=== PATIENT | female | born 1940 | race Caucasian/White ===

== ENCOUNTER 2016-10-09 19:44 | Day surgery (SDC) | payer MEDICAID, MEDICARE ==
[2016-10-09] VITALS (7 sets, daily range): BP systolic 103–133; BP diastolic 66–87
[~2016-10-09] VITALS: Ht 160 cm; Wt 105.3 kg
[~2016-10-09 19:44] MED LIST: ACET-2267 PO; ASP81TEC PO; ASPI-906 PO; ATEN50TA PO; ATENOLOL; ATOR10TA PO; ATOR80TA PO; ENAL2.5T PO; EZET10TA5; FERR-57 PO; Famotidine PO; HYDR-3729 PO; IBUP-30 PO; LEVO75TA57 PO; LVT.05T; METO25TA2 PO; OMG1KC PO; ONDA8TAB6 PO; OXB5T PO; PANT40TA2 PO; PNT40TEC PO; PRAS10TA6 PO; TOLTA4; TRM50T PO
[2016-10-09 19:57] LABS: BASOPHILS # (AUTO) 0.1 10^3/uL (0.0-0.1); BASOPHILS % (AUTO) 1 % (0-10); EOSINOPHILS # (AUTO) 0.2 10^3/uL (0.0-0.3); EOSINOPHILS % (AUTO) 2 % (0-10); LYMPHOCYTES % (AUTO) 39 % (12-44); MEAN CORPUSCULAR HEMOGLOBIN 25 PG (25-34); MEAN CORPUSCULAR HGB CONC 31 G/DL (32-36); MEAN CORPUSCULAR VOLUME 81 FL (80-99); MEAN PLATELET VOLUME 9.8 FL (7.4-10.4); MONOCYTES # (AUTO) 1.2 X 10^3 (0.0-1.0); MONOCYTES % (AUTO) 12 % (0-12); NEUTROPHILS # (AUTO) 4.8 X 10^3 (1.8-7.8); NEUTROPHILS % (AUTO) 46 % (42-75); PLATELET COUNT 409 10^3/uL (130-400); RED BLOOD COUNT 5.07 10^6/uL (4.35-5.85); RED CELL DISTRIBUTION WIDTH 19.6 % (10.0-14.5); WHITE BLOOD COUNT 10.3 10^3/uL (4.3-11.0)
[2016-10-09] MEDS: RX-NITROGLYCERIN 0.4 MG TAB BTL 25'S SL PRN ×2 (19:58→20:48)
[2016-10-09] MEDS ORDERED: ASPIRIN 81 MG CHEW (CHILDREN'S ASA) PO ONE (20:00)
[2016-10-09 20:13] LABS: PROTHROMBIN TIME PATIENT 12.5 SEC (12.2-14.7)
[2016-10-09 20:17] LABS: ALANINE AMINOTRANSFERASE 8 U/L (0-55); ALBUMIN 3.5 G/DL (3.2-4.5); AMYLASE 54 U/L (25-125); ANION GAP 8 MMOL/L (5-14); ASPARTATE AMINO TRANSFERASE 17 U/L (5-34); BILIRUBIN,TOTAL 0.3 MG/DL (0.1-1.0); BLOOD UREA NITROGEN 20 MG/DL (7-18); BUN/CREATININE RATIO 20; CALCIUM 9.3 MG/DL (8.5-10.1); CARBON DIOXIDE 30 MMOL/L (21-32); CHLORIDE 103 MMOL/L (98-107); CREATINE KINASE 45 U/L (29-168); CREATININE SERUM 0.99 MG/DL (0.60-1.30); GFR ESTIMATED 55; GLUCOSE 93 MG/DL (70-105); LIPASE 25 U/L (8-78); MAGNESIUM 2.1 MG/DL (1.8-2.4); POTASSIUM 4.8 MMOL/L (3.6-5.0); SODIUM 141 MMOL/L (135-145); TOTAL PROTEIN 6.9 G/DL (6.4-8.2)
[2016-10-09 20:23] LABS: TROPONIN I < 0.30 NG/ML (<0.30)
--- NOTE | 2016-10-09 20:24 | Diagnostic Imaging Report ---
INDICATION: Chest pain Portable chest 8:09 PM There is elevation of the left hemidiaphragm. Heart size and pulmonary vascularity are normal. Lungs clear. There are no effusions or pneumothoraces. IMPRESSION: Chronic elevation of the left hemidiaphragm. No acute abnormality seen. Dictated by: Dictated on workstation # [id number]
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
[2016-10-09] MEDS ORDERED: IOHEXOL 350 MG/ML 150 ML (OMNIPAQUE 350) VIAL IV ONE (21:00)
[2016-10-09] MEDS ORDERED: NS 100 ML (IVPB) BAG IV ONE (21:00)
--- NOTE | 2016-10-09 21:16 | Diagnostic Imaging Report ---
PROCEDURE: CT angiography of the chest with contrast. TECHNIQUE: Multiple contiguous axial images were obtained through the chest after uneventful bolus administration of intravenous contrast. Reconstructed CTA MIP acquisitions were also performed. INDICATION: Shortness of breath with chest and left shoulder pain There is elevation of the left hemidiaphragm causing crowding of the left hilar vascular structures. There is tortuosity of the aorta. There is some calcific atherosclerosis of the aorta but no aneurysm or dissection. There are no pulmonary emboli seen. There is no hilar or mediastinal lymphadenopathy. There is some atelectasis along the diaphragm at the left lung base. There is no effusion or pneumothorax. There is coronary artery calcific atherosclerosis. The spleen has a bilobed appearance. Pancreas appears normal. Liver appears normal. Gallbladder surgically absent. IMPRESSION: Elevated left hemidiaphragm. Atherosclerosis. No evidence for pulmonary embolism. Dictated by: Dictated on workstation # [id number]
[2016-10-09] MEDS ORDERED: NITROGLYCERIN SUBLINGUAL 0.4 MG TAB (NITROSTAT) SL PRN (22:45)
[2016-10-09] MEDS ORDERED: morphine INJ 4 MG/ML 1 ML (VIAL/SYRINGE) IV PRN (22:45)
[2016-10-09] MEDS ORDERED: CATHETER FLUSH 10 ML SYR IV PRN (22:45)
[2016-10-10] VITALS (21 sets, daily range): BP systolic 85–143; BP diastolic 55–90
[2016-10-10 02:19] LABS: BASOPHILS % (AUTO) 0 % (0-10); EOSINOPHILS # (AUTO) 0.2 10^3/uL (0.0-0.3); EOSINOPHILS % (AUTO) 2 % (0-10); LYMPHOCYTES # (AUTO) 3.4 X 10^3 (1.0-4.0); LYMPHOCYTES % (AUTO) 37 % (12-44); MEAN CORPUSCULAR HEMOGLOBIN 25 PG (25-34); MEAN CORPUSCULAR HGB CONC 31 G/DL (32-36); MEAN CORPUSCULAR VOLUME 82 FL (80-99); MEAN PLATELET VOLUME 9.9 FL (7.4-10.4); MONOCYTES # (AUTO) 1.1 X 10^3 (0.0-1.0); MONOCYTES % (AUTO) 12 % (0-12); NEUTROPHILS # (AUTO) 4.4 X 10^3 (1.8-7.8); NEUTROPHILS % (AUTO) 48 % (42-75); PLATELET COUNT 369 10^3/uL (130-400); RED BLOOD COUNT 4.56 10^6/uL (4.35-5.85); RED CELL DISTRIBUTION WIDTH 19.3 % (10.0-14.5); WHITE BLOOD COUNT 9.1 10^3/uL (4.3-11.0)
[2016-10-10 02:41] LABS: ALANINE AMINOTRANSFERASE 7 U/L (0-55); ALBUMIN 3.2 G/DL (3.2-4.5); ANION GAP 10 MMOL/L (5-14); ASPARTATE AMINO TRANSFERASE 14 U/L (5-34); BILIRUBIN,TOTAL 0.2 MG/DL (0.1-1.0); BLOOD UREA NITROGEN 20 MG/DL (7-18); BUN/CREATININE RATIO 23; CALCIUM 8.5 MG/DL (8.5-10.1); CARBON DIOXIDE 25 MMOL/L (21-32); CHLORIDE 105 MMOL/L (98-107); CHOLESTEROL 258 MG/DL (< 200); CREATININE SERUM 0.88 MG/DL (0.60-1.30); DIRECT LDL 176 MG/DL (1-129); GFR ESTIMATED > 60; GLUCOSE 97 MG/DL (70-105); POTASSIUM 4.4 MMOL/L (3.6-5.0); SODIUM 140 MMOL/L (135-145); TOTAL PROTEIN 6.1 G/DL (6.4-8.2); TRIGLYCERIDES 249 MG/DL (<150); VLDL CHOLESTEROL 50 MG/DL (5-40)
[2016-10-10] MEDS: CATHETER FLUSH 10 ML SYR IV SCH ×3 (05:36→22:00)
[2016-10-10] MEDS: ASPIRIN E.C. 325 MG (ECOTRIN) TABLET PO SCH (08:38)
--- NOTE | 2016-10-10 08:46 | Consultation-Cardiology ---
HPI-Cardiology Cardiology Consultation Date of Consultation 10/10/16 Date of Admission Indication: Chest pain HPI Patient is a 75 y/o female with history of CAD with ID in 2014, HTN, HLP. Presented to the ER with complaints of CP. Reports has been having intermitted chest and left shoulder pain for the past week. Associated dyspnea and dizziness. States CP was relieved by SL nitro in the ER. Denies any active CP at this time. Patient was seen and evaluated with Sonya, 75 years old lady with history of hypertension, hyperlipidemia, obesity, presented with acute chest pain, resembling angina previously had multiple stents in the past. She is having active symptoms. We discussed the management plan, patient expressed that her last cardiac catheterization was done in spite of normal stress test mentioned up with 2 stents. Her symptoms are suggestive of angina. Home Medications & Allergies Allergies: Coded Allergies: Penicillins (Verified Allergy, Unknown, HAS HAD ANCEF W/O PROBLEMS, ) procaine (Verified Allergy, Unknown, 01/04/07) Home Medication List Reviewed: Yes SFW-Edudys-Tvjrci Hx Patient Social History Marital Status: single Alcohol Use: Denies Use Recreational Drug Use: No Smoking Status: Former Smoker (SMOKED X 43 YEARS, QUIT A FEW YEARS AGO) Type Used: Cigarettes Recent Foreign Travel: No Recent Infectious Disease Expo: No Recent Hopitalizations: No Physical Abuse Screen: No Sexual Abuse: No Immunizations Up To Date Date of Pneumonia Vaccine: Apr 16, 2013 Past Medical History CAD, HTN, HLP, hypothyroidism Family Medical History Significant Family History: Heart Disease, Hypertension Family History: Cancer 03 MOTHER, Onset:40's - 50 Family history: Thyroid disorder 03 MOTHER 09 BROTHER Hearing loss 09 BROTHER Visual impairment 09 BROTHER No Family History of: Abdominal aortic aneurysm Constitutional: No malaise, No weakness EENTM: No blurred vision, No double vision Respiratory: No cough, No dyspnea on exertion, short of breath Cardiovascular: chest pain, No edema, No palpitations Gastrointestinal: No abdominal pain, No constipation Genitourinary: No frequency, No hematuria Musculoskeletal: No back pain Skin: No lesions, No rash Psychiatric/Neurological: Denies Anxiety, Denies Depressed, Denies Headache, Denies Numbness Reviewed Test Results Reviewed Test Results Lab Laboratory Tests 10/09/16 19:50: White Blood Count 10.3, Red Blood Count 5.07, Hemoglobin 12.7, Hematocrit 41, Mean Corpuscular Volume 81, Mean Corpuscular Hemoglobin 25, Mean Corpuscular Hemoglobin Concent 31L, Red Cell Distribution Width 19.6H, Platelet Count 409H, Mean Platelet Volume 9.8, Neutrophils (%) (Auto) 46, Lymphocytes (%) (Auto) 39, Monocytes (%) (Auto) 12, Eosinophils (%) (Auto) 2, Basophils (%) (Auto) 1, Neutrophils # (Auto) 4.8, Lymphocytes # (Auto) 4.0, Monocytes # (Auto) 1.2H, Eosinophils # (Auto) 0.2, Basophils # (Auto) 0.1, Prothrombin Time 12.5, INR Comment 1.0, Activated Partial Thromboplast Time 26, Sodium Level 141, Potassium Level 4.8, Chloride Level 103, Carbon Dioxide Level 30, Anion Gap 8, Blood Urea Nitrogen 20H, Creatinine 0.99, Estimat Glomerular Filtration Rate 55 , BUN/Creatinine Ratio 20, Glucose Level 93, Calcium Level 9.3, Magnesium Level 2.1, Total Bilirubin 0.3, Aspartate Amino Transf (AST/SGOT) 17, Alanine Aminotransferase (ALT/SGPT) 8, Alkaline Phosphatase 57, Total Creatine Kinase 45 , Creatine Kinase MB 1.4, Troponin I < 0.30, B-Type Natriuretic Peptide 86.5, Total Protein 6.9, Albumin 3.5, Amylase Level 54, Lipase 25 10/10/16 01:55: White Blood Count 9.1, Red Blood Count 4.56, Hemoglobin 11.4L, Hematocrit 37, Mean Corpuscular Volume 82, Mean Corpuscular Hemoglobin 25, Mean Corpuscular Hemoglobin Concent 31L, Red Cell Distribution Width 19.3H, Platelet Count 369, Mean Platelet Volume 9.9, Neutrophils (%) (Auto) 48, Lymphocytes (%) (Auto) 37, Monocytes (%) (Auto) 12, Eosinophils (%) (Auto) 2, Basophils (%) (Auto) 0, Neutrophils # (Auto) 4.4, Lymphocytes # (Auto) 3.4, Monocytes # (Auto) 1.1H, Eosinophils # (Auto) 0.2, Basophils # (Auto) 0.0, Sodium Level 140, Potassium Level 4.4, Chloride Level 105, Carbon Dioxide Level 25, Anion Gap 10, Blood Urea Nitrogen 20H, Creatinine 0.88, Estimat Glomerular Filtration Rate > 60, BUN /Creatinine Ratio 23, Glucose Level 97, Calcium Level 8.5, Total Bilirubin 0.2, Aspartate Amino Transf (AST/SGOT) 14, Alanine Aminotransferase (ALT/SGPT) 7, Alkaline Phosphatase 52, Troponin I < 0.30, Total Protein 6.1L, Albumin 3.2, Myoglobin 40.0, Triglycerides Level 249H, Cholesterol Level 258H, LDL Cholesterol Direct 176H, VLDL Cholesterol 50H, HDL Cholesterol 41 ECG Impression ECG Initial ECG Rhythm: Normal Sinus Physical Exam Vital Signs Vital Sign - Last 12Hours 10/09/16 19:53 Temp 98.4 Pulse 74 Resp 21 B/P (MAP) 144/88 Pulse Ox 89 Capillary Refill : Less Than 3 Seconds General Appearance: No Apparent Distress, WD/WN HEENT: PERRL/EOMI Neck: Non Tender, Supple Respiratory: Chest Non Tender, Lungs Clear Cardiovascular: Regular Rate, Rhythm, No Edema, No Gallop, No Murmur, Normal Peripheral Pulses Gastrointestinal: Non Tender, Soft Rectal: Deferred Back: No CVA Tenderness Extremity: No Pedal Edema Neurologic/Psychiatric: Alert, Oriented x3, 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 Cardiac enzymes are negative, no acute ST changes on EKG. Patient has extensive cardiac history with risk factors for progression of CAD. Planning for repeat cardiac catheterization today. Will keep NPO, start IV fluids. Coronary artery disease- status post acute myocardial infarction in 2013 with total occlusion of the right coronary artery, underwent complex intervention with stent deployment to the right coronary artery using 3.5x30 mm integrity and 3.018 mm bare-metal stent without complication. Had multiple clots in the distal right coronary artery, had another cardiac catheterization in December 2014 resulted in deployment of another stent 3.012 mm integrity bare-metal stent with good result. Patient had [id number] disease in the LAD and circumflex artery. Has been maintained on Effient and ASA. Planning for repeat LHC. Congestive heart failure, acute left ventricular systolic dysfunction due to her myocardial infarction, most recent EF 45 percent per 2-D echo done January 2015. Continue to monitor Ventral hernia-status post repair by Dr. Sun April 2015. Hypertension, restart medications and continue to monitor BP. Hyperlipidemia, poorly controlled. LDL in 176. Patient has refused lipid medications in the past. Will need to start statin therapy if agreeable. History of colon cancer, status post right hemicolectomy done by Dr. Alas. patient has been monitored and followed by Dr. Henriquez Obesity, patient was instructed on weight loss. Bilateral nonobstructive carotid artery stenosis per most recent carotid duplex October 2015. Continue to monitor. Thank you for allowing us to participate in the management of Ms. Ralph. This is Sonya Frausto PA-C as a scribe for Dr. Posey. Patient was seen and evaluated with Sonya, 75 years old lady with history of hypertension, hyperlipidemia, obesity, presented with acute chest pain, resembling angina previously had multiple stents in the past. She is having active symptoms. We discussed the management plan, patient expressed that her last cardiac catheterization was done in spite of normal stress test mentioned up with 2 stents. Her symptoms are suggestive of angina. On examination her lungs were clear to auscultation bilateral, heart is regular rate and rhythm, patient had extensive history with coronary artery disease as described above, I will proceed with cardiac catheterization possible PTCA.I reviewed the current note and agree with the scribe, I did minor modification and used Italic Font Clinical Quality Measures AMI/AHF: ASA po Prior to arrival: No DVT/VTE Risk/Contraindication: Risk Factor Score Per Nursin RFS Level Per Nursing on Admit: 3=High SONYA BLAKE Oct 10, 2016 08:46 PETROS POSEY MD Oct 10, 2016 11:57
[2016-10-10] MEDS ORDERED: NS IV 1000 ML 1,000 ML ONE (08:54)
[2016-10-10] MEDS: NS IV 1000 ML 1,000 ML IV SCH ×2 (09:08→16:06)
[2016-10-10] MEDS ORDERED: PRAS10TA6 PO (09:50)
[2016-10-10] MEDS ORDERED: METO-333 PO (09:50)
[2016-10-10] MEDS ORDERED: LEVO100T7 PO (09:50)
[2016-10-10] MEDS ORDERED: OXYB5TAB9 PO (09:50)
[2016-10-10] MEDS ORDERED: IBUP-1780 PO (09:58)
[2016-10-10] MEDS ORDERED: NS IV 1000 ML 0 ML ONE (10:46)
[2016-10-10] MEDS ORDERED: LIDOCAINE 1% INJ 20 ML (XYLOCAINE) VIAL ONE (10:46)
[2016-10-10] MEDS ORDERED: HEParin (CATH LAB) 2,000 ML IV ONE (10:46)
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
[2016-10-10] MEDS ORDERED: IBUPROFEN 800 MG (MOTRIN) TAB PO PRN (11:45)
[2016-10-10] MEDS ORDERED: MIDAZOLAM 5 MG/5 ML (VERSED) VIAL ONE (11:48)
[2016-10-10] MEDS ORDERED: fentaNYL INJECTION 100 MCG/2 ML AMP ONE (11:48)
--- NOTE | 2016-10-10 11:58 | Cardiac Procedure Note-CS/ASA ---
Pre-Procedure Note Pre-Op Procedure Note H&P Reviewed The H&P was reviewed, patient examined and no changes noted. Date H&P Reviewed: Oct 10, 2016 Time H&P Reviewed: :57 Conscious Sedation Pre-Proced Time Reviewed: :57 ASA Class: 3 Airway Mallampati Classification: (ione appropriate class) I. II. III, IV Lungs Heart ASA score ASA 1: a normal healthy patient ASA 2: a patient with a mild systemic disease (mid diabetes, controlled hypertension, obesity x ASA 3: a patient with a severe systemic disease that limits activity (angina , COPD, prior Myocardial infarction) ASA 4: a patient with an incapacitating disease that is a constant threat to life (CHF, renal failure) ASA 5: a moribund patient not expected to survive 24 hrs. (ruptured aneurysm) ASA 6: a declared brain patient whose organs are being harvested. For emergent operations, add the letter E after the classification Grade 3 Sedation Plan: Analgesia, Amnesia, Plan communicated to team members, Discussed options with patient/fam, Discussed risks with patient/fam Note The patient is an appropriate candidate to undergo the planned procedure, sedation, and anesthesia. The patient immediately re-assessed prior to indication. PETROS ANTHONY MD Oct 10, 2016 11:58
[2016-10-10] MEDS ORDERED: HEParin 1000 UNIT/ML (10ML VIAL) FOR BOLUS ONE (12:33)
[2016-10-10] MEDS ORDERED: ADENOSINE 3 MG/1 ML (ADENOSCAN) 30ML VIAL IV ONE (12:35)
[2016-10-10] MEDS ORDERED: NITROGLYCERIN DRIP 25 MG/D5W 250 ML IV ONE (12:40)
[2016-10-10] MEDS ORDERED: NS IV 1000 ML 1,000 ML IV SCH (12:50)
[2016-10-10] MEDS ORDERED: ATOR10TA PO (12:55)
[2016-10-10] MEDS ORDERED: ASPI-983 PO (12:55)
--- NOTE | 2016-10-10 12:56 | Discharge Inst-Post CATH ---
Discharge Inst-CATH Post Cardiac Cath D/C Inst Follow Up/Plan Appointment with Dr Posey's office in 2-[address] Brower CARDIAC CATH DISCHARGE INSTRUCTIONS *Hold Metformin for 48 hours post heart cath. ACTIVITY * Go Home directly and rest. * Limit activity of the leg (or wrist if it was used) for 7 days including aerobics, swimming, jogging, bicycling, etc. * Restrict stair-climbing for 7 days if possible, if not, climb up with your non -cath leg, then bring together on the same step. * Avoid lifting, pushing, pulling or excessive movement of the affected extremity for 7 days. * Customary sexual activity may be resumed after 2 days-use caution not to use a position that strains or causes pain to the affected extremity. * No driving for 24 hours. * NO SMOKING. * Avoid straining for bowel movements for 7 days. * Gentle walking on level ground is allowed. * Returning to work will depend on the type of procedure and the results. Your doctor will discuss this with you. CALL YOUR DOCTOR FOR ANY OF THE FOLLOWING: *If bleeding from the puncture site occurs- Apply gentle pressure to site with clean cloth and call your doctor or EMS. * If a knot or lump forms under the skin, increases in size, or causes pain. * If bruising appears to be worsening or moving further down your leg instead of disappearing. * Temperature above 101 F. CARE OF YOUR GROIN INCISION; * Bruising or purple discoloration of the skin near the puncture site is common. * You may shower only, no bathtub bathing for 5 days. Be careful to avoid slipping as your leg may feel stiff. * If a closure device was used on your femoral artery, please see the attached guide regarding care of the device and your leg. * REMOVE the dressing from your groin the next day after your procedure in the shower. CARE OF YOUR WRIST INCISION; * Bruising or purple discoloration of the skin near the puncture site is common. * You may shower. * DO NOT submerge wrist. * Remove dressing in 24 hours. PETROS POSEY MD Oct 10, 2016 12:56
[2016-10-10] MEDS ORDERED: PATIENT MAY USE OWN MEDS, ALL PO SCH (13:00)
[2016-10-10] MEDS ORDERED: OMEG-35 PO (13:48)
--- NOTE | 2016-10-10 14:14 | DISCHARGE SUMMARY ---
PROCEDURE PHYSICIAN: PETROS ANTHONY DATE OF PROCEDURE: 10/10/2016 REFERRING PHYSICIAN: Dr. Suri Napier. BRIEF HISTORY: Mrs. Ralph is a 75-year-old lady with history of coronary artery disease, hypertension, hyperlipidemia in addition to obesity, admitted with acute chest pain. The patient has extensive history. Planning to proceed with cardiac catheterization, possible PTCA. PROCEDURE NOTE: After explaining the procedure to the patient, all pros and cons were explained. All questions were answered. The patient signed a consent and then she was placed on the cardiac catheterization laboratory. The right groin was prepped in a sterile fashion. Local anesthesia applied to the right groin. A 6-Bhutanese sheath was placed in the right femoral artery. Combination of right and left Waldo catheter were used to access the right and left coronary system. Multiple views were obtained. Pigtail catheter advanced to the left ventricular cavity. Pressure was measured. No left no left ventriculogram was done. Pullback LV to aorta was done. At that point, there was a borderline lesion in the right coronary artery. I decided to proceed with FFR evaluation. The patient was given 3000 units of heparin. FR guide was advanced to the right coronary artery. FFR wire was advanced through the lesion and parked distally. Baseline FFR was 0.96. The patient was started adenosine drip. After 3 minutes her FFR was 0.84. FFR wire was removed. The patient was given intracoronary nitroglycerin. Angiogram showed no complication. At the end of the procedure, sheath was removed. Mynx device deployed. Hemostasis achieved. Total contrast used 87 mL. Total radiation 582 mGy. FINDINGS: HEMODYNAMICS: LV pressure 122/9, end-diastolic pressure of 9, aortic pressure 128/64, mean of 91. ANATOMY: 1. LEFT MAIN CORONARY ARTERY: The left main coronary artery is bifurcating to left anterior descending and left circumflex artery with no obstructive disease. 2. LEFT ANTERIOR DESCENDING ARTERY: The left anterior descending artery is moderate in size with mild disease distally. No significant obstructive disease. 3. RIGHT CORONARY ARTERY: The right coronary artery is dominant artery. Haziness in the midright coronary artery with 50% stenosis. FFR after adenosine was 0.84. 4. LEFT CIRCUMFLEX ARTERY: The left circumflex artery is moderate in size with mild disease. No significant obstructive disease. 5. Normal left ventricular, end-diastolic pressure. CONCLUSION: 1. Patent stents in the LAD with mild disease distally, nonobstructive disease. 2. 50% in-stent restenosis in the midright coronary artery with FFR of 0.84. Medical therapy is recommended. 3. Normal left ventricular, end-diastolic pressure. DISCUSSION AND RECOMMENDATION: I recommend maximizing medical therapy. I started the patient on aspirin instead of Effient and Lipitor but the patient expressed that she has been allergic to Lipitor and she is unable to tolerate it. She is allergic to penicillin and procaine. I will use fish oil and educate about diet and we will monitor as an outpatient. FINAL DIAGNOSES: 1. Chest pain, nonspecific etiology. 2. Coronary artery disease. 3. Hypertension. 4. Hyperlipidemia. DISCHARGE INSTRUCTIONS: The patient is scheduled to see Dr. Brower for about possible underlying sleep apnea. Job ID: [id number] Dictated Date: 10/10/2016 13:07:42 Textile Bag Sewer Date: 10/10/2016 14:12:22/kyle
[2016-10-10] MEDS ORDERED: ACETAMINOPHEN 325 MG TABLET/CAPLET (TYLENOL) ONE (18:25)
[2016-10-10] MEDS: OXYBUTYNIN (DITROPAN) 5 MG TAB PO SCH (18:32)
[2016-10-10] MEDS: meTOprolol TARTRATE 25 MG (LOPRESSOR) TABLET PO SCH (19:34)
[2016-10-11] VITALS: BP 119/71
[2016-10-11 03:39] LABS: MEAN PLATELET VOLUME 10.1 FL (7.4-10.4); RED BLOOD COUNT 4.49 10^6/uL (4.35-5.85); RED CELL DISTRIBUTION WIDTH 19.5 % (10.0-14.5); WHITE BLOOD COUNT 7.8 10^3/uL (4.3-11.0)
[2016-10-11 04:00] VITALS: BP 114/64
[2016-10-11] MEDS: CATHETER FLUSH 10 ML SYR IV SCH (06:00)
[2016-10-11] MEDS: NS IV 1000 ML 1,000 ML IV SCH (06:32)
--- NOTE | 2016-10-11 07:57 | Cardiology Progress Note ---
Subjective Subjective/Events-last exam patient is laying down in bed, feeling well. Denied any chest or shortness of breath, groin is healing well. Review of Systems General: No Chills, No Night Sweats, No Fatigue, No Malaise, No Appetite, No Other HEENT: No Head Aches, No Visual Changes, No Eye Pain, No Ear Pain, No Dysphasia , No Sinus Congestion, No Post Nasal Drip, No Sore Throat, No Other Pulmonary: No Dyspnea, No Cough, No Pleuritic Chest Pain, No Other Cardiovascular: No: Chest Pain, Edema, Lt Headedness, Orthopnea, Other, Palpitations, Paroxysmal Noc. Dyspnea Objective-Cardiology Exam Last Set of Vital Signs Vital Signs 10/10/16 10/10/16 10/11/16 08:45 14:49 04:00 Temp 96.7 Pulse 58 Resp 16 B/P (MAP) 114/64 Pulse Ox 98 O2 Delivery Nasal Cannula O2 Flow Rate 2.00 Capillary Refill : Less Than 3 Seconds I&O Intake and Output 10/11/16 00:00 Intake Total 1960 ml Output Total 1200 ml Balance 760 ml Intake Oral 960 ml IV Total 1000 ml Output Urine Total 1200 ml # Voids 5 General: Alert, Oriented X3, Cooperative HEENT: Atraumatic, PERRLA Neck: Supple, No JVD, No Thyromegaly Lungs: Clear to Auscultation, Normal Air Movement Heart: Regular Rate, Normal S1, Normal S2, No Murmurs Abdomen: Normal Bowel Sounds, Soft, No Tenderness, No Hepatosplenomegaly, No Masses Extremities: No Clubbing, No Cyanosis, No Edema, Normal Pulses, No Tenderness/ Swelling Skin: No Rashes, No Breakdown, No Significant Lesion Neuro: Normal Gait, Normal Speech, Strength at 5/5 X4 Ext, Normal Tone, Sensation Intact Psych/Mental Status: Mental Status NL, Mood NL Results Lab Laboratory Tests 10/11/16 03:17 A/P-Cardiology Admission Diagnosis CP CAD HTN HLP Assessment/Plan CP, resembling angina. Cardiac enzymes are negative, no acute ST changes on EKG. Patient has extensive cardiac history with risk factors for progression of CAD, cardiac catheterization showed yyaa-ba-eaubowyt disease nonobstructive disease. Coronary artery disease- status post acute myocardial infarction in 2013 with total occlusion of the right coronary artery, underwent complex intervention with stent deployment to the right coronary artery using 3.5x30 mm integrity and 3.018 mm bare-metal stent without complication. Had multiple clots in the distal right coronary artery, had another cardiac catheterization in December 2014 resulted in deployment of another stent 3.012 mm integrity bare-metal stent with good result. Patient had trie-nq-efahwkoe disease in the LAD and circumflex artery. Has been maintained on Effient and ASA. cardiac catheterization showed 50 percent in-stent restenosis in the mid LAD, nonobstructive disease and FFR 0.84 after adenosine injection. Medical therapy is recommended. Right groin hematoma, better at this time, some bruising on the groin. H&H are stable. Okay for discharge. Congestive heart failure, acute left ventricular systolic dysfunction due to her myocardial infarction, most recent EF 45 percent per 2-D echo done January 2015. Continue to monitor Ventral hernia-status post repair by Dr. Sun April 2015. Hypertension, restart medications and continue to monitor BP. Hyperlipidemia, poorly controlled. LDL in 176. Patient has refused lipid medications in the past. patient is reporting allergy to statin, starting on fish oil tablets. Educated on weight loss. History of colon cancer, status post right hemicolectomy done by Dr. Alas. patient has been monitored and followed by Dr. Florence Paulino, patient was instructed on weight loss. Bilateral nonobstructive carotid artery stenosis per most recent carotid duplex October 2015. Continue to monitor. Clinical Quality Measures AMI/AHF: ASA po Prior to arrival: No DVT/VTE Risk/Contraindication: Risk Factor Score Per Nursin RFS Level Per Nursing on Admit: 3=High PETROS ANTHONY MD Oct 11, 2016 07:57
[2016-10-11] MEDS ORDERED: PRASUGREL 10 MG (EFFIENT) TABLET PO SCH (09:00)
[2016-10-11] MEDS ORDERED: LEVOTHYROXINE 100 MCG (LEVOTHROID) TAB PO SCH (09:00)
[2016-10-11 09:33] VITALS: BP 112/51
[2016-10-11] MEDS: meTOprolol TARTRATE 25 MG (LOPRESSOR) TABLET PO SCH (09:38)
[2016-10-11] MEDS: ASPIRIN E.C. 325 MG (ECOTRIN) TABLET PO SCH (09:59)
[2016-10-11] MEDS: OXYBUTYNIN (DITROPAN) 5 MG TAB PO SCH (09:59)
[2016-10-11 10:25] VITALS: BP 112/51
--- NOTE | 2016-10-11 10:51 | Discharge Summary-Hospitalist ---
Diagnosis/Chief Complaint Date of Admission Oct 09, 2016 at 21:00 Date of Discharge Discharge Date: Oct 11, 2016 Discharge Time: 0800 Admission Diagnosis Assessment: Chest pain suspicious for unstable angina in and known coronary artery disease patient status post stents 2 Hypothyroidism Chronic angina Obesity Hypoxemia likely due to underlying obstructive sleep apnea Discharge Diagnosis Assessment: Chest pain suspicious for unstable angina in and known coronary artery disease patient status post stents 2 but cardiac cath was negative for any lesion intervention Hypothyroidism Chronic angina Obesity Hypoxemia likely due to underlying obstructive sleep apnea noted readings last night so will arrange for EMILIE evaluation with Dr Brower at [place] Plan: Reconcile home meds when put in Home O2 eval EMILIE evaluation as an outpatient Reason Hospital Visit/Course CC: Chest pain Chart Review: Dr. 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 Pt has stents in the past. Patient Interview: Pt states she will receive another stent today. Pt states she had a PR and two stents placed in 05/21, Pt had another stent placed in 12/20. Pt states her great-grandchildren live with her. 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 Physical exam was stable. Pt denies using home O2 or CPAP. Pt states she would like coffee after her cath. Scribed by Gianluca Shen under the direct supervision of Dr. Golden. Note form 10/11/16 shoe parts caser: Pt will have sleep study with Dr. Brower. Pt will be DC today. SW Review: Pt needs to have sleep study done. Pt has EMILIE. Patient Interview: Pt states she is doing well currently. Pt was told about having a sleep study with Dr. Brower. Pt states her brother has EMILIE. Pt states she didn't do much sleeping while working for 31 years and she is still on the same sleep schedule. Pt states she would like to go home. Scribed by Gianluca Shen under the direct supervision of Dr. Golden. AFVSS, Pleasant, O x 3 up in chair ready to go home. Discharge Summary Discharge Physical Examination Allergies: Coded Allergies: Penicillins (Verified Allergy, Unknown, HAS HAD ANCEF W/O PROBLEMS, ) atorvastatin (Verified Allergy, Unknown, 10/10/16) procaine (Verified Allergy, Unknown, 01/04/07) Vitals & I&Os Vital Signs Date Time Temp Pulse Resp B/P (MAP) Pulse Ox O2 Delivery O2 Flow Rate FiO2 10/11/16 10:25 73 16 112/51 96 10/11/16 09:33 96.9 Room Air 10/11/16 04:00 2.00 Hospital Course Labs (last 24 hrs) Laboratory Tests 10/11/16 03:17: White Blood Count 7.8, Red Blood Count 4.49, Hemoglobin 11.2L, Hematocrit 37, Mean Corpuscular Volume 83, Mean Corpuscular Hemoglobin 25, Mean Corpuscular Hemoglobin Concent 30L, Red Cell Distribution Width 19.5H, Platelet Count 323, Mean Platelet Volume 10.1 Pending Labs Discharge Home Medications: Active Scripts Active Fish Oil 1,000 mg Softgel ([place]-3/Dha/Epa/Fish Oil) 1 Each Capsule 1 Each PO TID 30 Days Aspirin EC (Aspirin) 81 Mg Tablet.dr 81 Mg PO DAILY Reported Ibuprofen 800 Mg Tablet 800 Mg PO Q8H PRN Levothyroxine Sodium 100 Mcg Tablet 100 Mcg PO DAILY Oxybutynin Chloride 5 Mg Tablet 10 Mg PO 0800,1600 TAKES 2 (5 MG) TABLETS Metoprolol Tartrate 25 Mg Tablet 25 Mg PO 0800,1600 Instructions to patient/family Please see electonic discharge instructions given to patient. Clinical Quality Measures AMI/AHF: ASA po Prior to arrival: No DVT/VTE Risk/Contraindication: Risk Factor Score Per Nursin RFS Level Per Nursing on Admit: 3=High EVAN GOLDEN DO Oct 11, 2016 10:51
--- OUTSIDE RECORDS SUMMARY | 2016-11-11 15:22 | XMS REPORT ---
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
--- OUTSIDE RECORDS SUMMARY | 2016-11-11 15:23 | XMS REPORT ---
Author Author ZAYDA ESPITIA [facility] [employer] Address Unknown Phone Unavailable Care Team Providers Care Process Chemist Name Role Phone ZAYDA ESPITIA CP Unavailable Allergies, Adverse Reactions, Alerts Substance Reaction Event Type Penicillamine rash Drug Allergy Novocain rash Drug Allergy Problems Problem Type Condition Code Onset Dates Condition Status Assessment Essential hypertension I10 Active Assessment Acquired hypothyroidism E03.9 Active Problem Colon polyp K63.5 Mar 08, 2015 Active Problem Abnormal findings on esophagogastroduodenoscopy (EGD) 796.4 Mar Active Problem CAD (coronary artery disease) 414.00 Active Assessment Other specified postprocedural states Z98.89 Active Assessment Personal history of other diseases of the digestive system Z87.19 Active Problem 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 Problem Essential hypertension, benign 401.1 Active Medications Medication Code System Code Instructions Start Date End Date Status Dosage levothyroxine NDC 0 75 mcg Jul 22, 2014 1 tablet by Oral route 1 time per day Needs an appt for further refills Oxybutynin Chloride [facility] [address]-39 5 mg Aug 16, 2011 1 tablet by Oral route 4 times per day Metoprolol Tartrate [facility] [address]-92 25 mg Jul 22, 2014 1 Tablet by Oral route 2 times per day Aspirin [facility] [address]-77 81 mg Aug 03, 2013 1 Tablet by Oral route 1 time per day Effient [facility] [address]-32 10 mg Jul 22, 2014 1 Tablet by Oral route 1 time per day Procedures Procedure Coding System Code Date VENIPUNCT, ROUTINE* CPT-4 49658 May 19, 2015 [facility] VISIT ESTABLISHED PATIENT CPT-4 G0467 May 19, 2015 LAB NOT BILLED BY [facility] CPT-4 NOBLL May 19, 2015 Office Visit, Est Pt., Level 3 CPT-4 94458 May 19, 2015 Vital Signs Date/Time: May 19, 2015 Temperature 97.6 F Weight 222.6 lbs Height 63.5 in BMI 38.81 Index Blood Pressure Diastolic 76 mmHg Blood Pressure Systolic 120 mmHg Cardiac Monitoring Heart Rate 68 bpm Results Name Result Date Reference Range Unit Abnormality Flag ROUTINE VENIPUNCTURE TSH ----TSH 4.320 [id number] 0.450-4.500 uIU/mL Summary Purpose [employer] Submission
--- OUTSIDE RECORDS SUMMARY | 2016-11-11 15:23 | XMS REPORT ---
Author Author ZAYDA ESPITIA Organization [employer] Address Unknown Phone Unavailable Care Team Providers Care Credit Card Analyst Name Role Phone ZAYDA ESPITIA CP Unavailable [...] Start Date End Date Status Dosage Ultram [facility] [address]-76 50 MG Jul 22, 2014 1 tablet by Oral route every 8 hours PRN pain Results No Known Results Summary Purpose [employer] Submission
--- OUTSIDE RECORDS SUMMARY | 2016-11-11 15:23 | XMS REPORT ---
Author Author ZAYDA ESPITIA Organization [employer] Address Unknown Phone Unavailable Care Team Providers Care Gel Coater Name Role Phone ZAYDA ESPITIA CP Unavailable Allergies No Known Allergies Problems Problem Type Condition Code Onset Dates Condition Status Problem Essential hypertension, benign 401.1 Active Problem Hypothyroidism, unspecified type E03.9 Active Problem Hyperlipidemia, unspecified hyperlipidemia type E78.5 Active Problem Coronary artery disease involving [place] coronary artery of [place] heart without angina pectoris I25.10 Active Problem Abnormal findings on esophagogastroduodenoscopy (EGD) 796.4 Mar Active Problem 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
--- OUTSIDE RECORDS SUMMARY | 2016-11-11 15:23 | XMS REPORT ---
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
--- OUTSIDE RECORDS SUMMARY | 2016-11-11 15:23 | XMS REPORT | Continuity of Care Document ---
Author Author [facility] Address Unknown Phone Unavailable Allergies Active Description Code Type Severity Reaction Onset Reported/Identified Relationship to Patient Clinical Status Yes Penicillins Drug Allergy 08/10/2008 Yes Penicillins Drug Allergy N/A N/A 08/10/2008 Yes Penicillins [id number] Drug Allergy Unknown N/A 04/18/2015 Yes procaine [id number] Drug Allergy Unknown N/A 04/18/2015 Yes Penicillins [id number] Drug Allergy Unknown HAS HAD ANCEF W 05/04/2015 Yes atorvastatin [id number] Drug Allergy Unknown N/A 10/10/2016 Medications Problems Date Dx Coded Attending Type Code Diagnosis Diagnosed By 08/10/2008 NIK BALLARD MD 244.9 HYPOTHYROIDISM 08/10/2008 NIK BALLARD MD 278.01 OBESITY MORBID 08/10/2008 NIK BALLARD MD 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 08/10/2008 NIK BALLARD MD 465.9 ACUTE UPPER RESPIRATORY INFECTIONS OF UNSPECIFIED SITE 08/10/2008 NIK BALLARD MD 719.40 joint pain, localized 08/10/2008 NIK BALLARD MD 244.9 HYPOTHYROIDISM 08/10/2008 NIK BALLARD MD 278.01 OBESITY MORBID 08/10/2008 NIK BALLARD MD 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 08/10/2008 NIK BALLARD MD 465.9 ACUTE UPPER RESPIRATORY INFECTIONS OF UNSPECIFIED SITE 08/10/2008 NIK BALLARD MD 719.40 joint pain, localized 08/10/2008 NIK BALLARD MD 244.9 HYPOTHYROIDISM 08/10/2008 NIK BALLARD MD 278.01 OBESITY MORBID 08/10/2008 NIK BALLARD MD 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 08/10/2008 NIK BALLARD MD 465.9 ACUTE UPPER RESPIRATORY INFECTIONS OF UNSPECIFIED SITE 08/10/2008 NIK BALLARD MD 719.40 joint pain, localized 08/10/2008 NUP[employer] SHIPPING [employer] RECEIVING CLERK, ZAYDA S 244.9 HYPOTHYROIDISM 08/10/2008 NUPUR SHIPPING AND RECEIVING CLERK, ZAYDA S 278.01 OBESITY MORBID 08/10/2008 NUPUR SHIPPING AND RECEIVING CLERK, ZAYDA S 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 08/10/2008 NUPUR SHIPPING AND RECEIVING CLERK, ZAYDA S 465.9 ACUTE UPPER RESPIRATORY INFECTIONS OF UNSPECIFIED SITE 08/10/2008 NUPUR CARVER, ZAYDA S 719.40 joint pain, localized 08/10/2008 NIK BALLARD MD 244.9 HYPOTHYROIDISM 08/10/2008 NIK BALLARD MD 278.01 OBESITY MORBID 08/10/2008 NIK BALLARD MD 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 08/10/2008 NIK BALLARD MD 465.9 ACUTE UPPER RESPIRATORY INFECTIONS OF UNSPECIFIED SITE 08/10/2008 NIK BALLARD MD 719.40 joint pain, localized 08/10/2008 NUPUR CARVER, ZAYDA S 244.9 HYPOTHYROIDISM 08/10/2008 NUPUR CARVER, ZAYDA S 278.01 OBESITY MORBID 08/10/2008 NUPUR CARVER, ZAYDA S 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 08/10/2008 NUPUR SHIPPING [employer] RECEIVING CLERK, ZAYDA S 465.9 ACUTE UPPER RESPIRATORY INFECTIONS OF UNSPECIFIED SITE 08/10/2008 NUPUR CARVER, ZAYDA S 719.40 joint pain, localized 02/09/2009 NIK BALLARD MD 272.4 HYPERLIPIDEMIA HYPERLIPOPROTEINEMIAS (Old Classification) 02/09/2009 NIK BALLARD MD 272.4 HYPERLIPIDEMIA HYPERLIPOPROTEINEMIAS (Old Classification) 02/09/2009 NIK BALLARD MD 272.4 HYPERLIPIDEMIA HYPERLIPOPROTEINEMIAS (Old Classification) 02/09/2009 ZAYDA ESPITIA APRN S 272.4 HYPERLIPIDEMIA HYPERLIPOPROTEINEMIAS ( Old Classification) 02/09/2009 NIK BALLARD MD 272.4 HYPERLIPIDEMIA HYPERLIPOPROTEINEMIAS (Old Classification) 02/09/2009 ZAYDA ESPITIA APRN S 272.4 HYPERLIPIDEMIA HYPERLIPOPROTEINEMIAS ( Old Classification) 12/27/2009 NIK BALLARD MD 268.9 VITAMIN D DEFICIENCY 12/27/2009 NIK BALLARD MD 268.9 VITAMIN D DEFICIENCY 12/27/2009 NIK BALLARD MD 268.9 VITAMIN D DEFICIENCY 12/27/2009 ZAYDA ESPITIA APRN 268.9 VITAMIN D DEFICIENCY 12/27/2009 NIK BALLARD MD 268.9 VITAMIN D DEFICIENCY 12/27/2009 ZAYDA ESPITIA APRN 268.9 VITAMIN D DEFICIENCY 09/20/2010 NIK BALLARD MD V68.1 ISSUE OF REPEAT PRESCRIPTIONS 09/20/2010 NIK BALLARD MD V68.1 ISSUE OF REPEAT PRESCRIPTIONS 09/20/2010 NIK BALLARD MD V68.1 ISSUE OF REPEAT PRESCRIPTIONS 09/20/2010 ZAYDA ESPITIA APRN V68.1 ISSUE OF REPEAT PRESCRIPTIONS 09/20/2010 NIK BALLARD MD V68.1 ISSUE OF REPEAT PRESCRIPTIONS 09/20/2010 ZAYDA ESPITIA APRN V68.1 ISSUE OF REPEAT PRESCRIPTIONS 01/17/2011 NIK BALLARD MD 216.9 Benign Neoplasm Of Skin Site Unspecified 01/17/2011 NIK BALLARD MD 701.9 Unspecified Hypertrophic And Atrophic Conditions Of Skin 01/17/2011 NIK BALLARD MD 702.0 Actinic Keratosis 01/17/2011 NIK BALLARD MD 702.19 Other Seborrheic Keratosis 01/17/2011 NIK BALLARD MD 216.9 Benign Neoplasm Of Skin Site Unspecified 01/17/2011 NIK BALLARD MD 701.9 Unspecified Hypertrophic And Atrophic Conditions Of Skin 01/17/2011 NIK BALLARD MD 702.0 Actinic Keratosis 01/17/2011 NIK BALLARD MD 702.19 Other Seborrheic Keratosis 01/17/2011 NIK BALLARD MD 216.9 Benign Neoplasm Of Skin Site Unspecified 01/17/2011 NIK BALLARD MD 701.9 Unspecified Hypertrophic And Atrophic Conditions Of Skin 01/17/2011 NIK BALLARD MD 702.0 Actinic Keratosis 01/17/2011 NIK BALLARD MD 702.19 Other Seborrheic Keratosis 01/17/2011 ZAYDA ESPITIA APRN 216.9 Benign Neoplasm Of Skin Site Unspecified 01/17/2011 ZAYDA ESPITIA APRN S 701.9 Unspecified Hypertrophic And Atrophic Conditions Of Skin 01/17/2011 NUPUR SHIPPING [employer] RECEIVING CLERK, ZAYDA S 702.0 Actinic Keratosis 01/17/2011 NUPUR SHIPPING AND RECEIVING CLERK, ZAYDA S 702.19 Other Seborrheic Keratosis 01/17/2011 NIK BALLARD MD 216.9 Benign Neoplasm Of Skin Site Unspecified 01/17/2011 NIK BALLARD MD 701.9 Unspecified Hypertrophic And Atrophic Conditions Of Skin 01/17/2011 NIK BALLARD MD 702.0 Actinic Keratosis 01/17/2011 NIK BALLARD MD 702.19 Other Seborrheic Keratosis 01/17/2011 NUPUR SHIPPING AND RECEIVING CLERK, ZAYDA S 216.9 Benign Neoplasm Of Skin Site Unspecified 01/17/2011 NUPUR SHIPPING AND RECEIVING CLERK, ZAYDA S 701.9 Unspecified Hypertrophic And Atrophic Conditions Of Skin 01/17/2011 NUPUR SHIPPING AND RECEIVING CLERK, ZAYDA S 702.0 Actinic Keratosis 01/17/2011 NUPUR CARVER, ZAYDA S 702.19 Other Seborrheic Keratosis 03/07/2011 NIK BALLARD MD 682.1 Cellulitis And Abscess Of Neck 03/07/2011 NIK BALLARD MD V58.32 Encounter For Removal Of Sutures 03/07/2011 NIK BALLARD MD 682.1 Cellulitis And Abscess Of Neck 03/07/2011 NIK BALLARD MD V58.32 Encounter For Removal Of Sutures 03/07/2011 NIK BALLARD MD 682.1 Cellulitis And Abscess Of Neck 03/07/2011 NKI BALLARD MD V58.32 Encounter For Removal Of Sutures 03/07/2011 NUPUR TRINIDADN, ZAYDA S 682.1 Cellulitis And Abscess Of Neck 03/07/2011 NUPUR CARVER, ZAYDA S V58.32 Encounter For Removal Of Sutures 03/07/2011 NIK BALLARD MD 682.1 Cellulitis And Abscess Of Neck 03/07/2011 NIK BALLARD MD V58.32 Encounter For Removal Of Sutures 03/07/2011 NUPUR CARVER, ZAYDA S 682.1 Cellulitis And Abscess Of Neck 03/07/2011 NUPUR CARVER, ZAYDA S V58.32 Encounter For Removal Of Sutures 07/29/2012 NIK BALLARD MD 401.1 ESSENTIAL HYPERTENSION BENIGN 07/29/2012 NELLIE HARRELL, NIK 596.51 BLADDER HYPERACTIVITY 07/29/2012 NIK BALLARD MD 401.1 ESSENTIAL HYPERTENSION BENIGN 07/29/2012 NIK BALLARD MD 596.51 BLADDER HYPERACTIVITY 07/29/2012 NIK BALLARD MD 401.1 ESSENTIAL HYPERTENSION BENIGN 07/29/2012 NIK BALLARD MD 596.51 BLADDER HYPERACTIVITY 07/29/2012 ANGELA ESPITIA APRNA S 401.1 ESSENTIAL HYPERTENSION BENIGN 07/29/2012 NUPUR CARVER, ZAYDA S 596.51 BLADDER HYPERACTIVITY 07/29/2012 NELLIE HARRELL, NIK 401.1 ESSENTIAL HYPERTENSION BENIGN 07/29/2012 NELLIE HARRELL, NIK 596.51 BLADDER HYPERACTIVITY 07/29/2012 ANGELA ESPITIA APRNA S 401.1 ESSENTIAL HYPERTENSION BENIGN 07/29/2012 NUPUR CARVER, ZAYDA S 596.51 BLADDER HYPERACTIVITY 07/15/2013 JONATHAN HARRELL, SIGRID S Ot 153.0 07/15/2013 JONATHAN HARRELL, SIGRID S Ot 244.9 07/15/2013 JONATHAN HARRELL, SIGRID S Ot 276.51 07/15/2013 JONATHAN HARRELL, SIGRID S Ot 276.8 07/15/2013 JONATHAN HARRELL, SIGRID S Ot 278.01 07/15/2013 JONATHAN HARRELL, SIGRID S Ot 285.9 07/15/2013 JONATHAN HARRELL, SIGRID S Ot 401.9 07/15/2013 JONATHAN HARRELL, SIGRID S Ot 574.11 07/15/2013 JONATHAN HARRELL, SIGRID S Ot 596.51 07/15/2013 JONATHAN HARRELL, SIGRID S Ot V15.82 07/15/2013 JONATHAN HARRELL, SIGRID S Ot V85.41 07/20/2013 RAJ HARRELL, PETROS Vanessa Ot 244.9 07/20/2013 RAJ HARRELL, PETROS Vanessa Ot 272.4 07/20/2013 RAJ HARRELL, PETROS Vanessa Ot 278.00 07/20/2013 RAJ HARRELL, PETROS Vanessa Ot 285.9 07/20/2013 RAJ HARRELL, PETROS Vanessa Ot 401.9 07/20/2013 RAJ HARRELL, PETROS Vanessa Ot 410.71 07/20/2013 RAJ HARRELL, PETROS Vanessa Ot 414.01 07/20/2013 RAJ HARRELL, PETROS Vanessa Ot 414.2 07/20/2013 RAJ HARRELL, PETROS J Ot 428.0 07/20/2013 RAJ HARRELL, PETROS J Ot 428.21 07/20/2013 RAJ HARRELL, ANSLEYHAR J Ot 596.51 07/20/2013 RAJ HARRELL, ANSLEYHAR J Ot 596.54 07/20/2013 RAJ HARRELL, ANSLEYMONET J Ot 716.90 07/20/2013 RAJ HARRELL, PETROS J Ot 796.3 07/20/2013 RAJ HARRELL, PETROS J Ot V03.82 07/20/2013 RAJ HARRELL, ANSLEYMONET J Ot V10.05 07/20/2013 RAJ HARRELL, PETROS J Ot V15.82 07/20/2013 RAJ HARRELL, ANSLEYMONET J Ot V17.3 07/20/2013 RAJ HARRELL, PETROS Vanessa Ot V85.41 08/03/2013 ZAYDA ESPITIA APRN 153.9 MALIGNANT NEOPLASM OF COLON UNSPECIFIED SITE 08/03/2013 ZAYDA ESPITIA APRN S 414.00 CAD 08/03/2013 NIK BALLARD MD 153.9 MALIGNANT NEOPLASM OF COLON UNSPECIFIED SITE 08/03/2013 NIK BALLARD MD 414.00 CAD 08/03/2013 ZAYDA ESPITIA APRN 153.9 MALIGNANT NEOPLASM OF COLON UNSPECIFIED SITE 08/03/2013 ZAYDA ESPITIA APRN S 414.00 CAD 10/26/2013 JONATHAN HARRELL, SIGRID Pradhan Ot 787.91 11/03/2013 MISAEL HARRELL, JORDYN Ot 153.9 02/14/2014 MISAEL HARRELL, JORDYN Ot 153.9 02/14/2014 MISAEL HARRELL, JORDYN Ot 272.4 02/14/2014 MISAEL HARRELL, JORDYN Ot 285.9 02/14/2014 MISAEL HARRELL, JORDYN Ot 401.9 02/14/2014 MISAEL HARRELL, JORDYN Ot 414.00 02/14/2014 MISAEL HARRELL, JORDYN Ot V58.69 06/14/2014 Ot 153.9 06/14/2014 Ot 272.4 06/14/2014 Ot 285.9 06/14/2014 Ot 401.9 06/14/2014 Ot 414.00 06/14/2014 Ot V58.69 12/14/2014 Ot 787.91 12/14/2014 Ot 153.9 12/14/2014 Ot 272.4 12/14/2014 Ot 285.9 12/14/2014 Ot 401.9 12/14/2014 Ot 414.00 12/14/2014 Ot V58.69 12/23/2014 Ot 787.91 12/23/2014 Ot 153.9 12/23/2014 Ot 272.4 12/23/2014 Ot 285.9 12/23/2014 Ot 401.9 12/23/2014 Ot 414.00 12/23/2014 Ot V58.69 12/23/2014 MARISA COOPER Ot 272.4 12/23/2014 MARISA COOPER Ot 401.9 12/23/2014 MARISA COOPER Ot 414.9 12/23/2014 MARISA COOPER Ot 428.0 12/23/2014 PETROS ANTHONY MD Ot 272.4 HYPERLIPIDEMIA NEC/NOS 12/23/2014 PETROS ANTHONY MD Ot 278.00 OBESITY, NOS 12/23/2014 PETROS ANTHONY MD Ot 401.9 HYPERTENSION NOS 12/23/2014 PETROS ANTHONY MD Ot 412 OLD MYOCARDIAL INFARCT 12/23/2014 PETROS ANTHONY MD, Ot 414.01 CORONARY ATHEROSCLEROSIS OF [place] CORON 12/23/2014 PTEROS ANTHONY MD Ot 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 12/23/2014 PETROS ANTHONY MD Ot 414.4 CORONARY ATHEROSCLEROSIS DUE TO CALCIFIE 12/23/2014 PETROS ANTHONY MD Ot 428.0 CONGESTIVE HEART FAILURE NOS 12/23/2014 PETROS ANTHONY MD Ot 428.20 UNSPEC SYSTOLIC HRT FAILURE 12/23/2014 PETROS ANTHONY MD Ot V15.82 HISTORY OF TOBACCO USE 12/23/2014 PETROS ANTHONY MD, Ot V45.82 PERCUTANEOUS TRANSLUM CORON ANGIOPLASTY 12/23/2014 PETROS ANTHONY MD, Ot V58.69 OTH MED,LT,CURRENT USE 12/23/2014 PETROS ANTHONY MD Ot V85.41 BODY MASS INDEX 40.0-44.9, ADULT 01/03/2015 REBOLLEDO-YOKO PA, MARISA K Ot 272.4 01/03/2015 REBOLLEDO-YOKO PA, MARISA K Ot 401.9 01/03/2015 REBOLLEDO-YOKO PA, MARISA K Ot 414.9 01/03/2015 REBOLLEDO-YOKO PA, MARISA K Ot 428.0 01/24/2015 Ot 787.91 01/24/2015 Ot 153.9 01/24/2015 Ot 272.4 01/24/2015 Ot 285.9 01/24/2015 Ot 401.9 01/24/2015 Ot 414.00 01/24/2015 Ot V58.69 01/24/2015 REBOLLEDO-YOKO PA, MARISA K Ot 272.4 01/24/2015 REBOLLEDO-YOKO PA, MARISA K Ot 401.9 01/24/2015 REBOLLEDO-YOKO PA, MARISA K Ot 414.9 01/24/2015 REBOLLEDO-YOKO PA, MARISA K Ot 428.0 01/24/2015 REBOLLEDO-YOKO PA, MARISA K Ot 272.4 01/24/2015 REBOLLEDO-YOKO PA, MARISA K Ot 401.9 01/24/2015 REBOLLEDO-YOKO PA, MARISA K Ot 414.9 01/24/2015 REBOLLEDO-YOKO PA, MARISA K Ot 428.0 02/10/2015 REBOLLEDO-YOKO PA, MARISA K Ot 272.4 02/10/2015 REBOLLEDO-YOKO PA, MARISA K Ot 401.9 02/10/2015 REBOLLEDO-YOKO PA, MARISA K Ot 414.9 02/10/2015 REBOLLEDO-YOKO PA, MARISA K Ot 428.0 02/14/2015 Ot 787.91 02/14/2015 Ot 153.9 02/14/2015 Ot 272.4 02/14/2015 Ot 285.9 02/14/2015 Ot 401.9 02/14/2015 Ot 414.00 02/14/2015 Ot V58.69 02/14/2015 REBOLLEDO-YOKO PA, MARISA K Ot 272.4 02/14/2015 REBOLLEDO-YOKO PA, MARISA K Ot 401.9 02/14/2015 REBOLLEDO-YOKO PA, MARISA K Ot 414.9 02/14/2015 REBOLLEDO-YOKO PA, MARISA K Ot 428.0 02/14/2015 REBOLLEDO-YOKO PA, MARISA K Ot 272.4 02/14/2015 REBOLLEDO-YOKO PA, MARISA K Ot 401.9 02/14/2015 REBOLLEDO-OYKO PA, MARISA K Ot 414.9 02/14/2015 REBOLLEDO-YOKO PA, MARISA K Ot 428.0 02/14/2015 REBOLLEDO-YOKO PA, MARISA K Ot 272.4 02/14/2015 REBOLLEDO-YOKO PA, MARISA K Ot 401.9 02/14/2015 REBOLLEDO-YOKO PA, MARISA K Ot 414.9 02/14/2015 REBOLLEDO-YOKO PA, MARISA K Ot 428.0 02/14/2015 REBOLLEDO-YOKO PA, MARISA K Ot 272.4 02/14/2015 REBOLLEDO-YOKO PA, MARISA K Ot 401.9 02/14/2015 REBOLLEDO-YOKO PA, MARISA K Ot 414.9 02/14/2015 REBOLLEDO-YOKO PA, MARISA K Ot 428.0 02/14/2015 REBOLLEDO-YOKO PA, MARISA K Ot 272.4 02/14/2015 REBOLLEDO-YOKO PA, MARISA K Ot 401.9 02/14/2015 REBOLLEDO-YOKO PA, MARISA K Ot 414.9 02/14/2015 REBOLLEDO-YOKO PA, MARISA K Ot 428.0 02/28/2015 REBOLLEDO-YOKO PA, MARISA K Ot 272.4 02/28/2015 REBOLLEDO-YOKO PA, MARISA K Ot 401.9 02/28/2015 REBOLLEDO-YOKO PA, MARISA K Ot 414.9 02/28/2015 REBOLLEDO-YOKO PA, MARISA K Ot 428.0 04/18/2015 BLAS HARRELL, JED M Ot K20.9 04/18/2015 BLAS HARRELL, JED M Ot K25.9 04/18/2015 BLAS HARRELL, JED M Ot K29.70 04/18/2015 BLAS HARRELL, JED M Ot Z08 04/18/2015 BLAS HARRELL, JED M Ot Z85.038 04/19/2015 BLAS HARRELL, JED M Ot D12.3 04/19/2015 BLAS HARRELL, JED M Ot K57.90 04/19/2015 BLAS HARRELL, JED M Ot Z12.11 04/19/2015 BLAS HARRELL, JED M Ot Z85.038 04/20/2015 ZAYDA ESPITIA [facility] Ot 564.00 05/04/2015 Ot 787.91 05/04/2015 Ot 153.9 05/04/2015 Ot 272.4 05/04/2015 Ot 285.9 05/04/2015 Ot 401.9 05/04/2015 Ot 414.00 05/04/2015 Ot V58.69 05/04/2015 BLAS HARRELL, JED M Ot K43.9 05/04/2015 BLAS HARRELL, JED M Ot Z01.818 05/04/2015 BLAS HARRELL, JED M Ot Z11.2 05/06/2015 BLAS HARRELL, JED M Ot K43.9 05/06/2015 BLAS HARRELL, JED M Ot Z01.818 05/06/2015 BLAS HARRELL, JED M Ot Z11.2 05/06/2015 ZAYDA ESPITIA [facility] Ot 564.00 05/06/2015 ZAYDA ESPITIA [facility] Ot 564.00 05/10/2015 BLAS HARRELL, JED M Ot E03.9 05/10/2015 BLAS HARRELL, JED M Ot E66.9 05/10/2015 BLAS HARRELL, JED M Ot E78.2 05/10/2015 BLAS HARRELL, JED M Ot I10 05/10/2015 BLAS HARRELL, JED M Ot I25.10 05/10/2015 BLAS HARRELL, JED M Ot I25.2 05/10/2015 BLAS HARRELL, JED M Ot I50.22 05/10/2015 BLAS HARRELL, JED M Ot I95.9 05/10/2015 BLAS HARRELL, JED M Ot K43.2 05/10/2015 BLAS HARRELL, JED M Ot K66.0 05/10/2015 BLAS HARRELL, JED M Ot K91.71 05/10/2015 BLAS HARRELL, JED M Ot Z68.39 05/10/2015 BLAS HARRELL, JED M Ot Z85.038 05/10/2015 BLAS HARRELL, JED M Ot Z87.891 05/10/2015 BLAS HARRELL, JED Moura Ot Z90.49 05/10/2015 BLAS HARRELL, JED Moura Ot Z95.5 10/28/2015 MARISA COOPER Ot 272.4 HYPERLIPIDEMIA NEC/NOS 10/28/2015 MARISA COOPER Ot 401.9 HYPERTENSION NOS 10/28/2015 MARISA COOPER Ot 414.9 CHR ISCHEMIC HRT DIS NOS 10/28/2015 MARISA COOPER Ot 428.0 CONGESTIVE HEART FAILURE NOS 10/10/2016 Ot 787.91 DIARRHEA 10/10/2016 Ot 153.9 MALIGNANT TASHA COLON NOS 10/10/2016 Ot 272.4 HYPERLIPIDEMIA NEC/NOS 10/10/2016 Ot 285.9 ANEMIA NOS 10/10/2016 Ot 401.9 HYPERTENSION NOS 10/10/2016 Ot 414.00 CORON ATHEROSCLER NOS TYPE VESSEL, NATIV 10/10/2016 Ot V58.69 OTH MED,LT,CURRENT USE 10/29/2016 EVAN GOLDEN DO Ot E03.9 HYPOTHYROIDISM, UNSPECIFIED 10/29/2016 LAN GOLDEN DOI Ot E66.9 OBESITY, UNSPECIFIED 10/29/2016 LAN GOLDEN DOI Ot E78.5 HYPERLIPIDEMIA, UNSPECIFIED 10/29/2016 LAN GOLDEN DOI Ot I10 ESSENTIAL (PRIMARY) HYPERTENSION 10/29/2016 LAN GOLDEN DOI Ot I25.10 ATHSCL HEART DISEASE OF [place] CORONARY 10/29/2016 EVAN GOLDEN DO Ot I25.2 OLD MYOCARDIAL INFARCTION 10/29/2016 EVAN GOLDEN DO Ot I50.23 ACUTE ON CHRONIC SYSTOLIC (CONGESTIVE) H 10/29/2016 EVAN GOLDEN DO Ot R07.89 OTHER CHEST PAIN 10/29/2016 EVAN GOLDEN DO Ot Z68.41 BODY MASS INDEX (BMI) 40.0-44.9, ADULT 10/29/2016 EVAN GOLDEN DO Ot Z79.899 OTHER CUSTODIAL (CURRENT) DRUG THERAPY 10/29/2016 EVAN GOLDEN DO Ot Z87.891 PERSONAL HISTORY OF NICOTINE DEPENDENCE 10/29/2016 EVAN GOLDEN DO Ot Z95.5 PRESENCE OF CORONARY ANGIOPLASTY IMPLANT Procedures Code Description [place] [address] ROUTINE VENIPUNCTURE 07/29/2012 37891 A1C (IN-HOUSE) 62472 CBC 07/29/2012 38890 CMP 07/29/2012 [id number] GFR CALC (RESULT ONLY) 07/29/2012 41174 TSH 07/30/2012 81982 T4 FREE 2012 19025 ROUTINE VENIPUNCTURE 05/26/2013 28899 LIPID PANEL 05/26 40489 CBC 05/26/2013 [id number] GFR CALC (RESULT ONLY) 05/26/2013 37072 CMP 05/26/2013 32840 TSH 05/26/2013 Sigrid Armenta 08/12/2013 Results Test Result Range Complete blood count (CBC) with automated white blood cell (WBC) differential - 10/09/16 19:50 Blood leukocytes automated count (number/volume) 10.3 10*3/ uL 4.3-11.0 Blood erythrocytes automated count (number/volume) 5.07 10*6 /uL 4.35-5.85 Venous blood hemoglobin measurement (mass/volume) 12.7 g/dL 11.5-16.0 Blood hematocrit (volume fraction) 41 % 35-52 Automated erythrocyte mean corpuscular volume 81 [foz_us] 80-99 Automated erythrocyte mean corpuscular hemoglobin (mass per erythrocyte) 25 pg 25-34 Automated erythrocyte mean corpuscular hemoglobin concentration measurement ( mass/volume) 31 g/dL 32-36 Automated erythrocyte distribution width ratio 19.6 % 10.0-14.5 Automated blood platelet count (count/volume) 409 10*3/uL 130-400 Automated blood platelet mean volume measurement 9.8 [foz_us ] 7.4-10.4 Automated blood neutrophils/100 leukocytes 46 % 42-75 Automated blood lymphocytes/100 leukocytes 39 % 12-44 Blood monocytes/100 leukocytes 12 % 0-12 Automated blood eosinophils/100 leukocytes 2 % 0-10 Automated blood basophils/100 leukocytes 1 % 0-10 Blood neutrophils automated count (number/volume) 4.8 10*3 1.8-7.8 Blood lymphocytes automated count (number/volume) 4.0 10*3 1.0-4.0 Blood monocytes automated count (number/volume) 1.2 10*3 0.0-1.0 Automated eosinophil count 0.2 10*3/uL 0.0-0.3 Automated blood basophil count (count/volume) 0.1 10*3/uL 0.0-0.1 PT panel in platelet poor plasma by coagulation assay - 10/09/16 19:50 Prothrombin time (PT) in platelet poor plasma by coagulation assay 12.5 s 12.2-14.7 INR in platelet poor plasma or blood by coagulation assay 1.0 0.8-1.4 Activated partial thromboplastin time (aPTT) in platelet poor plasma bycoagulation assay - 10/09/16 19:50 Activated partial thromboplastin time (aPTT) in platelet poor plasma bycoagulation assay 26 s 24-35 Comprehensive metabolic panel - 10/09/16 19:50 Serum or plasma sodium measurement (moles/volume) 141 mmol/ L 135-145 Serum or plasma potassium measurement (moles/volume) 4.8 mmol/L 3.6-5.0 Serum or plasma chloride measurement (moles/volume) 103 mmol /L 98-107 Carbon dioxide 30 mmol/L 21-32 Serum or plasma anion gap determination (moles/volume) 8 mmol/L 5-14 Serum or plasma urea nitrogen measurement (mass/volume) 20 mg/dL 7-18 Serum or plasma creatinine measurement (mass/volume) 0.99 mg /dL 0.60-1.30 Serum or plasma urea nitrogen/creatinine mass ratio 20 NRG Serum or plasma creatinine measurement with calculation of estimated glomerular filtration rate 55 NRG Serum or plasma glucose measurement (mass/volume) 93 mg/dL 70-105 Serum or plasma calcium measurement (mass/volume) 9.3 mg/dL 8.5-10.1 Serum or plasma total bilirubin measurement (mass/volume) 0.3 mg/dL 0.1-1.0 Serum or plasma alkaline phosphatase measurement (enzymatic activity/volume) 57 U/L 40-136 Serum or plasma aspartate aminotransferase measurement (enzymatic activity/ volume) 17 U/L 5-34 Serum or plasma alanine aminotransferase measurement (enzymatic activity/volume ) 8 U/L 0-55 Serum or plasma protein measurement (mass/volume) 6.9 g/dL 6.4-8.2 Serum or plasma albumin measurement (mass/volume) 3.5 g/dL 3.2-4.5 Magnesium - 10/09/16 19:50 Magnesium 2.1 mg/dL 1.8-2.4 Serum or plasma creatine kinase measurement (enzymatic activity/volume) - 10/09 19:50 Serum or plasma creatine kinase measurement (enzymatic activity/volume) 45 U/L 29-168 Serum or plasma creatine kinase MB measurement (enzymatic activity/volume) - 19:50 Serum or plasma creatine kinase MB measurement (enzymatic activity/volume) 1.4 ng/mL <6.6 Serum or plasma troponin i.cardiac measurement (mass/volume) - 10/09/16 19:50 Serum or plasma troponin i.cardiac measurement (mass/volume) < ng/mL <0.30 Serum or plasma amylase measurement (enzymatic activity/volume) - 10/09/16 19: 50 Serum or plasma amylase measurement (enzymatic activity/volume) 54 U/L 25-125 Lipase - 10/09/16 19:50 Lipase 25 U/L 8-78 Serum or plasma lithium measurement (moles/volume) - 10/09/16 19:50 BNP level 86.5 pg/mL <100.0 Complete blood count (CBC) with automated white blood cell (WBC) differential - 10/10/16 01:55 Blood leukocytes automated count (number/volume) 9.1 10*3/ uL 4.3-11.0 Blood erythrocytes automated count (number/volume) 4.56 10*6 /uL 4.35-5.85 Venous blood hemoglobin measurement (mass/volume) 11.4 g/dL 11.5-16.0 Blood hematocrit (volume fraction) 37 % 35-52 Automated erythrocyte mean corpuscular volume 82 [foz_us] 80-99 Automated erythrocyte mean corpuscular hemoglobin (mass per erythrocyte) 25 pg 25-34 Automated erythrocyte mean corpuscular hemoglobin concentration measurement ( mass/volume) 31 g/dL 32-36 Automated erythrocyte distribution width ratio 19.3 % 10.0-14.5 Automated blood platelet count (count/volume) 369 10*3/uL 130-400 Automated blood platelet mean volume measurement 9.9 [foz_us ] 7.4-10.4 Automated blood neutrophils/100 leukocytes 48 % 42-75 Automated blood lymphocytes/100 leukocytes 37 % 12-44 Blood monocytes/100 leukocytes 12 % 0-12 Automated blood eosinophils/100 leukocytes 2 % 0-10 Automated blood basophils/100 leukocytes 0 % 0-10 Blood neutrophils automated count (number/volume) 4.4 10*3 1.8-7.8 Blood lymphocytes automated count (number/volume) 3.4 10*3 1.0-4.0 Blood monocytes automated count (number/volume) 1.1 10*3 0.0-1.0 Automated eosinophil count 0.2 10*3/uL 0.0-0.3 Automated blood basophil count (count/volume) 0.0 10*3/uL 0.0-0.1 Serum or plasma troponin i.cardiac measurement (mass/volume) - 10/10/16 01:55 Serum or plasma troponin i.cardiac measurement (mass/volume) < ng/mL <0.30 Comprehensive metabolic panel - 10/10/16 01:55 Serum or plasma sodium measurement (moles/volume) 140 mmol/ L 135-145 Serum or plasma potassium measurement (moles/volume) 4.4 mmol/L 3.6-5.0 Serum or plasma chloride measurement (moles/volume) 105 mmol /L 98-107 Carbon dioxide 25 mmol/L 21-32 Serum or plasma anion gap determination (moles/volume) 10 mmol/L 5-14 Serum or plasma urea nitrogen measurement (mass/volume) 20 mg/dL 7-18 Serum or plasma creatinine measurement (mass/volume) 0.88 mg /dL 0.60-1.30 Serum or plasma urea nitrogen/creatinine mass ratio 23 NRG Serum or plasma creatinine measurement with calculation of estimated glomerular filtration rate > NRG Serum or plasma glucose measurement (mass/volume) 97 mg/dL 70-105 Serum or plasma calcium measurement (mass/volume) 8.5 mg/dL 8.5-10.1 Serum or plasma total bilirubin measurement (mass/volume) 0.2 mg/dL 0.1-1.0 Serum or plasma alkaline phosphatase measurement (enzymatic activity/volume) 52 U/L 40-136 Serum or plasma aspartate aminotransferase measurement (enzymatic activity/ volume) 14 U/L 5-34 Serum or plasma alanine aminotransferase measurement (enzymatic activity/volume ) 7 U/L 0-55 Serum or plasma protein measurement (mass/volume) 6.1 g/dL 6.4-8.2 Serum or plasma albumin measurement (mass/volume) 3.2 g/dL 3.2-4.5 Myoglobin, serum - 10/10/16 01:55 Myoglobin, serum 40.0 ng/mL 10.0-92.0 Lipid 1996 panel - 10/10/16 01:55 Serum or plasma triglyceride measurement (mass/volume) 249 mg/dL <150 Serum or plasma cholesterol measurement (mass/volume) 258 mg /dL < 200 Serum or plasma cholesterol in HDL measurement (mass/volume) 41 mg/dL 40-60 Cholesterol in LDL [mass/volume] in serum or plasma by direct assay 176 mg/dL 1-129 Serum or plasma cholesterol in VLDL measurement (mass/volume) 50 mg/dL 5-40 Automated blood complete blood count (hemogram) panel - 10/11/16 03:17 Blood leukocytes automated count (number/volume) 7.8 10*3/ uL 4.3-11.0 Blood erythrocytes automated count (number/volume) 4.49 10*6 /uL 4.35-5.85 Venous blood hemoglobin measurement (mass/volume) 11.2 g/dL 11.5-16.0 Blood hematocrit (volume fraction) 37 % 35-52 Automated erythrocyte mean corpuscular volume 83 [foz_us] 80-99 Automated erythrocyte mean corpuscular hemoglobin (mass per erythrocyte) 25 pg 25-34 Automated erythrocyte mean corpuscular hemoglobin concentration measurement ( mass/volume) 30 g/dL 32-36 Automated erythrocyte distribution width ratio 19.5 % 10.0-14.5 Automated blood platelet count (count/volume) 323 10*3/uL 130-400 Automated blood platelet mean volume measurement 10.1 [foz_ us] 7.4-10.4 Encounters ACCT No. Visit Date/Time Discharge Status Pt. Type Provider Facility Loc./Unit Complaint [id number] 07/27/2014 10:13:00 07/27/2014 23: 59:59 CLS Outpatient ZAYDA ESPITIA APRN [id number] 08/11/2013 09:34:00 08/11/2013 23: 59:59 CLS Outpatient NIK BALLARD MD [id number] 08/03/2013 11:38:00 08/03/2013 23: 59:59 CLS Outpatient ZAYDA ESPITIA APRN [id number] 05/26/2013 09:54:00 05/26/2013 23: 59:59 CLS Outpatient NIK BALLARD MD [id number] 07/29/2012 10:36:00 07/29/2012 23: 59:59 CLS Outpatient NIK BALLARD MD [id number] 07/29/2012 10:36:00 07/29/2012 23: 59:59 MARCE Outpatient NIK BALLARD MD
--- OUTSIDE RECORDS SUMMARY | 2016-11-11 15:35 | XMS REPORT | Continuity of Care Document ---
Author Author [facility] Address Unknown Phone Unavailable Allergies Active Description Code Type Severity Reaction Onset Reported/Identified Relationship to Patient Clinical Status Yes Penicillins Drug Allergy 08/10/2008 Yes Penicillins Drug Allergy N/A N/A 08/10/2008 Yes Penicillins [id number] Drug Allergy Unknown N/A 04/18/2015 Yes procaine [id number] Drug Allergy Unknown N/A 04/18/2015 Yes Penicillins [id number] Drug Allergy Unknown HAS HAD ANCEF W 05/04/2015 Yes atorvastatin [id number] Drug Allergy Unknown N/A 10/10/2016 Medications Problems [...] MD 719.40 joint pain, localized 08/10/2008 NUPUR TIME RECORDER, ZAYDA S 244.9 HYPOTHYROIDISM 08/10/2008 NUPUR TIME RECORDER, ZAYDA S 278.01 OBESITY MORBID 08/10/2008 NUPUR TIME RECORDER, ZAYDA S 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 08/10/2008 NUPUR TIME RECORDER, ZAYDA S 465.9 ACUTE UPPER RESPIRATORY INFECTIONS [...] Combined Systolic And Diastolic Elevation 08/10/2008 NUPUR TIME RECORDER, ZAYDA S 465.9 ACUTE UPPER RESPIRATORY INFECTIONS [...] And Atrophic Conditions Of Skin 01/17/2011 NUPUR TIME RECORDER, ZAYDA S 702.0 Actinic Keratosis 01/17/2011 NUPUR TIME RECORDER, ZAYDA S 702.19 Other Seborrheic Keratosis 01/17/2011 NIK BALLARD MD 216.9 Benign Neoplasm Of Skin Site Unspecified 01/17/2011 NIK BALLARD MD 701.9 Unspecified Hypertrophic And Atrophic Conditions Of Skin 01/17/2011 NIK BALLARD MD 702.0 Actinic Keratosis 01/17/2011 NIK BALLARD MD 702.19 Other Seborrheic Keratosis 01/17/2011 NUPUR TIME RECORDER, AZYDA S 216.9 Benign Neoplasm Of Skin Site Unspecified 01/17/2011 NUPUR TIME RECORDER, ZAYDA S 701.9 Unspecified Hypertrophic And Atrophic Conditions Of Skin 01/17/2011 NUPUR TIME RECORDER, ZAYDA S 702.0 Actinic Keratosis 01/17/2011 NUPUR [...] V58.32 Encounter For Removal Of Sutures 03/07/2011 NKI BALLARD MD 682.1 Cellulitis And Abscess Of [...] JONATHAN HARRELL, SIGRID S Ot 278.01 07/15/2013 JONATAHN HARRELL, SIGRID S Ot 285.9 07/15/2013 JONATHAN [...] MALIGNANT NEOPLASM OF COLON UNSPECIFIED SITE 08/03/2013 ZYADA ESPITIA APRN S 414.00 CAD 08/03/2013 NIK [...] ANTHONY MD, Ot 414.01 CORONARY ATHEROSCLEROSIS OF [place] CORON 12/23/2014 PETROS ANTHONY MD Ot 414.2 CHRONIC TOTAL OCCLUSION [...] JED M Ot Z85.038 04/20/[address] [facility] Ot 564.00 05/04/2015 Ot 787.91 05/04/2015 Ot [...] JED M Ot Z11.2 05/06/[address] [facility] Ot 564.00 05/06/2015 [address]AYDA [address]IT[address] [facility] Ot 564.00 05/10/2015 BLAS HARRELL, JED M [...] DOI Ot I25.10 ATHSCL HEART DISEASE OF [place] CORONARY 10/29/2016 EVAN GOLDEN DO Ot I25.2 OLD MYOCARDIAL INFARCTION 10/29/2016 EVAN GOLDEN DO Ot I50.23 ACUTE ON CHRONIC SYSTOLIC (CONGESTIVE) H 10/29/2016 EVAN GOLDEN DO Ot R07.89 OTHER CHEST PAIN 10/29/2016 EVAN GOLDEN DO Ot Z68.41 BODY MASS INDEX (BMI) 40.0-44.9, ADULT 10/29/2016 EVAN GOLDEN DO Ot Z79.899 OTHER PENITENTIARY (CURRENT) DRUG THERAPY 10/29/2016 EVAN GOLDEN DO Ot Z87.891 PERSONAL HISTORY OF NICOTINE DEPENDENCE 10/29/2016 EVAN GOLDEN DO Ot Z95.5 PRESENCE OF CORONARY ANGIOPLASTY IMPLANT Procedures Code Description [place] [address] ROUTINE VENIPUNCTURE 07/29/2012 37588 A1C (IN-HOUSE) 26901 CBC 07/29/2012 18774 CMP 07/29/2012 6802481 GFR CALC (RESULT ONLY) 07/29/2012 46205 TSH 07/30/2012 50633 T4 FREE 2012 26694 ROUTINE VENIPUNCTURE 05/26/2013 16113 LIPID PANEL 05/26 85161 CBC 05/26/2013 [id number] GFR CALC (RESULT ONLY) 05/26/2013 85716 CMP 05/26/2013 27250 TSH 05/26/2013 Sigrid Armenta 08/12/2013 Results Test [...] Status Pt. Type Provider Facility Loc./Unit Complaint [id number] 07/27/2014 10:13:00 07/27/2014 23: 59:59 CLS Outpatient ZAYDA ESPITIA APRN [id number] 08/11/2013 09:34:00 08/11/2013 23: 59:59 CLS Outpatient NIK BALLARD MD [id number] 08/03/2013 11:38:00 08/03/2013 23: 59:59 CLS Outpatient ZAYDA ESPITIA APRN [id number] 05/26/2013 09:54:00 05/26/2013 23: 59:59 CLS Outpatient NIK BALLARD MD [id number] 07/29/2012 10:36:00 07/29/2012 23: 59:59 CLS Outpatient NIK BALLARD MD [id number] 07/29/2012 10:36:00 07/29/2012 23: 59:59 MARCE Outpatient NIK BALLARD MD
--- OUTSIDE RECORDS SUMMARY | 2016-11-11 21:49 | XMS REPORT | Continuity of Care Document ---
Author Author [facility] of [facility] of [facility] Address Unknown Phone Unavailable Allergies Active Description Code Type Severity Reaction Onset Reported/Identified Relationship to Patient Clinical Status Yes Penicillins Drug Allergy 08/10/2008 Yes Penicillins Drug Allergy N/A N/A 08/10/2008 Yes Penicillins [id number] Drug Allergy Unknown N/A 04/18/2015 Yes procaine [id number] Drug Allergy Unknown N/A 04/18/2015 Yes Penicillins [id number] Drug Allergy Unknown HAS HAD ANCEF W 05/04/2015 Yes atorvastatin [id number] Drug Allergy Unknown N/A 10/10/2016 Medications Problems [...] MD 719.40 joint pain, localized 08/10/2008 NUPUR CASINO RUNNER, ZAYDA S 244.9 HYPOTHYROIDISM 08/10/2008 NUPUR CASINO RUNNER, ZAYDA S 278.01 OBESITY MORBID 08/10/2008 NUPUR CASINO RUNNER, ZAYDA S 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 08/10/2008 NUPUR CASINO RUNNER, ZAYDA S 465.9 ACUTE UPPER RESPIRATORY INFECTIONS [...] Combined Systolic And Diastolic Elevation 08/10/2008 NUPUR CASINO RUNNER, ZAYDA S 465.9 ACUTE UPPER RESPIRATORY INFECTIONS [...] 272.4 HYPERLIPIDEMIA HYPERLIPOPROTEINEMIAS ( Old Classification) 12/27/2009 INK BALLARD MD 268.9 VITAMIN D DEFICIENCY 12/27/2009 [...] And Atrophic Conditions Of Skin 01/17/2011 NIK BALLRAD MD 702.0 Actinic Keratosis 01/17/2011 NIK BALLARD [...] And Atrophic Conditions Of Skin 01/17/2011 NUPUR CASINO RUNNER, ZAYDA S 702.0 Actinic Keratosis 01/17/2011 NUPUR CASINO RUNNER, ZAYDA S 702.19 Other Seborrheic Keratosis 01/17/2011 NIK BALLARD MD 216.9 Benign Neoplasm Of Skin Site Unspecified 01/17/2011 NIK BALLARD MD 701.9 Unspecified Hypertrophic And Atrophic Conditions Of Skin 01/17/2011 NIK BALLARD MD 702.0 Actinic Keratosis 01/17/2011 NIK BALLARD MD 702.19 Other Seborrheic Keratosis 01/17/2011 NUPUR CASINO RUNNER, ZAYDA S 216.9 Benign Neoplasm Of Skin Site Unspecified 01/17/2011 UNPUR CASINO RUNNER, ZAYDA S 701.9 Unspecified Hypertrophic And Atrophic Conditions Of Skin 01/17/2011 NUPUR CASINO RUNNER, ZAYDA S 702.0 Actinic Keratosis 01/17/2011 NUPUR [...] Encounter For Removal Of Sutures 03/07/2011 NUPUR TRNIIDADN, ZAYDA S 682.1 Cellulitis And Abscess Of [...] ANSLEYHAR J Ot 596.51 07/20/2013 RAJ HARRELL, NASLEYHAR J Ot 596.54 07/20/2013 RAJ HARRELL, ANSLEYMONET [...] ANTHONY MD, Ot 414.01 CORONARY ATHEROSCLEROSIS OF [place] CORON 12/23/2014 PETROS ANTHONY MD Ot 414.2 [...] JED M Ot Z85.038 04/20/2015 ZAYDA ESPITIA [facility] Ot 564.00 05/04/2015 Ot 787.91 05/04/2015 Ot [...] JED M Ot Z11.2 05/06/2015 ZAYDA ESPITIA [facility] Ot 564.00 05/06/2015 ZAYDA ESPITIA [facility] Ot 564.00 05/10/2015 BLAS HARRELL, JED M Ot E03.9 05/10/2015 BLAS HARRELL, JDE M Ot E66.9 05/10/2015 BLAS HARRELL, JED [...] DOI Ot I25.10 ATHSCL HEART DISEASE OF [place] CORONARY 10/29/2016 EVAN GOLDEN DO Ot I25.2 OLD MYOCARDIAL INFARCTION 10/29/2016 EVAN GOLDEN DO Ot I50.23 ACUTE ON CHRONIC SYSTOLIC (CONGESTIVE) H 10/29/2016 EVAN GOLDEN DO Ot R07.89 OTHER CHEST PAIN 10/29/2016 EVAN GOLDEN DO Ot Z68.41 BODY MASS INDEX (BMI) 40.0-44.9, ADULT 10/29/2016 EVAN GOLDEN DO Ot Z79.899 OTHER NURSING HOME (CURRENT) DRUG THERAPY 10/29/2016 EVAN GOLDEN DO Ot Z87.891 PERSONAL HISTORY OF NICOTINE DEPENDENCE 10/29/2016 EVAN GOLDEN DO Ot Z95.5 PRESENCE OF CORONARY ANGIOPLASTY IMPLANT Procedures Code Description [place] [address] ROUTINE VENIPUNCTURE 07/29/2012 88917 A1C (IN-HOUSE) 63353 CBC 07/29/2012 87597 CMP 07/29/2012 0984126 GFR CALC (RESULT ONLY) 07/29/2012 21897 TSH 07/30/2012 93309 T4 FREE 2012 38761 ROUTINE VENIPUNCTURE 05/26/2013 21139 LIPID PANEL 05/26 76340 CBC 05/26/2013 2880307 GFR CALC (RESULT ONLY) 05/26/2013 99678 CMP 05/26/2013 10153 TSH 05/26/2013 Sigrid Armenta 08/12/2013 Results Test [...] Status Pt. Type Provider Facility Loc./Unit Complaint [id number] 07/27/2014 10:13:00 07/27/2014 23: 59:59 CLS Outpatient ZAYDA ESPITIA APRN [id number] 08/11/2013 09:34:00 08/11/2013 23: 59:59 CLS Outpatient NIK BALLARD MD [id number] 08/03/2013 11:38:00 08/03/2013 23: 59:59 CLS Outpatient ZAYDA ESPITIA APRN [id number] 05/26/2013 09:54:00 05/26/2013 23: 59:59 CLS Outpatient NIK BALLARD MD [id number] 07/29/2012 10:36:00 07/29/2012 23: 59:59 CLS Outpatient NIK BALLARD MD [id number] 07/29/2012 10:36:00 07/29/2012 23: 59:59 MARCE Outpatient NIK BALLARD MD
--- OUTSIDE RECORDS SUMMARY | 2016-11-11 21:51 | XMS REPORT | Continuity of Care Document ---
Author Author [facility] of [facility] Address Unknown Phone Unavailable Allergies Active Description Code Type Severity Reaction Onset Reported/Identified Relationship to Patient Clinical Status Yes Penicillins Drug Allergy 08/10/2008 Yes Penicillins Drug Allergy N/A N/A 08/10/2008 Yes Penicillins [id number] Drug Allergy Unknown N/A 04/18/2015 Yes procaine [id number] Drug Allergy Unknown N/A 04/18/2015 Yes Penicillins [id number] Drug Allergy Unknown HAS HAD ANCEF W 05/04/2015 Yes atorvastatin [id number] Drug Allergy Unknown N/A 10/10/2016 Medications Problems [...] MD 719.40 joint pain, localized 08/10/2008 NUPUR COTTAGE ATTENDANT, ZAYDA S 244.9 HYPOTHYROIDISM 08/10/2008 NUPUR COTTAGE ATTENDANT, ZAYDA S 278.01 OBESITY MORBID 08/10/2008 NUPUR COTTAGE ATTENDANT, ZAYDA S 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 08/10/2008 NUPUR COTTAGE ATTENDANT, ZAYDA S 465.9 ACUTE UPPER RESPIRATORY INFECTIONS [...] Combined Systolic And Diastolic Elevation 08/10/2008 NUPUR COTTAGE ATTENDANT, ZAYDA S 465.9 ACUTE UPPER RESPIRATORY INFECTIONS OF UNSPECIFIED SITE 08/10/2008 NPUUR CARVER, ZAYDA S 719.40 joint pain, localized [...] And Atrophic Conditions Of Skin 01/17/2011 NUPUR COTTAGE ATTENDANT, ZAYDA S 702.0 Actinic Keratosis 01/17/2011 NUPUR COTTAGE ATTENDANT, ZAYDA S 702.19 Other Seborrheic Keratosis 01/17/2011 NIK BALLARD MD 216.9 Benign Neoplasm Of Skin Site Unspecified 01/17/2011 NIK BALLARD MD 701.9 Unspecified Hypertrophic And Atrophic Conditions Of Skin 01/17/2011 NIK BALLARD MD 702.0 Actinic Keratosis 01/17/2011 NIK BALLARD MD 702.19 Other Seborrheic Keratosis 01/17/2011 NUPUR COTTAGE ATTENDANT, ZAYDA S 216.9 Benign Neoplasm Of Skin Site Unspecified 01/17/2011 NUPUR COTTAGE ATTENDANT, ZAYDA S 701.9 Unspecified Hypertrophic And Atrophic Conditions Of Skin 01/17/2011 NUPUR COTTAGE ATTENDANT, ZAYDA S 702.0 Actinic Keratosis 01/17/2011 NUPUR [...] HARRELL, ANSLEYMONET J Ot V17.3 07/20/2013 RAJ AHRRELL, PETROS Vanessa Ot V85.41 08/03/2013 ZAYDA ESPITIA [...] ANTHONY MD, Ot 414.01 CORONARY ATHEROSCLEROSIS OF [place] CORON 12/23/2014 PETROS ANTHONY MD Ot 414.2 [...] JED M Ot K25.9 04/18/2015 BLAS HARRELL, JDE M Ot K29.70 04/18/2015 BLAS HARRELL, JED M Ot Z08 04/18/2015 BLAS HARRELL, JED M Ot Z85.038 04/19/2015 BLAS HARRELL, JED M Ot D12.3 04/19/2015 BLAS HARRELL, JED M Ot K57.90 04/19/2015 BLAS HARRELL, JED M Ot Z12.11 04/19/2015 BLAS HARRELL, JED M Ot Z85.038 04/20/2015 ZAYDA ESPITIA [facility] Ot 564.00 05/04/2015 Ot 787.91 05/04/2015 [...] JED M Ot Z11.2 05/06/2015 ZAYDA ESPITIA [facility] Ot 564.00 05/06/2015 ZAYDA ESPITIA [facility] Ot 564.00 05/10/2015 BLAS HARRELL, JED M Ot E03.9 05/10/2015 BLAS HARRELL, JED M Ot E66.9 05/10/2015 BLAS HARRELL, JED M Ot E78.2 05/10/2015 BLAS HARRELL, JED M Ot I10 05/10/2015 BLAS HARRELL, JDE M Ot I25.10 05/10/2015 BLAS HARRELL, JED [...] DOI Ot I25.10 ATHSCL HEART DISEASE OF [place] CORONARY 10/29/2016 EVAN GOLDEN DO Ot I25.2 [...] Procedures Code Description [place] [address] ROUTINE VENIPUNCTURE 07/29/2012 94335 A1C (IN-HOUSE) 65418 CBC 07/29/2012 75710 CMP 07/29/2012 9087130 GFR CALC (RESULT ONLY) 07/29/2012 59775 TSH 07/30/2012 80608 T4 FREE 2012 51472 ROUTINE VENIPUNCTURE 05/26/2013 14182 LIPID PANEL 05/26 12558 CBC 05/26/2013 7300785 GFR CALC (RESULT ONLY) 05/26/2013 54426 CMP 05/26/2013 25856 TSH 05/26/2013 Sigrid Armenta 08/12/2013 Results Test [...] Status Pt. Type Provider Facility Loc./Unit Complaint [id number] 07/27/2014 10:13:00 07/27/2014 23: 59:59 CLS Outpatient ZAYDA ESPITIA APRN [id number] 08/11/2013 09:34:00 08/11/2013 23: 59:59 CLS Outpatient NIK BALLARD MD [id number] 08/03/2013 11:38:00 08/03/2013 23: 59:59 CLS Outpatient ZAYDA ESPITIA APRN [id number] 05/26/2013 09:54:00 05/26/2013 23: 59:59 CLS Outpatient NIK BALLARD MD [id number] 07/29/2012 10:36:00 07/29/2012 23: 59:59 CLS Outpatient NIK BALLARD MD [id number] 07/29/2012 10:36:00 07/29/2012 23: 59:59 MARCE Outpatient NIK BALLARD MD
== END 2016-10-11 10:25 | disposition home or self-care (01) ==
LOC: EDUNIT# 19:44 → ER 19:46 → UNDOADMOB 21:00 → CSD 21:00 → SDC 21:55 → UNDOADMOB 21:55 → CATH 21:55 → CSD 21:55 → ICU 10-10 15:13 → CSD 10-10 15:13 → ENPENDDIS 10-10 18:00 → EDPENDDISTM 10-11 08:00 → EDPENDDISDT 10-11 08:00 → CATH 10-11 10:25 → UNDODISOB 10-11 10:25
PROVIDERS: ATTEND Internal Medicine
DX: R07.89 Other chest pain (principal); I25.10 Atherosclerotic heart disease of native coronary artery without angina pectoris; I10 Essential (primary) hypertension; E78.5 Hyperlipidemia, unspecified; E66.9 Obesity, unspecified; E03.9 Hypothyroidism, unspecified; I25.2 Old myocardial infarction; I50.23 Acute on chronic systolic (congestive) heart failure; Z68.41 Body mass index [BMI] 40.0-44.9, adult; Z87.891 Personal history of nicotine dependence; Z79.899 Other long term (current) drug therapy; Z95.5 Presence of coronary angioplasty implant and graft
CPT/HCPCS: 36415; 71010; 71275; 80053; 80061; 82150; 82550; 82553; 83690; 83735; 83874; 83880; 84484; 85025; 85027; 85610; 85730; 93005; 93041; 93458; 93571; 94761; G0378

== ENCOUNTER 2017-07-09 14:42 | Observation (INO) | payer MEDICARE ==
[~2017-07-09] VITALS: Ht 160 cm; Wt 109.8 kg
[~2017-07-09 14:42] MED LIST changes: +ASPI-983 PO; +IBUP-1780 PO; +LEVO100T7 PO; +METO-333 PO; +OMEG-35 PO; +OXYB5TAB9 PO
--- OUTSIDE RECORDS SUMMARY | 2017-07-09 15:15 | XMS REPORT ---
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 675839470 Problem Essential hypertension, benign 401.1 Active 3404743 Problem Abnormal findings on esophagogastroduodenoscopy (EGD) 796.4 Mar, Active 427929412 Problem Constipation, unspecified K59.00 Active 22507893 Problem Slow transit constipation K59.01 Active 42121782 Problem Hyperlipidemia, unspecified hyperlipidemia type E78.5 Active 08630580 Problem Hypothyroidism, unspecified type E03.9 Active 11868481 Problem Essential hypertension I10 Active 53946024 Problem Stress incontinence N39.3 Active 95370339 ALLERGIES Substance Reaction Event Type Date Status Penicillamine rash Drug Allergy Oct, Active Novocain rash Drug Allergy Oct, Active SOCIAL HISTORY Never Assessed PLAN OF CARE Activity Details Follow Up 6 Months Reason:thyroid VITAL SIGNS Height 63.5 in 2016-10-22 Weight 237 lbs 2016-10-22 Temperature 97.9 degrees Fahrenheit 2016-10-22 Heart Rate 88 bpm 2016-10-22 Respiratory Rate 18 2016-10-22 BMI 41.32 kg/m2 2016-10-22 Blood pressure systolic 118 mmHg 2016-10-22 Blood pressure diastolic 82 mmHg 2016-10-22 MEDICATIONS Medication Instructions Dosage Frequency Start Date End Date Duration Status Zithromax Z-Lukas 250 MG Orally Once a day 2 tablets on the first day, then 1 tablet daily for 4 days 24h Oct, Oct, 5 day(s) Active Levothyroxine Sodium 100 MCG Orally Once a day 1/2 tablet 24h May, Active Ibuprofen 800 MG Orally Three times a day 1 tablet 8h 10 Jul, 2016 Jul, 90 days Active Aspir-81 Active Metoprolol Tartrate 25 MG Orally Twice a day 1 Tablet 12h 15 Jul, 2014 90 days Active Oxybutynin Chloride 5 mg Orally 4 times a day 1 tablet 6h Aug, Jul, 90 days Active RESULTS No Results PROCEDURES Procedure Date Ordered Result Body Site [facility] VISIT ESTABLISHED PATIENT October 22, 2016 IMMUNIZATIONS No Known Immunizations MEDICAL (GENERAL) HISTORY Type Description Date Medical History Fx left elbow 2014 Medical History Stress test 12/2014 reversible ischemia of left inf wall, septum and inferolateral wall Medical History Heart Cath 12/22/2014 Dr Posey 10/2016 Dr Posey Medical History Echo 01/2015 EF 45% Medical History Colon polyp Medical History Abnormal findings on esophagogastroduodenoscopy (EGD) Medical History hernia Surgical History Stent in heart Surgical History hernia repair with small bowel protrusion 05/2015 Hospitalization History surgery
--- OUTSIDE RECORDS SUMMARY | 2017-07-09 15:15 | XMS REPORT ---
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 376586167 Problem Essential hypertension, benign 401.1 Active 4224291 Problem Abnormal findings on esophagogastroduodenoscopy (EGD) 796.4 Mar, Active 948679023 Problem Constipation, unspecified K59.00 Active 79645886 Problem Slow transit constipation K59.01 Active 71863569 Problem Hyperlipidemia, unspecified hyperlipidemia type E78.5 Active 24254515 Problem Hypothyroidism, unspecified type E03.9 Active 32226983 Problem Essential hypertension I10 Active 28710617 Problem Stress incontinence N39.3 Active 90121309 ALLERGIES Unknown Allergies SOCIAL HISTORY No smoking Hx information available PLAN OF CARE VITAL SIGNS MEDICATIONS Medication Instructions Dosage Frequency Start Date End Date Duration Status Levothyroxine Sodium 100 MCG Orally Once a day 1/2 tablet 24h May, Active RESULTS No Results PROCEDURES No Known procedures IMMUNIZATIONS No Known Immunizations
--- OUTSIDE RECORDS SUMMARY | 2017-07-09 15:16 | XMS REPORT ---
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 971137838 Problem Essential hypertension, benign 401.1 Active 3203753 Problem Abnormal findings on esophagogastroduodenoscopy (EGD) 796.4 Mar, Active 056413038 Problem Constipation, unspecified K59.00 Active 72545055 Problem Slow transit constipation K59.01 Active 72453520 Problem Hyperlipidemia, unspecified hyperlipidemia type E78.5 Active 73254586 Problem Hypothyroidism, unspecified type E03.9 Active 80748419 Problem Essential hypertension I10 Active 31675724 Problem Stress incontinence N39.3 Active 92017629 ALLERGIES Substance Reaction Event Type Date Status Penicillamine rash Drug Allergy Jul, Active Novocain rash Drug Allergy Jul, Active SOCIAL HISTORY No smoking Hx information available PLAN OF CARE Activity Details Follow Up 1 Year Reason: VITAL SIGNS Height 63.5 in 2016-07-17 Weight 232.0 lbs 2016-07-17 Temperature 98.7 degrees Fahrenheit 2016-07-17 Heart Rate 96 bpm 2016-07-17 Respiratory Rate 20 2016-07-17 BMI 40.45 kg/m2 2016-07-17 Blood pressure systolic 119 mmHg 2016-07-17 Blood pressure diastolic 81 mmHg 2016-07-17 MEDICATIONS Medication Instructions Dosage Frequency Start Date End Date Duration Status Effient 10 mg Orally Once a day 1 Tablet 24h Jul, 90 days Active Metoprolol Tartrate 25 MG Orally Twice a day 1 Tablet 12h 15 Jul, 2014 90 days Active Levothyroxine Sodium 100 MCG Orally Once a day 1 tablet 24h 19 May, 2015 90 days Active Ibuprofen 800 MG Orally Three times a day 1 tablet 8h Jul, Jul, 90 days Active Oxybutynin Chloride 5 mg Orally 4 times a day 1 tablet 6h Aug, Jul, 90 days Active RESULTS Name Result Date Reference Range TSH 2016-07-17 TSH 0.083 0.450-4.500 LIPID PANEL 2016-07-17 Cholesterol, Total 302 100-199 Triglycerides 262 0-149 HDL Cholesterol 45 >39 VLDL Cholesterol S[place] 52 5-40 LDL Cholesterol Calc 205 0-99 Comment: CMP 2016-07-17 Glucose, Serum 111 65-99 BUN 16 8-27 Creatinine, Serum 0.90 0.57-1.00 eGFR If NonAfricn Am 64 >59 eGFR If Africn Am 73 >59 BUN/Creatinine Ratio 18 11-26 Sodium, Serum 140 134-144 Potassium, Serum 4.9 3.5-5.2 Chloride, Serum 99 96-106 Carbon Dioxide, Total 24 18-29 Calcium, Serum 9.2 8.7-10.3 Protein, Total, Serum 6.9 6.0-8.5 Albumin, Serum 3.8 3.5-4.8 Globulin, Total 3.1 1.5-4.5 A/G Ratio 1.2 1.1-2.5 Bilirubin, Total 0.3 0.0-1.2 Alkaline Phosphatase, S 70 39-117 AST (SGOT) 17 0-40 ALT (SGPT) 8 0-32 PROCEDURES Procedure Date Ordered Related Diagnosis Body Site [facility] VISIT ESTABLISHED PATIENT Jul 17, 2016 VENIPUNCT, ROUTINE* Jul 17, 2016 Office Visit, Est Pt., Level 3 Jul 17, 2016 IMMUNIZATIONS No Known Immunizations
--- OUTSIDE RECORDS SUMMARY | 2017-07-09 15:16 | XMS REPORT ---
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 030714058 Problem Essential hypertension, benign 401.1 Active 9010618 Problem Abnormal findings on esophagogastroduodenoscopy (EGD) 796.4 Mar, Active 019348321 Problem Constipation, unspecified K59.00 Active 30025808 Problem Slow transit constipation K59.01 Active 64394668 Problem Hyperlipidemia, unspecified hyperlipidemia type E78.5 Active 81952987 Problem Hypothyroidism, unspecified type E03.9 Active 81157312 Problem Essential hypertension I10 Active 92468789 Problem Stress incontinence N39.3 Active 69895361 ALLERGIES No Information SOCIAL HISTORY Never Assessed PLAN OF CARE VITAL SIGNS MEDICATIONS Unknown Medications RESULTS No Results PROCEDURES Procedure Date Ordered Result Body Site LAB NOT BILLED BY [place] December 06, 2016 VENIPUNCT, ROUTINE* December 06, 2016 IMMUNIZATIONS No Known Immunizations MEDICAL (GENERAL) [...]
--- OUTSIDE RECORDS SUMMARY | 2017-07-09 15:16 | XMS REPORT ---
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 578359035 Problem Essential hypertension, benign 401.1 Active 1982942 Problem Abnormal findings on esophagogastroduodenoscopy (EGD) 796.4 Mar, Active 205214440 Problem Constipation, unspecified K59.00 Active 83837316 Problem Slow transit constipation K59.01 Active 70850228 Problem Hyperlipidemia, unspecified hyperlipidemia type E78.5 Active 48411171 Problem Hypothyroidism, unspecified type E03.9 Active 88416449 Problem Essential hypertension I10 Active 00297885 Problem Stress incontinence N39.3 Active 04852930 ALLERGIES No Information SOCIAL HISTORY Never Assessed PLAN OF CARE VITAL SIGNS MEDICATIONS Medication Instructions Dosage Frequency Start Date End Date Duration Status Levothyroxine Sodium 75 MCG Orally Once a day 1 tablet on an empty stomach in the morning 24h May, 30 days Active RESULTS No Results PROCEDURES No Known procedures IMMUNIZATIONS No Known Immunizations MEDICAL (GENERAL) HISTORY [...]
--- OUTSIDE RECORDS SUMMARY | 2017-07-09 15:17 | XMS REPORT | Continuity of Care Document ---
Author Author [facility] Address Unknown Phone Unavailable Allergies Active Description Code Type Severity Reaction Onset Reported/Identified Relationship to Patient Clinical Status Yes Penicillins Drug Allergy 08/10/2008 Yes Penicillins Drug Allergy N/A N/A 08/10/2008 Yes Penicillins [id number] Drug Allergy Unknown N/A 04/18/2015 Yes procaine [id number] Drug Allergy Unknown N/A 04/18/2015 Yes Penicillins [id number] Drug Allergy Unknown HAS HAD ANCEF W 05/04/2015 Yes atorvastatin [id number] Drug Allergy Unknown N/A 10/10/2016 Medications There is no data. 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 08/10/2008 NUPUR BORDER MEASURER, ZAYDA S 465.9 ACUTE UPPER RESPIRATORY INFECTIONS OF UNSPECIFIED SITE 08/10/2008 NUPUR CARVER, ZAYDA S 719.40 joint pain, localized 02/09/2009 NIK BALLARD MD 272.4 HYPERLIPIDEMIA HYPERLIPOPROTEINEMIAS (Old Classification) 02/09/2009 NIK BALLARD MD 272.4 HYPERLIPIDEMIA HYPERLIPOPROTEINEMIAS (Old Classification) 02/09/2009 NIK BALLARD MD 272.4 HYPERLIPIDEMIA HYPERLIPOPROTEINEMIAS (Old Classification) 02/09/2009 ZAYDA ESPITIA APRN S 272.4 HYPERLIPIDEMIA HYPERLIPOPROTEINEMIAS (Old Classification) 02/09/2009 NIK BALLARD MD 272.4 HYPERLIPIDEMIA HYPERLIPOPROTEINEMIAS (Old Classification) 02/09/2009 ZAYDA ESPITIA APRN S 272.4 HYPERLIPIDEMIA HYPERLIPOPROTEINEMIAS (Old Classification) 12/27/2009 NIK BALLARD MD 268.9 VITAMIN [...] Skin Site Unspecified 01/17/2011 ZAYDA ESPITIA APRN 701.9 Unspecified Hypertrophic And Atrophic Conditions Of Skin 01/17/2011 NUPUR BORDER MEASURER, ZAYDA S 702.0 Actinic Keratosis 01/17/2011 NUPUR BORDER MEASURER, ZAYDA S 702.19 Other Seborrheic Keratosis 01/17/2011 NIK BALLARD MD 216.9 Benign Neoplasm Of Skin Site Unspecified 01/17/2011 NIK BALLARD MD 701.9 Unspecified Hypertrophic And Atrophic Conditions Of Skin 01/17/2011 NIK BALLARD MD 702.0 Actinic Keratosis 01/17/2011 NIK BALLARD MD 702.19 Other Seborrheic Keratosis 01/17/2011 NUPUR BORDER MEASURER, ZAYDA S 216.9 Benign Neoplasm Of Skin Site Unspecified 01/17/2011 NUPUR CARVER ZAYDA S 701.9 Unspecified Hypertrophic And Atrophic Conditions Of Skin 01/17/2011 NUPUR CARVER ZAYDA S 702.0 Actinic Keratosis 01/17/2011 NUPUR CARVER ZAYDA S 702.19 Other Seborrheic Keratosis 03/07/2011 [...] Encounter For Removal Of Sutures 03/07/2011 NUPUR CARVER ZAYDA S 682.1 Cellulitis And Abscess Of Neck 03/07/2011 NUPUR CARVER ZAYDA S V58.32 Encounter For Removal Of Sutures 03/07/2011 NIK BALLARD MD 682.1 Cellulitis And Abscess Of Neck 03/07/2011 NIK BALLARD MD V58.32 Encounter For Removal Of Sutures 03/07/2011 NUPUR CARVER ZAYDA S 682.1 Cellulitis And Abscess Of Neck 03/07/2011 NUPUR CARVER ZAYDA S V58.32 Encounter For Removal Of Sutures 07/29/2012 NELLIE HARRELL, NIK 401.1 ESSENTIAL HYPERTENSION BENIGN 07/29/2012 NELLIE HARRELL, NIK 596.51 BLADDER HYPERACTIVITY 07/29/2012 NELLIE HARRELL, NIK 401.1 ESSENTIAL HYPERTENSION BENIGN 07/29/2012 NELLIE HARRELL, NIK 596.51 BLADDER HYPERACTIVITY 07/29/2012 NELLIE HARRELL, NIK 401.1 ESSENTIAL HYPERTENSION BENIGN 07/29/2012 NIK BALLARD MD 596.51 BLADDER HYPERACTIVITY 07/29/2012 ANGELA ESPITIA APRNA S 401.1 ESSENTIAL HYPERTENSION BENIGN 07/29/2012 ANGELA ESPITIA APRNA S 596.51 BLADDER HYPERACTIVITY 07/29/2012 NELLIE HARRELL, NIK 401.1 ESSENTIAL HYPERTENSION BENIGN 07/29/2012 NELLIE HARRELL, NIK 596.51 BLADDER HYPERACTIVITY 07/29/2012 CHLOÉ ESPITIA APRNNDA S 401.1 ESSENTIAL HYPERTENSION BENIGN 07/29/2012 CHLOÉ ESPITIA APRNNDA S 596.51 BLADDER HYPERACTIVITY 07/15/2013 JONATHAN HARRELL, [...] Vanessa Ot 414.01 07/20/2013 RAJ HARRELL, PETROS J Ot 414.2 07/20/2013 RAJ HARRELL, PETROS J Ot 428.0 07/20/2013 RAJ HARRELL, PETROS J Ot 428.21 07/20/2013 RAJ HARRELL, ANSLEYHAR J Ot 596.51 07/20/2013 RAJ HARRELL, BASHAR J Ot 596.54 07/20/2013 RAJ HARRELL, BASHAR J Ot 716.90 07/20/2013 RAJ HARRELL, ANSLEYHAR J Ot 796.3 07/20/2013 RAJ HARRELL, ANSLEYMONET J Ot V03.82 07/20/2013 RAJ HARRELL, PETROS J Ot V10.05 07/20/2013 RAJ HARRELL, PETROS J Ot V15.82 07/20/2013 RAJ HARRELL, ANSLEYHAR J Ot V17.3 07/20/2013 RAJ HARRELL, ANSLEYMONET J Ot V85.41 08/03/2013 ZAYDA ESPITIA APRN S 153.9 MALIGNANT NEOPLASM OF COLON UNSPECIFIED SITE 08/03/2013 ZAYDA ESPITIA APRN S 414.00 CAD 08/03/2013 NIK BALLARD MD 153.9 MALIGNANT NEOPLASM OF COLON UNSPECIFIED SITE 08/03/2013 NIK BALLARD MD 414.00 CAD 08/03/2013 ZAYDA ESPITIA APRN 153.9 MALIGNANT NEOPLASM OF COLON UNSPECIFIED SITE 08/03/2013 ZAYDA ESPITIA APRN S 414.00 CAD 10/26/2013 JONATHAN HARRELL, SIGRID Pradahn Ot 787.91 11/03/2013 MISAEL HARRELL, JORDYN Ot [...] ANTHONY MD, Ot 414.01 CORONARY ATHEROSCLEROSIS OF [place] CORON 12/23/2014 PETROS ANTHONY MD Ot 414.2 [...] ANGIOPLASTY 12/23/2014 PETROS ANTHONY MD, Ot V58.69 OT MED,LT,CURRENT USE 12/23/2014 PETROS ANTHONY MD Ot [...] JED M Ot Z85.038 04/20/2015 ZAYDA ESPITIA [facility] Ot 564.00 05/04/2015 Ot 787.91 05/04/2015 [...] JED M Ot Z11.2 05/06/2015 ZAYDA ESPITIA [facility] Ot 564.00 05/06/2015 ZAYDA ESPITIA [facility] Ot 564.00 05/10/2015 BLAS HARRELL, JED [...] HARRELL, JED M Ot Z85.038 05/10/2015 BLAS HRARELL, JED Moura Ot Z87.891 05/10/2015 BLAS HARRELL, JED Moura [...] TYPE VESSEL, NATIV 10/10/2016 Ot V58.69 OTH MED,LT, CURRENT USE 10/11/2016 EVAN GOLDEN DO Ot E03.9 HYPOTHYROIDISM, UNSPECIFIED 10/11/2016 LAN GOLDEN DOI Ot E66.9 OBESITY, UNSPECIFIED 10/11/2016 LAN GOLDEN DOI Ot E78.5 HYPERLIPIDEMIA, UNSPECIFIED 10/11/2016 LAN GOLDEN DOI Ot I10 ESSENTIAL (PRIMARY) HYPERTENSION 10/11/2016 LAN GOLDEN DOI Ot I25.10 ATHSCL HEART DISEASE OF [place] CORONARY 10/11/2016 LAN GOLDEN DOI Ot I25.2 OLD MYOCARDIAL INFARCTION 10/11/2016 EVAN GOLDEN DO Ot I50.23 ACUTE ON CHRONIC SYSTOLIC (CONGESTIVE) H 10/11/2016 LAN GOLDEN DOI Ot R07.89 OTHER CHEST PAIN 10/11/2016 LAN GOLDEN DOI Ot Z68.41 BODY MASS INDEX (BMI) 40.0-44.9, ADULT 10/11/2016 LAN GOLDEN DOI Ot Z79.899 OTHER BEE RAISER (CURRENT) DRUG THERAPY 10/11/2016 LAN GOLDEN DOI Ot Z87.891 PERSONAL HISTORY OF NICOTINE DEPENDENCE 10/11/2016 LAN GOLDEN DOI Ot Z95.5 PRESENCE OF CORONARY ANGIOPLASTY IMPLANT 10/29/2016 GOLDEN DO, EVAN Ot E03.9 HYPOTHYROIDISM, UNSPECIFIED 10/29/2016 GOLDEN DO, EVAN Ot E66.9 OBESITY, UNSPECIFIED 10/29/2016 GOLDEN DO EVAN Ot E78.5 HYPERLIPIDEMIA, UNSPECIFIED 10/29/2016 GOLDEN DO EVAN Ot I10 ESSENTIAL (PRIMARY) HYPERTENSION 10/29/2016 CHICO FRENCH EVAN Ot I25.10 ATHSCL HEART DISEASE OF [place] CORONARY 10/29/2016 CHICO FRENCH EVAN Ot I25.2 OLD MYOCARDIAL INFARCTION 10/29/2016 CHICO DO EVAN Ot I50.23 ACUTE ON CHRONIC SYSTOLIC (CONGESTIVE) H 10/29/2016 GOLDEN DO EVAN Ot R07.89 OTHER CHEST PAIN 10/29/2016 CHICO FRENCH EVAN Ot Z68.41 BODY MASS INDEX (BMI) 40.0-44.9, ADULT 10/29/2016 CHICO FRENCH EVAN Ot Z79.899 OTHER DETENTION (CURRENT) DRUG THERAPY 10/29/2016 CHICO FRENCH EVAN Ot Z87.891 PERSONAL HISTORY OF NICOTINE DEPENDENCE 10/29/2016 CHICO FRENCH EVAN Ot Z95.5 PRESENCE OF CORONARY ANGIOPLASTY IMPLANT 01/24/2017 CHICO FRENCH EVAN Ot E03.9 HYPOTHYROIDISM, UNSPECIFIED 01/24/2017 CHICO FRENCH EVAN Ot E66.9 OBESITY, UNSPECIFIED 01/24/2017 CHICO FRENCH EVAN Ot E78.5 HYPERLIPIDEMIA, UNSPECIFIED 01/24/2017 CHICO FRENCH EVAN Ot I10 ESSENTIAL (PRIMARY) HYPERTENSION 01/24/2017 CHICO FRENCH EVAN Ot I25.10 ATHSCL HEART DISEASE OF [place] CORONARY 01/24/2017 CHICO FRENCH EVAN Ot I25.2 OLD MYOCARDIAL INFARCTION 01/24/2017 CHICO FRENCH EVAN Ot I50.23 ACUTE ON CHRONIC SYSTOLIC (CONGESTIVE) H 01/24/2017 CHICO FRENCH EVAN Ot R07.89 OTHER CHEST PAIN 01/24/2017 CHICO FRENCH EVAN Ot Z68.41 BODY MASS INDEX (BMI) 40.0-44.9, ADULT 01/24/2017 CHICO FRENCH EVAN Ot Z79.899 OTHER BEE RAISER (CURRENT) DRUG THERAPY 01/24/2017 CHICO FRENCH EVAN Ot Z87.891 PERSONAL HISTORY OF NICOTINE DEPENDENCE 01/24/2017 EVAN GOLDEN DO Ot Z95.5 PRESENCE OF CORONARY ANGIOPLASTY IMPLANT Procedures Code Description [place] [address] ROUTINE VENIPUNCTURE 07/29/2012 79044 A1C (IN-HOUSE) 07/29/2012 21664 CBC 07/29/2012 50864 CMP 07/29/20127101202 GFR CALC (RESULT ONLY) 07/29/2012 44044 TSH 07/30/2012 25103 T4 FREE 07/30/2012 88526 ROUTINE VENIPUNCTURE 05/26/2013 98437 LIPID PANEL 05/26/2013 66164 CBC 05/26/20130742607 GFR CALC (RESULT ONLY) 05/26/2013 45264 CMP 05/26/2013 78854 TSH 05/26/2013 Sigrid Armenta 08/12/2013 Results Test Result Range Complete blood count (CBC) with automated white blood cell (WBC) differential - 10/09/16 19:50 Blood leukocytes automated count (number/volume) 10.3 10*3/uL 4.3-11.0 Blood erythrocytes automated count (number/volume) 5.07 10*6/uL 4.35-5.85 Venous blood hemoglobin measurement (mass/volume) 12.7 [...] Automated blood platelet mean volume measurement 9.8 [foz_us] 7.4-10.4 Automated blood neutrophils/100 leukocytes 46 % [...] Serum or plasma sodium measurement (moles/volume) 141 mmol/L 135-145 Serum or plasma potassium measurement (moles/volume) 4.8 mmol/L 3.6-5.0 Serum or plasma chloride measurement (moles/volume) 103 mmol/L 98-107 Carbon dioxide 30 mmol/L 21-32 Serum or plasma anion gap determination (moles/volume) 8 mmol/L 5-14 Serum or plasma urea nitrogen measurement (mass/volume) 20 mg/dL 7-18 Serum or plasma creatinine measurement (mass/volume) 0.99 mg/dL 0.60-1.30 Serum or plasma urea nitrogen/creatinine mass [...] measurement (mass/volume) 3.5 g/dL 3.2-4.5 Magnesium - 04/04/17 19:50 Magnesium 2.1 mg/dL 1.8-2.4 Serum or [...] or plasma troponin i.cardiac measurement (mass/volume) < ng/ mL <0.30 Serum or plasma amylase measurement (enzymatic activity/volume) - 10/09/16 19: 50 Serum or plasma amylase measurement (enzymatic activity/volume) 54 U /L 25-125 Lipase - 10/09/16 19:50 Lipase 25 U/L 8-78 Serum or plasma lithium measurement (moles/volume) - 10/09/16 19:50 BNP level 86.5 pg/mL <100.0 Complete blood count (CBC) with automated white blood cell (WBC) differential - 10/10/16 01:55 Blood leukocytes automated count (number/volume) 9.1 10*3/uL 4.3-11.0 Blood erythrocytes automated count (number/volume) 4.56 10*6/uL 4.35-5.85 Venous blood hemoglobin measurement (mass/volume) 11.4 [...] Automated blood platelet mean volume measurement 9.9 [foz_us] 7.4-10.4 Automated blood neutrophils/100 leukocytes 48 % [...] or plasma troponin i.cardiac measurement (mass/volume) < ng/ mL <0.30 Comprehensive metabolic panel - 10/10/16 01:55 Serum or plasma sodium measurement (moles/volume) 140 mmol/L 135-145 Serum or plasma potassium measurement (moles/volume) 4.4 mmol/L 3.6-5.0 Serum or plasma chloride measurement (moles/volume) 105 mmol/L 98-107 Carbon dioxide 25 mmol/L 21-32 Serum or plasma anion gap determination (moles/volume) 10 mmol/L 5-14 Serum or plasma urea nitrogen measurement (mass/volume) 20 mg/dL 7-18 Serum or plasma creatinine measurement (mass/volume) 0.88 mg/dL 0.60-1.30 Serum or plasma urea nitrogen/creatinine mass [...] Serum or plasma cholesterol measurement (mass/volume) 258 mg/dL < 200 Serum or plasma cholesterol in HDL measurement (mass/volume) 41 mg/ dL 40-60 Cholesterol in LDL [mass/volume] in serum or plasma by direct assay 176 mg/dL 1-129 Serum or plasma cholesterol in VLDL measurement (mass/volume) 50 mg/ dL 5-40 Automated blood complete blood count (hemogram) panel - 10/11/16 03:17 Blood leukocytes automated count (number/volume) 7.8 10*3/uL 4.3-11.0 Blood erythrocytes automated count (number/volume) 4.49 10*6/uL 4.35-5.85 Venous blood hemoglobin measurement (mass/volume) 11.2 [...] Automated blood platelet mean volume measurement 10.1 [foz_us] 7.4-10.4 Encounters ACCT No. Visit Date/Time Discharge Status Pt. Type Provider Facility Loc./Unit Complaint [id number] 07/27/2014 10:13:00 07/27/2014 23:59:59 CLS Outpatient ZAYDA ESPITIA APRN [id number] 08/11/2013 09:34:00 08/11/2013 23:59:59 CLS Outpatient NIK BALLARD MD [id number] 08/03/2013 11:38:00 08/03/2013 23:59:59 CLS Outpatient ZAYDA ESPITIA APRN [id number] 05/26/2013 09:54:00 05/26/2013 23:59:59 CLS Outpatient NIK BALLARD MD [id number] 07/29/2012 10:36:00 07/29/2012 23:59:59 CLS Outpatient NIK BALLARD MD [id number] 07/29/2012 10:36:00 07/29/2012 23:59:59 CLS Outpatient NIK BALLARD MD [id number] 10/09/2016 21:55:00 10/11/2016 10:25:00 DIS Outpatient GOLDEN EVAN Via [facility] CHEST PAIN, HYPOXIA [id number] 05/04/2015 08:41:00 05/10/2015 11:20:00 DIS Inpatient JED ODONNELL MD Via [address] [id number] 04/27/2015 09:42:00 04/27/2015 23:59:59 CLS Outpatient JED ODONNELL MD Via [facility] PREOP [id number] 04/19/2015 06:46:00 04/19/2015 09:05:00 DIS Outpatient JED ODONNELL MD Via [facility] [address] [id number] 04/18/2015 07:12:00 04/18/2015 10:15:00 DIS Outpatient JED ODONNELL MD Via [facility] [address] [id number] 04/14/2015 05:43:00 04/14/2015 23:59:59 CLS Outpatient JED ODONNELL MD Via [facility] PREOP [id number] 03/31/2015 13:11:00 03/31/2015 23:59:59 CLS Outpatient ZAYDA ESPITIA Via [facility] RAD [id number] 01/20/2015 09:59:00 01/20/2015 23:59:59 CLS Outpatient MARISA COOPER Via [facility] [id number] 12/22/2014 10:27:00 12/23/2014 11:00:00 DIS Outpatient PETROS ANTHONY MD Via [facility] [id number] 12/15/2014 10:39:00 12/15/2014 23:59:59 CLS Outpatient MARISA COOPER Via [facility] CARD [id number] 11/25/2014 12:53:00 11/25/2014 23:59:59 CLS Outpatient JEFF SINCLAIR CRAB FISHERMAN Via [facility] QUICK [id number] 11/16/2013 09:44:00 02/14/2014 00:01:00 DIS Outpatient JORDYN DOUGLAS MD Via [facility] ONC [id number] 08/05/2013 13:50:00 11/03/2013 00:01:00 DIS Outpatient JRODYN DOUGLAS MD Via [facility] ONC [id number] 07/28/2013 10:38:00 10/26/2013 00:01:00 DIS Outpatient SIGRID CASTILLO MD Via [facility] LAB [id number] 07/17/2013 12:49:00 07/20/2013 11:15:00 DIS Inpatient PETROS ANTHONY MD Via [facility] CSD [id number] 06/28/2013 14:31:00 07/15/2013 17:45:00 DIS Inpatient SIGRID CASTILLO MD Via [facility] SURGICAL [id number] 06/21/2014 13:20:00 Document Registration [id number] 10/27/2013 00:00:00 Document Registration
[2017-07-09 15:25] VITALS: BP 101/67
[2017-07-09] MEDS ORDERED: ONDANSETRON 4 MG/2 ML (SDV) Z0FRAN IVP PRN (15:30)
[2017-07-09] MEDS ORDERED: PATIENT MAY USE OWN MEDS, ALL PO SCH (15:30)
[2017-07-09] MEDS ORDERED: cefTRIAXone INJECTION 1,000 MG in NS (IVPB) 50 ML IV SCH (15:30)
[2017-07-09] MEDS ORDERED: DOCUSATE SODIUM 100 MG (COLACE) CAP PO PRN (15:30)
[2017-07-09] MEDS ORDERED: ASPI-999 PO (15:52)
[2017-07-09] MEDS ORDERED: LEVO50TA6 PO (15:52)
[2017-07-09] MEDS ORDERED: ROSU5TAB PO (15:52)
[2017-07-09] MEDS ORDERED: AZITHROMYCIN INJECTION 500 MG in NS (IVPB) 250 ML IV SCH (16:00)
[2017-07-09] MEDS ORDERED: INFLUENZA TRIvalent 2017-2018 0.5 ML/45 MCG SYR IM ONE (16:15)
[2017-07-09] MEDS: ENOXAPARIN 40 MG/0.4 ML (LOVENOX) SYR SC SCH (16:21)
[2017-07-09 17:32] LABS: BASOPHILS % (AUTO) 0 % (0-10); EOSINOPHILS # (AUTO) 0.1 10^3/uL (0.0-0.3); EOSINOPHILS % (AUTO) 1 % (0-10); HEMATOCRIT 41 % (35-52); HEMOGLOBIN 12.5 G/DL (11.5-16.0); LYMPHOCYTES # (AUTO) 2.6 X 10^3 (1.0-4.0); LYMPHOCYTES % (AUTO) 28 % (12-44); MEAN CORPUSCULAR HEMOGLOBIN 26 PG (25-34); MEAN CORPUSCULAR HGB CONC 30 G/DL (32-36); MEAN CORPUSCULAR VOLUME 85 FL (80-99); MEAN PLATELET VOLUME 10.2 FL (7.4-10.4); MONOCYTES # (AUTO) 1.2 X 10^3 (0.0-1.0); MONOCYTES % (AUTO) 13 % (0-12); NEUTROPHILS # (AUTO) 5.3 X 10^3 (1.8-7.8); NEUTROPHILS % (AUTO) 58 % (42-75); PLATELET COUNT 273 10^3/uL (130-400); RED BLOOD COUNT 4.86 10^6/uL (4.35-5.85); RED CELL DISTRIBUTION WIDTH 18.4 % (10.0-14.5); WHITE BLOOD COUNT 9.3 10^3/uL (4.3-11.0)
[2017-07-09 17:49] LABS: ALANINE AMINOTRANSFERASE 12 U/L (0-55); ALBUMIN 3.2 GM/DL (3.2-4.5); ALKALINE PHOSPHATASE 56 U/L (40-136); BILIRUBIN,TOTAL 0.4 MG/DL (0.1-1.0); BUN/CREATININE RATIO 24; CALCIUM 8.7 MG/DL (8.5-10.1); CARBON DIOXIDE 29 MMOL/L (21-32); CHLORIDE 98 MMOL/L (98-107); CREATININE SERUM 0.78 MG/DL (0.60-1.30); GFR ESTIMATED > 60; GLUCOSE 122 MG/DL (70-105); MAGNESIUM 1.6 MG/DL (1.8-2.4); POTASSIUM 4.3 MMOL/L (3.6-5.0); SODIUM 136 MMOL/L (135-145); TOTAL PROTEIN 6.6 GM/DL (6.4-8.2)
[2017-07-09] MEDS: RT-ALBUTEROL/IPRATROPIUM 3 ML (DUONEB) VIAL INH SCH ×2 (18:53→22:05)
[2017-07-09 20:00] VITALS: BP 101/56
[2017-07-09] MEDS: meTOprolol TARTRATE 25 MG (LOPRESSOR) TABLET PO SCH (20:18)
[2017-07-09] MEDS: IBUPROFEN 800 MG (MOTRIN) TAB PO PRN (22:20)
[2017-07-10] VITALS (7 sets, daily range): BP systolic 95–112; BP diastolic 55–93
[2017-07-10] MEDS: RT-ALBUTEROL/IPRATROPIUM 3 ML (DUONEB) VIAL INH SCH ×6 (03:40→21:51)
[2017-07-10] MEDS: LEVOTHYROXINE 50 MCG (LEVOTHROID) TAB PO SCH (06:33)
--- NOTE | 2017-07-10 08:45 | History & Physicial (CHS) ---
HPI History of Present Illness: 76 yo female presented to [facility] Walk in clinic with cold symptoms for 8 days. She complained of shortness of breath, sore throat, runny nose. She had a negative rapid flu test and CXR did not show an infiltrate, but she was hypoxic with walking and was admitted for observation. Date seen by provider: Jul 10, 2017 Time Seen by Provider: 10:15 Attending Physician Kerline Acosta MD PCP [place] Consult Date of Admission Jul 09, 2017 at 3:11 pm Home Medications Home Medications Reviewed patient Home Medication Reconciliation Form Allergies Coded Allergies: Penicillins (Verified Allergy, Unknown, HAS HAD ANCEF W/O PROBLEMS, ) atorvastatin (Verified Allergy, Unknown, 10/10/16) procaine (Verified Allergy, Unknown, 01/04/07) [id number] Hx Patient Social History Alcohol Use: Denies Use Recreational Drug Use: No Smoking Status: Former Smoker Cigaretts per day: 100 Former smoker/When Quit: Jul 08, 1992 Type Used: Cigarettes Recent Foreign Travel: No Contact w/other who traveled: No Recent Hopitalizations: No Recent Infectious Disease Expo: No Physical Abuse Screen: No Sexual Abuse: No Immunizations Up To Date Date of Pneumonia Vaccine: Apr 16, 2013 Past Medical History PMH 1. Colon Cancer 2. Hypothyroidism 3. HTN 4. HLP 5. Overactive Bladder 6. Obesity PSH 1. CATH with PTCA 2. Colon resection [facility] 3. Hernia Repair 4. Colonoscopy Family Medical History Significant Family History: Heart Disease, Hypertension Review of Systems ([facility]) Constitutional: chills, fever EENTM: No throat pain Respiratory: cough, No short of breath Cardiovascular: No chest pain Gastrointestinal: No abdominal pain, No diarrhea, nausea, No vomiting Genitourinary: No dysuria Musculoskeletal: muscle pain Psychiatric/Neurological: Denies Numbness, Denies Tingling Reviewed Test Results Reviewed Test Results Lab Laboratory Tests Test 07/09/17 17:08 Range/Units White Blood Count 9.3 4.3-11.0 10^3/uL Red Blood Count 4.86 4.35-5.85 10^6/uL Hemoglobin 12.5 11.5-16.0 G/DL Hematocrit 41 35-52 % Mean Corpuscular Volume 85 80-99 FL Mean Corpuscular Hemoglobin 26 25-34 PG Mean Corpuscular Hemoglobin Concent 30 L 32-36 G/DL Red Cell Distribution Width 18.4 H 10.0-14.5 % Platelet Count 273 130-400 10^3/uL Mean Platelet Volume 10.2 7.4-10.4 FL Neutrophils (%) (Auto) 58 42-75 % Lymphocytes (%) (Auto) 28 12-44 % Monocytes (%) (Auto) 13 H 0-12 % Eosinophils (%) (Auto) 1 0-10 % Basophils (%) (Auto) 0 0-10 % Neutrophils # (Auto) 5.3 1.8-7.8 X 10^3 Lymphocytes # (Auto) 2.6 1.0-4.0 X 10^3 Monocytes # (Auto) 1.2 H 0.0-1.0 X 10^3 Eosinophils # (Auto) 0.1 0.0-0.3 10^3/uL Basophils # (Auto) 0.0 0.0-0.1 10^3/uL Sodium Level 136 135-145 MMOL/L Potassium Level 4.3 3.6-5.0 MMOL/L Chloride Level 98 98-107 MMOL/L Carbon Dioxide Level 29 21-32 MMOL/L Anion Gap 9 5-14 MMOL/L Blood Urea Nitrogen 19 H 7-18 MG/DL Creatinine 0.78 0.60-1.30 MG/DL Estimat Glomerular Filtration Rate > 60 BUN/Creatinine Ratio 24 Glucose Level 122 H 70-105 MG/DL Calcium Level 8.7 8.5-10.1 MG/DL Magnesium Level 1.6 L 1.8-2.4 MG/DL Total Bilirubin 0.4 0.1-1.0 MG/DL Aspartate Amino Transf (AST/SGOT) 29 5-34 U/L Alanine Aminotransferase (ALT/SGPT) 12 0-55 U/L Alkaline Phosphatase 56 40-136 U/L Total Protein 6.6 6.4-8.2 GM/DL Albumin 3.2 3.2-4.5 GM/DL Physical Exam-(CHC) Physical Exam Vital Signs VS - Last 72 Hours, by Label 07/09/17 07/09/17 07/09/17 07/09/17 15:25 15:50 16:20 16:32 Temp 95.2 Pulse 80 88 Resp 16 B/P (MAP) 101/67 (78) Pulse Ox 91 96 91 91 O2 Delivery Room Air Room Air Room Air 07/09/17 07/09/17 07/09/17 07/09/17 18:53 20:00 20:00 22:05 Temp 98.3 Pulse 83 Resp 22 B/P (MAP) 101/56 (71) Pulse Ox 74 95 91 O2 Delivery Room Air Room Air Room Air Nasal Cannula O2 Flow Rate 3.00 07/10/17 07/10/17 07/10/17 07/10/17 00:00 03:40 04:00 06:05 Temp 97.0 98.0 Pulse 73 72 Resp 14 14 B/P (MAP) 95/55 (68) 108/93 (98) Pulse Ox 95 91 95 92 O2 Delivery Room Air Nasal Cannula Room Air Nasal Cannula O2 Flow Rate 3.50 3.50 07/10/17 07/10/17 08:38 09:53 Temp 98.4 Pulse 84 Resp 22 B/P (MAP) 104/60 (75) Pulse Ox 97 O2 Delivery Nasal Cannula Nasal Cannula O2 Flow Rate 4.00 3.50 Capillary Refill : Less Than 3 Seconds General Appearance: WD/WN, no apparent distress, obese Respiratory: lungs clear, normal breath sounds Cardiovascular: regular rate, rhythm, no murmur Gastrointestinal: non tender, soft Neurologic/Psychiatric: normal mood/affect Skin: normal color, warm/dry Clinical Quality Measures DVT/VTE Risk/Contraindication: Risk Factor Score Per Nursin RFS Level Per Nursing on Admit: 4+=Very High Assessment/Plan Assessment/Plan Admission Dx Hypoxia HTN HLD Hypothyroidism Plan Hypoxia- negative influenza testing, chest x-ray without infiltrate. Started on antibiotics empirically on admission, given no leukocytosis or sepsis signs will d/c antibiotics and start steroids for presumed COPD exacerbation, taper supplemental oxygen as tolerated. HTN- resume home medications HLD- resume home medications Hypothyroidism- home medication KERLINE ACOSTA MD Jul 10, 2017 8:45 am
[2017-07-10] MEDS: ROSUVASTATIN 5 MG (CRESTOR) TABLET PO SCH (08:46)
[2017-07-10] MEDS: ASPIRIN 81 MG CHEW (CHILDREN'S ASA) PO SCH (08:46)
[2017-07-10] MEDS: meTOprolol TARTRATE 25 MG (LOPRESSOR) TABLET PO SCH ×2 (08:46→20:56)
[2017-07-10] MEDS ORDERED: AZITHROMYCIN 250 MG TAB (ZITHROMAX) PO SCH (09:00)
[2017-07-10] MEDS: predniSONE 10 MG TAB PO SCH (10:07)
[2017-07-10] MEDS: ENOXAPARIN 40 MG/0.4 ML (LOVENOX) SYR SC SCH (15:46)
[2017-07-10] MEDS: IBUPROFEN 800 MG (MOTRIN) TAB PO PRN (21:11)
[2017-07-11] MEDS: RT-ALBUTEROL/IPRATROPIUM 3 ML (DUONEB) VIAL INH SCH ×2 (01:31→07:25)
[2017-07-11 04:00] VITALS: BP 160/70
[2017-07-11] MEDS: LEVOTHYROXINE 50 MCG (LEVOTHROID) TAB PO SCH (06:35)
[2017-07-11] MEDS: predniSONE 10 MG TAB PO SCH ×2 (06:35→09:41)
[2017-07-11 08:30] VITALS: BP 129/68
[2017-07-11] MEDS: ASPIRIN 81 MG CHEW (CHILDREN'S ASA) PO SCH (09:01)
[2017-07-11] MEDS: meTOprolol TARTRATE 25 MG (LOPRESSOR) TABLET PO SCH (09:01)
[2017-07-11] MEDS: ROSUVASTATIN 5 MG (CRESTOR) TABLET PO SCH (09:01)
[2017-07-11] MEDS ORDERED: IPRA4AER IH (10:12)
[2017-07-11] MEDS ORDERED: PRD10T PO (10:12)
[2017-07-11] MEDS ORDERED: CEFD300C3 PO (10:12)
--- NOTE | 2017-07-11 10:14 | Discharge Instructions ---
Discharge [facility] Discharge Medications New, Converted or Re-Newed RX: Transmitted to Pharmacy New Medications: Albuterol/Ipratropium (Combivent Respimat Inhal [place]) 4 Gm Aero 1 PUFF IH QID, #1 INH 0 Refills Cefdinir (Cefdinir) 300 Mg Capsule 300 MG PO BID for 7 Days, #14 CAP 0 Refills Prednisone (Prednisone) 10 Mg Tab 0 PO UD, #15 TAB 0 Refills Take 5 tabs (50mg) daily, decrease by 1 tab (10mg) daily. Continued Medications: Aspirin (Aspirin) 81 Mg Tab.chew 81 MG PO DAILY, TAB Ibuprofen (Ibuprofen) 800 Mg Tablet 800 MG PO Q8H PRN for PAIN-MILD Levothyroxine Sodium (Levothyroxine Sodium) 50 Mcg Tablet 50 MCG PO DAILY, TAB LAST FILLED 05/15/17 #30 Metoprolol Tartrate (Metoprolol Tartrate) 25 Mg Tablet 25 MG PO BID Oxybutynin Chloride (Oxybutynin Chloride) 5 Mg Tablet 10 MG PO BID TAKES 2 (5 MG) TABLETS Rosuvastatin Calcium (Crestor) 5 Mg Tablet 5 MG PO DAILY, TAB Patient Instructions Goal/Follow Up Appt: Follow-up with Anahi Mora on Jul 17 at 11:20 am. Patient Instructions: Use supplemental oxygen at all times until follow-up visit. Return to The Hospital For: Fever, worsening shortness of breath, inability to keep down medications Activity & Diet Discharge Diet: Regular Diet Activity as Tolerated: Yes Copy Copies To 1: MEHUL Ball BETHANY N MD Jul 11, 2017 10:14 am
--- NOTE | 2017-07-11 21:09 | Discharge Summary ---
Diagnosis/Chief Complaint Date of Admission Jul 09, 2017 at 3:50 pm Date of Discharge Jul 11, 2017 at 10:55 am Admission Diagnosis Admission Diagnosis Hypoxia/suspected COPD exacerbation HTN HLD Hypothyroidism Discharge Diagnosis Hypoxia- negative influenza testing, chest x-ray without infiltrate. Started on antibiotics empirically on admission, given no leukocytosis or sepsis signs will d/c antibiotics and start steroids for presumed COPD exacerbation, taper supplemental oxygen as tolerated. 07/11 patient anxious to d/c, still requiring supplemental oxygen which was set up for home use, suspect COPD exacerbation, complete steroid taper outpatient. Sputum with likely klebsiella, script for cefdinir x 7 days as well as albuterol /ipratropium inhaler and recommended PFT when improved HTN- resume home medications HLD- resume home medications Hypothyroidism- home medication Chief Complaint/HPI Chief Complaint/HPI 76 yo female presented to [facility] Walk in clinic with cold symptoms for 8 days. She complained of shortness of breath, sore throat, runny nose. She had a negative rapid flu test and CXR did not show an infiltrate, but she was hypoxic with walking and was admitted for observation. Discharge Summary-Simple/Stand Consultations Discharge Physical Examination Allergies: Coded Allergies: Penicillins (Verified Allergy, Unknown, HAS HAD ANCEF W/O PROBLEMS, ) atorvastatin (Verified Allergy, Unknown, 10/10/16) procaine (Verified Allergy, Unknown, 01/04/07) Vitals & I&Os Vital Sign - Last 12Hours Date Time Temp Pulse Resp B/P (MAP) Pulse Ox O2 Delivery O2 Flow Rate FiO2 07/11/17 10:55 07/11/17 08:30 96.0 74 20 95 Nasal Cannula 2.00 Intake and Output 07/11/17 00:00 Intake Total 1180 ml Output Total 1750 ml Balance -570 ml General Appearance: Alert, No Acute Distress Respiratory: Clear to Auscultation, Normal Air Movement Cardiovascular: Regular Rate, No Murmurs Neuro: Normal Speech Hospital Course See final discharge diagnosis. Discharge Instructions to patient/family Please see electronic discharge instructions given to patient. Discharge Medications Reviewed and agree with Discharge Medication list on patient's Discharge Instruction sheet Clinical Quality Measures DVT/VTE Risk/Contraindication: Risk Factor Score Per Nursin RFS Level Per Nursing on Admit: 4+=Very High KERLINE ALMAGUER MD Jul 11, 2017 9:09 pm
== END 2017-07-11 10:55 | disposition home or self-care (01) ==
LOC: 4TH 15:11 → UNDOADMOB 15:11 → 4TH 15:50
PROVIDERS: ADMIT Family Medicine; ATTEND Family Medicine
DX: J44.1 Chronic obstructive pulmonary disease with (acute) exacerbation (principal); I10 Essential (primary) hypertension; E78.5 Hyperlipidemia, unspecified; E03.9 Hypothyroidism, unspecified; Z88.0 Allergy status to penicillin; Z88.8 Allergy status to other drugs, medicaments and biological substances; Z87.891 Personal history of nicotine dependence; Z85.038 Personal history of other malignant neoplasm of large intestine
CPT/HCPCS: 36415; 80053; 83735; 85025; 87040; 87070; 87077; 87205; 94640; 94664; 94760; 94761; 99211; G0378

== ENCOUNTER → 2018-12-09 | Outpatient (CLI) | payer MEDICARE, MEDICAID ==
[~2018-12-09] MED LIST changes: +ASPI-999 PO; +CEFD300C3 PO; +IPRA4AER IH; +LEVO50TA6 PO; +PRD10T PO; +ROSU5TAB PO
--- NOTE | 2018-12-09 11:02 | Diagnostic Imaging Report ---
INDICATION: Post menopausal syndrome COMPARISON: None FINDINGS: AP Spine L1-L4: [BMD (g/cm2): 1.114] [T-Score: -0.7] [Z-Score: -0.1] [BMD Previous: NA] [BMD % Change: NA] LT Hip Neck: [BMD (g/cm2): 0.643] [T-Score: -2.8] [Z-Score: -1.6] LT Hip Total: [BMD (g/cm2):0.727] [T-Score:-2.2] [Z-Score: -1.3] [BMD Previous: NA] [BMD % Change: NA] RT Hip Neck: [BMD (g/cm2):0.641] [T-Score:-2.9] [Z-Score:-1.7] RT Hip Total: [BMD (g/cm2):0.707] [T-score:-2.4] [Z-Score:-1.4] [BMD Previous:NA] [BMD % Change:NA] *Indicates significant change from prior examination based on 95% confidence level. World Health Organization criteria for BMD interpretation classify patients as Normal (T-score at or above -1.0), Osteopenic (T-score between -1.0 and -2.5) or Osteoporotic (T-score at or below -2.5). LIMITATIONS AND MODIFICATION: None. FRACTURE RISK (FRAX SCORE): The ten year probability of (%): Major Osteoporotic Fracture: [26.1] Hip Fracture: [8.7] IMPRESSION: 1. Osteopenia (Low bone mass), borderline osteoporotic. 2. Baseline assessment. 3. See below National Osteoporosis Foundation guidelines on when to potentially initiate pharmacologic therapy. Based on the National Osteoporosis Foundation Guidelines, pharmacologic treatment should be initiated in any of the following, unless clinical conditions suggest otherwise: * Any patient with prior fragility fracture of the hip or vertebrae. A spine fracture indicates 5X risk for subsequent spine fracture and 2X risk for subsequent hip fracture. * Osteoporosis (T-score <-2.5). * Postmenopausal women and men age 50 and older with low bone mass/osteopenia (T-score between -1.0 and -2.5) by DXA and 10-year major osteoporotic fracture greater than 20% or a 10-year probability of hip fracture greater than 3%. These fracture risks are supplied above in the FRAX score, if applicable. * Clinician judgement and/or patient preferences may indicate treatment for people with 10-year fracture probabilities above or below these levels. Dictated by: Dictated on workstation # [id number]
== END ==
LOC: RAD 09:55
PROVIDERS: ATTEND Nurse Practitioner Community Health
DX: M85.89 Other specified disorders of bone density and structure, multiple sites (principal); N95.1 Menopausal and female climacteric states
CPT/HCPCS: 77080

== ENCOUNTER 2018-12-23 05:39 | Outpatient (CLI) | payer MEDICARE, MEDICAID ==
[~2018-12-23] VITALS: Ht 160 cm; Wt 109.8 kg
== END 2018-12-23 11:46 | disposition home or self-care (01) ==
LOC: PREOP 05:39
PROVIDERS: ATTEND Surgery
DX: Z01.818 Encounter for other preprocedural examination (principal)

== ENCOUNTER 2018-12-30 07:47 | Day surgery (SDC) | payer MEDICAID, MEDICARE ==
[~2018-12-30] VITALS: Ht 160 cm; Wt 109.8 kg
[2018-12-30] MEDS ORDERED: LACTATED RINGERS 1,000 ML IV ONE (07:51)
[2018-12-30 07:54] VITALS: BP 112/85
[2018-12-30] MEDS ORDERED: LACTATED RINGERS 1,000 ML IV STA (08:09)
--- NOTE | 2018-12-30 08:14 | Progress Note-Pre Operative ---
Pre-Operative Progress Note H&P Reviewed The H&P was reviewed, patient examined and no changes noted. Date Seen by Provider: Dec 30, 2018 Time Seen by Provider: 08:14 Date H&P Reviewed: Dec 30, 2018 Time H&P Reviewed: 08:14 Pre-Operative Diagnosis: hx colon cancer and polyps KAT BAEZ DO Dec 30, 2018 08:14
[2018-12-30] MEDS ORDERED: proPOfol 200 MG/20 ML (DIPRIVAN) VIAL IV ONE ×4 (09:07→09:52)
--- NOTE | 2018-12-30 10:01 | Progress Note-Post Operative ---
Post-Operative Progess Note Surgeon (s)/Gps Field Data Collector (s) Surgeon KAT BAEZ DO Gps Field Data Collector: na Pre-Operative Diagnosis hx colon cancer and polyps Post-Operative Diagnosis normal colon Procedure & Operative Findings Date of Procedure 12/30/18 Procedure Performed/Findings colonoscopy Anesthesia Type per [facility] Estimated Blood Loss Estimated blood loss (mL): none Specimens/Packing Specimens Removed na KAT BAEZ DO Dec 30, 2018 10:01
--- NOTE | 2018-12-30 10:04 | Discharge Inst-Simple/Standard ---
Discharge Inst-Standard Patient Instructions/Follow Up Plan of Care/Instructions/FU: f/u appointment 1 year Jennifer repeat colonoscopy 1 year any issues before that be seen at that time. Activity as Tolerated: Yes Discharge Diet: Regular Diet KAT BAEZ DO Dec 30, 2018 10:03
[2018-12-30 10:05] VITALS: BP 121/62
[2018-12-30 10:45] VITALS: BP 117/70
[2018-12-30 11:05] VITALS: BP 117/70
--- NOTE | 2018-12-30 11:05 | NUR ---
TAKING PO FLUIDS WITHOUT PROBLEM, AMB TO BR WITH ASSIST, GAIT STEADY. PASSING FLATUS, DENIES COMPLAINTS. ALERT. STATES SHE IS READY FOR DISMISSAL.
--- NOTE | 2018-12-30 14:38 | Anesthesia-General Post-Op ---
MAC Patient Condition Mental Status/LOC: Same as Preop Cardiovascular: Satisfactory Nausea/Vomiting: Absent Respiratory: Satisfactory Pain: Controlled Complications: Absent Post Op Complications Complications None Follow Up Care/Instructions Patient Instructions None needed. Anesthesiology Discharge Order Discharge Order Patient is doing well, no complaints, stable vital signs, no apparent adverse anesthesia problems. No complications reported per nursing. HEIDI TRAN CRNA Dec 30, 2018 14:38
--- NOTE | 2018-12-30 15:48 | OPERATIVE REPORT ---
DATE OF SERVICE: 12/30/2018 PREOPERATIVE DIAGNOSIS: History of colon cancer, history of polyps. POSTOPERATIVE DIAGNOSIS: Normal colon. PROCEDURE: Colonoscopy. SURGEON: Kat Rodriguez DO ANESTHESIA: Per MDA. ESTIMATED BLOOD LOSS: None. COMPLICATIONS: None. INDICATIONS: The patient is a 78-year-old female needing screening colonoscopy. She understands risks and benefits of procedure and wished to proceed with procedure. Consent was signed in the chart. The patient was taken to the endoscopy suite, placed in left lateral recumbent position. Timeout was performed. Digital rectal exam was performed. There were no palpable polyps, masses or ulcerations. Scope was inserted in the rectum and advanced all the way to the ileocolonic anastomosis. There were no polyps, masses or ulcerations present. The prep was poor with lots of irrigation and suction was used to begin to irrigate and suction, which began improving the visualization. Scope was then slowly retracted back along with irrigation and suction. There are no polyps, mass or ulcerations seen near the ileocolonic anastomosis. The scope was continuously slowly retracted back. There were no polyps, masses or ulcerations through the remainder of the colon all the way down to the rectum where the scope was also retroflexed noting no other pathology. The patient tolerated procedure well without any complications. She was taken to recovery room in stable condition. RECOMMENDATIONS: I would recommend repeat colonoscopy in one year just due to the poor visualization; however, no significant pathology was visualized would recommend repeating in one year with 2-day prep. If she has any issues before that will be seen at that time. Job ID: [id number] DocumentID: [id number] Dictated Date: 12/30/2018 10:06:58 Layer Out Plate Glass Date: 12/30/2018 15:47:54 Dictated By: KAT RODRIGUEZ DO
== END 2018-12-30 11:05 | disposition home or self-care (01) ==
LOC: ENDO 07:47
PROVIDERS: ATTEND Surgery
DX: Z12.11 Encounter for screening for malignant neoplasm of colon (principal); Z85.038 Personal history of other malignant neoplasm of large intestine; Z86.010 Personal history of colon polyps; Z98.0 Intestinal bypass and anastomosis status; I25.10 Atherosclerotic heart disease of native coronary artery without angina pectoris; I11.0 Hypertensive heart disease with heart failure; I50.9 Heart failure, unspecified; E78.5 Hyperlipidemia, unspecified; J44.9 Chronic obstructive pulmonary disease, unspecified; E66.9 Obesity, unspecified; Z68.41 Body mass index [BMI] 40.0-44.9, adult; Z87.891 Personal history of nicotine dependence; Z95.5 Presence of coronary angioplasty implant and graft; Z79.02 Long term (current) use of antithrombotics/antiplatelets; Z79.82 Long term (current) use of aspirin; Z79.899 Other long term (current) drug therapy

== ENCOUNTER → 2020-06-06 | Outpatient (CLI) | payer MEDICARE, MEDICAID ==
[~2020-06-06] MED LIST changes: +ASPI-1238 PO; -ASPI-983 PO; +OXYB5TAB13 PO; -OXYB5TAB9 PO; +RT-ALBUTEROL SULF 2.5 MG/3 ML PRE-MIX VIAL INH ONE
== END ==
LOC: RT 12:44
PROVIDERS: ATTEND Nurse Practitioner Family
DX: J44.9 Chronic obstructive pulmonary disease, unspecified (principal); J98.4 Other disorders of lung
CPT/HCPCS: 94060; 94726; 94729

== ENCOUNTER → 2020-07-07 | Outpatient (CLI) | payer MEDICARE, MEDICAID ==
[~2020-07-07] MED LIST changes: -RT-ALBUTEROL SULF 2.5 MG/3 ML PRE-MIX VIAL INH ONE
--- NOTE | 2020-07-07 13:29 | Diagnostic Imaging Report ---
EXAMINATION: CT Abdomen Pelvis without contrast. TECHNIQUE: Multiple contiguous axial images were obtained through the abdomen and pelvis without the use of intravenous contrast. All CT scans use one or more of the following dose optimizing techniques: automated exposure control, MA and/or KvP adjustment based on a patient size and exam type, or iterative reconstruction. HISTORY: Abdominal hernia without obstruction. COMPARISON: CT abdomen/pelvis 03/31/2015. FINDINGS: Lung bases: Bibasilar dependent atelectasis. Solid organs: The liver is normal. The gallbladder is surgically absent. There is no biliary ductal dilation. Pancreas is normal. There are multiple splenules in left upper quadrant. Adrenal glands are normal. The kidneys are normal without hydronephrosis. Bowel: The stomach and small bowel are normal without obstruction. Surgical changes from partial right hemicolectomy. Peritoneum: There is no intraperitoneal free fluid or free air. No suspicious lymphadenopathy. Vasculature: Calcification of the aorta without aneurysm. Musculoskeletal: Degenerative changes of the spine without suspicious osseous lesion or compression fracture. There is a small midline incisional hernia through a 1.9 cm defect (series 2, image 39). The hernia contains a loop of small bowel without obstruction. Pelvis: The uterus and adnexa are normal. The urinary bladder is normal. IMPRESSION: 1. A 1.9 cm midline abdominal wall incisional hernia containing a loop of small bowel without obstruction. 2. No other acute abnormality in the abdomen or pelvis. 3. Colonic diverticulosis without findings of diverticulitis. Dictated by: Dictated on workstation # [id number]
== END ==
LOC: RAD 12:45
PROVIDERS: ATTEND Nurse Practitioner Family
DX: K43.2 Incisional hernia without obstruction or gangrene (principal); K57.30 Diverticulosis of large intestine without perforation or abscess without bleeding
CPT/HCPCS: 74176

== ENCOUNTER → 2020-08-29 | Outpatient (CLI) | payer MEDICARE, MEDICAID ==
[~2020-08-29] VITALS: Ht 152 cm; Wt 97.0 kg
[~2020-08-29] MED LIST changes: +CATHETER FLUSH 10 ML SYR IV PRN; +REGADENOSON 0.4 MG/5 ML SYR (LEXISCAN) IV ONE
[2020-08-29 09:36] VITALS: BP 141/98
--- NOTE | 2020-08-29 16:24 | Cardiology Stress Test Report ---
Stress Test Report Date of Procedure/Referring: Date of Procedure: Aug 29, 2020 PCP Petros Posey MD Admitting Physician Center/[facility] Indications: Hypertension Baseline Heart Rate: 70 Baseline Blood Pressure: Blood Pressure Systolic: 141 Blood Pressure Diastolic: 98 Baseline Vitals Vital Signs Date Time Temp Pulse Resp B/P (MAP) Pulse Ox O2 Delivery O2 Flow Rate FiO2 08/29/20 09:36 70 141/98 (112) 96 Baseline EKG: Baseline EKG: normal sinus rhythm Summary After explaining the procedure to the patient, she signed a consent and then brought to the stress nuclear laboratory. Patient received 0.4 mg Lexiscan for stress test, ECG, heart rate and blood pressure were monitored continuously. Resting and stress dose of radio tracer were injected, imaging was acquired and reviewed in short axis, horizontal long axis and vertical long axis views. TID: 1.15 SSS: 9 SDS: 4 EF: 41 1. Patient tolerated Lexiscan well 2. Extracardiac attenuation due to the right arm being down, there is reversible ischemia involving the mid to apical anterior wall and true apex 3. Normal left ventricular size, hypokinesia at the anterior apex and true apex with EF 41 percent PETROS POSEY MD Aug 29, 2020 16:23
== END ==
LOC: CARD 08:04
PROVIDERS: ATTEND Internal Medicine Cardiovascular Disease
DX: I10 Essential (primary) hypertension (principal); R07.9 Chest pain, unspecified
CPT/HCPCS: 78452; 93017; A9502

== ENCOUNTER → 2020-08-31 | Outpatient (CLI) | payer MEDICARE, MEDICAID ==
[~2020-08-31] MED LIST changes: -CATHETER FLUSH 10 ML SYR IV PRN; +CLOP75TA28 PO; +FERR-84 PO; +LEVO88TA54 PO; +PANT40SU PO; -REGADENOSON 0.4 MG/5 ML SYR (LEXISCAN) IV ONE; +ROSU10TA22 PO
== END ==
LOC: CARD 12:00
PROVIDERS: ATTEND Internal Medicine Cardiovascular Disease
DX: I11.9 Hypertensive heart disease without heart failure (principal); I08.0 Rheumatic disorders of both mitral and aortic valves
CPT/HCPCS: 93306

== ENCOUNTER 2020-09-07 07:55 | Day surgery (SDC) | payer MEDICARE, MEDICAID ==
[2020-09-07] VITALS (13 sets, daily range): BP systolic 125–163; BP diastolic 68–105
[~2020-09-07] VITALS: Ht 60 cm; Wt 97.7 kg
[~2020-09-07 07:55] MED LIST changes: -CLOP75TA28 PO; -FERR-84 PO; +HEParin (CATH LAB) 2,000 ML IV ONE; -LEVO88TA54 PO; +LIDOCAINE 1% INJ 20 ML 20 ML VIAL ONE; +NS IV 1000 ML 1,000 ML ONE; -PANT40SU PO; -ROSU10TA22 PO
[2020-09-07] MEDS: NS IV 1000 ML 1,000 ML IV SCH ×4 (08:15→22:08)
[2020-09-07 08:25] LABS: HEMOGLOBIN 13.2 g/dL (11.5-16.0); MEAN PLATELET VOLUME 9.2 fL (9.0-12.2); WHITE BLOOD COUNT 9.6 10^3/uL (4.3-11.0)
[2020-09-07] MEDS ORDERED: FERR-84 PO (08:30)
[2020-09-07] MEDS ORDERED: LEVO88TA54 PO (08:30)
[2020-09-07 08:37] LABS: INR 0.9 (0.8-1.4); PROTHROMBIN TIME PATIENT 12.5 SEC (12.2-14.7)
[2020-09-07 08:46] LABS: ALANINE AMINOTRANSFERASE 10 U/L (0-55); ALBUMIN 3.5 GM/DL (3.2-4.5); ALKALINE PHOSPHATASE 51 U/L (40-136); BILIRUBIN,TOTAL 0.4 MG/DL (0.1-1.0); BUN/CREATININE RATIO 20; CARBON DIOXIDE 25 MMOL/L (21-32); CHLORIDE 103 MMOL/L (98-107); CHOLESTEROL 237 MG/DL (< 200); GFR ESTIMATED > 60; GLUCOSE 114 MG/DL (70-105); HDL CHOLESTEROL 58 MG/DL (40-60); POTASSIUM 4.3 MMOL/L (3.6-5.0); SODIUM 137 MMOL/L (135-145); TOTAL PROTEIN 6.7 GM/DL (6.4-8.2); TRIGLYCERIDES 128 MG/DL (<150); VLDL CHOLESTEROL 26 MG/DL (5-40)
--- NOTE | 2020-09-07 08:48 | Diagnostic Imaging Report ---
INDICATION: Chest pain, pre-heart catheter Portable chest 8:25 AM There is some atelectasis at left lung base. There is elevation of left hemidiaphragm which appears chronic. Right lung is clear. Heart size and pulmonary vascularity are normal. IMPRESSION: Elevated left hemidiaphragm. Left lower lobe atelectasis. No appreciable change compared to 10/09/2016. Dictated by: Dictated on workstation # [id number]
[2020-09-07] MEDS ORDERED: fentaNYL INJECTION 100 MCG/2 ML AMP ONE (09:41)
[2020-09-07] MEDS ORDERED: MIDAZOLAM 5 MG/5 ML (VERSED) VIAL ONE (09:41)
--- NOTE | 2020-09-07 09:52 | Cardiac Procedure Note-CS/ASA ---
Pre-Procedure Note Pre-Op Procedure Note H&P Reviewed The H&P was reviewed, patient examined and no changes noted. Date H&P Reviewed: Sep 07, 2020 Time H&P Reviewed: 09:51 Conscious Sedation Pre-Proced Time 09:51 ASA Score 3 For ASA 3 and 4: Consider anesthesia and medical clearance. Also, for patients with a history of failed moderate sedation consider anesthesia. Airway Lungs Heart ASA score ASA 1: a normal healthy patient ASA 2: a patient with a mild systemic disease (mid diabetes, controlled hypertension, obesity x ASA 3: a patient with a severe systemic disease that limits activity (angina, COPD, prior Myocardial infarction) ASA 4: a patient with an incapacitating disease that is a constant threat to life (CHF, renal failure) ASA 5: a moribund patient not expected to survive 24 hrs. (ruptured aneurysm) ASA 6: a declared brain- patient whose organs are being harvested. For emergent operations, add the letter E after the classification Mallampati Classification Grade 3 Sedation Plan Analgesia, Amnesia, Plan communicated to team members, Discussed options with patient/fam, Discussed risks with patient/fam The patient is an appropriate candidate to undergo the planned procedure, sedation, and anesthesia. The patient immediately re-assessed prior to indication. PETROS ANTHONY MD Sep 07, 2020 09:52
[2020-09-07] MEDS ORDERED: HEParin 1000 UNIT/ML (10ML VIAL) FOR BOLUS ONE (10:17)
[2020-09-07] MEDS ORDERED: ADENOSINE 90 MG/30 ML (ADENOSCAN) VIAL IV ONE (10:17)
[2020-09-07] MEDS ORDERED: NITRO DRIP 25000 MCG/D5W 250 ML IV ONE (10:30)
[2020-09-07] MEDS ORDERED: ASPIRIN 325 MG (5 GR) TABLET ONE (10:48)
[2020-09-07] MEDS ORDERED: CLOPIDOGREL 300 MG (PLAVIX) TABLET PO ONE (10:48)
[2020-09-07] MEDS ORDERED: PATIENT MAY USE OWN MEDS, ALL PO SCH (11:00)
--- NOTE | 2020-09-07 11:06 | Cardiac Cath Report ---
Cardiac Cath Report Physician (s)/Ribbon Cutter (s) Physician PETROS ANTHONY MD Pre-Procedure Diagnosis Pre-Procedure Diagnosis: coronary artery disease Post-Procedure Note Procedure Start Date: Sep 07, 2020 Name of Procedure: Left heart catheterization FFR to LAD Stent to LAD Findings/Procedure Note PROCEDURE NOTE: 79-year-old lady with history of coronary artery disease, hypertension hyperlipidemia, had an abnormal stress test with anterior wall ischemia scheduled for cardiac catheterization possible PTCA. After explaining the procedure to the patient, all pros and cons were explained, all questions were answered. The patient signed the consent and then she was placed on the cardiac catheterization laboratory. Groin was prepped SL fashion local anesthesia was used. Sheath placed in the right femoral artery. Waldo right and left catheter were used to access the coronary system. Waldo right catheter was prolapse of the left ventricular cavity, pressure was measured no left ventricular gram was done. Percutaneous intervention report Patient had haziness in the proximal LAD with tortuosity. I decided to do FFR. Patient was given 3000 units of heparin, FL 3.5 guide was advanced to the left coronary system, FFR wire was advanced and parked distally baseline was 0.88, Adenosine drip was started which dropped the pressure to 0.76. I proceeded with predilatation using 2.5 balloon then deployed at the mid LAD Emily 2.5 x 23 mm stent expanded to 2.77 millimeter, proximally I put a stent overlapping with the mid stent using Emily 2.75 x 18 mm expanded to 2.8 millimeter with excellent results. No residual stenosis At the end of the procedure the sheath was removed. Closure device was deployed FINDINGS: Hemodynamics LV 141/13, end-diastolic pressure of 13 Aorta 145/77 mean of 82 ANATOMY: Left Main is free of obstructive disease Left Anterior Descending is calcified and tortuous artery, FFR was 0.77 after adenosine challenge, successful deployment of 2 overlapping stent using Emily approximately 2.75 x 18 mm and midportion 2.5 x 23 mm expanded proximally to 2.8 mm and distally 2.77 mm with excellent results Left Circumflex is moderate in size with nonobstructive disease Right Coronory Artery has patent stent with good flow distally nonobstructive di sease LV Gram was not done, pressure was measured CONCLUSION: 1. Calcified and tortuous proximal LAD with significant gradient by FFR, successful deployment of 2 overlapping stent using drug-eluting Emily stent p roximally 2.75 x 18 mm and midportion 2.5 x 23 mm expanded proximally to 2.8 and distally 2.77 with excellent results, no residual stenosis 2. Patent stent in the right coronary artery with nonobstructive disease 3. Mild disease in the circumflex artery DISCUSSION AND RECOMMENDATION: Started on Aspirin and Plavix, add Lipitor due to elevated LDL Anesthesia Type: Conscious Sedation Estimated blood loss (mL): 50 ml Contrast Amount: 120 ml Total Radiation Dose: 2272 mGy Post-Procedure Diagnosis Post-operative diagnosis: Chest pain Coronary artery disease Hypertension Hyperlipidemia PETROS ANTHONY MD Sep 07, 2020 11:06
[2020-09-07] MEDS: meTOprolol TARTRATE 25 MG (LOPRESSOR) TABLET PO SCH (20:57)
[2020-09-07] MEDS ORDERED: IBUPROFEN 800 MG (MOTRIN) TAB PO PRN (21:45)
[2020-09-07] MEDS ORDERED: IBUPROFEN 800 MG (MOTRIN) TAB PO ONE (22:04)
[2020-09-08] VITALS: BP 149/88
[2020-09-08 04:00] VITALS: BP 159/82
[2020-09-08] MEDS ORDERED: CLOP75TA28 PO (04:27)
[2020-09-08] MEDS ORDERED: PANT40SU PO (04:27)
[2020-09-08] MEDS ORDERED: ROSU10TA22 PO (04:27)
--- NOTE | 2020-09-08 04:27 | Discharge Inst-Post CATH ---
Discharge Inst-CATH/EP Problems Reviewed?: Yes Post Cardiac Cath/EP D/C Inst Follow Up/Plan Appointment with Dr Posey in 2-4 weeks <b>CARDIAC CATH/EP PROCEDURE DISCHARGE INSTRUCTIONS</b> ACTIVITY * Go Home directly and rest. * Limit activity of the leg (or wrist if it was used) for 7 days including aerobics, swimming, jogging, bicycling, etc. * Restrict stair-climbing for 7 days if possible, if not, climb up with your non-cath leg, then bring together on the same step. * Avoid lifting, pushing, pulling or excessive movement of the affected extremity for 7 days. * Customary sexual activity may be resumed after 2 days-use caution not to use a position that strains or causes pain to the affected extremity. * No driving for 24 hours. * NO SMOKING. * Avoid straining for bowel movements for 7 days. * Gentle walking on level ground is allowed. * Returning to work will depend on the type of procedure and the results. Your doctor will discuss this with you. CALL YOUR DOCTOR FOR ANY OF THE FOLLOWING: *If bleeding from the puncture site occurs- Apply gentle pressure to site with clean cloth and call your doctor or EMS. * If a knot or lump forms under the skin, increases in size, or causes pain. * If bruising appears to be worsening or moving further down your leg instead of disappearing. * Temperature above 101 F. CARE OF YOUR GROIN INCISION; * Bruising or purple discoloration of the skin near the puncture site is common. * You may shower only, no bathtub bathing for 5 days. Be careful to avoid slipping as your leg may feel stiff. * If a closure device was used on your femoral artery, please see the attached guide regarding care of the device and your leg. * Leave dressing on FOR 24 hours. CARE OF YOUR WRIST INCISION; * Bruising or purple discoloration of the skin near the puncture site is common. * You may shower. * DO NOT submerge wrist. * Leave dressing on FOR 24 hours. PETROS POSEY MD Sep 08, 2020 04:27
[2020-09-08 04:35] LABS: HEMOGLOBIN 11.1 g/dL (11.5-16.0); MEAN PLATELET VOLUME 9.9 fL (9.0-12.2); WHITE BLOOD COUNT 7.5 10^3/uL (4.3-11.0)
[2020-09-08 04:59] LABS: BUN/CREATININE RATIO 20; CARBON DIOXIDE 25 MMOL/L (21-32); CHLORIDE 105 MMOL/L (98-107); CREATININE SERUM 0.71 MG/DL (0.60-1.30); GFR ESTIMATED > 60; GLUCOSE 94 MG/DL (70-105); POTASSIUM 4.5 MMOL/L (3.6-5.0); SODIUM 138 MMOL/L (135-145)
[2020-09-08] MEDS: NS IV 1000 ML 1,000 ML IV SCH ×2 (05:27→08:18)
[2020-09-08 08:00] VITALS: BP 120/96
[2020-09-08] MEDS: meTOprolol TARTRATE 25 MG (LOPRESSOR) TABLET PO SCH (08:18)
[2020-09-08] MEDS ORDERED: LEVOTHYROXINE 88 MCG (LEVOTHORID) TAB PO SCH (09:00)
[2020-09-08] MEDS ORDERED: CLOPIDOGREL 75 MG (PLAVIX) TABLET PO SCH (09:00)
[2020-09-08] MEDS ORDERED: ASPIRIN E.C. 81 MG (ECOTRIN) TAB PO SCH (09:00)
--- NOTE | 2020-09-08 09:16 | Cardiology Progress Note ---
Subjective Date Seen by Provider: Sep 08, 2020 Time Seen by Provider: 09:15 Subjective/Events-last exam patient was seen and evaluated, feeling well. Groin is healing well. Review of Systems General: No Chills, No Night Sweats, No Fatigue, No Malaise, No Appetite, No Other HEENT: No Head Aches, No Visual Changes, No Eye Pain, No Ear Pain, No Dysphasia, No Sinus Congestion, No Post Nasal Drip, No Sore Throat, No Other Pulmonary: No Dyspnea, No Cough, No Pleuritic Chest Pain, No Other Cardiovascular: No: Chest Pain, Palpitations, Orthopnea, Paroxysmal Noc. Dyspnea, Edema, Lt Headedness, Other Objective-Cardiology Exam Last Set of Vital Signs Vital Signs 09/08/20 09/08/20 04:00 08:00 Temp 36.1 Pulse 65 Resp 16 B/P (MAP) 120/96 (104) Pulse Ox 93 O2 Delivery Nasal Cannula O2 Flow Rate 1.00 Capillary Refill : Less Than 3 Seconds I&O Intake and Output 09/07/20 23:59 Intake Total 500 ml Balance 500 ml Intake Oral 500 ml # Voids 4 Daily Weight Change No General: Alert, Oriented X3, Cooperative HEENT: Atraumatic, PERRLA Neck: Supple, No JVD, No Thyromegaly Lungs: Clear to Auscultation, Normal Air Movement Heart: Regular Rate, Normal S1, Normal S2, No Murmurs Abdomen: Normal Bowel Sounds, Soft, No Tenderness, No Hepatosplenomegaly, No Masses Extremities: No Clubbing, No Cyanosis, No Edema, Normal Pulses, No Tenderness/Swelling Skin: No Rashes, No Breakdown, No Significant Lesion Neuro: Normal Gait, Normal Speech, Strength at 5/5 X4 Ext, Normal Tone, Sensation Intact Psych/Mental Status: Mental Status NL, Mood NL Results Lab Laboratory Tests 09/08/20 04:09 A/P-Cardiology Admission Diagnosis coronary artery disease Hypertension Hyperlipidemia Assessment/Plan coronary artery disease, status post stenting to the LAD after FFR using 2 overlapping stent with excellent results Hypertension Hyperlipidemia Groin is healing well, planning for discharge today, educated on her medications. Her and for follow-up as an outpatient PETROS ANTHONY MD Sep 08, 2020 09:16
== END 2020-09-08 09:40 | disposition home or self-care (01) ==
LOC: CATH 07:55 → ICU 11:20 → CSD 18:44 → CATH 09-08 09:40
PROVIDERS: ATTEND Internal Medicine Cardiovascular Disease
DX: I25.10 Atherosclerotic heart disease of native coronary artery without angina pectoris (principal); I11.0 Hypertensive heart disease with heart failure; E78.2 Mixed hyperlipidemia; I25.89 Other forms of chronic ischemic heart disease; I65.23 Occlusion and stenosis of bilateral carotid arteries; I25.2 Old myocardial infarction; E66.9 Obesity, unspecified; E07.9 Disorder of thyroid, unspecified; I50.22 Chronic systolic (congestive) heart failure; Z68.41 Body mass index [BMI] 40.0-44.9, adult; Z88.0 Allergy status to penicillin; Z88.8 Allergy status to other drugs, medicaments and biological substances; Z88.4 Allergy status to anesthetic agent; Z79.1 Long term (current) use of non-steroidal anti-inflammatories (NSAID); Z79.82 Long term (current) use of aspirin; Z79.890 Hormone replacement therapy; Z79.899 Other long term (current) drug therapy; Z95.5 Presence of coronary angioplasty implant and graft; Z87.891 Personal history of nicotine dependence; Z90.49 Acquired absence of other specified parts of digestive tract; Z98.890 Other specified postprocedural states; Z85.038 Personal history of other malignant neoplasm of large intestine
CPT/HCPCS: 71045; 80048; 80053; 80061; 85027 ×2; 85347; 85610; 85730; 87081; 93005; 93458; 93571; C1725; C1760; C1769; C1874 ×2; C1887; C1894; C9600; 36415

== ENCOUNTER 2021-09-18 12:28 | Inpatient (IN) | payer MEDICARE, MEDICAID ==
[~2021-09-18] VITALS: Ht 160 cm; Wt 97.7 kg
[~2021-09-18 12:28] MED LIST changes: +CLOP75TA28 PO; +FERR-84 PO; -HEParin (CATH LAB) 2,000 ML IV ONE; +LEVO88TA54 PO; -LIDOCAINE 1% INJ 20 ML 20 ML VIAL ONE; -NS IV 1000 ML 1,000 ML ONE; +PANT40SU PO; +ROSU10TA22 PO
--- NOTE | 2021-09-18 12:56 | ED General ---
General Stated Complaint: WEAKNESS - FALL - AMS Source of Information: Patient Exam Limitations: No Limitations History of Present Illness Date Seen by Provider: Sep 18, 2021 Time Seen by Provider: 12:53 Initial Comments To ER by son from home with reports of weakness generalized for 1 week and altered mental status since this morning. The patient's roommate reported to her son she was confused this morning. She came out of her room looking for her cell phone which was in her pocket and then became fixated on her pocket and forgot about the cell phone. Patient reports to me that she does feel confused as well and has trouble getting her thoughts together. History of COPD but she has not oxygen dependent at home. No fevers or chills. She is not vaccinated against COVID. Denies any falls or hitting her head. Timing/Duration: 1 Week Severity: Moderate Associated Systoms: No Headaches, No Nausea/Vomiting; Weakness Allergies and Home Medications Allergies Coded Allergies: Penicillins (Verified Allergy, Unknown, HAS HAD ANCEF W/O PROBLEMS, 12/23/18) atorvastatin (Verified Allergy, Unknown, 12/23/18) procaine (Verified Allergy, Unknown, 12/23/18) Patient Home Medication List Home Medication List Reviewed: Yes Aspirin (Aspirin) 81 Mg Tab.chew, 81 MG PO DAILY, (Reported) Entered as Reported by: ESSENCE POLLOCK on 07/09/17 1552 Clopidogrel Bisulfate (Clopidogrel) 75 Mg Tablet, 75 MG PO DAILY Prescribed by: PETROS ANTHONY on 09/08/20 0427 Ferrous Sulfate (Iron) 325 Mg Tablet, 325 MG PO DAILY, (Reported) Entered as Reported by: EVANGELINA LITTLE on 09/07/20 0830 Ibuprofen (Ibuprofen) 800 Mg Tablet, 800 MG PO Q8H PRN for PAIN-MILD, (Reported) Entered as Reported by: ESSENCE POLLOCK on 10/10/16 0958 Levothyroxine Sodium (Levothyroxine Sodium) 88 Mcg Tablet, 88 MCG PO DAILY, (Reported) Entered as Reported by: EVANGELINA LITTLE on 09/07/20 0830 Metoprolol Tartrate (Metoprolol Tartrate) 25 Mg Tablet, 25 MG PO BID, (Reported) Entered as Reported by: ESSENCE POLLOCK on 10/10/16 0950 Oxybutynin Chloride (Oxybutynin Chloride) 5 Mg Tablet, 10 MG PO BID, (Reported) Entered as Reported by: ESSENCE POLLOCK on 10/10/16 0950 Pantoprazole Sodium (Protonix) 40 Mg , 40 MG PO DAILY Prescribed by: PETROS ANTHONY on 09/08/20426 Rosuvastatin Calcium (Crestor) 10 Mg Tablet, 10 MG PO DAILY Prescribed by: PETROS ANTHONY on 09/08/20426 Review of Systems Review of Systems Constitutional: see HPI; No chills, No fever; malaise, weakness EENTM: see HPI Respiratory: no symptoms reported Genitourinary: no symptoms reported Musculoskeletal: no symptoms reported Skin: no symptoms reported Psychiatric/Neurological: See HPI, Weakness, Other (Reports she feels confused) Hematologic/Lymphatic: No Symptoms Reported Immunological/Allergic: no symptoms reported Past Bwkcats-Empdpn-Hfzltq Hx Immunizations Up To Date Tetanus Booster (TDap): Unknown Seasonal Allergies Seasonal Allergies: No Past Medical History Surgeries: Yes (SPLEENECTOMY, HERNIA, RIGHT ANKLE REPAIR, PERF BOWEL) Abdominal, Coronary Stent Respiratory: Yes COPD Currently Using CPAP: No Currently Using BIPAP: No Cardiac: Yes (stent x 2) Coronary Artery Disease, Heart Attack, High Cholesterol, Hypertension Neurological: No Reproductive Disorders: No Sexually Transmitted Disease: No HIV/AIDS: No Genitourinary: Yes (OVERACTIVE BLADDER) Gastrointestinal: No (colon cancer) Abdominal Hernia, Ulcer Musculoskeletal: Yes Arthritis Endocrine: Yes (THYROID) Hypothyroidsim HEENT: Yes (READING GLASSES) Cataract Loss of Vision: Denies Cancer: Yes Colon Did You Recieve Any Treatments: Yes What Type of Treatment Did You: Surgical Intervention Psychosocial: No Integumentary: Yes Pruritis Blood Disorders: No Adverse Reaction/Blood Tranf: No (HAS HAD BLOOD WITH NO REACTION) Family Medical History Cancer 03 MOTHER, Onset:40's - 50 Family history: Thyroid disorder 03 MOTHER 09 BROTHER Hearing loss 09 BROTHER Visual impairment 09 BROTHER No Family History of: Abdominal aortic aneurysm Heart Disease, Hypertension Physical Exam Vital Signs Vital Signs - First Documented 09/18/21 12:40 Pulse 60 Resp 30 B/P (MAP) 141/110 (120) Pulse Ox 96 O2 Delivery Nasal Cannula O2 Flow Rate 3.00 Capillary Refill : Height, Weight, BMI Height: 5'3.00" Weight: 242lbs. 2.0oz. 109.683857sn; 273.88 BMI Method:Stated General Appearance: No Apparent Distress, WD/WN, Chronically ill Eyes: Bilateral Eye Normal Inspection, Bilateral Eye PERRL, Bilateral Eye EOMI Neck: Full Range of Motion, Normal Inspection Respiratory: No Accessory Muscle Use, No Respiratory Distress, Crackles (On arrival her oxygen saturation is 83% on room air) Cardiovascular: Regular Rate, Rhythm, Normal Peripheral Pulses Gastrointestinal: Normal Bowel Sounds, Non Tender, Soft Extremity: Normal Capillary Refill, Normal Inspection, Other (Pitting edema 1+ bilateral lower extremities which she states is chronic for her) Neurologic/Psychiatric: Alert, Oriented x3, Other (Despite reports that she feels confused she is alert and oriented to person place time and situation at this moment.) Skin: Normal Color, Warm/Dry Focused Exam Lactate Level 09/18/21 12:41: Lactic Acid Level 1.09 Lactic Acid Level Laboratory Tests Test 09/18/21 12:41 Lactic Acid Level 1.09 MMOL/L (0.50-2.00) Progress/Results/Core Measures Suspected Sepsis SIRS Temperature: Pulse: Respiratory Rate: Laboratory Tests 09/18/21 12:41: White Blood Count 8.7 Blood Pressure / Mean: 09/18/21 12:41: Lactic Acid Level 1.09 Laboratory Tests 09/18/21 12:41: Creatinine 0.97, INR Comment 1.0, Platelet Count 334, Total Bilirubin 0.6 Results/Orders Lab Results Laboratory Tests Test 09/18/21 12:41 09/18/21 12:55 Range/Units White Blood Count 8.7 4.3-11.0 10^3/uL Red Blood Count 5.16 H 3.80-5.11 10^6/uL Hemoglobin 16.0 11.5-16.0 g/dL Hematocrit 50 35-52 % Mean Corpuscular Volume 96 80-99 fL Mean Corpuscular Hemoglobin 31 25-34 pg Mean Corpuscular Hemoglobin Concent 32 32-36 g/dL Red Cell Distribution Width 13.4 10.0-14.5 % Platelet Count 334 130-400 10^3/uL Mean Platelet Volume 9.0 9.0-12.2 fL Immature Granulocyte % (Auto) 0 % Neutrophils (%) (Auto) 67 42-75 % Lymphocytes (%) (Auto) 20 12-44 % Monocytes (%) (Auto) 11 0-12 % Eosinophils (%) (Auto) 1 0-10 % Basophils (%) (Auto) 1 0-10 % Neutrophils # (Auto) 5.9 1.8-7.8 10^3/uL Lymphocytes # (Auto) 1.7 1.0-4.0 10^3/uL Monocytes # (Auto) 0.9 0.0-1.0 10^3/uL Eosinophils # (Auto) 0.1 0.0-0.3 10^3/uL Basophils # (Auto) 0.0 0.0-0.1 10^3/uL Immature Granulocyte # (Auto) 0.0 0.0-0.1 10^3/uL Prothrombin Time 13.6 12.2-14.7 SEC INR Comment 1.0 0.8-1.4 Activated Partial Thromboplast Time 29 24-35 SEC Blood Gas Puncture Site LEFT RADIAL Blood Gas Patient Temperature 35.9 Arterial Blood pH 7.39 7.37-7.43 Arterial Blood Partial Pressure CO2 50 H 35-45 MMHG Arterial Blood Partial Pressure O2 76 L 79-93 MMHG Arterial Blood HCO3 30 H 23-27 MMOL/L Arterial Blood Total CO2 31.6 H 21.0-31.0 MMOL/L Arterial Blood Oxygen Saturation 96 94-100 % Arterial Blood Base Excess 5.0 H -2.5-2.5 MMOL/L Karri Test YES-POS Blood Gas Ventilator Setting NO Blood Gas Inspired Oxygen 2 Sodium Level 130 L 135-145 MMOL/L Potassium Level 4.9 3.6-5.0 MMOL/L Chloride Level 92 L 98-107 MMOL/L Carbon Dioxide Level 27 21-32 MMOL/L Anion Gap 11 5-14 MMOL/L Blood Urea Nitrogen 20 H 7-18 MG/DL Creatinine 0.97 0.60-1.30 MG/DL Estimat Glomerular Filtration Rate 60 BUN/Creatinine Ratio 21 Glucose Level 116 H 70-105 MG/DL Lactic Acid Level 1.09 0.50-2.00 MMOL/L Calcium Level 9.4 8.5-10.1 MG/DL Corrected Calcium 9.8 8.5-10.1 MG/DL Magnesium Level 1.9 1.6-2.4 MG/DL Total Bilirubin 0.6 0.1-1.0 MG/DL Aspartate Amino Transf (AST/SGOT) 20 5-34 U/L Alanine Aminotransferase (ALT/SGPT) 14 0-55 U/L Alkaline Phosphatase 55 40-136 U/L Troponin I < 0.028 <0.028 NG/ML B-Type Natriuretic Peptide 965.0 H <100.0 PG/ML Total Protein 6.7 6.4-8.2 GM/DL Albumin 3.5 3.2-4.5 GM/DL Procalcitonin 0.03 <0.10 NG/ML Urine Color YELLOW Urine Clarity CLEAR Urine pH 6.0 5-9 Urine Specific [place] >=1.030 1.016-1.022 Urine Protein 2+ H NEGATIVE Urine Glucose (UA) NEGATIVE NEGATIVE Urine Ketones NEGATIVE NEGATIVE Urine Nitrite POSITIVE H NEGATIVE Urine Bilirubin NEGATIVE NEGATIVE Urine Urobilinogen 1.0 < = 1.0 MG/DL Urine Leukocyte Esterase TRACE H NEGATIVE Urine RBC (Auto) 1+ H NEGATIVE Urine RBC 2-5 H /HPF Urine WBC 10-25 H /HPF Urine Squamous Epithelial Cells 2-5 /HPF Urine Crystals NONE /LPF Urine Bacteria MODERATE H /HPF Urine Casts NONE /LPF Urine Mucus NEGATIVE /LPF Urine Yeast LARGE H /HPF Urine Culture Indicated CULTURE PENDING Influenza Type A (RT-PCR) Not Detected Not Detecte Influenza Type B (RT-PCR) Not Detected Not Detecte SARS-CoV-2 RNA (RT-PCR) Not Detected Not Detecte My Orders Orders - SHARDA NAIR IT CONSULTING MANAGER Cbc With Automated Diff (09/18/21 12:35) Comprehensive Metabolic Panel (09/18/21 12:35) Blood Culture (09/18/21 12:35) Sputum Culture (09/18/21 12:35) Urinalysis (09/18/21 12:35) Urine Culture (09/18/21 12:35) Protime With Inr (09/18/21 12:35) Partial Thromboplastin Time (09/18/21 12:35) Chest 1 View, Ap/Pa Only (09/18/21 12:35) Ed Iv/Invasive Line Start (09/18/21 12:35) Ed Iv/Invasive Line Start (09/18/21 12:35) Vital Signs Adult Sepsis Patie Q15M (09/18/21 12:35) O2 (09/18/21 12:35) Remove Rings In Anticipation O (09/18/21 12:35) Lactic Acid Analyzer (09/18/21 12:35) Magnesium (09/18/21 12:35) Ct Head Wo (09/18/21 12:35) Bnp Benjamin (09/18/21 12:35) Procalcitonin (Pct) (09/18/21 12:51) Arterial Blood Gas (09/18/21 12:51) Methylprednisolone Sod Succ (Solu-Medrol (09/18/21 13:00) Albuterol/Ipra Inhalation Soln (Duoneb I (09/18/21 13:00) Svn Small Volume Nebulizer (09/18/21 12:51) Influenza A And B By Pcr (09/18/21 12:51) Covid 19 Inhouse Test (09/18/21 12:51) Peterson Cath (09/18/21 12:51) Furosemide Injection (Lasix Injection) (09/18/21 13:45) Troponin I Benjamin (09/18/21 13:32) Ekg Tracing (09/18/21 13:32) Ceftriaxone 1 Gm Pre-Mix (Rocephin 1 Gm (09/18/21 14:15) Clonidine Tablet (Catapres Tablet) (09/18/21 15:00) Medications Given in ED Current Medications Medications Dose Ordered Sig/Leonardo Route Start Time Stop Time Status Last Admin Dose Admin Methylprednisolone Sodium Succinate 125 mg ONCE ONCE IVP 09/18/21 13:00 09/18/21 13:01 DC 09/18/21 13:23 125 MG Vital Signs/I&O 09/18/21 12:40 Pulse 60 Resp 30 B/P (MAP) 141/110 (120) Pulse Ox 96 O2 Delivery Nasal Cannula O2 Flow Rate 3.00 Capillary Refill : Departure Communication (Admissions) Time/Spoke to Admitting Phy: 14:[address] Maloney will admit consult cardiology. I risk I gave 40 mg of Lasix down here. I will write for daily Lasix 40 mg upstairs, potassium chloride 20 mEq daily, we will get a 2D echocardiogram. In regards to the COPD exacerbation I will put her on mag protocol supplemental oxygen and Solu-Medrol. For the UTI we will give her Rocephin 1 g daily IV empirically. I did address CODE STATUS with her. I asked her the question if her heart should stop does she wants to try to bring her back and resuscitate her. She replies no. We will make her a DO NOT RESUSCITATE status. NAME: PATRICK BERGER [facility] REC#: [id number] PT STATUS: REG ER : 1940 PHYSICIAN: SHARDA NAIR APRN ADMIT DATE: 09/18/21/ER Draft Date of Exam:09/18/21 CHEST 1 VIEW, AP/PA ONLY INDICATION: Weakness, fall, and altered mental status. TECHNIQUE/COMPARISON: A frontal chest was obtained at 2:14 PM and compared to 09/07/2020. FINDINGS: There is very poor inspiration with mild bibasilar atelectasis. The heart is normal in size. There is unchanged elevation of the left diaphragm. There is no pneumothorax or pleural fluid. IMPRESSION: Poor inspiration with mild bibasilar atelectasis. Unchanged elevation of the left hemidiaphragm. No definite new abnormality. Dictated on workstation # [id number] Dict: 09/18/21 1410 Trans: 09/18/21 1412 [id number] Interpreted by: SIGRID MORROW MD Electronically signed by: Impression Primary Impression: Hypoxia Additional Impressions: COPD (chronic obstructive pulmonary disease) AMS (altered mental status) General weakness UTI (urinary tract infection) Disposition: ADMITTED INPATIENT Condition: Stable Admissions Decision to Admit Reason: Admit from ER (General) Decision to Admit/Date: Sep 18, 2021 Time/Decision to Admit Time: 12:56 Departure-Patient Inst. Referrals: [facility] (PCP/Family) Primary Care Physician SHARDA NAIR APRN Sep 18, 2021 12:56
[2021-09-18 12:58] LABS: ABG OXYGEN SATURATION 96 % (94-100); ABG PCO2 50 MMHG (35-45); ABG PH 7.39 (7.37-7.43); ABG PO2 76 MMHG (79-93); ABG TCO2 31.6 MMOL/L (21.0-31.0); BASOPHILS % (AUTO) 1 % (0-10); EOSINOPHILS # (AUTO) 0.1 10^3/uL (0.0-0.3); EOSINOPHILS % (AUTO) 1 % (0-10); HEMATOCRIT 50 % (35-52); LYMPHOCYTES # (AUTO) 1.7 10^3/uL (1.0-4.0); LYMPHOCYTES % (AUTO) 20 % (12-44); MEAN CORPUSCULAR HEMOGLOBIN 31 pg (25-34); MEAN CORPUSCULAR HGB CONC 32 g/dL (32-36); MEAN CORPUSCULAR VOLUME 96 fL (80-99); MONOCYTES # (AUTO) 0.9 10^3/uL (0.0-1.0); MONOCYTES % (AUTO) 11 % (0-12); NEUTROPHILS # (AUTO) 5.9 10^3/uL (1.8-7.8); NEUTROPHILS % (AUTO) 67 % (42-75); PLATELET COUNT 334 10^3/uL (130-400); WHITE BLOOD COUNT 8.7 10^3/uL (4.3-11.0)
[2021-09-18] MEDS ORDERED: RT-ALBUTEROL/IPRATROPIUM 3 ML (DUONEB) VIAL INH ONE (13:00)
[2021-09-18] MEDS ORDERED: methylPREDNISolone 125 MG (Solu-MEDROL) VIAL IVP ONE (13:00)
[2021-09-18 13:02] LABS: ALLENS TEST YES-POS; INSPIRED O2 2; PATIENT TEMP 35.9; VENTILATOR NO
[2021-09-18 13:05] LABS: CLARITY,URINE CLEAR; COLOR,URINE YELLOW; GLUCOSE, URINE (UA) NEGATIVE (NEGATIVE); KETONES,URINE NEGATIVE (NEGATIVE); LEUKOCYTE ESTERASE ,URINE TRACE (NEGATIVE); NITRITE,URINE POSITIVE (NEGATIVE); PROTEIN,URINE 2+ (NEGATIVE)
[2021-09-18 13:07] LABS: ALBUMIN 3.5 GM/DL (3.2-4.5); POTASSIUM 4.9 MMOL/L (3.6-5.0)
[2021-09-18 13:08] LABS: CALCIUM 9.4 MG/DL (8.5-10.1)
[2021-09-18 13:09] LABS: PROTHROMBIN TIME PATIENT 13.6 SEC (12.2-14.7)
[2021-09-18 13:10] LABS: TOTAL PROTEIN 6.7 GM/DL (6.4-8.2)
[2021-09-18 13:11] LABS: BILIRUBIN,TOTAL 0.6 MG/DL (0.1-1.0)
[2021-09-18 13:13] LABS: CREATININE SERUM 0.97 MG/DL (0.60-1.30)
[2021-09-18 13:16] LABS: MAGNESIUM 1.9 MG/DL (1.6-2.4)
[2021-09-18 13:21] LABS: BILIRUBIN,URINE NEGATIVE (NEGATIVE)
[2021-09-18 13:22] LABS: BACTERIA,URINE MODERATE /HPF; YEAST,URINE LARGE /HPF
[2021-09-18] MEDS ORDERED: FUROSEMIDE 40 MG/4 ML INJ (LASIX) IVP ONE (13:45)
--- NOTE | 2021-09-18 14:13 | Diagnostic Imaging Report ---
INDICATION: Weakness, fall, and altered mental status. TECHNIQUE/COMPARISON: A frontal chest was obtained at 2:14 PM and compared to 09/07/2020. FINDINGS: There is very poor inspiration with mild bibasilar atelectasis. The heart is normal in size. There is unchanged elevation of the left diaphragm. There is no pneumothorax or pleural fluid. IMPRESSION: Poor inspiration with mild bibasilar atelectasis. Unchanged elevation of the left hemidiaphragm. No definite new abnormality. Dictated by: Dictated on workstation # [id number]
[2021-09-18] MEDS ORDERED: cefTRIAXone 1 GM PRE-MIX 50 ML IV ONE (14:15)
--- NOTE | 2021-09-18 14:26 | Diagnostic Imaging Report ---
PROCEDURE: CT head without contrast. TECHNIQUE: Multiple contiguous axial images were obtained through the brain without the use of intravenous contrast. Auto Exposure Controls were utilized during the CT exam to meet ALARA standards for radiation dose reduction. INDICATION: Increasing confusion with generalized weakness. FINDINGS: Ventricles and sulci are within normal limits for size. No hemorrhage is identified. There is no abnormal mass effect or shift of midline structures. Lucency in the left basal ganglia could represent prominent vascular space or old lacunar infarct. There is no territorial infarct identified. Calvarium is intact, and the visualized paranasal sinuses are clear. IMPRESSION: No acute abnormality is detected. Dictated by: Dictated on workstation # [id number]
[2021-09-18] MEDS ORDERED: cloNIDine 0.1 MG (CATAPRES) TAB PO ONE (15:00)
[2021-09-18] MEDS ORDERED: RT-ALBUTEROL/IPRATROPIUM 3 ML (DUONEB) VIAL ONE (15:21)
[2021-09-18 16:22] VITALS: BP 135/75
[2021-09-18 16:48] VITALS: BP 127/95
[2021-09-18] MEDS ORDERED: RT-ALBUTEROL/IPRATROPIUM 3 ML (DUONEB) VIAL INH PRN (17:00)
[2021-09-18] MEDS ORDERED: CATHETER FLUSH 10 ML SYR IVP PRN (17:15)
--- NOTE | 2021-09-18 17:41 | Consultation-Cardiology ---
HPI-Cardiology Cardiology Consultation Date of Consultation 09/18/21 Date of Admission Time Seen by Provider: 17:34 Indication: Change in mental status HPI 80-year-old lady with history of hypertension, hyperlipidemia, came into the emergency room for altered mental status. She denied any chest pain, had mild dyspnea, no syncope or near syncopal episode. Patient was reportedly having urinary tract infection and started on antibiotic. On my evaluation she is feeling better, denied any active pain. Home Medications & Allergies Allergies: Coded Allergies: Penicillins (Verified Allergy, Unknown, HAS HAD ANCEF W/O PROBLEMS, 12/23/18) atorvastatin (Verified Allergy, Unknown, 12/23/18) procaine (Verified Allergy, Unknown, 12/23/18) Home Medication List Reviewed: Yes JJC-[id number]-Qvkksj Hx Patient Social History Employed/Student: retired Smoking Status: Former Smoker Former smoker/When Quit: Jul 08, 1992 Type Used: Cigarettes 2nd Hand Smoke Exposure: Yes Recent Hopitalizations: No Have you traveled recently?: No Alcohol Use?: No Immunizations Up To Date Tetanus Booster (TDap): Unknown Date of Pneumonia Vaccine: May 03, 2020 Date of Influenza Vaccine: Mar 21, 2021 Past Medical History Discussed below Family Medical History Significant Family History: Heart Disease, Hypertension Family History: Cancer 03 MOTHER, Onset:40's - 50 Family history: Thyroid disorder 03 MOTHER 09 BROTHER Hearing loss 09 BROTHER Visual impairment 09 BROTHER No Family History of: Abdominal aortic aneurysm Review of Systems-General Review of Systems Constitutional: see HPI; No chills, No fever; malaise, weakness EENTM: see HPI Respiratory: see HPI, dyspnea on exertion Cardiovascular: see HPI Gastrointestinal: no symptoms reported, see HPI Genitourinary: no symptoms reported, see HPI Musculoskeletal: no symptoms reported, see HPI Skin: no symptoms reported, see HPI Psychiatric/Neurological: See HPI, Weakness, Other (Reports she feels confused) Reviewed Test Results Reviewed Test Results Lab Laboratory Tests Test 09/18/21 12:41 09/18/21 12:55 Range/Units White Blood Count 8.7 4.3-11.0 10^3/uL Red Blood Count 5.16 H 3.80-5.11 10^6/uL Hemoglobin 16.0 11.5-16.0 g/dL Hematocrit 50 35-52 % Mean Corpuscular Volume 96 80-99 fL Mean Corpuscular Hemoglobin 31 25-34 pg Mean Corpuscular Hemoglobin Concent 32 32-36 g/dL Red Cell Distribution Width 13.4 10.0-14.5 % Platelet Count 334 130-400 10^3/uL Mean Platelet Volume 9.0 9.0-12.2 fL Immature Granulocyte % (Auto) 0 % Neutrophils (%) (Auto) 67 42-75 % Lymphocytes (%) (Auto) 20 12-44 % Monocytes (%) (Auto) 11 0-12 % Eosinophils (%) (Auto) 1 0-10 % Basophils (%) (Auto) 1 0-10 % Neutrophils # (Auto) 5.9 1.8-7.8 10^3/uL Lymphocytes # (Auto) 1.7 1.0-4.0 10^3/uL Monocytes # (Auto) 0.9 0.0-1.0 10^3/uL Eosinophils # (Auto) 0.1 0.0-0.3 10^3/uL Basophils # (Auto) 0.0 0.0-0.1 10^3/uL Immature Granulocyte # (Auto) 0.0 0.0-0.1 10^3/uL Prothrombin Time 13.6 12.2-14.7 SEC INR Comment 1.0 0.8-1.4 Activated Partial Thromboplast Time 29 24-35 SEC Blood Gas Puncture Site LEFT RADIAL Blood Gas Patient Temperature 35.9 Arterial Blood pH 7.39 7.37-7.43 Arterial Blood Partial Pressure CO2 50 H 35-45 MMHG Arterial Blood Partial Pressure O2 76 L 79-93 MMHG Arterial Blood HCO3 30 H 23-27 MMOL/L Arterial Blood Total CO2 31.6 H 21.0-31.0 MMOL/L Arterial Blood Oxygen Saturation 96 94-100 % Arterial Blood Base Excess 5.0 H -2.5-2.5 MMOL/L Karri Test YES-POS Blood Gas Ventilator Setting NO Blood Gas Inspired Oxygen 2 Sodium Level 130 L 135-145 MMOL/L Potassium Level 4.9 3.6-5.0 MMOL/L Chloride Level 92 L 98-107 MMOL/L Carbon Dioxide Level 27 21-32 MMOL/L Anion Gap 11 5-14 MMOL/L Blood Urea Nitrogen 20 H 7-18 MG/DL Creatinine 0.97 0.60-1.30 MG/DL Estimat Glomerular Filtration Rate 60 BUN/Creatinine Ratio 21 Glucose Level 116 H 70-105 MG/DL Lactic Acid Level 1.09 0.50-2.00 MMOL/L Calcium Level 9.4 8.5-10.1 MG/DL Corrected Calcium 9.8 8.5-10.1 MG/DL Magnesium Level 1.9 1.6-2.4 MG/DL Total Bilirubin 0.6 0.1-1.0 MG/DL Aspartate Amino Transf (AST/SGOT) 20 5-34 U/L Alanine Aminotransferase (ALT/SGPT) 14 0-55 U/L Alkaline Phosphatase 55 40-136 U/L Troponin I < 0.028 <0.028 NG/ML B-Type Natriuretic Peptide 965.0 H <100.0 PG/ML Total Protein 6.7 6.4-8.2 GM/DL Albumin 3.5 3.2-4.5 GM/DL Procalcitonin 0.03 <0.10 NG/ML Urine Color YELLOW Urine Clarity CLEAR Urine pH 6.0 5-9 Urine Specific Ralph >=1.030 1.016-1.022 Urine Protein 2+ H NEGATIVE Urine Glucose (UA) NEGATIVE NEGATIVE Urine Ketones NEGATIVE NEGATIVE Urine Nitrite POSITIVE H NEGATIVE Urine Bilirubin NEGATIVE NEGATIVE Urine Urobilinogen 1.0 < = 1.0 MG/DL Urine Leukocyte Esterase TRACE H NEGATIVE Urine RBC (Auto) 1+ H NEGATIVE Urine RBC 2-5 H /HPF Urine WBC 10-25 H /HPF Urine Squamous Epithelial Cells 2-5 /HPF Urine Crystals NONE /LPF Urine Bacteria MODERATE H /HPF Urine Casts NONE /LPF Urine Mucus NEGATIVE /LPF Urine Yeast LARGE H /HPF Urine Culture Indicated CULTURE PENDING Influenza Type A (RT-PCR) Not Detected Not Detecte Influenza Type B (RT-PCR) Not Detected Not Detecte SARS-CoV-2 RNA (RT-PCR) Not Detected Not Detecte Physical Exam Physical Exam Vital Signs Vital Signs - First Documented 09/18/21 09/18/21 12:40 16:48 Pulse 60 Resp 30 B/P (MAP) 141/110 (120) Pulse Ox 96 O2 Delivery Nasal Cannula O2 Flow Rate 3.00 FiO2 32 Capillary Refill : Less Than 3 Seconds Height, Weight, BMI Height: 5'3.00" Weight: 242lbs. 2.0oz. 109.998109um; 38.08 BMI Method:Stated General Appearance: No Apparent Distress, WD/WN, Chronically ill Eyes: Bilateral Eye Normal Inspection, Bilateral Eye PERRL, Bilateral Eye EOMI HEENT: PERRL/EOMI, TMs Normal, Normal ENT Inspection, Pharynx Normal, Moist Mucous Membranes Neck: Full Range of Motion, Normal Inspection Respiratory: No Accessory Muscle Use, No Respiratory Distress, Crackles (On arrival her oxygen saturation is 83% on room air) Cardiovascular: Regular Rate, Rhythm, Normal Peripheral Pulses Gastrointestinal: Normal Bowel Sounds, Non Tender, Soft Back: Normal Inspection, No CVA Tenderness, No Vertebral Tenderness Extremity: Normal Capillary Refill, Normal Inspection, Other (Pitting edema 1+ bilateral lower extremities which she states is chronic for her) Neurologic/Psychiatric: Alert, Oriented x3, Other (Despite reports that she feels confused she is alert and oriented to person place time and situation at this moment.) Skin: Normal Color, Warm/Dry Lymphatic: No Adenopathy A/P-Cardiology Admission Diagnosis Change in mental status UTI Coronary artery disease Hypertension Assessment/Plan Change in mental status, confusion, probably secondary to UTI. Waxing and waning, on my evaluation she was feeling better, receiving antibiotics. Continue to monitor Coronary artery disease Status post acute myocardial infarction in 2013 with total occlusion of the right coronary artery, underwent complex intervention with stent deployment to the right coronary artery using 3.5x30 mm integrity and 3.018 mm bare-metal stent without complication. Had multiple clots in the distal right coronary artery, Had another cardiac catheterization in December 2014 resulted in deployment of another stent 3.012 mm integrity bare-metal stent with good result. Patient had [id number] disease in the LAD and circumflex artery. Cardiac catheterization done October 10, 2016 revealed patent stents in the LAD with mild disease distally, nonobstructive disease. 50 percent in-stent restenosis of the mid right coronary artery with FFR of 0.84. Most recent cardiac catheterization done 09/07/20 showing calcifie ant tortuous prox LAD with sig gradient by FFR, successful deployment of 2 overlapping stents using Emily stent prox 2.75x18 and midportion 2.5x23mm with excellent results. Patent stent in the RCA, mild dz in the circumflex. Continue with aspirin. Stopping Plavix. Congestive heart failure, chronic left ventricular systolic dysfunction due to her myocardial infarction, most recent EF 45-50 percent per 2-D echo done Aug 2020 Ventral hernia-status post repair by Dr. Sun April 2015. Seen by Dr. Rodriguez Hypertension, restart home medication monitor blood pressure Hyperlipidemia, poorly controlled. Has refused cholesterol medication the past. She was started on Crestor on the last office visit. Monitor lipids History of colon cancer, status post right hemicolectomy done by Dr. Alas. patient has been monitored and followed by Dr. Henriquez, did not see Dr. Henriquez since 2004 Obesity, patient was instructed on weight loss. Bilateral nonobstructive carotid artery stenosis, continue to monitor PETROS ANTHONY MD Sep 18, 2021 17:41
[2021-09-18] MEDS: RT-ALBUTEROL/IPRATROPIUM 3 ML (DUONEB) VIAL INH SCH ×2 (18:16→22:04)
[2021-09-18] MEDS: methylPREDNISolone 125 MG (Solu-MEDROL) VIAL IV SCH (20:52)
[2021-09-18] MEDS: CATHETER FLUSH 10 ML SYR IVP SCH (20:53)
[2021-09-18 23:05] VITALS: BP 116/58
[2021-09-19] MEDS: RT-ALBUTEROL/IPRATROPIUM 3 ML (DUONEB) VIAL INH SCH ×6 (02:00→21:11)
[2021-09-19 04:25] VITALS: BP 134/73
[2021-09-19] MEDS: FUROSEMIDE 40 MG/4 ML INJ (LASIX) IV SCH (05:33)
[2021-09-19] MEDS: CATHETER FLUSH 10 ML SYR IVP SCH ×3 (05:33→20:43)
[2021-09-19] MEDS: KCL 20 MEQ TAB (K-DUR) PO SCH (05:33)
[2021-09-19] MEDS: methylPREDNISolone 125 MG (Solu-MEDROL) VIAL IV SCH ×3 (05:33→20:43)
[2021-09-19 05:42] LABS: BASOPHILS % (AUTO) 0 % (0-10); EOSINOPHILS % (AUTO) 0 % (0-10); HEMATOCRIT 48 % (35-52); HEMOGLOBIN 15.2 g/dL (11.5-16.0); LYMPHOCYTES # (AUTO) 0.9 10^3/uL (1.0-4.0); LYMPHOCYTES % (AUTO) 15 % (12-44); MEAN CORPUSCULAR HEMOGLOBIN 31 pg (25-34); MEAN CORPUSCULAR HGB CONC 32 g/dL (32-36); MEAN CORPUSCULAR VOLUME 97 fL (80-99); MEAN PLATELET VOLUME 9.1 fL (9.0-12.2); MONOCYTES # (AUTO) 0.1 10^3/uL (0.0-1.0); MONOCYTES % (AUTO) 1 % (0-12); NEUTROPHILS # (AUTO) 4.9 10^3/uL (1.8-7.8); NEUTROPHILS % (AUTO) 84 % (42-75); PLATELET COUNT 298 10^3/uL (130-400); WHITE BLOOD COUNT 5.9 10^3/uL (4.3-11.0)
[2021-09-19 06:08] LABS: POTASSIUM 4.3 MMOL/L (3.6-5.0)
[2021-09-19 06:09] LABS: CALCIUM 8.9 MG/DL (8.5-10.1)
[2021-09-19 06:13] LABS: CREATININE SERUM 0.8 MG/DL (0.60-1.30)
[2021-09-19 07:19] VITALS: BP 138/63
--- NOTE | 2021-09-19 08:50 | Cardiology Progress Note ---
Subjective Date Seen by Provider: Sep 19, 2021 Time Seen by Provider: 08:30 Subjective/Events-last exam Patient is in bed, denies any chest pain or dyspnea, confusion improved Review of Systems General: No Chills, No Night Sweats; Fatigue, Malaise; No Appetite, No Other HEENT: No Head Aches, No Visual Changes, No Eye Pain, No Ear Pain, No Dysphasia, No Sinus Congestion, No Post Nasal Drip, No Sore Throat, No Other Pulmonary: Dyspnea; No Cough, No Pleuritic Chest Pain, No Other Cardiovascular: Edema; No: Chest Pain, Palpitations, Orthopnea, Paroxysmal Noc. Dyspnea, Lt Headedness, Other Focused Exam Lactate Level 09/18/21 12:41: Lactic Acid Level 1.09 Objective-Cardiology Exam Last Set of Vital Signs Vital Signs 09/18/21 09/19/21 16:48 07:19 Temp 36.1 Pulse 69 Resp 20 B/P (MAP) 138/63 (88) Pulse Ox 93 O2 Delivery High Flow N/C O2 Flow Rate 5.00 FiO2 32 I&O Intake and Output 09/19/21 00:00 Intake Total 250 ml Output Total 1350 ml Balance -1100 ml Intake Oral 200 ml IV Total 50 ml Output Urine Total 1350 ml Daily Weight Change Unsure General: Alert, Oriented X3, Cooperative HEENT: Atraumatic, PERRLA Neck: Supple, No JVD, No Thyromegaly Lungs: Clear to Auscultation, Normal Air Movement Heart: Regular Rate, Normal S1, Normal S2, No Murmurs Abdomen: Normal Bowel Sounds, Soft, No Tenderness, No Hepatosplenomegaly, No Masses Extremities: No Clubbing, No Cyanosis, No Edema, Normal Pulses, No Tenderness/Swelling Skin: No Rashes, No Breakdown, No Significant Lesion Results Lab Laboratory Tests 09/18/21 12:41 09/19/21 05:09 A/P-Cardiology Admission Diagnosis Change in mental status UTI Coronary artery disease Hypertension Assessment/Plan Change in mental status, confusion, probably secondary to UTI. Waxing and waning, on my evaluation she was feeling better, receiving antibiotics. Continue to monitor Coronary artery disease Status post acute myocardial infarction in 2013 with total occlusion of the right coronary artery, underwent complex intervention with stent deployment to the right coronary artery using 3.5x30 mm integrity and 3.018 mm bare-metal stent without complication. Had multiple clots in the distal right coronary artery, Had another cardiac catheterization in December 2014 resulted in deployment of another stent 3.012 mm integrity bare-metal stent with good result. Patient had [id number] disease in the LAD and circumflex artery. Cardiac catheterization done October 10, 2016 revealed patent stents in the LAD with mild disease distally, nonobstructive disease. 50 percent in-stent restenosis of the mid right coronary artery with FFR of 0.84. Most recent cardiac catheterization done 09/07/20 showing calcifie ant tortuous prox LAD with sig gradient by FFR, successful deployment of 2 overlapping stents using Emily stent prox 2.75x18 and midportion 2.5x23mm with excellent results. Patent stent in the RCA, mild dz in the circumflex. Continue with aspirin. Congestive heart failure, chronic left ventricular systolic dysfunction due to her myocardial infarction, most recent EF 45-50 percent per 2-D echo done Aug 2020, Repeating 2D echo today Ventral hernia-status post repair by Dr. Sun April 2015. Seen by Dr. Rodriguez Hypertension, restart home medication monitor blood pressure Hyperlipidemia, poorly controlled. Has refused cholesterol medication the past. She was started on Crestor on the last office visit. Monitor lipids History of colon cancer, status post right hemicolectomy done by Dr. Alas. patient has been monitored and followed by Dr. Henriquez, did not see Dr. Henriquez since 2003 Obesity, patient was instructed on weight loss. Bilateral nonobstructive carotid artery stenosis, continue to monitor Supervisory-Addendum Brief Supervisory Addendum Participated in pt care: history, MDM, physical Personally performed: exam, history, MDM Care discussed with: RANJITH Results interpretation: Verified all documentation Notes: Patient was seen and evaluated with Sonya, examination performed, management plan was discussed, agree with the current scribed note, I made few changes to the note using Italic font. Patient was seen at bedside laying down comfortably More alert and following commands Noted to have E. coli UTI, receiving antibiotic and improving Echo was done today, I will review with Continue to monitor blood pressure and intake and output SONYA BLAKE Sep 19, 2021 08:50 PETROS ANTHONY MD Sep 19, 2021 09:59
[2021-09-19] MEDS: ASPIRIN 81 MG CHEW (CHILDREN'S ASA) PO SCH (09:12)
[2021-09-19] MEDS: cefTRIAXone 1 GM/50 ML (PRE-MIX) IV SCH (09:12)
[2021-09-19] MEDS ORDERED: PANT40TA52 PO (11:05)
[2021-09-19] MEDS ORDERED: IPRA3AMP31 IH (11:05)
[2021-09-19] MEDS ORDERED: IBUP1CAP11 PO (11:05)
[2021-09-19] MEDS ORDERED: ROSU10TA28 PO (11:05)
[2021-09-19] MEDS ORDERED: CLOP75TA28 PO (11:05)
--- NOTE | 2021-09-19 11:13 | History & Physical ---
CHEN DANIELS III MED STUDENT 09/19/21 1113: HPI History of Present Illness: 80yo female w/ pmhx of HTN, HLD, CAD s/p stenting, COPD w/o O2 needs, hx of colon resection who presented to the ED for AMS. Pt brought to ED by roommate with concern for 1 day of AMS and increased weakness. Per roommate pt was very confused at home which is different from baseline. Does note that pt urine has been very dark lately, however pt denies any hematuria, dysuria, increased frequ ency, fevers or chills. Roommate notes that pt has been spitting up more mucous lately, however does not use O2 at baseline. Does use breathing treatments at home, but has not had an increase frequency in this. Pt is not very mobile at home and is not very interested in home exercises. On questioning, pt denies any recent CP, abdominal pain, vision changes, PUENTE, increased cough or upper respiratory type symptoms. Source: patient, other (roommate) Exam Limitations: no limitations Date seen by provider: Sep 19, 2021 Time Seen by Provider: 09:00 Attending Physician Julio Cesar Flores MD PCP Center/[facility] [place] Consult Date of Admission Sep 18, 2021 at 14:38 Home Medications Home Medications Reviewed patient Home Medication Reconciliation performed by pharmacy medication reconciliations survey cad technician and/or nursing. Patients Allergies have been reviewed. Allergies Coded Allergies: Penicillins (Verified Allergy, Unknown, HAS HAD ANCEF W/O PROBLEMS, 12/23/18) atorvastatin (Verified Allergy, Unknown, 12/23/18) procaine (Verified Allergy, Unknown, 12/23/18) BMN-[id number]-[id number] Hx Patient Social History Employed/Student: retired Smoking Status: Former Smoker Former smoker/When Quit: Jul 08, 1992 2nd Hand Smoke Exposure: Yes Recent Hopitalizations: No Alcohol Use?: No Have you traveled recently?: No Immunizations Up To Date Tetanus Booster (TDap): Unknown Influenza Vaccine Up-to-Date: Yes; Up-to-Date First/Initial COVID19 Vaccinat: 10/26 Second COVID19 Vaccination Fernando: 10/26 COVID19 Vaccine Manpower Development Manager: MODERNA Past Medical History PMH 1. Colon Cancer 2. Hypothyroidism 3. HTN 4. HLP 5. Overactive Bladder 6. Obesity PSH 1. CATH with PTCA 2. Colon resection [place] 3. Hernia Repair 4. Colonoscopy Family Medical History Significant Family History: Heart Disease, Hypertension Family History: Cancer 03 MOTHER, Onset:40's - 50 Family history: Thyroid disorder 03 MOTHER 09 BROTHER Hearing loss 09 BROTHER Visual impairment 09 BROTHER No Family History of: Abdominal aortic aneurysm Review of Systems (CH[facility]) Constitutional: No chills, No diaphoresis, No fever; malaise, weakness EENTM: no symptoms reported Respiratory: No cough; dyspnea on exertion; No hemoptysis; phlegm, short of breath; No wheezing Cardiovascular: No chest pain, No edema; Hx of Intervention Gastrointestinal: no symptoms reported Genitourinary: No discharge, No dysuria, No frequency, No hematuria, No hesitancy, No pain Musculoskeletal: no symptoms reported Skin: no symptoms reported Psychiatric/Neurological: No Symptoms Reported Reviewed Test Results Reviewed Test Results Lab 09/19/21 09/19/21 09/19/21 09/19/21 01:00 04:25 06:47 07:00 Temp 36.4 Pulse 61 63 60 Resp 18 B/P (MAP) 134/73 (93) Pulse Ox 95 95 O2 Delivery High Flow N/C High Flow N/C O2 Flow Rate 5.00 5.00 09/19/21 09/19/21 07:19 10:28 Temp 36.1 Pulse 69 Resp 20 B/P (MAP) 138/63 (88) Pulse Ox 93 95 O2 Delivery High Flow N/C High Flow N/C O2 Flow Rate 5.00 5.00 09/19/21 00:00 Intake Total 250 ml Output Total 1350 ml Balance -1100 ml Laboratory Tests Test 09/18/21 12:41 09/18/21 12:55 09/19/21 05:09 Range/Units White Blood Count 8.7 5.9 4.3-11.0 10^3/uL Red Blood Count 5.16 H 4.94 3.80-5.11 10^6/uL Hemoglobin 16.0 15.2 11.5-16.0 g/dL Hematocrit 50 48 35-52 % Mean Corpuscular Volume 96 97 80-99 fL Mean Corpuscular Hemoglobin 31 31 25-34 pg Mean Corpuscular Hemoglobin Concent 32 32 32-36 g/dL Red Cell Distribution Width 13.4 13.2 10.0-14.5 % Platelet Count 334 298 130-400 10^3/uL Mean Platelet Volume 9.0 9.1 9.0-12.2 fL Immature Granulocyte % (Auto) 0 1 % Neutrophils (%) (Auto) 67 84 H 42-75 % Lymphocytes (%) (Auto) 20 15 12-44 % Monocytes (%) (Auto) 11 1 0-12 % Eosinophils (%) (Auto) 1 0 0-10 % Basophils (%) (Auto) 1 0 0-10 % Neutrophils # (Auto) 5.9 4.9 1.8-7.8 10^3/uL Lymphocytes # (Auto) 1.7 0.9 L 1.0-4.0 10^3/uL Monocytes # (Auto) 0.9 0.1 0.0-1.0 10^3/uL Eosinophils # (Auto) 0.1 0.0 0.0-0.3 10^3/uL Basophils # (Auto) 0.0 0.0 0.0-0.1 10^3/uL Immature Granulocyte # (Auto) 0.0 0.0 0.0-0.1 10^3/uL Prothrombin Time 13.6 12.2-14.7 SEC INR Comment 1.0 0.8-1.4 Activated Partial Thromboplast Time 29 24-35 SEC Blood Gas Puncture Site LEFT RADIAL Blood Gas Patient Temperature 35.9 Arterial Blood pH 7.39 7.37-7.43 Arterial Blood Partial Pressure CO2 50 H 35-45 MMHG Arterial Blood Partial Pressure O2 76 L 79-93 MMHG Arterial Blood HCO3 30 H 23-27 MMOL/L Arterial Blood Total CO2 31.6 H 21.0-31.0 MMOL/L Arterial Blood Oxygen Saturation 96 94-100 % Arterial Blood Base Excess 5.0 H -2.5-2.5 MMOL/L Karri Test YES-POS Blood Gas Ventilator Setting NO Blood Gas Inspired Oxygen 2 Sodium Level 130 L 131 L 135-145 MMOL/L Potassium Level 4.9 4.3 3.6-5.0 MMOL/L Chloride Level 92 L 92 L 98-107 MMOL/L Carbon Dioxide Level 27 29 21-32 MMOL/L Anion Gap 11 10 5-14 MMOL/L Blood Urea Nitrogen 20 H 19 H 7-18 MG/DL Creatinine 0.97 0.80 0.60-1.30 MG/DL Estimat Glomerular Filtration Rate 60 75 BUN/Creatinine Ratio 21 24 Glucose Level 116 H 151 H 70-105 MG/DL Lactic Acid Level 1.09 0.50-2.00 MMOL/L Calcium Level 9.4 8.9 8.5-10.1 MG/DL Corrected Calcium 9.8 8.5-10.1 MG/DL Magnesium Level 1.9 1.6-2.4 MG/DL Total Bilirubin 0.6 0.1-1.0 MG/DL Aspartate Amino Transf (AST/SGOT) 20 5-34 U/L Alanine Aminotransferase (ALT/SGPT) 14 0-55 U/L Alkaline Phosphatase 55 40-136 U/L Troponin I < 0.028 <0.028 NG/ML B-Type Natriuretic Peptide 965.0 H <100.0 PG/ML Total Protein 6.7 6.4-8.2 GM/DL Albumin 3.5 3.2-4.5 GM/DL Procalcitonin 0.03 <0.10 NG/ML Urine Color YELLOW Urine Clarity CLEAR Urine pH 6.0 5-9 Urine Specific [place] >=1.030 1.016-1.022 Urine Protein 2+ H NEGATIVE Urine Glucose (UA) NEGATIVE NEGATIVE Urine Ketones NEGATIVE NEGATIVE Urine Nitrite POSITIVE H NEGATIVE Urine Bilirubin NEGATIVE NEGATIVE Urine Urobilinogen 1.0 < = 1.0 MG/DL Urine Leukocyte Esterase TRACE H NEGATIVE Urine RBC (Auto) 1+ H NEGATIVE Urine RBC 2-5 H /HPF Urine WBC 10-25 H /HPF Urine Squamous Epithelial Cells 2-5 /HPF Urine Crystals NONE /LPF Urine Bacteria MODERATE H /HPF Urine Casts NONE /LPF Urine Mucus NEGATIVE /LPF Urine Yeast LARGE H /HPF Urine Culture Indicated CULTURE PENDING Influenza Type A (RT-PCR) Not Detected Not Detecte Influenza Type B (RT-PCR) Not Detected Not Detecte SARS-CoV-2 RNA (RT-PCR) Not Detected Not Detecte Radiology CHEST 1 VIEW, AP/PA ONLY INDICATION: Weakness, fall, and altered mental status. TECHNIQUE/COMPARISON: A frontal chest was obtained at 2:14 PM and compared to 09/07/2020. FINDINGS: There is very poor inspiration with mild bibasilar atelectasis. The heart is normal in size. There is unchanged elevation of the left diaphragm. There is no pneumothorax or pleural fluid. IMPRESSION: Poor inspiration with mild bibasilar atelectasis. Unchanged elevation of the left hemidiaphragm. No definite new abnormality. CT HEAD WO PROCEDURE: CT head without contrast. TECHNIQUE: Multiple contiguous axial images were obtained through the brain without the use of intravenous contrast. Auto Exposure Controls were utilized during the CT exam to meet ALARA standards for radiation dose reduction. INDICATION: Increasing confusion with generalized weakness. FINDINGS: Ventricles and sulci are within normal limits for size. No hemorrhage is identified. There is no abnormal mass effect or shift of midline structures. Lucency in the left basal ganglia could represent prominent vascular space or old lacunar infarct. There is no territorial infarct identified. Calvarium is intact, and the visualized paranasal sinuses are clear. IMPRESSION: No acute abnormality is detected. Physical Exam-([facility]) Physical Exam Vital Signs VS - Last 72 Hours, by Label 09/18/21 09/18/21 09/18/21 09/18/21 12:40 16:19 16:22 16:22 Pulse 60 60 61 Resp 30 24 22 B/P (MAP) 141/110 (120) 127/95 135/75 (95) Pulse Ox 96 92 94 95 O2 Delivery Nasal Cannula Nasal Cannula Nasal Cannula O2 Flow Rate 3.00 2.00 09/18/21 09/18/21 09/18/21 09/18/21 16:48 18:17 19:36 20:50 Pulse 60 65 Pulse Ox 92 90 O2 Delivery High Flow N/C Nasal Cannula O2 Flow Rate 5.00 5.00 FiO2 32 09/18/21 09/18/21 09/19/21 09/19/21 22:04 23:05 01:00 04:25 Temp 36.0 36.4 Pulse 61 61 63 Resp 16 18 B/P (MAP) 116/58 (77) 134/73 (93) Pulse Ox 92 96 95 O2 Delivery High Flow N/C High Flow N/C High Flow N/C O2 Flow Rate 5.00 5.00 5.00 09/19/21 09/19/21 09/19/21 09/19/21 06:47 07:00 07:19 10:28 Temp 36.1 Pulse 60 69 Resp 20 B/P (MAP) 138/63 (88) Pulse Ox 95 93 95 O2 Delivery High Flow N/C High Flow N/C High Flow N/C O2 Flow Rate 5.00 5.00 5.00 Capillary Refill : Less Than 3 Seconds General Appearance: WD/WN, no apparent distress Eyes: Bilateral Eye Normal Inspection, Bilateral Eye PERRL, Bilateral Eye EOMI HEENT: PERRL/EOMI, pharynx normal Neck: non-tender, full range of motion, supple, normal inspection; No carotid bruit Respiratory: chest non-tender, lungs clear, normal breath sounds, no respiratory distress (on 4L via NC on exam, satting >92%), no accessory muscle use Cardiovascular: normal peripheral pulses, regular rate, rhythm, no edema, no gallop, no JVD, no murmur Peripheral Pulses: 2+ Dorsalis Pedis (R), 2+ Left Dors-Pedis (L), 2+ Radial Pulses (R), 2+ Radial Pulses (L) Gastrointestinal: normal bowel sounds, non tender, soft, no organomegaly, no pulsatile mass Back: normal inspection, no vertebral tenderness Extremities: normal range of motion, non-tender, normal inspection, no pedal edema, normal capillary refill Neurologic/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 Denies any baseline O2 needs, does endorse using breathing treatments at home [employer]. Did have elevated BNP of 965 on admission. Has history of COPD, possible exacerbation 09/19 - breathing status much improved on exam this AM. Was on 4L via NC. Plan to wean as tolerated and work w/ RT and PT. Being treated as possible COPD exacerbation w/ methylpred 80mg q8h and breathing treatments w. duonebs q4h. Scheduled 40mg IV lasix though does not seem floridly volume overloaded. Will confirm w/ ECHO obtained today. (2) AMS (altered mental status) Status: Resolved Assessment & Plan: Presented to ED w/ 1 day of confusion per roommate. Likely related to UTI as mental status greatly improved following the start of rocephin in the ED. 09/19 - mental status back at baseline per roommate. Pt AOx4 on exam this AM Qualifiers: Qualified Codes: R41.0 - Disorientation, unspecified (3) UTI (urinary tract infection) Status: Acute Assessment & Plan: Roommate reports that pt has had very dark urine prior to arrival despite adequate hydration w/ water. Pt denies any dysuria or increased frequency prior to arrival. UA on admission to the ED w/ 2+ protein, + nitrites, trace leukocytes, 10-25 WBC, and 2-5 RBC. Culture pending. Started on rocephin in the ED w/ much improvement in mental status. no leukocytosis or fever on admission. Renal function normal. 09/19 - Osborne placed on admission. mental status much improved w/ rocephin. c ulture pending. Can remove osborne and allow pt to use bedside commode as needed. given improvement in respiratory status, pt will most likely d/c home w/ oral antibiotics for a total of 5 days. Qualifiers: Qualified Codes: N30.01 - Acute cystitis with hematuria (4) COPD (chronic obstructive pulmonary disease) Status: Acute Assessment & Plan: Uncertain if acute exacerbation of baseline COPD. Pt denies any home O2 use but is currently needing 4L via NC to maintain sats >90. Pt not actively complaining of SOB or increased work of breathing. Could be component of UTI and delirium. 09/19 - no increased work on breathing on exam. Pt on 4L this AM. will try to wean O2 as tolerated by pt w/ activity. May consider new O2 need on discharge if unable to wean off oxygen prior to discharge. (5) Elevated brain natriuretic peptide (BNP) level Status: Acute Assessment & Plan: BNP elevated at 965 on admission. Cardiology consulted. ECHO repeated on 09/19. 09/19 - continue aspirin per cardiology recommendations. Will follow results of ECHO. Pt not overtly fluid overloaded on exam this AM. No pedal edema or lung crackles. Pt very interested in stopping at least one of her heart medications, will follow cards recommendations. (6) HTN (hypertension) Status: Chronic Assessment & Plan: continue home [employer] JULIO CESAR Zuñiga MD 09/19/21 1458: Home Medications Allergies Coded Allergies: Penicillins (Verified Allergy, Unknown, HAS HAD ANCEF W/O PROBLEMS, 12/23/18) atorvastatin (Verified Allergy, Unknown, 12/23/18) procaine (Verified Allergy, Unknown, 12/23/18) [id number] Hx Past Medical History CAD Chronic Systolic CHF EF 40-45% 2020 COPD no baseline oxygen need Family Medical History Family History: Cancer 03 MOTHER, Onset:40's - 50 Family history: Thyroid disorder 03 MOTHER 09 BROTHER Hearing loss 09 BROTHER Visual impairment 09 BROTHER No Family History of: Abdominal aortic aneurysm Physical Exam-([facility]) Physical Exam General Appearance: WD/WN, no apparent distress HEENT: PERRL/EOMI Neck: non-tender, full range of motion Respiratory: no accessory muscle use, wheezing, expiration Cardiovascular: normal peripheral pulses, regular rate, rhythm, no edema, no murmur Gastrointestinal: normal bowel sounds, non tender, soft Back: no CVA tenderness, no vertebral tenderness Extremities: normal range of motion, non-tender, normal inspection, no pedal edema, no calf tenderness, normal capillary refill 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/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, alert, normal mood/affect, oriented x 3 Skin: normal color, warm/dry Lymphatic: no adenopathy Assessment/Plan Assessment/Plan Admission Status: Inpatient Order (span 2 midnights) Reason for Inpatient Admission: New oxygen need, will likely need several days of antibiotics and steroids Supervisory-Addendum Brief Verification & Attestation Participated in pt care: history, physical Personally performed: exam, history Care discussed with: Medical Student Procedures: n/a Verification and Attestation of Medical Student E/M Service A medical student performed and documented this service in my presence. I reviewed and verified all information documented by the medical student and made modifications to such information, when appropriate. I personally performed the physical exam and medical decision making. Julio Cesar Flores, Sep 19, 2021,15:09 CHEN DANIELS III MED STUDENT Sep 19, 2021 11:13 JULIO CESAR FLORES MD Sep 19, 2021 14:58
[2021-09-19 11:22] VITALS: BP 107/63
[2021-09-19 15:59] VITALS: BP 119/71
[2021-09-19 19:49] VITALS: BP 124/60
[2021-09-20] VITALS (7 sets, daily range): BP systolic 109–160; BP diastolic 61–88
[2021-09-20] MEDS: RT-ALBUTEROL/IPRATROPIUM 3 ML (DUONEB) VIAL INH SCH ×6 (02:02→21:40)
[2021-09-20 06:20] LABS: BASOPHILS % (AUTO) 0 % (0-10); EOSINOPHILS % (AUTO) 0 % (0-10); HEMATOCRIT 47 % (35-52); HEMOGLOBIN 14.8 g/dL (11.5-16.0); LYMPHOCYTES % (AUTO) 6 % (12-44); MEAN CORPUSCULAR HEMOGLOBIN 31 pg (25-34); MEAN CORPUSCULAR HGB CONC 32 g/dL (32-36); MEAN CORPUSCULAR VOLUME 98 fL (80-99); MEAN PLATELET VOLUME 9.3 fL (9.0-12.2); MONOCYTES # (AUTO) 0.5 10^3/uL (0.0-1.0); MONOCYTES % (AUTO) 3 % (0-12); NEUTROPHILS # (AUTO) 14.3 10^3/uL (1.8-7.8); NEUTROPHILS % (AUTO) 90 % (42-75); PLATELET COUNT 320 10^3/uL (130-400); WHITE BLOOD COUNT 15.9 10^3/uL (4.3-11.0)
[2021-09-20 06:24] LABS: POTASSIUM 4.8 MMOL/L (3.6-5.0)
[2021-09-20 06:30] LABS: CREATININE SERUM 0.81 MG/DL (0.60-1.30)
[2021-09-20] MEDS: KCL 20 MEQ TAB (K-DUR) PO SCH (06:32)
[2021-09-20] MEDS: LEVOTHYROXINE 88 MCG (LEVOTHORID) TAB PO SCH (06:32)
[2021-09-20] MEDS: FUROSEMIDE 40 MG/4 ML INJ (LASIX) IV SCH (06:33)
[2021-09-20] MEDS: CATHETER FLUSH 10 ML SYR IVP SCH ×3 (06:33→21:36)
[2021-09-20] MEDS: methylPREDNISolone 125 MG (Solu-MEDROL) VIAL IV SCH ×3 (06:33→21:36)
[2021-09-20 06:51] LABS: BAND NEUTROPHILS 0 %; BASOPHILS % (MANUAL) 0 %; EOSINOPHILS % (MANUAL) 0 %; LYMPHOCYTES % (MANUAL) 6 %; MONOCYTES % (MANUAL) 10 %; NEUTROPHILS % (MANUAL) 84 %; RBC MORPH NORMAL
[2021-09-20] MEDS: cefTRIAXone 1 GM/50 ML (PRE-MIX) IV SCH (08:38)
[2021-09-20] MEDS: meTOprolol TARTRATE 25 MG (LOPRESSOR) TABLET PO SCH (08:38)
[2021-09-20] MEDS: ASPIRIN 81 MG CHEW (CHILDREN'S ASA) PO SCH (08:38)
[2021-09-20] MEDS: CLOPIDOGREL 75 MG (PLAVIX) TABLET PO SCH (08:38)
[2021-09-20] MEDS: ROSUVASTATIN 10 MG (CRESTOR) TABLET PO SCH (08:44)
--- NOTE | 2021-09-20 11:44 | Progress Note ---
CHEN DANIELS III MED STUDENT 09/20/21 1144: Subjective Subjective/Events-last exam Pt notes that her breathing is much improved today compared to admission day. Does admit to not getting up and moving around the room yesterday and instead slept in bed. Was upset this morning that she was given too much breakfast that she would not be able to finish. Denies any fevers, chills, abdominal pain, dysuria. States that she will try and move around more in her room today. Review of Systems General: No Chills, No Night Sweats, No Fatigue, No Malaise HEENT: No Head Aches, No Visual Changes, No Eye Pain, No Sinus Congestion Pulmonary: No Dyspnea, No Cough, No Pleuritic Chest Pain Cardiovascular: No: Chest Pain, Palpitations, Orthopnea Gastrointestinal: No: Nausea, Vomiting, Abdominal Pain, Diarrhea, Constipation Genitourinary: No Dysuria, No Frequency, No Incontinence, No Hematuria Musculoskeletal: No: other, neck pain, shoulder pain, arm pain, back pain, hand pain, leg pain, foot pain Neurological: No: Weakness, Numbness, Incoordination, Change in speech, Confusion, Seizures, Other Focused Exam Lactate Level 09/18/21 12:41: Lactic Acid Level 1.09 Objective Exam Last Set of Vital Signs Vital Signs Date Time Temp Pulse Resp B/P (MAP) Pulse Ox O2 Delivery O2 Flow Rate FiO2 09/20/21 11:37 36.0 68 20 141/62 (88) 91 Room Air 09/20/21 11:03 4.00 09/18/21 16:48 32 Capillary Refill : Less Than 3 Seconds I&O Intake and Output 09/20/21 00:00 Intake Total 1785 ml Output Total 3800 ml Balance -2014 ml Intake Oral 1735 ml IV Total 50 ml Output Urine Total 3800 ml General: Alert, Oriented X3, Cooperative, No Acute Distress HEENT: Atraumatic, PERRLA, EOMI, Mucous Memb Moist/[place] Neck: Supple, No JVD Lungs: Clear to Auscultation, Normal Air Movement Heart: Regular Rate, Normal S1, Normal S2, No Murmurs Abdomen: Normal Bowel Sounds, Soft, No Tenderness Extremities: No Clubbing, No Cyanosis, Normal Pulses, Other (trace pedal edema in bilateral lower extremities ) Skin: No Rashes Neuro: Normal Speech, Cranial Nerves 3-12 NL Psych/Mental Status: Mental Status NL, Mood NL Results/Procedures Lab Laboratory Tests 09/20/21 05:44: White Blood Count 15.9H, Red Blood Count 4.76, Hemoglobin 14.8, Hematocrit 47, Mean Corpuscular Volume 98, Mean Corpuscular Hemoglobin 31, Mean Corpuscular Hemoglobin Concent 32, Red Cell Distribution Width 13.2, Platelet Count 320, Mean Platelet Volume 9.3, Immature Granulocyte % (Auto) 0, Neutrophils (%) (Auto) 90H, Lymphocytes (%) (Auto) 6L, Monocytes (%) (Auto) 3, Eosinophils (%) (Auto) 0, Basophils (%) (Auto) 0, Neutrophils # (Auto) 14.3H, Lymphocytes # (Auto) 1.0, Monocytes # (Auto) 0.5, Eosinophils # (Auto) 0.0, Basophils # (Auto) 0.0, Immature Granulocyte # (Auto) 0.1, Neutrophils % (Manual) 84, Lymphocytes % (Manual) 6, Monocytes % (Manual) 10, Eosinophils % (Manual) 0, Basophils % (Manual) 0, Band Neutrophils 0, Blood Morphology Comment NORMAL, Sodium Level 131L, Potassium Level 4.8, Chloride Level 90L, Carbon Dioxide Level 30, Anion Gap 11, Blood Urea Nitrogen 23H, Creatinine 0.81, Estimat Glomerular Filtration Rate 74, BUN/Creatinine Ratio 28, Glucose Level 161H, Calcium Level 9.0 Microbiology 09/18/21 Blood Culture - Preliminary, Resulted No growth 09/18/21 Urine Culture - Preliminary, Resulted Escherichia coli Radiology CHEST 1 VIEW, AP/PA ONLY INDICATION: Weakness, fall, and altered mental status. TECHNIQUE/COMPARISON: A frontal chest was obtained at 2:14 PM and compared to 09/07/2020. FINDINGS: There is very poor inspiration with mild bibasilar atelectasis. The heart is normal in size. There is unchanged elevation of the left diaphragm. There is no pneumothorax or pleural fluid. IMPRESSION: Poor inspiration with mild bibasilar atelectasis. Unchanged elevation of the left hemidiaphragm. No definite new abnormality. CT HEAD WO PROCEDURE: CT head without contrast. TECHNIQUE: Multiple contiguous axial images were obtained through the brain without the use of intravenous contrast. Auto Exposure Controls were utilized during the CT exam to meet ALARA standards for radiation dose reduction. INDICATION: Increasing confusion with generalized weakness. FINDINGS: Ventricles and sulci are within normal limits for size. No hemorrhage is identified. There is no abnormal mass effect or shift of midline structures. Lucency in the left basal ganglia could represent prominent vascular space or old lacunar infarct. There is no territorial infarct identified. Calvarium is intact, and the visualized paranasal sinuses are clear. IMPRESSION: No acute abnormality is detected. Assessment/Plan Assessment/Plan (1) Hypoxia Status: Acute Assessment & Plan: Pt presented to ED w/ AMS though improved on exam of 09/19. 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 Did have elevated BNP of 965 on admission. Has history of COPD, possible exacerbation 09/19 - breathing status much improved on exam this AM. Was on 4L via [place]. Plan to wean as tolerated and work w/ RT and PT. Being treated as possible COPD exacerbation w/ methylpred 80mg q8h and breathing treatments w/ duonebs q4h. Scheduled 40mg IV lasix though does not seem floridly volume overloaded. Will confirm w/ ECHO obtained today. 09/20 - Pt admits to not being active and moving around in room on 09/19. Had O2 increase to 6L at one point but is not down to 4L and satting 90-92%. Pt really does not want to d/c home w/ new oxygen. had discussion the importance of activity and moving around. Will assess walking O2 needs w/ respiratory (2) AMS (altered mental status) Status: Resolved Assessment & Plan: Presented to ED w/ 1 day of confusion per roommate. Likely related to UTI as mental status greatly improved following the start of rocephin in the ED. 09/19 - mental status back at baseline per roommate. Pt AOx4 on exam this AM 09/20 - grew coag negative staph in 1/4 blood culture bottles, likely contaminant. low concern for bacteremia at this time. Qualifiers: Qualified Codes: R41.0 - Disorientation, unspecified (3) UTI (urinary tract infection) Status: Acute Assessment & Plan: Roommate reports that pt has had very dark urine prior to arrival despite adequate hydration w/ water. Pt denies any dysuria or increased frequency prior to arrival. UA on admission to the ED w/ 2+ protein, + nitrites, trace leukocytes, 10-25 WBC, and 2-5 RBC. Culture pending. Started on rocephin in the ED w/ much improvement in mental status. no leukocytosis or fever on admission. Renal function normal. 09/19 - Osborne placed on admission. mental status much improved w/ rocephin. culture pending. Can remove osborne and allow pt to use bedside commode as needed. given improvement in respiratory status, pt will most likely d/c home w/ oral antibiotics for a total of 5 days. 09/20 - Osborne removed, pt able to urinate well on her own. Denies any dysuria at this time. Urine culture w/ E coli >100,000 CFU. susceptibilities pending. On day 3 of antibiotics today. Qualifiers: Qualified Codes: N30.01 - Acute cystitis with hematuria (4) COPD (chronic obstructive pulmonary disease) Status: Acute Assessment & Plan: Uncertain if acute exacerbation of baseline COPD. Pt denies any home O2 use but is currently needing 4L via NC to maintain sats >90. Pt not actively complaining of SOB or increased work of breathing. Could be component of UTI and delirium. 09/19 - no increased work on breathing on exam. Pt on 4L this AM. will try to wean O2 as tolerated by pt w/ activity. May consider new O2 need on discharge if unable to wean off oxygen prior to discharge. 09/20 - pt notes breathing is much better today. Still on 4L via NC. will attempt to wean O2 today. Discussed w/ pt the importance of getting up and moving around. She is not eager to d/c home w/ supplemental O2. Likely reactive leukocy tosis from methylpred on lab this AM given no fever and low concern for infection other than urinary source currently being treated with rocephin. (5) Elevated brain natriuretic peptide (BNP) level Status: Acute Assessment & Plan: BNP elevated at 965 on admission. Cardiology consulted. ECHO repeated on 09/19. 09/19 - continue aspirin per cardiology recommendations. Will follow results of ECHO. Pt not overtly fluid overloaded on exam this AM. No pedal edema or lung crackles. Pt very interested in stopping at least one of her heart medications, will follow cards recommendations. 09/20 - repeated ECHO on 09/19 w/ improved cardiac function w/ EF 60-65% w/ normal sized right and left ventricles. (6) HTN (hypertension) Status: Chronic Assessment & Plan: continue home [employer]OR[employer]ER meds (metoprolol tartrate 50). On rosuvastatin 10mg. (7) Hypothyroidism Status: Chronic Assessment & Plan: on ELECTORATE OFFICER levothyroxine 88mcg JULIO CESAR FLORES MD 09/20/21 1217: Supervisory-Addendum Brief Verification & Attestation Participated in pt care: history, physical Personally performed: exam, history Care discussed with: Medical Student Procedures: n/a Verification and Attestation of Medical Student E/M Service A medical student performed and documented this service in my presence. I reviewed and verified all information documented by the medical student and made modifications to such information, when appropriate. I personally performed the physical exam and medical decision making. Julio Cesar Flores, Sep 20, 2021,12:17 CHEN DANIELS III MED STUDENT Sep 20, 2021 11:44 JULIO CESAR FLORES MD Sep 20, 2021 12:17
--- NOTE | 2021-09-20 17:22 | Physician Query Clarification ---
Physician Query-General Query to Physician: The medical record reflects the following clinical evidence: Clinical Indicators: Confusion, Admission O2 sat 84% on RA (P/F 49/06=087), 92% on 6L (P/F 65/28=398), RR 30 on admission, Documentation of S0A at rest on the 15th. Risk Factor(s): No home 02 use, CAD, COPD, Elevated BNP Treatment: Supplemental 02 up to 6L, IV Lasix, IV Solumedrol, Breathing Rx, 1. Acute respiratory failure with hypoxia, present on admission 2. Other explanation of clinical findings 3. Unable to determine (no explanation for clinical findings) Please clarify and document your clinical opinion in the progress notes and discharge summary including the definitive and/or presumptive diagnosis, (suspected or probable), related to the above clinical findings. Please include clinical findings supporting your diagnosis. Dorothy Rosa MSN, RN Clinical Dental Therapist [phone] [email or web address] PHYSICIAN RESPONSE: Based on the clinical findings in the record, please respond to the query above on this document as an addendum. Physician Response: Physician Response 1 If you have questions please contact: Prison Teacher: Ext: Thank you for your time and cooperation. Clinical Dental Therapist/Prison Teacher This is a permanent part of the medical record DOROTHY ROSA Sep 20, 2021 17:21 JULIO CESAR FLORES MD Sep 20, 2021 21:59
--- NOTE | 2021-09-20 19:07 | Cardiology Progress Note ---
Progress Note-Cardiology Events since last exam Date Seen by Provider: Sep 20, 2021 Time Seen by Provider: 19:00 Events since last exam We are following her due to her history of coronary artery disease and heart failure. She was apparently confused on 09/19 but today she is awake and alert. She hopes to go home tomorrow. Overall she feels better. She denies chest pain. She denies any change in her chronic shortness of breath which she attributes to her chronic obstructive pulmonary disease. She denies palpitations, syncope, or ankle edema. Certain portions of this document may have been dictated utilizing voice recognition technology. Inherent to this technology, typographical and grammatical errors may exist. As much as I am diligent to identify and correct these mistakes, some errors may remain in the document. Vitals Last set of Vitals Signs Vital Signs 09/18/21 09/20/21 09/20/21 16:48 16:09 18:39 Temp 35.3 Pulse 83 Resp 18 B/P (MAP) 119/80 (93) Pulse Ox 90 O2 Delivery Room Air O2 Flow Rate 3.00 FiO2 32 Labs Labs Laboratory Tests 09/20/21 05:44 Exam Vital Signs Vital Signs Date Time Temp Pulse Resp B/P (MAP) Pulse Ox O2 Delivery O2 Flow Rate FiO2 09/20/21 18:39 90 Room Air 3.00 09/20/21 16:09 35.3 83 18 119/80 (93) 09/18/21 16:48 32 Physical Exam General: Alert. No acute distress. Eye: No xanthelasma. HENT: Normocephalic. Neck: Jugular venous pressure does not appear elevated. Respiratory: Lungs are clear to auscultation. Respirations are non-labored. Breath sounds are equal. Symmetrical chest wall expansion. Cardiovascular: Normal rate. Regular rhythm. No murmur. No gallop. No edema. Gastrointestinal: Soft. Normal bowel sounds. Skin: Warm. Dry. Neurologic: Alert and oriented to person, place, time. Cranial nerves 3-11 grossly intact. Psychiatric: Cooperative. Appropriate mood & affect. Labs Laboratory Tests Test 09/20/21 05:44 Range/Units White Blood Count 15.9 H 4.3-11.0 10^3/uL Red Blood Count 4.76 3.80-5.11 10^6/uL Hemoglobin 14.8 11.5-16.0 g/dL Hematocrit 47 35-52 % Mean Corpuscular Volume 98 80-99 fL Mean Corpuscular Hemoglobin 31 25-34 pg Mean Corpuscular Hemoglobin Concent 32 32-36 g/dL Red Cell Distribution Width 13.2 10.0-14.5 % Platelet Count 320 130-400 10^3/uL Mean Platelet Volume 9.3 9.0-12.2 fL Immature Granulocyte % (Auto) 0 % Neutrophils (%) (Auto) 90 H 42-75 % Lymphocytes (%) (Auto) 6 L 12-44 % Monocytes (%) (Auto) 3 0-12 % Eosinophils (%) (Auto) 0 0-10 % Basophils (%) (Auto) 0 0-10 % Neutrophils # (Auto) 14.3 H 1.8-7.8 10^3/uL Lymphocytes # (Auto) 1.0 1.0-4.0 10^3/uL Monocytes # (Auto) 0.5 0.0-1.0 10^3/uL Eosinophils # (Auto) 0.0 0.0-0.3 10^3/uL Basophils # (Auto) 0.0 0.0-0.1 10^3/uL Immature Granulocyte # (Auto) 0.1 0.0-0.1 10^3/uL Neutrophils % (Manual) 84 % Lymphocytes % (Manual) 6 % Monocytes % (Manual) 10 % Eosinophils % (Manual) 0 % Basophils % (Manual) 0 % Band Neutrophils 0 % Blood Morphology Comment NORMAL Sodium Level 131 L 135-145 MMOL/L Potassium Level 4.8 3.6-5.0 MMOL/L Chloride Level 90 L 98-107 MMOL/L Carbon Dioxide Level 30 21-32 MMOL/L Anion Gap 11 5-14 MMOL/L Blood Urea Nitrogen 23 H 7-18 MG/DL Creatinine 0.81 0.60-1.30 MG/DL Estimat Glomerular Filtration Rate 74 BUN/Creatinine Ratio 28 Glucose Level 161 H 70-105 MG/DL Calcium Level 9.0 8.5-10.1 MG/DL Diagnosis/Problems Diagnosis/Problems (1) Acute on chronic heart failure with preserved ejection fraction (HFpEF) Assessment & Plan: Symptomatically improved. I will obtain follow-up chest x- ray tomorrow. We can probably discontinue the intravenous Lasix tomorrow. She was not on Lasix at home and I am not convinced she will need to go home with Lasix. Her previous ejection fraction was depressed but during this admission her ejection fraction is normal. (2) Coronary artery disease without angina pectoris Assessment & Plan: She is not having any angina. Her troponin levels are undetectable. Continue aspirin, clopidogrel, metoprolol and rosuvastatin. I am not entirely sure why she has been on prolonged therapy with both aspirin and clopidogrel but she can discuss this with her regular planning manager following discharge. (3) Primary hypertension Assessment & Plan: Blood pressure is reasonably controlled with metoprolol. (4) Mixed hyperlipidemia Assessment & Plan: Continue rosuvastatin. I have ordered a lipid panel for the morning. NIK PERDUE JR, MD Sep 20, 2021 19:07
[2021-09-21] MEDS: RT-ALBUTEROL/IPRATROPIUM 3 ML (DUONEB) VIAL INH SCH ×4 (03:05→15:35)
[2021-09-21 04:00] VITALS: BP 130/78
[2021-09-21 05:54] LABS: BASOPHILS % (AUTO) 0 % (0-10); EOSINOPHILS % (AUTO) 0 % (0-10); HEMATOCRIT 48 % (35-52); HEMOGLOBIN 15.2 g/dL (11.5-16.0); LYMPHOCYTES # (AUTO) 0.9 10^3/uL (1.0-4.0); LYMPHOCYTES % (AUTO) 6 % (12-44); MEAN CORPUSCULAR HEMOGLOBIN 31 pg (25-34); MEAN CORPUSCULAR HGB CONC 32 g/dL (32-36); MEAN CORPUSCULAR VOLUME 98 fL (80-99); MEAN PLATELET VOLUME 9.1 fL (9.0-12.2); MONOCYTES # (AUTO) 0.8 10^3/uL (0.0-1.0); MONOCYTES % (AUTO) 5 % (0-12); NEUTROPHILS % (AUTO) 88 % (42-75); PLATELET COUNT 292 10^3/uL (130-400); WHITE BLOOD COUNT 14.7 10^3/uL (4.3-11.0)
[2021-09-21] MEDS: CATHETER FLUSH 10 ML SYR IVP SCH ×2 (06:00→14:37)
[2021-09-21] MEDS: FUROSEMIDE 40 MG/4 ML INJ (LASIX) IV SCH (06:10)
[2021-09-21] MEDS: LEVOTHYROXINE 88 MCG (LEVOTHORID) TAB PO SCH (06:10)
[2021-09-21] MEDS: KCL 20 MEQ TAB (K-DUR) PO SCH (06:10)
[2021-09-21] MEDS: methylPREDNISolone 125 MG (Solu-MEDROL) VIAL IV SCH ×2 (06:10→14:37)
[2021-09-21 06:11] LABS: POTASSIUM 5.5 MMOL/L (3.6-5.0)
[2021-09-21 06:17] LABS: CREATININE SERUM 0.81 MG/DL (0.60-1.30)
[2021-09-21 07:42] VITALS: BP 110/74
--- NOTE | 2021-09-21 08:54 | Diagnostic Imaging Report ---
Indication: Heart failure. Time Of Exam: 8:33 AM Correlation is made with prior chest from 09/18/2021. Left hemidiaphragm is elevated. There is subsegmental atelectasis in both bases. Heart size is stable. Upper lung martinez are clear. There is no effusion or pneumothorax. IMPRESSION: Chronically elevated left hemidiaphragm. There is mild bibasilar subsegmental atelectasis. Dictated by: Dictated on workstation # [id number]
[2021-09-21] MEDS: cefTRIAXone 1 GM/50 ML (PRE-MIX) IV SCH (08:57)
[2021-09-21] MEDS: CLOPIDOGREL 75 MG (PLAVIX) TABLET PO SCH (08:58)
[2021-09-21] MEDS: meTOprolol TARTRATE 25 MG (LOPRESSOR) TABLET PO SCH (08:58)
[2021-09-21] MEDS: ROSUVASTATIN 10 MG (CRESTOR) TABLET PO SCH (08:58)
[2021-09-21] MEDS: ASPIRIN 81 MG CHEW (CHILDREN'S ASA) PO SCH (08:58)
[2021-09-21 12:12] VITALS: BP 133/82
--- NOTE | 2021-09-21 12:29 | Discharge Summary ---
Diagnosis/Chief Complaint Date of Admission Sep 18, 2021 at 14:38 Date of Discharge Discharge Diagnosis Problems/Diagnosis: (1) Hypoxia Assessment & Plan: Pt presented to ED w/ AMS though improved on exam of 09/19. 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 Did have elevated BNP of 965 on admission. Has history of COPD, possible exacerbation 09/19 - breathing status much improved on exam this AM. Was on 4L via [place]. Plan to wean as tolerated and work w/ RT and PT. Being treated as possible COPD exacerbation w/ methylpred 80mg q8h and breathing treatments w/ duonebs q4h. Scheduled 40mg IV lasix though does not seem floridly volume overloaded. Will confirm w/ ECHO obtained today. 09/20 - Pt admits to not being active and moving around in room on 09/19. Had O2 increase to 6L at one point but is not down to 4L and satting 90-92%. Pt really does not want to d/c home w/ new oxygen. had discussion the importance of activity and moving around. Will assess walking O2 needs w/ respiratory Status: Acute (2) AMS (altered mental status) Assessment & Plan: Presented to ED w/ 1 day of confusion per roommate. Likely related to UTI as mental status greatly improved following the start of rocephin in the ED. 09/19 - mental status back at baseline per roommate. Pt AOx4 on exam this AM 09/20 - grew coag negative staph in 1/4 blood culture bottles, likely contaminant. low concern for bacteremia at this time. Qualifiers: Qualified Codes: R41.0 - Disorientation, unspecified Status: Resolved Resolution Date/Time: 09/19/21 @ 11:21 (3) UTI (urinary tract infection) Assessment & Plan: Roommate reports that pt has had very dark urine prior to arrival despite adequate hydration w/ water. Pt denies any dysuria or increased frequency prior to arrival. UA on admission to the ED w/ 2+ protein, + nitrites, trace leukocytes, 10-25 WBC, and 2-5 RBC. Culture pending. Started on rocephin in the ED w/ much improvement in mental status. no leukocytosis or fever on admission. Renal function normal. 09/19 - Osborne placed on admission. mental status much improved w/ rocephin. culture pending. Can remove osborne and allow pt to use bedside commode as needed. given improvement in respiratory status, pt will most likely d/c home w/ oral antibiotics for a total of 5 days. 09/20 - Osborne removed, pt able to urinate well on her own. Denies any dysuria at this time. Urine culture w/ E coli >100,000 CFU. susceptibilities pending. On day 3 of antibiotics today. Qualifiers: Qualified Codes: N30.01 - Acute cystitis with hematuria Status: Acute (4) COPD (chronic obstructive pulmonary disease) Assessment & Plan: Uncertain if acute exacerbation of baseline COPD. Pt denies any home O2 use but is currently needing 4L via NC to maintain sats >90. Pt not actively complaining of SOB or increased work of breathing. Could be component of UTI and delirium. 09/19 - no increased work on breathing on exam. Pt on 4L this AM. will try to wean O2 as tolerated by pt w/ activity. May consider new O2 need on discharge if unable to wean off oxygen prior to discharge. 09/20 - pt notes breathing is much better today. Still on 4L via NC. will attempt to wean O2 today. Discussed w/ pt the importance of getting up and moving around. She is not eager to d/c home w/ supplemental O2. Likely reactive leukocytosis from methylpred on lab this AM given no fever and low concern for infection other than urinary source currently being treated with rocephin. Status: Acute (5) Elevated brain natriuretic peptide (BNP) level Assessment & Plan: BNP elevated at 965 on admission. Cardiology consulted. ECHO repeated on 09/19. 09/19 - continue aspirin per cardiology recommendations. Will follow results of ECHO. Pt not overtly fluid overloaded on exam this AM. No pedal edema or lung crackles. Pt very interested in stopping at least one of her heart medications, will follow cards recommendations. 09/20 - repeated ECHO on 09/19 w/ improved cardiac function w/ EF 60-65% w/ normal sized right and left ventricles. Status: Acute (6) HTN (hypertension) Assessment & Plan: continue home UPH[employer]ST[employer] IN[employer]CTOR meds (metoprolol tartrate 50). On rosuvastatin 10mg. 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 Pt brought to ED by roommate with concern for 1 day of AMS and increased weakness. Per roommate pt was very confused at home which is different from baseline. Does note that pt urine has been very dark lately, however pt denies any hematuria, dysuria, increased frequency, fevers or chills. Roommate notes that pt has been spitting up more mucous lately, however does not use O2 at baseline. Does use breathing treatments at home, but has not had an increase frequency in this. Pt is not very mobile at home and is not very interested in home exercises. On questioning, pt denies any recent CP, abdominal pain, vision changes, PUENTE, increased cough or upper respiratory type symptoms. Discharge Summary-Simple/Stand Consultations Discharge Physical Examination Allergies: Coded Allergies: Penicillins (Verified Allergy, Unknown, HAS HAD ANCEF W/O PROBLEMS, 12/23/18) atorvastatin (Verified Allergy, Unknown, 12/23/18) procaine (Verified Allergy, Unknown, 12/23/18) Vitals & I&Os Vital Sign - Last 12Hours Date Time Temp Pulse Resp B/P (MAP) Pulse Ox O2 Delivery O2 Flow Rate FiO2 09/21/21 12:12 36.3 74 18 133/82 (99) 95 High Flow N/C 3.00 09/18/21 16:48 32 Intake and Output 09/21/21 00:00 Intake Total 1575 ml Output Total 4 ml Balance 1571 ml Hospital Course See final discharge diagnosis. Radiology Reviewed CHEST 1 VIEW, AP/PA ONLY INDICATION: Weakness, fall, and altered mental status. TECHNIQUE/COMPARISON: A frontal chest was obtained at 2:14 PM and compared to 09/07/2020. FINDINGS: There is very poor inspiration with mild bibasilar atelectasis. The heart is normal in size. There is unchanged elevation of the left diaphragm. There is no pneumothorax or pleural fluid. IMPRESSION: Poor inspiration with mild bibasilar atelectasis. Unchanged elevation of the left hemidiaphragm. No definite new abnormality. CT HEAD WO PROCEDURE: CT head without contrast. TECHNIQUE: Multiple contiguous axial images were obtained through the brain without the use of intravenous contrast. Auto Exposure Controls were utilized during the CT exam to meet ALARA standards for radiation dose reduction. INDICATION: Increasing confusion with generalized weakness. FINDINGS: Ventricles and sulci are within normal limits for size. No hemorrhage is identified. There is no abnormal mass effect or shift of midline structures. Lucency in the left basal ganglia could represent prominent vascular space or old lacunar infarct. There is no territorial infarct identified. Calvarium is intact, and the visualized paranasal sinuses are clear. IMPRESSION: No acute abnormality is detected. Discharge Instructions to patient/family Please see electronic discharge instructions given to patient. Discharge Medications Reviewed and agree with Discharge Medication list on patient's Discharge Instruction sheet JULIO CESAR FLORES MD Sep 21, 2021 12:29
[2021-09-21] MEDS ORDERED: NITR100C PO (12:31)
--- NOTE | 2021-09-21 12:32 | Discharge Summary ---
Discharge [facility] Reconcile Patient Problems Problems Reviewed?: Yes Discharge Medications New, Converted or Re-Newed RX: Transmitted to Pharmacy New Medications: Nitrofurantoin Macrocrystal (Nitrofurantoin) 100 Mg Capsule 100 MG PO BID, #10 CAP Continued Medications: Aspirin (Aspirin) 81 Mg Tab.chew 81 MG PO DAILY, TAB Clopidogrel Bisulfate (Clopidogrel) 75 Mg Tablet 75 MG PO DAILY, TAB Ibuprofen/Diphenhydramine HCl (Ibuprofen Pm Softgel) 1 Each Capsule 2 EACH PO HS, CAP Ipratropium/Albuterol Sulfate (Iprat-Albut 0.5-3(2.5) mg/3 ml) 3 Ml Ampul.neb 3 ML IH Q6H PRN for SHORTNESS OF BREATH, EACH Levothyroxine Sodium (Levothyroxine Sodium) 88 Mcg Tablet 88 MCG PO DAILY, TAB Metoprolol Tartrate (Metoprolol Tartrate) 25 Mg Tablet 50 MG PO DAILY, TAB TAKES 2 (25MG) TABS Oxybutynin Chloride (Oxybutynin Chloride) 5 Mg Tablet 20 MG PO DAILY TAKES 4 (5 MG) TABLETS Pantoprazole Sodium (Pantoprazole Sodium) 40 Mg Tablet.dr 40 MG PO DAILY, TAB Rosuvastatin Calcium (Rosuvastatin Calcium) 10 Mg Tablet 10 MG PO DAILY, TAB Discontinued Medications: Ibuprofen (Ibuprofen) 800 Mg Tablet 800 MG PO Q8H PRN for PAIN-MILD Patient Instructions Goal/Follow Up Appt: Fpatti with Suad Choudhury in 1-2 weeks Patient Instructions: Make sure to complete all your antibiotics Continue to exercise your lungs with the inspiratory spirometer Activity & Diet Discharge Diet: Cardiac Diet JULIO CESAR FLOERS MD Sep 21, 2021 12:32
[2021-09-21 15:46] VITALS: BP 133/82
== END 2021-09-21 15:49 | disposition home or self-care (01) | DRG 689 ==
LOC: EDUNIT# 12:28 → ER 12:29 → 4TH 14:38
PROVIDERS: ADMIT Family Medicine; ATTEND Family Medicine
DX: N39.0 Urinary tract infection, site not specified (principal); J96.01 Acute respiratory failure with hypoxia; I50.33 Acute on chronic diastolic (congestive) heart failure; J44.1 Chronic obstructive pulmonary disease with (acute) exacerbation; I11.0 Hypertensive heart disease with heart failure; Z87.891 Personal history of nicotine dependence; E03.9 Hypothyroidism, unspecified; E78.5 Hyperlipidemia, unspecified; E66.9 Obesity, unspecified; N32.81 Overactive bladder; Z90.49 Acquired absence of other specified parts of digestive tract; Z20.822 Contact with and (suspected) exposure to COVID-19; I25.10 Atherosclerotic heart disease of native coronary artery without angina pectoris; Z95.5 Presence of coronary angioplasty implant and graft; E78.2 Mixed hyperlipidemia; I25.2 Old myocardial infarction; I65.23 Occlusion and stenosis of bilateral carotid arteries; Z85.038 Personal history of other malignant neoplasm of large intestine; B96.20 Unspecified Escherichia coli [E. coli] as the cause of diseases classified elsewhere; Z68.38 Body mass index [BMI] 38.0-38.9, adult
CPT/HCPCS: 36415; 51702; 70450; 71045; 71046; 80048; 80053; 80061; 81000; 82805; 83605; 83735; 83880; 84145; 84484; 85007; 85025; 85027; 85610; 85730; 87040; 87077; 87088; 87186; 87636; 93005; 93306; 94640; 94760; 94761; 96365; 96375

== ENCOUNTER → 2021-12-25 | Outpatient (CLI) | payer MEDICARE, MEDICAID ==
[~2021-12-25] MED LIST changes: +IBUP1CAP11 PO; +IPRA3AMP31 IH; +NITR100C PO; +PANT40TA52 PO; +REGADENOSON 0.4 MG/5 ML SYR (LEXISCAN) IV ONE; +ROSU10TA28 PO
[2021-12-25] MEDS: CATHETER FLUSH 10 ML SYR IVP PRN ×2 (08:17→09:53)
[2021-12-25 09:47] VITALS: BP 133/101
--- NOTE | 2021-12-25 12:08 | Cardiology Stress Test Report ---
Stress Test Report Date of Procedure/Referring: Date of Procedure: Dec 25, 2021 [facility] Admitting Physician Admitting Physician: Attending Physician: Sonya Edouard Indications: CP Baseline Heart Rate: 80 Baseline Blood Pressure: Blood Pressure Systolic: 133 Blood Pressure Diastolic: 101 Baseline Vitals Vital Signs Date Time Temp Pulse Resp B/P (MAP) Pulse Ox O2 Delivery O2 Flow Rate FiO2 12/25/21 09:47 85 133/101 (112) 88 Room Air Baseline EKG: Baseline EKG: NSR Summary After explaining the procedure to the patient, she signed a consent and then brought to the stress nuclear laboratory. Patient received 0.4 mg Lexiscan for stress test, ECG, heart rate and blood pressure were monitored continuously. Resting and stress dose of radio tracer were injected, imaging was acquired and reviewed in short axis, horizontal long axis and vertical long axis views. TID: 1.09 SSS: 12 SDS: 7 EF: 38 1. Patient tolerated Lexiscan well 2. Occasional PVCs noted during test 3. Moderate reversible ischemia involving the inferior wall and the basal to mid anterior wall 4. Hypokinesia was noted involving the inferior wall and anterior wall, ejection fraction 38% Copy Copies To 1: [facility] [place] PETROS ANTHONY MD Dec 25, 2021 12:08
== END ==
LOC: CARD 08:30
PROVIDERS: ATTEND Physician Assistant
DX: R07.9 Chest pain, unspecified (principal)
CPT/HCPCS: 78452; 93017; A9502

== ENCOUNTER 2022-01-03 08:00 | Day surgery (SDC) | payer MEDICARE, MEDICAID ==
[~2022-01-03] VITALS: Ht 154.2 cm; Wt 91.3 kg
[2022-01-03] VITALS (11 sets, daily range): BP systolic 108–153; BP diastolic 73–95
[2022-01-03 07:22] LABS: HEMATOCRIT 48 % (35-52); HEMOGLOBIN 15.1 g/dL (11.5-16.0); MEAN CORPUSCULAR HEMOGLOBIN 31 pg (25-34); MEAN CORPUSCULAR HGB CONC 32 g/dL (32-36); MEAN CORPUSCULAR VOLUME 98 fL (80-99); MEAN PLATELET VOLUME 9.3 fL (9.0-12.2); PLATELET COUNT 295 10^3/uL (130-400); WHITE BLOOD COUNT 8.9 10^3/uL (4.3-11.0)
[2022-01-03 07:23] LABS: BILIRUBIN,URINE NEGATIVE (NEGATIVE); CLARITY,URINE CLEAR; COLOR,URINE YELLOW; GLUCOSE, URINE (UA) NEGATIVE (NEGATIVE); KETONES,URINE NEGATIVE (NEGATIVE); LEUKOCYTE ESTERASE ,URINE 3+ (NEGATIVE); NITRITE,URINE POSITIVE (NEGATIVE); PROTEIN,URINE TRACE (NEGATIVE)
[2022-01-03 07:33] LABS: BACTERIA,URINE MODERATE /HPF; RBC,URINE RARE /HPF; WBC,URINE >100 /HPF
--- NOTE | 2022-01-03 07:41 | Diagnostic Imaging Report ---
INDICATION: Abnormal stress test Single AP view of the chest is obtained with comparison made to study of 09/18/2021. Findings have remained stable with elevated left hemidiaphragm and overall heart size and pulmonary vascularity are within normal limits. There is no evidence of pneumothorax. No overt edema is identified. IMPRESSION: Stable chest without acute abnormality. There is continued elevation of left hemidiaphragm. Dictated by: Dictated on workstation # [id number]
[2022-01-03 07:42] LABS: PROTHROMBIN TIME PATIENT 13.3 SEC (12.2-14.7)
[2022-01-03 07:48] LABS: ALBUMIN 3.5 GM/DL (3.2-4.5); POTASSIUM 4.5 MMOL/L (3.6-5.0)
[2022-01-03 07:49] LABS: CALCIUM 8.9 MG/DL (8.5-10.1)
[2022-01-03 07:50] LABS: TOTAL PROTEIN 6.5 GM/DL (6.4-8.2)
[2022-01-03 07:52] LABS: BILIRUBIN,TOTAL 0.7 MG/DL (0.1-1.0)
[2022-01-03 07:54] LABS: CREATININE SERUM 0.93 MG/DL (0.60-1.30)
--- NOTE | 2022-01-03 07:56 | Conscious Sedation/ASA ---
Conscious Sedation Pre-Proced Time 07:56 ASA Score 3 For ASA 3 and 4: Consider anesthesia and medical clearance. Also, for patients with a history of failed moderate sedation consider anesthesia. Airway Lungs Heart ASA score ASA 1: a normal healthy patient ASA 2: a patient with a mild systemic disease (mid diabetes, controlled hypertension, obesity x ASA 3: a patient with a severe systemic disease that limits activity (angina, COPD, prior Myocardial infarction) ASA 4: a patient with an incapacitating disease that is a constant threat to life (CHF, renal failure) ASA 5: a moribund patient not expected to survive 24 hrs. (ruptured aneurysm) ASA 6: a declared brain- patient whose organs are being harvested. For emergent operations, add the letter E after the classification Mallampati Classification Grade 3 Sedation Plan Analgesia, Amnesia, Plan communicated to team members, Discussed options with patient/fam, Discussed risks with patient/fam The patient is an appropriate candidate to undergo the planned procedure, sedation, and anesthesia. The patient immediately re-assessed prior to indication. PETROS ANTHONY MD Jan 03, 2022 07:56
[~2022-01-03 08:00] MED LIST changes: +HEParin (CATH LAB) 2,000 ML IV ONE; +HEParin 1000 UNIT/ML (10ML VIAL) FOR BOLUS ONE; +LIDOCAINE 1% INJ 20 ML VIAL ONE; +MIDAZOLAM 5 MG/5 ML (VERSED) VIAL ONE; +NF-CRES10T PO; +NITRO DRIP 25000 MCG/D5W 0 ML IV ONE; +NS IV 1000 ML 1,000 ML IV SCH; +NS IV 1000 ML 1,000 ML ONE; -REGADENOSON 0.4 MG/5 ML SYR (LEXISCAN) IV ONE; -ROSU10TA22 PO; +VERAPAMIL 5 MG/2 ML (CALAN) VIAL IV ONE; +fentaNYL INJ 100 MCG/2 ML AMP ONE
--- NOTE | 2022-01-03 08:39 | Discharge Inst-Post CATH ---
Discharge Inst-CATH/EP Problems Reviewed?: Yes Post Cardiac Cath/EP D/C Inst Follow Up/Plan Appointment with Dr. Posey's office in 4 weeks <b>CARDIAC CATH/EP PROCEDURE DISCHARGE INSTRUCTIONS</b> ACTIVITY * Go Home directly and rest. * Limit activity of the leg (or wrist if it was used) for 7 days including aerobics, swimming, jogging, bicycling, etc. * Restrict stair-climbing for 7 days if possible, if not, climb up with your non-cath leg, then bring together on the same step. * Avoid lifting, pushing, pulling or excessive movement of the affected extremity for 7 days. * Customary sexual activity may be resumed after 2 days-use caution not to use a position that strains or causes pain to the affected extremity. * No driving for 24 hours. * NO SMOKING. * Avoid straining for bowel movements for 7 days. * Gentle walking on level ground is allowed. * Returning to work will depend on the type of procedure and the results. Your doctor will discuss this with you. CALL YOUR DOCTOR FOR ANY OF THE FOLLOWING: *If bleeding from the puncture site occurs- Apply gentle pressure to site with clean cloth and call your doctor or EMS. * If a knot or lump forms under the skin, increases in size, or causes pain. * If bruising appears to be worsening or moving further down your leg instead of disappearing. * Temperature above 101 F. CARE OF YOUR GROIN INCISION; * Bruising or purple discoloration of the skin near the puncture site is common. * You may shower only, no bathtub bathing for 5 days. Be careful to avoid slipping as your leg may feel stiff. * If a closure device was used on your femoral artery, please see the attached guide regarding care of the device and your leg. * Leave dressing on FOR 24 hours. CARE OF YOUR WRIST INCISION; * Bruising or purple discoloration of the skin near the puncture site is common. * You may shower. * DO NOT submerge wrist. * Leave dressing on FOR 24 hours. PETROS POSEY MD Jan 03, 2022 08:39
--- NOTE | 2022-01-03 08:42 | Cardiac Cath Report ---
Cardiac Cath Report Physician (s)/Language Specialist (s) Physician PETROS ANTHONY MD Pre-Procedure Diagnosis Pre-Procedure Diagnosis: coronary artery disease Post-Procedure Note Procedure Start Date: Jan 03, 2022 Name of Procedure: Left heart catheterization Findings/Procedure Note PROCEDURE NOTE: 81 years old lady with history of coronary artery disease, multiple intervention, hypertension hyperlipidemia. Had an abnormal stress test, scheduled for cardiac catheterization possible PTCA. After explaining the procedure to the patient, all pros and cons were explained, all questions were answered. The patient signed the consent and then she was placed on the cardiac catheterization laboratory. Groin was prepped SL fashion local anesthesia was used. Sheath placed in the right femoral artery. Waldo right and left catheter were used to access the coronary system. Waldo right was used to access the left ventricular cavity. Left ventriculogram was not done, pressure was measured At the end of the procedure the sheath was removed. Closure device was deployed FINDINGS: Hemodynamics LV 131/19, end-diastolic pressure of 19 Aorta 145/76 mean of 102 ANATOMY: Left Main is free of obstructive disease Left Anterior Descending is calcified with patent stent in the proximal LAD, mild disease distally nonobstructive disease Left Circumflex has mild disease nonobstructive disease Right Coronary Artery is large dominant artery with 40 to 50% stenosis in the mid right coronary artery, patent stents, small vessel disease distally LV Gram was not done, pressure was measured CONCLUSION: 1. Mild to moderate in-stent restenosis in the mid right coronary artery, small vessel disease at the distal right coronary artery nonobstructive disease 2. Patent stent in the proximal LAD with mild disease distally, nonobstructive disease, mild disease in the circumflex artery 3. Mildly elevated left ventricular end-diastolic pressure DISCUSSION AND RECOMMENDATION: Medical therapy is recommended, abnormal stress test is probably due to small vessel disease Anesthesia Type: Conscious Sedation Estimated blood loss (mL): 15 ml Contrast Amount: 40 ml Total Radiation Dose: 554 mGy Post-Procedure Diagnosis Post-operative diagnosis: Coronary artery disease Hypertension Hyperlipidemia Obesity PETROS ANTHONY MD Jan 03, 2022 08:42
[2022-01-03] MEDS ORDERED: NS IV 1000 ML 1,000 ML IV SCH (08:45)
[2022-01-03] MEDS ORDERED: PATIENT MAY USE OWN MEDS, ALL PO SCH (08:45)
== END 2022-01-03 13:25 ==
LOC: CATH 08:00 → SDC 09:00 → CATH 13:25
PROVIDERS: ATTEND Internal Medicine Cardiovascular Disease
DX: I25.10 Atherosclerotic heart disease of native coronary artery without angina pectoris (principal); E78.5 Hyperlipidemia, unspecified; I11.0 Hypertensive heart disease with heart failure; I50.22 Chronic systolic (congestive) heart failure; E78.2 Mixed hyperlipidemia; I65.23 Occlusion and stenosis of bilateral carotid arteries; E66.9 Obesity, unspecified; Z68.38 Body mass index [BMI] 38.0-38.9, adult; Z79.82 Long term (current) use of aspirin; Z87.891 Personal history of nicotine dependence
CPT/HCPCS: 71045; 80053; 80061; 81000; 85027; 85610; 85730; 87081; 87088; 93005; 93458; C1760; C1894; 36415; 87077

== ENCOUNTER 2022-02-25 14:42 | Inpatient (IN) | payer MEDICARE, MEDICAID ==
[~2022-02-25] VITALS: Ht 160 cm; Wt 109.8 kg
[~2022-02-25 14:42] MED LIST changes: -HEParin (CATH LAB) 2,000 ML IV ONE; -HEParin 1000 UNIT/ML (10ML VIAL) FOR BOLUS ONE; -LIDOCAINE 1% INJ 20 ML VIAL ONE; -MIDAZOLAM 5 MG/5 ML (VERSED) VIAL ONE; -NITRO DRIP 25000 MCG/D5W 0 ML IV ONE; -NS IV 1000 ML 1,000 ML IV SCH; -NS IV 1000 ML 1,000 ML ONE; -VERAPAMIL 5 MG/2 ML (CALAN) VIAL IV ONE; -fentaNYL INJ 100 MCG/2 ML AMP ONE
--- NOTE | 2022-02-25 15:02 | ED Respiratory ---
General Chief Complaint: Respiratory Problems Stated Complaint: SOA Nursing Triage Note: PT ARRIVED PER EMS, PT CO OF SOA, PT ROOM MATE STATES PT NOT ACTING RIGHT, PT SL LETHARGIC, PT O2 SAT 87% ON 2L PER N/C INCREASED TO 4L. PT RECENTLY RELEASED FROM [facility] ON W DX PNEM. Source: EMS Exam Limitations: clinical condition History of Present Illness Date Seen by Provider: Feb 25, 2022 Time Seen by Provider: 14:45 Initial Comments Patient is a 81-year-old female who presents to the emergency department by ambulance chief complaint somnolence and shortness of air. Patient apparently was just discharged from [facility] on February 23. It is unclear from the paperwork brought with the patient what her admitting and discharge diagnoses were. She looked to have been started on Eliquis as well as medications for community-acquired pneumonia. She is on metoprolol for blood pressure. The roommate communicated to EMS that the patient slept all day yesterday as well as today and was very difficult to arouse this afternoon. Apparently her oxygen is supposed to be set on 2 L but she is quite hypoxic on arrival down to about 85-86% with some tachypnea noted at about 30 breaths/min. She sounds very rattly and crackly on auscultation. She does have 1-2+ pitting edema in her bilateral lower extremities. She is quite somnolent, frequently falling asleep during my HPI and examination. With vigorous stimuli she is able to state that she is not having any pain. She does feel short of breath. She is not nauseous. Prior to the hospitalization at [facility] she was not on supplemental oxygen. No other immediate friends or family available for further HPI, past medical family social history or review of systems. Timing/Duration: yesterday Severity: moderate Associated Symptoms: shortness of breath Allergies and Home Medications Allergies Coded Allergies: Penicillins (Verified Allergy, Unknown, HAS HAD ANCEF W/O PROBLEMS, 12/23/18) atorvastatin (Verified Allergy, Unknown, 12/23/18) procaine (Verified Allergy, Unknown, 12/23/18) Patient Home Medication List Home Medication List Reviewed: Yes Aspirin (Aspirin) 81 Mg Tab.chew, 81 MG PO DAILY, (Reported) Entered as Reported by: ESSENCE POLLOCK on 07/09/17 1552 Clopidogrel Bisulfate (Clopidogrel) 75 Mg Tablet, 75 MG PO DAILY, (Reported) Entered as Reported by: ELMIRA FRAGA on 09/19/21 1105 Ipratropium/Albuterol Sulfate (Iprat-Albut 0.5-3(2.5) mg/3 ml) 3 Ml Ampul.neb, 3 ML IH Q6H PRN for SHORTNESS OF BREATH, (Reported) Entered as Reported by: ELMIRA FRAGA on 09/19/21 1105 Levothyroxine Sodium (Levothyroxine Sodium) 88 Mcg Tablet, 88 MCG PO DAILY, (Reported) Entered as Reported by: EVANGELINA LITTLE on 09/07/20 0830 Metoprolol Tartrate (Metoprolol Tartrate) 25 Mg Tablet, 25 MG PO BID, (Reported) Entered as Reported by: ESSENCE POLLOCK on 10/10/16 0950 Oxybutynin Chloride (Oxybutynin Chloride) 5 Mg Tablet, 5 MG PO QID, (Reported) Entered as Reported by: ESSENCE POLLOCK on 10/10/16 0950 Pantoprazole Sodium (Pantoprazole Sodium) 40 Mg Tablet.dr, 40 MG PO DAILY, (Reported) Entered as Reported by: ELMIRA FRAGA on 09/19/21 1105 Rosuvastatin Calcium (Rosuvastatin Calcium) 10 Mg Tablet, 10 MG PO DAILY, (Reported) Entered as Reported by: ELMIRA FRAGA on 09/19/21 1105 Review of Systems Review of Systems Constitutional: see HPI Review of systems difficult to obtain secondary to the patient's somnolence Past Bdqkzyo-Wmewzj-Vfynif Hx Patient Social History Tobacco Use?: No Substance use?: No Alcohol Use?: No Pt feels they are or have been: No Immunizations Up To Date Tetanus Booster (TDap): Unknown First/Initial COVID19 Vaccinat: 10/26 Second COVID19 Vaccination Fernando: 10/26 Third COVID19 Vaccination Date: 04/27 Seasonal Allergies Seasonal Allergies: No Past Medical History Surgery/Hospitalization HX: COPD, COLON CA-RESECTION Surgeries: Yes (SPLEENECTOMY, HERNIA, RIGHT ANKLE REPAIR, PERF BOWEL) Abdominal, Coronary Stent Respiratory: Yes COPD Currently Using CPAP: No Currently Using BIPAP: No Cardiac: Yes (stent x 2) Coronary Artery Disease, Heart Attack, High Cholesterol, Hypertension Neurological: No Reproductive Disorders: No Sexually Transmitted Disease: No HIV/AIDS: No Genitourinary: Yes (OVERACTIVE BLADDER) Gastrointestinal: No (colon cancer) Abdominal Hernia, Ulcer Musculoskeletal: Yes Arthritis Endocrine: Yes (THYROID) Hypothyroidsim HEENT: Yes (READING GLASSES) Cataract Loss of Vision: Denies Cancer: Yes Colon Did You Recieve Any Treatments: Yes What Type of Treatment Did You: Surgical Intervention Psychosocial: No Integumentary: Yes Pruritis Blood Disorders: No Adverse Reaction/Blood Tranf: No (HAS HAD BLOOD WITH NO REACTION) Family Medical History Cancer 03 MOTHER, Onset:40's - 50 Family history: Thyroid disorder 03 MOTHER 09 BROTHER Hearing loss 09 BROTHER Visual impairment 09 BROTHER No Family History of: Abdominal aortic aneurysm Heart Disease, Hypertension Physical Exam Vital Signs - First Documented Capillary Refill : Height: 5'3.00" Weight: 242lbs. 2.0oz. 109.750373ep; 33.00 BMI Method:Stated General Appearance: WD/WN, no apparent distress Eyes: Bilateral Eye Normal Inspection, Bilateral Eye PERRL, Bilateral Eye EOMI HEENT: PERRL/EOMI, other (Dry oral mucosa) Neck: normal inspection Respiratory: crackles (Bilateral anterior lung field), rales, other (Slightly labored breathing without overt respiratory distress) Cardiovascular: irregularly irregular (Heart rate noted to jump between 70s and 130s, appears to be atrial fibrillation on the monitor) Gastrointestinal: non tender, soft Neurologic/Psychiatric: disoriented x 3 (Disoriented to month and day of the week), other (Arousable to aggressive verbal stimulation) Skin: warm/dry, cyanosis (Lips and hands) Progress/Results/Core Measures Suspected Sepsis SIRS Temperature: Pulse: 78 Respiratory Rate: 35 Laboratory Tests 02/25/22 16:17: White Blood Count 7.4 Blood Pressure 191 /122 Mean: 145 Laboratory Tests 02/25/22 16:17: Creatinine 1.01, INR Comment 1.3, Platelet Count 286, Total Bilirubin 0.8 Results/Orders Lab Results Laboratory Tests Test 02/25/22 14:56 02/25/22 16:00 02/25/22 16:17 Range/Units Glucometer 122 H 70-110 MG/DL Bedside Blood Gas pH (LAB) 7.259 *L 7.310-7.410 Bedside Blood Gas pCO2 (LAB) 82.7 *H 41.0-51.0 mmHg Bedside Blood Gas pO2 (LAB) 82 80-105 mmHg Bedside Blood Gas HCO3 (LAB) 37.0 H 23.0-28.0 mmol/L POC Blood Gas Total CO2 Calc 39 H 24-29 mmol/L Bedside Bl Gas O2 Saturation (Calc) 93 L 95-98 % Bedside Arterial Blood Base Excess 10 H -2-3 mmol/L White Blood Count 7.4 4.3-11.0 10^3/uL Red Blood Count 4.79 3.80-5.11 10^6/uL Hemoglobin 14.3 11.5-16.0 g/dL Hematocrit 48 35-52 % Mean Corpuscular Volume 99 80-99 fL Mean Corpuscular Hemoglobin 30 25-34 pg Mean Corpuscular Hemoglobin Concent 30 L 32-36 g/dL Red Cell Distribution Width 13.7 10.0-14.5 % Platelet Count 286 130-400 10^3/uL Mean Platelet Volume 9.5 9.0-12.2 fL Immature Granulocyte % (Auto) 1 % Neutrophils (%) (Auto) 75 42-75 % Lymphocytes (%) (Auto) 20 12-44 % Monocytes (%) (Auto) 4 0-12 % Eosinophils (%) (Auto) 0 0-10 % Basophils (%) (Auto) 0 0-10 % Neutrophils # (Auto) 5.5 1.8-7.8 10^3/uL Lymphocytes # (Auto) 1.5 1.0-4.0 10^3/uL Monocytes # (Auto) 0.3 0.0-1.0 10^3/uL Eosinophils # (Auto) 0.0 0.0-0.3 10^3/uL Basophils # (Auto) 0.0 0.0-0.1 10^3/uL Immature Granulocyte # (Auto) 0.0 0.0-0.1 10^3/uL Prothrombin Time 16.5 H 12.2-14.7 SEC INR Comment 1.3 0.8-1.4 Activated Partial Thromboplast Time 33 24-35 SEC Sodium Level 136 135-145 MMOL/L Potassium Level 4.7 3.6-5.0 MMOL/L Chloride Level 97 L 98-107 MMOL/L Carbon Dioxide Level 31 21-32 MMOL/L Anion Gap 8 5-14 MMOL/L Blood Urea Nitrogen 25 H 7-18 MG/DL Creatinine 1.01 0.60-1.30 MG/DL Estimat Glomerular Filtration Rate 57 BUN/Creatinine Ratio 25 Glucose Level 133 H 70-105 MG/DL Calcium Level 9.2 8.5-10.1 MG/DL Corrected Calcium 9.6 8.5-10.1 MG/DL Magnesium Level 2.2 1.6-2.4 MG/DL Total Bilirubin 0.8 0.1-1.0 MG/DL Aspartate Amino Transf (AST/SGOT) 35 H 5-34 U/L Alanine Aminotransferase (ALT/SGPT) 35 0-55 U/L Alkaline Phosphatase 62 40-136 U/L Myoglobin 80.5 10.0-92.0 NG/ML Troponin I 0.029 H <0.028 NG/ML B-Type Natriuretic Peptide 1015.5 H <100.0 PG/ML Total Protein 6.2 L 6.4-8.2 GM/DL Albumin 3.5 3.2-4.5 GM/DL My Orders Orders - GUZMAN MANRIQUEZ MD Cbc With Automated Diff (02/25/22 14:55) Magnesium (02/25/22 14:55) Chest 1 View, Ap/Pa Only (02/25/22 14:55) Ekg Tracing (02/25/22 14:55) Comprehensive Metabolic Panel (02/25/22 14:55) Myoglobin Serum (02/25/22 14:55) Protime With Inr (02/25/22 14:55) Partial Thromboplastin Time (02/25/22 14:55) O2 (02/25/22 14:55) Monitor-Rhythm Ecg Trace Only (02/25/22 14:55) Lipid Panel (02/26/22 06:00) Ed Iv/Invasive Line Start (02/25/22 14:55) Troponin I Benjamin (02/25/22 14:55) Bnp Coles (02/25/22 14:55) Communication For Respiratory (02/25/22 15:02) Labetalol Injection (Normodyne Injection (02/25/22 15:15) Bipap (Bilevel) Set Up (02/25/22 15:52) Arterial Blood Draw - Obtain (02/25/22 ) Ua Culture If Indicated (02/25/22 17:16) Catheter(Urinary) Insert & Ass 03,15 (02/25/22 17:17) Lidocaine 2% (Urojet) (Xylocaine Urojet) (02/25/22 17:30) Ed Admission (Communication) (02/25/22 17:17) Medications Given in ED Current Medications Medications Dose Ordered Sig/Leonardo Route Start Time Stop Time Status Last Admin Dose Admin Labetalol HCl 10 mg ONCE ONCE IV 02/25/22 15:15 02/25/22 15:16 DC 02/25/22 15:38 10 MG Vital Signs/I&O 02/25/22 02/25/22 02/25/22 02/25/22 14:45 14:45 14:45 15:33 Temp 36.8 Pulse 78 75 Resp 35 25 B/P (MAP) 191/122 (145) Pulse Ox 95 88 93 O2 Delivery OxyMask Nasal Cannula Nasal Cannula O2 Flow Rate 6.00 2.00 2.00 50.00 02/25/22 02/25/22 15:40 16:26 Pulse 75 70 Resp 26 21 Pulse Ox 94 95 O2 Flow Rate 50.00 50.00 Capillary Refill : Blood Pressure Mean: 145 Progress Note : Time: 17:51 Progress Note I was finally able to speak with family after getting the patient admitted. They state that Kaila had spent 4 days at [facility] over the last week was actually discharged around 430 on Saturday afternoon. She had been admitted for a syncopal episode. The daughter states that they were told that she potentially had a seizure that may have been related to her carbon dioxide levels? She was not discharged on seizure medications. She was discharged on antibiotics for pneumonia. She was placed on prednisone at the time of discharge. The daughter is not sure why the patient was transition from Plavix to Eliquis. She has no history of atrial fibrillation. She did get a dose of Eliquis this morning according to the daughter. No reported trauma/falls. She was "normal" at the time of dismissal on Saturday. I explained to her CO2 narcosis today. I advised them that she would be admitted to the ICU. They are quite confused as to how she could have gotten so bad in such a short period of time. She has not smoked "in years" according to the daughter. ECG Initial ECG Impression Date: Feb 25, 2022 Initial ECG Impression Time: 15:00 Initial ECG Rate: 75 Initial ECG Rhythm: Normal Sinus Initial ECG Intervals: Normal Initial ECG Impression: Normal Critical Care Note Critical Care Start Time: 14:45 Stop Time: 18:00 Total Time (minutes) 40 minutes critical care time in the evaluation and management of this altered mental status 81-year-old with hypoxemia. Time includes initial evaluation with labs, EKG, chest x-ray. Supplemental oxygenation, management of BiPAP. Review of the medical record, discussion with admitting provider, Dr. Chavez as well as cardiology. Also discussion with family. Departure Communication (Admissions) Time/Spoke to Admitting Phy: 17:[address] Chavez Time/Spoke to Consulting Phy: 17:[address] Patricia Impression Primary Impression: RESPIRATORY FAILURE, UNSP, UNSP W HYPOXIA OR HYPERCAPNIA Additional Impressions: CO2 narcosis COPD (chronic obstructive pulmonary disease) Qualified Codes: J44.9 - Chronic obstructive pulmonary disease, unspecified Disposition: ADMITTED INPATIENT Condition: Stable Admissions Decision to Admit Reason: Admit from ER (General) Decision to Admit/Date: Feb 25, 2022 Time/Decision to Admit Time: 17:54 Departure-Patient Inst. Referrals: [facility] (PCP/Family) Primary Care Physician GUZMAN MANRIQUEZ MD Feb 25, 2022 15:02
[2022-02-25] MEDS ORDERED: LABETALOL HCL 20 MG/4 ML VIAL IV ONE (15:15)
[2022-02-25 15:33] VITALS: BP 182/117
--- NOTE | 2022-02-25 15:37 | Diagnostic Imaging Report ---
INDICATION: Shortness of breath and chest pain. TIME OF EXAM: 3:17 PM. COMPARISON: Correlation is made with prior chest from 01/03/2022. Left hemidiaphragm is chronically elevated. Heart is enlarged. Central vascularity is prominent. No definite failure is seen. There is no effusion or pneumothorax. IMPRESSION: Overall stable appearance of chest when compared to exam from 01/03/2022. Dictated by: Dictated on workstation # [id number]
[2022-02-25 15:40] VITALS: BP 182/117
[2022-02-25 16:26] VITALS: BP 142/122
[2022-02-25 16:27] LABS: BASOPHILS % (AUTO) 0 % (0-10); EOSINOPHILS % (AUTO) 0 % (0-10); HEMATOCRIT 48 % (35-52); HEMOGLOBIN 14.3 g/dL (11.5-16.0); LYMPHOCYTES # (AUTO) 1.5 10^3/uL (1.0-4.0); LYMPHOCYTES % (AUTO) 20 % (12-44); MEAN CORPUSCULAR HEMOGLOBIN 30 pg (25-34); MEAN CORPUSCULAR HGB CONC 30 g/dL (32-36); MEAN CORPUSCULAR VOLUME 99 fL (80-99); MEAN PLATELET VOLUME 9.5 fL (9.0-12.2); MONOCYTES # (AUTO) 0.3 10^3/uL (0.0-1.0); MONOCYTES % (AUTO) 4 % (0-12); NEUTROPHILS # (AUTO) 5.5 10^3/uL (1.8-7.8); NEUTROPHILS % (AUTO) 75 % (42-75); PLATELET COUNT 286 10^3/uL (130-400); WHITE BLOOD COUNT 7.4 10^3/uL (4.3-11.0)
[2022-02-25 16:37] LABS: INR 1.3 (0.8-1.4); PROTHROMBIN TIME PATIENT 16.5 SEC (12.2-14.7)
[2022-02-25 16:38] LABS: ALBUMIN 3.5 GM/DL (3.2-4.5); POTASSIUM 4.7 MMOL/L (3.6-5.0)
[2022-02-25 16:40] LABS: CALCIUM 9.2 MG/DL (8.5-10.1)
[2022-02-25 16:41] LABS: TOTAL PROTEIN 6.2 GM/DL (6.4-8.2)
[2022-02-25 16:43] LABS: BILIRUBIN,TOTAL 0.8 MG/DL (0.1-1.0)
[2022-02-25 16:44] LABS: CREATININE SERUM 1.01 MG/DL (0.60-1.30)
[2022-02-25 16:47] LABS: MAGNESIUM 2.2 MG/DL (1.6-2.4)
[2022-02-25] MEDS ORDERED: LIDOCAINE UROJET 2% GEL 10 ML PKG TOP ONE (17:30)
--- NOTE | 2022-02-25 17:31 | Progress Note ---
Progress Note Meghan VARGAS summary by Dr Maier: Anderson Juan a 81 y.o.femalea patient of No primary care provider on file.who is being admitted through the emergency room with chief complaint of syncope and shortness of breath. Patient has a history of CAD, COPD. Patient thought she had this appointment today, although when I arrived the dentist office was closed. Upon return to the car she was lightheaded. She had a syncopal episode that lasted a few seconds and there was concern for some seizure-like activity. Her roommate was there with her and called EMS. They state the patient was unconscious for about 5 to 10 minutes. Patient is alert and oriented x4 at this time. She does have oxygen at home, but does not wear it regularly. Patient also does not take her medications as prescribed. She states she doubles up on any medication that is twice daily and takes in the morning. She states she has been more forgetful at home. She states her blood pressure has been running a little bit low recently. She also mentions that her oxygen has been anywhere from 64-88, which she thinks is good for her. She also notes diminished appetite over the past couple of months. Patient is currently requiring 3 L nasal cannula oxygen to maintain SPO2 greater than 92%. Patient also appears to have a pneumonia in the leftlower lobe. D-dimer is also elevated. Hospital Course: wasadmitted after experiencing a syncopal episode while outside. EMS brought her in and she was noted to have a PNA and was started on abx. MRSA nares were negative and Vanc was discontinued and she was continued on Cefepime. She also was noted to have a PE on CTA PE scan and was started on therapeutic lovenox. Echo was done andshowed normal EF and diastolic dysfunction.PT worked with patient and recommended home with assistance. She was noted to have episode of tremors and shaking on AM of 02/21.She was evaluated by teleneuro and EEG was completed and to be followed up outpatient by PCP and neurologist (ambulatory referral has been made). She will continue Eliquis for anticoagulation for known PE on discharge and finish abx course for noted pneumonia. She is to follow up with PCP and establish care with neurology services after discharge. She verbalized understanding and all questions were answered to her satisfaction. EVAN GOLDEN DO Feb 25, 2022 17:31
[2022-02-25 18:06] LABS: BILIRUBIN,URINE NEGATIVE (NEGATIVE); CLARITY,URINE CLEAR; COLOR,URINE YELLOW; GLUCOSE, URINE (UA) NEGATIVE (NEGATIVE); KETONES,URINE TRACE (NEGATIVE); LEUKOCYTE ESTERASE ,URINE NEGATIVE (NEGATIVE); NITRITE,URINE NEGATIVE (NEGATIVE); PROTEIN,URINE 1+ (NEGATIVE)
[2022-02-25 18:14] LABS: RBC,URINE RARE /HPF
[2022-02-25 18:15] LABS: BACTERIA,URINE TRACE /HPF
[2022-02-25] MEDS ORDERED: morphine IMMEDIATE RELEASE 15 MG TABLET PO PRN (20:15)
[2022-02-25] MEDS ORDERED: ONDANSETRON 4 MG/2 ML (SDV) Z0FRAN IV PRN (20:15)
[2022-02-25] MEDS ORDERED: ONDANSETRON 4 MG (ZOFRAN) ORAL DISSOLVE TAB PO PRN (20:15)
[2022-02-25] MEDS ORDERED: ANTACID SUSP 30 ML UDC (MYLANTA) PO PRN (20:15)
[2022-02-25] MEDS ORDERED: NS IV 500 ML 500 ML IV PRN (20:15)
[2022-02-25] MEDS ORDERED: BISACODYL 10 MG SUPP (DULCOLAX) PR PRN (20:15)
[2022-02-25] MEDS ORDERED: LACTULOSE SYRUP 10GM/15ML (ENULOSE) 30ML UDC PO PRN (20:15)
[2022-02-25] MEDS ORDERED: CALCIUM CARBONATE 500 MG (TUMS) TAB.CHEW PO PRN (20:15)
[2022-02-25] MEDS ORDERED: ACETAMINOPHEN 325 MG TABLET PO PRN (20:15)
[2022-02-25] MEDS ORDERED: MILK OF MAGNESIA 400 MG/5 ML 30 ML UDC PO PRN (20:15)
[2022-02-25] MEDS ORDERED: polyethylene glycoL POWDER 17 GM (MIRALAX) PACK PO PRN (20:15)
[2022-02-25] MEDS ORDERED: MELATONIN 3 MG TABLET PO PRN (20:15)
[2022-02-25] MEDS ORDERED: diphenhydrAMINE 50 MG/ML INJ (BENADRYL) IVP PRN (20:15)
[2022-02-25] MEDS ORDERED: diphenhydrAMINE 25 MG TAB (BENADRYL) PO PRN (20:15)
[2022-02-25] MEDS ORDERED: morphine INJ 4 MG/ML 1 ML (VIAL/SYRINGE) IV PRN (20:15)
[2022-02-25 20:17] VITALS: BP 161/99
[2022-02-25 20:34] VITALS: BP 161/99
[2022-02-25] MEDS: NS IV 1000 ML 1,000 ML IV SCH (20:39)
[2022-02-25] MEDS: APIXABAN 5 MG (ELIQUIS) TABLET PO SCH (20:39)
[2022-02-25] MEDS ORDERED: LIDOCAINE JELLY 2% 6 ML SYRINGE TOP ONE (20:45)
[2022-02-25] MEDS ORDERED: RT-ALBUTEROL/IPRATROPIUM 3 ML (DUONEB) VIAL INH PRN (21:00)
[2022-02-25] MEDS: inSUlin ASPART (NovoLOG) 1 UNIT/0.01 ML (CHARGE PER UNIT) SC SCH (21:00)
[2022-02-25] MEDS: SENNOSIDES 8.6 MG (SENOKOT) TAB PO SCH (21:33)
[2022-02-25] MEDS: DOCUSATE SODIUM 100 MG (COLACE) CAP PO SCH (21:33)
[2022-02-25 21:35] VITALS: BP 160/84
[2022-02-25] MEDS: RT-ALBUTEROL/IPRATROPIUM 3 ML (DUONEB) VIAL INH SCH (21:35)
[2022-02-26] MEDS: RT-ALBUTEROL/IPRATROPIUM 3 ML (DUONEB) VIAL INH SCH ×6 (02:11→21:14)
[2022-02-26 02:12] VITALS: BP 164/86
[2022-02-26 05:23] LABS: BASOPHILS % (AUTO) 0 % (0-10); EOSINOPHILS % (AUTO) 0 % (0-10); HEMATOCRIT 41 % (35-52); HEMOGLOBIN 12.9 g/dL (11.5-16.0); LYMPHOCYTES # (AUTO) 1.4 10^3/uL (1.0-4.0); LYMPHOCYTES % (AUTO) 21 % (12-44); MEAN CORPUSCULAR HEMOGLOBIN 30 pg (25-34); MEAN CORPUSCULAR HGB CONC 32 g/dL (32-36); MEAN CORPUSCULAR VOLUME 95 fL (80-99); MEAN PLATELET VOLUME 9.4 fL (9.0-12.2); MONOCYTES # (AUTO) 0.9 10^3/uL (0.0-1.0); MONOCYTES % (AUTO) 13 % (0-12); NEUTROPHILS # (AUTO) 4.6 10^3/uL (1.8-7.8); NEUTROPHILS % (AUTO) 66 % (42-75); PLATELET COUNT 247 10^3/uL (130-400); WHITE BLOOD COUNT 6.9 10^3/uL (4.3-11.0)
[2022-02-26 05:47] LABS: ALBUMIN 2.7 GM/DL (3.2-4.5); POTASSIUM 4.4 MMOL/L (3.6-5.0)
[2022-02-26 05:48] LABS: CALCIUM 8.3 MG/DL (8.5-10.1)
[2022-02-26 05:50] LABS: TOTAL PROTEIN 5.1 GM/DL (6.4-8.2)
[2022-02-26 05:51] LABS: BILIRUBIN,TOTAL 0.7 MG/DL (0.1-1.0); TRIGLYCERIDES 62 MG/DL (<150); VLDL CHOLESTEROL 12 MG/DL (5-40)
[2022-02-26 05:53] LABS: CREATININE SERUM 0.78 MG/DL (0.60-1.30); PHOSPHORUS 2.3 MG/DL (2.3-4.7)
[2022-02-26 05:56] LABS: CHOLESTEROL 102 MG/DL (< 200); MAGNESIUM 1.9 MG/DL (1.6-2.4)
[2022-02-26 05:57] LABS: HDL CHOLESTEROL 40 MG/DL (40-60)
[2022-02-26] MEDS: KCL 20 MEQ TAB (K-DUR) PO SCH (06:44)
[2022-02-26] MEDS: MAGNESIUM 1 GM/100 ML IVPB 100 ML IV SCH (06:44)
[2022-02-26] MEDS: POTASSIUM CL 10MEQ/50ML IVPB 50 ML IV SCH (06:44)
[2022-02-26] MEDS: inSUlin ASPART (NovoLOG) 1 UNIT/0.01 ML (CHARGE PER UNIT) SC SCH ×4 (06:45→20:12)
[2022-02-26 07:38] VITALS: BP 126/78
--- NOTE | 2022-02-26 08:04 | Tele-ICU Consult ---
History of Present Illness History of Present Illness Date Seen by Provider: Feb 26, 2022 Time Seen by Provider: 07:59 Date of Admission 81 yo F came to ED with sleepiness, found to have acute on chronic resp acidosis with pO2 82, place on BiPAP now pCO2 60, pt more awake Started on albuterol, Magnesium On AVAPS 20/10 with FiO2 40%, SpO2 97% Also pulm emb on CTA last week, on Eliquis, CTA done at different hospital Allergies and Home Medications Allergies Coded Allergies: Penicillins (Verified Allergy, Unknown, HAS HAD ANCEF W/O PROBLEMS, 12/23/18) atorvastatin (Verified Allergy, Unknown, 12/23/18) procaine (Verified Allergy, Unknown, 12/23/18) Home Medications Aspirin 81 Mg Tab.chew, 81 MG PO DAILY, (Reported) Clopidogrel Bisulfate 75 Mg Tablet, 75 MG PO DAILY, (Reported) Ipratropium/Albuterol Sulfate 3 Ml Ampul.neb, 3 ML IH Q6H PRN for SHORTNESS OF BREATH, (Reported) Levothyroxine Sodium 88 Mcg Tablet, 88 MCG PO DAILY, (Reported) Metoprolol Tartrate 25 Mg Tablet, 25 MG PO BID, (Reported) Oxybutynin Chloride 5 Mg Tablet, 5 MG PO QID, (Reported) Pantoprazole Sodium 40 Mg Tablet.dr, 40 MG PO DAILY, (Reported) Rosuvastatin Calcium 10 Mg Tablet, 10 MG PO DAILY, (Reported) Past Medical/Social/Family Hx Patient Social History Tobacco Use?: No Smoking Status: Former Smoker Substance use?: No Alcohol Use?: No Pt stated abuse/neglect: No Immunizations Up To Date First/Initial COVID19 Vaccinat: 10/26 Second COVID19 Vaccination Fernando: 10/26 Tetanus Booster (TDap): Unknown TB Skin Test: Negative Date of Pneumonia Vaccine: May 03, 2020 Current Status Advance Directives: No Communicates: Verbally Primary Language: Khmer Preferred Spoken Language: Khmer Is interpretation needed?: No Implanted or Applied Medical D: None Past Medical History CAD Chronic Systolic CHF EF 40-45% 2020 COPD no baseline oxygen need Review of Systems Constitutional: see HPI EENTM: see HPI Respiratory: see HPI Cardiovascular: see HPI Gastrointestinal: see HPI Genitourinary: see HPI Musculoskeletal: see HPI Skin: see HPI Psychiatric/Neurological: See HPI Focused Exam Height, Weight, BMI Height: 5'3.00" Weight: 242lbs. 2.0oz. 109.197911mm; 37.50 BMI Method:Stated Exam Exam Patient acknowledged, consented, and participated in this virtual visit which was conducted using real time audio/video Vital Signs Date Time Temp Pulse Resp B/P (MAP) Pulse Ox O2 Delivery O2 Flow Rate FiO2 02/26/22 06:00 62 21 152/88 97 NIV Bilevel 40.00 02/26/22 05:00 81 14 129/88 96 NIV Bilevel 40.00 02/26/22 04:00 73 12 152/83 94 NIV Bilevel 40.00 02/26/22 04:00 93 NIV Bilevel 40 02/26/22 03:00 66 23 169/91 99 NIV Bilevel 40.00 02/26/22 02:12 64 24 95 40.00 02/26/22 02:00 73 18 164/86 98 NIV Bilevel 40.00 02/26/22 01:00 69 19 169/93 98 NIV Bilevel 40.00 02/26/22 01:00 69 02/26/22 00:00 63 8 165/99 98 NIV Bilevel 40.00 02/26/22 00:00 36.0 02/25/22 23:59 97 NIV Bilevel 40 02/25/22 23:00 64 18 142/90 93 NIV Bilevel 40.00 02/25/22 23:00 NIV Bilevel 40.00 02/25/22 22:00 69 24 155/91 97 NIV Bilevel 30.00 02/25/22 21:45 65 15 147/82 98 NIV Bilevel 30.00 02/25/22 21:35 64 24 95 30.00 02/25/22 21:30 64 19 160/84 95 NIV Bilevel 30.00 02/25/22 21:15 68 13 145/96 94 NIV Bilevel 30.00 02/25/22 21:00 66 22 164/95 94 NIV Bilevel 30.00 02/25/22 20:45 66 17 154/94 92 NIV Bilevel 30.00 02/25/22 20:34 68 96 02/25/22 20:29 68 12 158/96 96 NIV Bilevel 30.00 02/25/22 20:18 68 10 161/99 95 NIV Bilevel 30.00 02/25/22 20:17 78 28 96 40.00 02/25/22 20:16 68 02/25/22 20:15 NIV Bilevel 30.00 02/25/22 20:00 36.3 68 25 161/99 97 NIV Bilevel 40.00 02/25/22 20:00 96 NIV Bilevel 30 02/25/22 19:59 77 20 159/103 97 NIV Bilevel 02/25/22 16:26 70 21 95 50.00 02/25/22 15:40 75 26 94 50.00 02/25/22 15:33 75 25 93 50.00 02/25/22 14:45 Nasal Cannula 2.00 02/25/22 14:45 36.8 78 35 191/122 (145) 88 Nasal Cannula 2.00 02/25/22 14:45 95 OxyMask 6.00 I & O 02/26/22 07:00 Output Total 975 ml Balance -975 ml Height & Weight Height: 5'3.00" Weight: 242lbs. 2.0oz. [id number]; 37.50 BMI Method:Stated General Appearance: No Apparent Distress, Mild Distress Respiratory: Decreased Breath Sounds, Rhonci Cardiovascular: Regular Rate, Rhythm Gastrointestinal: non tender, soft Extremity: Pedal Edema (+ 2 edema in both legs) Neurologic/Psychiatric: Alert, Oriented x3 Results Lab Laboratory Tests 02/25/22 16:17 02/26/22 04:55 Assessment/Plan Assessment/Plan Acute on chronic exacerbation of COPD, will continue on same meds, if wheezing w ould add IV Medrol CXR shows marked elevation of left diaphragm which is chronic. right diaphragm is also elevated limiting lung reserve Continue on Eliqus for pulm emb, echo shows normal LVEF Critical Care: Critically Ill Patient Time spent with patient (mins): 30 ADRIANA NEFF MD Feb 26, 2022 08:04
--- NOTE | 2022-02-26 08:26 | Diagnostic Imaging Report ---
Indication: Dyspnea. Time of Exam: 6:17 AM Correlation is made with prior chest 1 day earlier. Left hemidiaphragm remains elevated. There is mild bibasilar subsegmental atelectasis. Heart size is stable. Central congestion appears to be improving. Impression: Bibasilar atelectasis and elevated left hemidiaphragm. Overall congestion does appear to be improved. Dictated by: Dictated on workstation # [id number]
--- NOTE | 2022-02-26 09:52 | Physical Therapy Progress Note ---
Therapy Progress Note Patient on Hold per RN due to current respiratory status. PT will attempt tomorrow JACKY Anderson PT Feb 26, 2022 09:52
[2022-02-26] MEDS: APIXABAN 5 MG (ELIQUIS) TABLET PO SCH ×2 (10:06→20:18)
[2022-02-26] MEDS: DOCUSATE SODIUM 100 MG (COLACE) CAP PO SCH ×2 (10:06→20:12)
[2022-02-26] MEDS: SENNOSIDES 8.6 MG (SENOKOT) TAB PO SCH ×2 (10:06→20:12)
[2022-02-26 10:59] VITALS: BP 133/83
--- NOTE | 2022-02-26 11:24 | Occ Therapy Progress Note ---
Therapy Progress Note Patient on Hold per RN due to current respiratory status. OT will attempt tomorrow ANITA Delgado OT Feb 26, 2022 11:24
[2022-02-26] MEDS ORDERED: ASPI-1238 PO (12:21)
[2022-02-26] MEDS ORDERED: ALB0.5V INH (12:21)
[2022-02-26] MEDS ORDERED: LACT1CAP39 PO (12:21)
[2022-02-26] MEDS ORDERED: APIX5TAB PO (12:21)
[2022-02-26] MEDS ORDERED: MTP100TCR PO (12:21)
[2022-02-26] MEDS ORDERED: PRD20T PO (12:23)
--- NOTE | 2022-02-26 12:31 | Consultation-Cardiology ---
HPI-Cardiology Cardiology Consultation Date of Consultation 02/26/22 Date of Admission Time Seen by Provider: 12:26 Indication: Acute respiratory failure HPI 81-year-old lady with extensive cardiac history, was discharged recently from [facility] after being hospitalized for pneumonia. She was brought to the emergency room then intensive care unit with acute respiratory failure and CO2 narcosis. On my evaluation she was laying down in bed comfortably, complaining of fatigue and shortness of breath. No chest pain. Has been improving slowly. Patient has extensive history of coronary artery disease, multiple intervention, aortic valve stenosis and congestive heart failure. Home Medications & Allergies Allergies: Coded Allergies: Penicillins (Verified Allergy, Unknown, HAS HAD ANCEF W/O PROBLEMS, 12/23/18) atorvastatin (Verified Allergy, Unknown, 12/23/18) procaine (Verified Allergy, Unknown, 12/23/18) Home Medication List Reviewed: Yes [id number] Hx Patient Social History Marital Status: single Employed/Student: retired Smoking Status: Former Smoker Former smoker/When Quit: Jul 08, 1992 Type Used: Cigarettes 2nd Hand Smoke Exposure: Yes Recent Hopitalizations: No Have you traveled recently?: No Alcohol Use?: No Immunizations Up To Date Tetanus Booster (TDap): Unknown Date of Pneumonia Vaccine: May 03, 2020 Date of Influenza Vaccine: Mar 21, 2021 Past Medical History Discussed below Family Medical History Significant Family History: Heart Disease, Hypertension Family History: Cancer 03 MOTHER, Onset:40's - 50 Family history: Thyroid disorder 03 MOTHER 09 BROTHER Hearing loss 09 BROTHER Visual impairment 09 BROTHER No Family History of: Abdominal aortic aneurysm Review of Systems-General Review of Systems Constitutional: see HPI, malaise, weakness EENTM: see HPI Respiratory: see HPI, dyspnea on exertion, short of breath Cardiovascular: see HPI Gastrointestinal: no symptoms reported, see HPI Genitourinary: no symptoms reported, see HPI Musculoskeletal: see HPI Skin: see HPI Psychiatric/Neurological: See HPI Reviewed Test Results Reviewed Test Results Lab Laboratory Tests Test 02/25/22 14:56 02/25/22 16:00 02/25/22 16:17 02/25/22 18:00 Range/Units Glucometer 122 H 70-110 MG/DL Bedside Blood Gas pH (LAB) 7.259 *L 7.310-7.410 Bedside Blood Gas pCO2 (LAB) 82.7 *H 41.0-51.0 mmHg Bedside Blood Gas pO2 (LAB) 82 80-105 mmHg Bedside Blood Gas HCO3 (LAB) 37.0 H 23.0-28.0 mmol/L POC Blood Gas Total CO2 Calc 39 H 24-29 mmol/L Bedside Bl Gas O2 Saturation (Calc) 93 L 95-98 % Bedside Arterial Blood Base Excess 10 H -2-3 mmol/L White Blood Count 7.4 4.3-11.0 10^3/uL Red Blood Count 4.79 3.80-5.11 10^6/uL Hemoglobin 14.3 11.5-16.0 g/dL Hematocrit 48 35-52 % Mean Corpuscular Volume 99 80-99 fL Mean Corpuscular Hemoglobin 30 25-34 pg Mean Corpuscular Hemoglobin Concent 30 L 32-36 g/dL Red Cell Distribution Width 13.7 10.0-14.5 % Platelet Count 286 130-400 10^3/uL Mean Platelet Volume 9.5 9.0-12.2 fL Immature Granulocyte % (Auto) 1 % Neutrophils (%) (Auto) 75 42-75 % Lymphocytes (%) (Auto) 20 12-44 % Monocytes (%) (Auto) 4 0-12 % Eosinophils (%) (Auto) 0 0-10 % Basophils (%) (Auto) 0 0-10 % Neutrophils # (Auto) 5.5 1.8-7.8 10^3/uL Lymphocytes # (Auto) 1.5 1.0-4.0 10^3/uL Monocytes # (Auto) 0.3 0.0-1.0 10^3/uL Eosinophils # (Auto) 0.0 0.0-0.3 10^3/uL Basophils # (Auto) 0.0 0.0-0.1 10^3/uL Immature Granulocyte # (Auto) 0.0 0.0-0.1 10^3/uL Prothrombin Time 16.5 H 12.2-14.7 SEC INR Comment 1.3 0.8-1.4 Activated Partial Thromboplast Time 33 24-35 SEC Sodium Level 136 135-145 MMOL/L Potassium Level 4.7 3.6-5.0 MMOL/L Chloride Level 97 L 98-107 MMOL/L Carbon Dioxide Level 31 21-32 MMOL/L Anion Gap 8 5-14 MMOL/L Blood Urea Nitrogen 25 H 7-18 MG/DL Creatinine 1.01 0.60-1.30 MG/DL Estimat Glomerular Filtration Rate 57 BUN/Creatinine Ratio 25 Glucose Level 133 H 70-105 MG/DL Calcium Level 9.2 8.5-10.1 MG/DL Corrected Calcium 9.6 8.5-10.1 MG/DL Magnesium Level 2.2 1.6-2.4 MG/DL Total Bilirubin 0.8 0.1-1.0 MG/DL Aspartate Amino Transf (AST/SGOT) 35 H 5-34 U/L Alanine Aminotransferase (ALT/SGPT) 35 0-55 U/L Alkaline Phosphatase 62 40-136 U/L Myoglobin 80.5 10.0-92.0 NG/ML Troponin I 0.029 H <0.028 NG/ML B-Type Natriuretic Peptide 1015.5 H <100.0 PG/ML Total Protein 6.2 L 6.4-8.2 GM/DL Albumin 3.5 3.2-4.5 GM/DL Urine Color YELLOW Urine Clarity CLEAR Urine pH 6.0 5-9 Urine Specific Cameron 1.025 H 1.016-1.022 Urine Protein 1+ H NEGATIVE Urine Glucose (UA) NEGATIVE NEGATIVE Urine Ketones TRACE H NEGATIVE Urine Nitrite NEGATIVE NEGATIVE Urine Bilirubin NEGATIVE NEGATIVE Urine Urobilinogen 0.2 < = 1.0 MG/DL Urine Leukocyte Esterase NEGATIVE NEGATIVE Urine RBC (Auto) TRACE-I H NEGATIVE Urine RBC RARE /HPF Urine WBC NONE /HPF Urine Squamous Epithelial Cells 2-5 /HPF Urine Crystals NONE /LPF Urine Bacteria TRACE /HPF Urine Casts PRESENT /LPF Urine Granular Casts 10-25 H /LPF Urine Mucus SMALL H /LPF Urine Culture Indicated NO Test 02/25/22 21:12 02/25/22 23:39 02/26/22 02:23 02/26/22 04:55 Range/Units Bedside Blood Gas pH (LAB) 7.301 *L 7.311 7.383 7.310-7.410 Bedside Blood Gas pCO2 (LAB) 71.7 *H 70.6 *H 60.4 H 41.0-51.0 mmHg Bedside Blood Gas pO2 (LAB) 76 L 137 H 105 80-105 mmHg Bedside Blood Gas HCO3 (LAB) 35.3 H 35.6 H 36.0 H 23.0-28.0 mmol/L POC Blood Gas Total CO2 Calc 37 H 38 H 38 H 24-29 mmol/L Bedside Bl Gas O2 Saturation (Calc) 93 L 99 H 98 95-98 % Bedside Arterial Blood Base Excess 9 H 9 H 11 H -2-3 mmol/L White Blood Count 6.9 4.3-11.0 10^3/uL Red Blood Count 4.31 3.80-5.11 10^6/uL Hemoglobin 12.9 11.5-16.0 g/dL Hematocrit 41 35-52 % Mean Corpuscular Volume 95 80-99 fL Mean Corpuscular Hemoglobin 30 25-34 pg Mean Corpuscular Hemoglobin Concent 32 32-36 g/dL Red Cell Distribution Width 13.5 10.0-14.5 % Platelet Count 247 130-400 10^3/uL Mean Platelet Volume 9.4 9.0-12.2 fL Immature Granulocyte % (Auto) 0 % Neutrophils (%) (Auto) 66 42-75 % Lymphocytes (%) (Auto) 21 12-44 % Monocytes (%) (Auto) 13 H 0-12 % Eosinophils (%) (Auto) 0 0-10 % Basophils (%) (Auto) 0 0-10 % Neutrophils # (Auto) 4.6 1.8-7.8 10^3/uL Lymphocytes # (Auto) 1.4 1.0-4.0 10^3/uL Monocytes # (Auto) 0.9 0.0-1.0 10^3/uL Eosinophils # (Auto) 0.0 0.0-0.3 10^3/uL Basophils # (Auto) 0.0 0.0-0.1 10^3/uL Immature Granulocyte # (Auto) 0.0 0.0-0.1 10^3/uL Sodium Level 138 135-145 MMOL/L Potassium Level 4.4 3.6-5.0 MMOL/L Chloride Level 100 98-107 MMOL/L Carbon Dioxide Level 27 21-32 MMOL/L Anion Gap 11 5-14 MMOL/L Blood Urea Nitrogen 23 H 7-18 MG/DL Creatinine 0.78 0.60-1.30 MG/DL Estimat Glomerular Filtration Rate 77 BUN/Creatinine Ratio 29 Glucose Level 98 70-105 MG/DL Calcium Level 8.3 L 8.5-10.1 MG/DL Corrected Calcium 9.3 8.5-10.1 MG/DL Phosphorus Level 2.3 2.3-4.7 MG/DL Magnesium Level 1.9 1.6-2.4 MG/DL Total Bilirubin 0.7 0.1-1.0 MG/DL Aspartate Amino Transf (AST/SGOT) 30 5-34 U/L Alanine Aminotransferase (ALT/SGPT) 26 0-55 U/L Alkaline Phosphatase 51 40-136 U/L Total Protein 5.1 L 6.4-8.2 GM/DL Albumin 2.7 L 3.2-4.5 GM/DL Triglycerides Level 62 <150 MG/DL Cholesterol Level 102 < 200 MG/DL LDL Cholesterol Direct 47 1-129 MG/DL VLDL Cholesterol 12 5-40 MG/DL HDL Cholesterol 40 40-60 MG/DL Procalcitonin 0.05 <0.10 NG/ML Physical Exam Physical Exam Vital Signs Vital Signs - First Documented 02/25/22 20:00 FiO2 30 Capillary Refill : Height, Weight, BMI Height: 5'3.00" Weight: 242lbs. 2.0oz. 109.618684np; 37.50 BMI Method:Stated General Appearance: No Apparent Distress, Mild Distress Eyes: Bilateral Eye Normal Inspection, Bilateral Eye PERRL, Bilateral Eye EOMI HEENT: PERRL/EOMI, TMs Normal, Normal ENT Inspection, Pharynx Normal, Moist Mucous Membranes Neck: Full Range of Motion, Normal Inspection, Non Tender, Supple, Carotid Bruit Respiratory: Decreased Breath Sounds, Rhonci Cardiovascular: Regular Rate, Rhythm Gastrointestinal: Normal Bowel Sounds, No Organomegaly, No Pulsatile Mass, Non Tender, Soft Back: Normal Inspection, No CVA Tenderness, No Vertebral Tenderness Extremity: Pedal Edema (+ 2 edema in both legs) Neurologic/Psychiatric: Alert, Oriented x3 Skin: Normal Color, Warm/Dry Lymphatic: No Adenopathy A/P-Cardiology Admission Diagnosis Acute respiratory failure Coronary artery disease Hypertension Hyperlipidemia. Assessment/Plan Acute respiratory failure, CO2 narcosis Improving maintained on BiPAP Pneumonia, recent discharge from [facility]. Managed by primary care team COPD, acute exacerbation. Managed by medical team Chest pain, history of chronic stable angina. Denies any increase in chest pain. Continue to monitor Coronary artery disease Status post acute myocardial infarction in 2013 with total occlusion of the right coronary artery, underwent complex intervention with stent deployment to the right coronary artery using 3.5x30 mm integrity and 3.018 mm bare-metal stent without complication. Had multiple clots in the distal right coronary artery, Had another cardiac catheterization in December 2014 resulted in deployment of another stent 3.012 mm integrity bare-metal stent with good result. Patient had [id number] disease in the LAD and circumflex artery. Cardiac catheterization done October 10, 2016 revealed patent stents in the LAD with mild disease distally, nonobstructive disease. 50 percent in-stent restenosis of the mid right coronary artery with FFR of 0.84. Cardiac catheterization done 09/07/20 showing calcified and tortuous prox LAD with sig gradient by FFR, successful deployment of 2 overlapping stents using Emily stent prox 2.75x18 and midportion 2.5x23mm with excellent results. Patent stent in the RCA, mild dz in the circumflex. Most recent cardiac catheterization done 01/03/22 showing mild to moderate in- stent restenosis in the mid right coronary artery, small vessel disease at the distal right coronary artery nonobstructive disease. Patent stent in the proximal LAD with mild disease distally, nonobstructive disease, mild disease in the circumflex artery. Mildly elevated left ventricular end-diastolic pressure. Mild aortic valve stenosis noted by 2D echo in September 2021, PA pressure 15 to 20 mmHg. Continue to monitor Congestive heart failure, acute on chronic left ventricular systolic dysfunction due to her myocardial infarction, most recent 2D Echo done September 2021 showing EF 60-65%, mild , PA 15-20mmHg. Ejection fraction during stress test was 38% Ventral hernia-status post repair by Dr. Sun April 2015. Has recurrence of hernia, will refer to Dr. Rodriguez for further evaluation. Hypertension, controlled, continue to monitor. Hyperlipidemia, well controlled, continue to monitor. History of colon cancer, status post right hemicolectomy done by Dr. Alas. patient has been monitored and followed by Dr. Henriquez, did not see Dr. Henriquez since 2004 Obesity, patient was instructed on weight loss. Bilateral nonobstructive carotid artery stenosis, last carotid ultrasound was done in October 2021 PETROS ANTHONY MD Feb 26, 2022 12:31
--- NOTE | 2022-02-26 12:54 | History & Physical-Hospitalist ---
JESUSITA FORREST 02/26/22 1254: History of Present Illness HPI/Chief Complaint CC: CO2 Narcosis HPI: Kaila Juan a 81yofemale patient is being admitted to [facility] ICU with chief complaint of CO2 narcosis.She had a syncopal episode that lasted a few seconds and there was concern for some seizure-like activity. Her roommate was present and called EMS. They state the patient was unconscious for about 5 to 10 minutes. Upon admission to [facility] she was found to have a pneumonia and was started on antibiotics. The patient also has a known pulmonary embolism which is being treated with Eliquis. The patient has an extensive cardiac history as well as a history of medication non-compliance. Currently the patient has evidence of a residual pneumonia and is on BiPap for hypercapnia. Source: other (Discharge summary from Dr. Maier at [facility]) Date Seen 02/26/22 Time Seen by a Provider: 09:00 Attending Physician [facility] PCP Admitting Physician: Suri Golden DO Attending Physician: Suri Golden DO Referring Physician Date of Admission Feb 25, 2022 at 17:18 Home Medications & Allergies Home Medications Reviewed patient Home Medication Reconciliation performed by pharmacy medication reconciliations orthodontic laboratory technician and/or nursing. Patients Allergies have been reviewed. Allergies Allergies Coded Allergies Penicillins (Verified Allergy, Unknown, HAS HAD ANCEF W/O PROBLEMS, 12/23/18) atorvastatin (Verified Allergy, Unknown, 12/23/18) procaine (Verified Allergy, Unknown, 12/23/18) Past Jqmrivm-Wywbsw-Wfypea Hx Patient Social History Tobacco Use?: No Smoking Status: Former Smoker Substance use?: No Alcohol Use?: No Pt feels they are or have been: No Immunizations Up To Date Date of Influenza Vaccine: Mar 21, 2021 First/Initial COVID19 Vaccinat: 10/26 Second COVID19 Vaccination Fernando: 10/26 Tetanus Booster (TDap): Unknown Date of Pneumonia Vaccine: May 03, 2020 Seasonal Allergies Seasonal Allergies: No Current Status Advance Directives: No Communicates: Verbally Primary Language: Kosovan Preferred Spoken Language: Kosovan Is interpretation needed?: No Implanted or Applied Medical D: None Past Medical History Surgeries: Abdominal, Coronary Stent COPD Currently Using CPAP: No Currently Using BIPAP: No Coronary Artery Disease, Heart Attack, High Cholesterol, Hypertension Sexually Transmitted Disease: No HIV/AIDS: No Abdominal Hernia, Ulcer Arthritis Hypothyroidsim Cataract Loss of Vision: Denies Colon Did You Recieve Any Treatments: Yes What Type of Treatment Did You: Surgical Intervention Pruritis Blood Disorders: No Adverse Reaction/Blood Tranf: No (HAS HAD BLOOD WITH NO REACTION) CAD Chronic Systolic CHF EF 40-45% 2020 COPD no baseline oxygen need Family Medical History Cancer 03 MOTHER, Onset:40's - 50 Family history: Thyroid disorder 03 MOTHER 09 BROTHER Hearing loss 09 BROTHER Visual impairment 09 BROTHER No Family History of: Abdominal aortic aneurysm Heart Disease, Hypertension Review of Systems Respiratory: No cough, No stridor, No wheezing Cardiovascular: No edema Physical Exam Physical Exam Vital Signs Vital Signs - First Documented 02/25/22 20:00 FiO2 30 Capillary Refill : Height, Weight, BMI Height: 5'3.00" Weight: 242lbs. 2.0oz. [id number]; 37.50 BMI Method:Stated Respiratory: Lungs Clear (Anterior listening posts, patient unable to lean forward), Normal Breath Sounds Cardiovascular: Regular Rate, Rhythm, No Gallop, No Murmur Gastrointestinal: Soft Results Results/Procedures Labs Laboratory Tests 02/25/22 16:17 02/26/22 04:55 Patient resulted labs reviewed. Assessment/Plan Assessment and Plan Pulmonary Embolism Eliquis 5mg BID PO BiPap O2 target >90% ABG with morning labs Monitor CO2 Consult cardiology due to extensive cardiac history Residual Pneumonia Monitor WBC count CXR tomorrow to compare Move to floor tomorrow Unless still dependent on BiPap Patient qualifies for home BiPap SURI GOLDEN DO 02/27/22 0530: History of Present Illness HPI/Chief Complaint CC: CO2 narcosis HPI: This is a 81 yr old female. She presented to [facility] ER after discharge from [facility] for pneumonia and PE. She was found to have severe confusion, weakness, and CO2 of 85. She was placed on BiPAP and improved overnight. Will add procalcitonin to see if any infiltrates on chest x-ray was just residual pneumonia from [facility]. Treatment completely for a new pneumonia. Source: patient Exam Limitations: clinical condition Past Sujobft-Qaykkh-Pqvffn Hx Patient Social History Marrital Status: single Employed/Student: retired Smoking Status: Former Smoker Family Medical History Cancer 03 MOTHER, Onset:40's - 50 Family history: Thyroid disorder 03 MOTHER 09 BROTHER Hearing loss 09 BROTHER Visual impairment 09 BROTHER No Family History of: Abdominal aortic aneurysm Review of Systems Constitutional: see HPI Respiratory: short of breath, wheezing Physical Exam Physical Exam General Appearance: Chronically ill, Mild Distress, Other (bipap on) Eyes: Right Eye Normal Inspection, Right Eye PERRL HEENT: PERRL/EOMI, Normal ENT Inspection, Pharynx Normal, Moist Mucous Membranes Neck: Full Range of Motion, Normal Inspection, Non Tender Respiratory: Chest Non Tender, Lungs Clear, No Accessory Muscle Use, No Respiratory Distress, Decreased Breath Sounds Cardiovascular: Regular Rate, Rhythm, No Edema, No Gallop, No JVD, No Murmur, Normal Peripheral Pulses Gastrointestinal: Normal Bowel Sounds, No Organomegaly, No Pulsatile Mass, Non Tender, Soft Back: Normal Inspection, No CVA Tenderness, No Vertebral Tenderness Extremity: Normal Capillary Refill, Normal Inspection, Normal Range of Motion, Non Tender, No Calf Tenderness, No Pedal Edema Neurologic/Psychiatric: Alert, Oriented x3, No Motor/Sensory Deficits, Normal Mood/Affect Skin: Normal Color, Warm/Dry Lymphatic: No Adenopathy Assessment/Plan Admission Diagnosis Assessment: AMS CO2 narcosis AECOPD Recent PNA completed abx at [facility] on OAC Advanced age Plan: BiPAP ABG ICU OAC Admission Status: Inpatient Order (span 2 midnights) Reason for Inpatient Admission: resp fail Supervisory-Addendum Brief Verification & Attestation Participated in pt care: history, MDM, physical Personally performed: exam, history, MDM, supervision of care Care discussed with: Medical Student Procedures: n/a Results interpretation: Verified all documentation Verification and Attestation of Medical Student E/M Service A medical student performed and documented this service in my presence. I reviewed and verified all information documented by the medical student and made modifications to such information, when appropriate. I personally performed the physical exam and medical decision making. Suri Golden Feb 27, 2022,05:30 JESUSITA FORREST Feb 26, 2022 12:54 SURI GOLDEN DO Feb 27, 2022 05:30
[2022-02-26 14:55] VITALS: BP 132/76
[2022-02-26] MEDS: NS IV 1000 ML 1,000 ML IV SCH (15:40)
[2022-02-26 21:15] VITALS: BP 115/66
[2022-02-27] MEDS: RT-ALBUTEROL/IPRATROPIUM 3 ML (DUONEB) VIAL INH SCH ×6 (02:33→22:00)
[2022-02-27 02:34] VITALS: BP 129/83
[2022-02-27] MEDS: NS IV 1000 ML 1,000 ML IV SCH ×2 (03:17→20:46)
[2022-02-27 06:07] LABS: BASOPHILS % (AUTO) 0 % (0-10); EOSINOPHILS # (AUTO) 0.2 10^3/uL (0.0-0.3); EOSINOPHILS % (AUTO) 2 % (0-10); HEMATOCRIT 41 % (35-52); LYMPHOCYTES # (AUTO) 2.2 10^3/uL (1.0-4.0); LYMPHOCYTES % (AUTO) 23 % (12-44); MEAN CORPUSCULAR HEMOGLOBIN 30 pg (25-34); MEAN CORPUSCULAR HGB CONC 32 g/dL (32-36); MEAN CORPUSCULAR VOLUME 95 fL (80-99); MEAN PLATELET VOLUME 9.6 fL (9.0-12.2); MONOCYTES # (AUTO) 1.1 10^3/uL (0.0-1.0); MONOCYTES % (AUTO) 12 % (0-12); NEUTROPHILS # (AUTO) 5.8 10^3/uL (1.8-7.8); NEUTROPHILS % (AUTO) 63 % (42-75); PLATELET COUNT 257 10^3/uL (130-400); WHITE BLOOD COUNT 9.3 10^3/uL (4.3-11.0)
[2022-02-27] MEDS: KCL 20 MEQ TAB (K-DUR) PO SCH (06:36)
[2022-02-27] MEDS: MAGNESIUM 1 GM/100 ML IVPB 100 ML IV SCH (06:36)
[2022-02-27] MEDS: inSUlin ASPART (NovoLOG) 1 UNIT/0.01 ML (CHARGE PER UNIT) SC SCH (06:36)
[2022-02-27] MEDS: POTASSIUM CL 10MEQ/50ML IVPB 50 ML IV SCH (06:36)
[2022-02-27 07:06] LABS: ALBUMIN 2.9 GM/DL (3.2-4.5); CALCIUM 8.3 MG/DL (8.5-10.1); CREATININE SERUM 0.79 MG/DL (0.60-1.30); PHOSPHORUS 2.1 MG/DL (2.3-4.7); POTASSIUM 3.8 MMOL/L (3.6-5.0)
--- NOTE | 2022-02-27 07:58 | Cardiology Progress Note ---
Subjective Date Seen by Provider: Feb 27, 2022 Time Seen by Provider: 07:57 Subjective/Events-last exam Patient was seen at bedside, laying down comfortably, feeling better Currently on Vapotherm. Review of Systems General: No Chills, No Night Sweats; Fatigue; No Malaise, No Appetite, No Other HEENT: No Head Aches, No Visual Changes, No Eye Pain, No Ear Pain, No Dys phasia, No Sinus Congestion, No Post Nasal Drip, No Sore Throat, No Other Pulmonary: Dyspnea; No Cough, No Pleuritic Chest Pain, No Other Cardiovascular: No: Chest Pain, Palpitations, Orthopnea, Paroxysmal Noc. Dyspnea, Edema, Lt Headedness, Other Objective-Cardiology Exam Last Set of Vital Signs Vital Signs 02/26/22 02/27/22 02/27/22 23:45 06:00 07:01 Temp 36.3 Pulse 98 Resp 21 B/P (MAP) 146/83 Pulse Ox 94 O2 Delivery Vapotherm O2 Flow Rate 30.00 FiO2 90 I&O Intake and Output 02/27/22 00:00 Intake Total 825 ml Output Total 1725 ml Balance -900 ml Intake Oral 825 ml Output Urine Total 1725 ml # Bowel Movements 1 General: Alert, Oriented X3, Cooperative HEENT: Atraumatic, PERRLA Neck: Supple, No JVD, No Thyromegaly Lungs: Normal Air Movement, Other (Bilateral rhonchi) Heart: Regular Rate, Normal S1, Normal S2, Other (Systolic murmur at the left sternal border) Abdomen: Normal Bowel Sounds, Soft, No Tenderness, No Hepatosplenomegaly, No Masses Extremities: No Clubbing, No Cyanosis, No Edema, Normal Pulses, No Tend erness/Swelling Skin: No Rashes, No Breakdown, No Significant Lesion Neuro: Normal Speech, Strength at 5/5 X4 Ext, Normal Tone, Sensation Intact Psych/Mental Status: Mental Status NL, Mood NL Results Lab Laboratory Tests 02/27/22 04:46 A/P-Cardiology Admission Diagnosis Acute respiratory failure Coronary artery disease Hypertension Hyperlipidemia. Assessment/Plan Status post acute respiratory failure with CO2 narcosis Recent pneumonia, acute exacerbation of COPD Obesity hypoventilation syndrome Currently on Vapotherm, managed by medical team Pneumonia, recent discharge from [facility]. Managed by primary care team COPD, acute exacerbation. Managed by medical team Chest pain, history of chronic stable angina. Denies any increase in chest pain. Continue to monitor Coronary artery disease Status post acute myocardial infarction in 2013 with total occlusion of the right coronary artery, underwent complex intervention with stent deployment to the right coronary artery using 3.5x30 mm integrity and 3.018 mm bare-metal stent without complication. Had multiple clots in the distal right coronary artery, Had another cardiac catheterization in December 2014 resulted in deployment of another stent 3.012 mm integrity bare-metal stent with good result. Patient had qtau-lm-tfhyksze disease in the LAD and circumflex artery. Cardiac catheterization done October 10, 2016 revealed patent stents in the LAD with mild disease distally, nonobstructive disease. 50 percent in-stent restenosis of the mid right coronary artery with FFR of 0.84. Cardiac catheterization done 09/07/20 showing calcified and tortuous prox LAD with sig gradient by FFR, successful deployment of 2 overlapping stents using Emily stent prox 2.75x18 and midportion 2.5x23mm with excellent results. Patent stent in the RCA, mild dz in the circumflex. Most recent cardiac catheterization done 01/03/22 showing mild to moderate in- stent restenosis in the mid right coronary artery, small vessel disease at the distal right coronary artery nonobstructive disease. Patent stent in the proximal LAD with mild disease distally, nonobstructive disease, mild disease in the circumflex artery. Mildly elevated left ventricular end-diastolic pressure. Mild aortic valve stenosis noted by 2D echo in September 2021, PA pressure 15 to 20 mmHg. Continue to monitor Congestive heart failure, acute on chronic left ventricular systolic dysfunction due to her myocardial infarction, most recent 2D Echo done September 2021 showing EF 60-65%, mild , PA 15-20mmHg. Ejection fraction during stress test was 38% Ventral hernia-status post repair by Dr. Sun April 2015. Has recurrence of hernia, will refer to Dr. Rodriguez for further evaluation. Hypertension, controlled, continue to monitor. Hyperlipidemia, well controlled, continue to monitor. History of colon cancer, status post right hemicolectomy done by Dr. Alas. patient has been monitored and followed by Dr. Henriquez, did not see Dr. Henriquez since 2004 Obesity, patient was instructed on weight loss. Bilateral nonobstructive carotid artery stenosis, last carotid ultrasound was done in October 2021 PETROS ANTHONY MD Feb 27, 2022 07:58
--- NOTE | 2022-02-27 09:50 | Physical Therapy Evaluation ---
PT Evaluation-General Medical Diagnosis Admission Date Feb 25, 2022 at 17:18 Medical Diagnosis: CO2 narcosis Onset Date: Feb 25, 2022 Therapy Diagnosis Therapy Diagnosis: debility/weakness Height/Weight Height (Feet): 5 Height (Inches): 3.00 Weight (Pounds): 242 Weight (Ounces): 2.0 Precautions Precautions/Isolations: Standard Precautions Referral Physician: Karthikeyan Reason for Referral: Evaluation/Treatment Medical History Pertinent Medical History: CAD, COPD (O2 dependent noncompliant), HTN, Hypothroidism, [place] Current History EMS secondary to SOA (recent [facility] stay due to pneumonia Reviewed History: Yes Social History Home: Single Level Current Living Status: Alone Entry Into Home: Stairs With Railing PT Steps Into Home: 2 Prior Prior Level of Function SCALE: Activities may be completed with or without assistive devices. 0-Gzqylikeub-iiqdcdz completes the activity by him/herself with no assistance from a helper. 5-Set-up or Clean-up Assistance-helper sets up or cleans up; patient completes activity. [place] assists only prior to or following the activity. 4-Supervision or Touching Assistance-helper provides verbal cues and/or touching/steadying and/or contact guard assistance as patient completes activity. Assistance may be provided throughout the activity or intermittently. 3-Partial/Moderate Assistance-helper does LESS THAN HALF the effort. [place] lifts, holds or supports trunk or limbs, but provides less than half the effort. 2-Substantial/Maximal Assistance-helper does MORE THAN HALF the effort. [place] lifts or holds trunk or limbs and provides more than half the effort. 8-Onacrgety-xrtjsf does ALL the effort. Patient does none of the effort to complete the activity. Or, the assistance of 2 or more helpers is required for the patient to complete the activity. If activity was not attempted, code reason: 7-Patient Refused. 9-Not Applicable-not attempted and the patient did not perform the activity before the current illness, exacerbation or injury. 10-Not Attempted due to Environmental Limitations-(lack of equipment, weather restraints, etc.). 88-Not Attempted due to Medical Conditions or Safety Concerns. Bed Mobility: 6 Transfers (B,C,W/C): 6 Gait: 6 Stairs: 6 Indoor Mobility (Ambulation): Independent Stairs: Independent Prior Devices Use: Walker PT Evaluation-Current Subjective Patient is very agreeable to participate with PT. Objective Patient Orientation: Normal For Age Attachments: Oxygen (vapotherm), Peterson Catheter, IV ROM/Strength ROM Lower Extremities bilateral LE WFL Strength Lower Extremities 3/5 grossly bilateral LE all planes Integumentary/Posture Integumentary refer to nursing notes Bowel Incontinence: No Bladder Incontinence: Peterson Cath Posture slightly kyphotic Neuromuscular (Tone, Coordination, Reflexes) grossly intact with all Sensory Vision: Functional Hearing: Functional Transfers Lying to Sitting/Side of Bed(Q: 3 Sit to Stand (QC): 4 Chair/Wbx-ix-Vnhtv Xfer(QC): 4 Gait Mode of Locomotion: Walk Anticipated Mode of Locomotion: Walk Walk 10 feet (QC): 4 Walk 50 ft with 2 Turns(QC): 88 Walk 150 ft (QC): 88 Gait Assistive Device: FWW Balance Sitting Static: Normal Sitting Dynamic: Normal Standing Static: Fair Standing Dynamic: Fair Assessment/Needs Patient to be seen by skilled PT to address functional strength and mobility to improve current LOF. Patient is limited by pulmonary status/function. PT to increase activity as tolerated. Rehab Potential: Fair PT Cookie Mixer Helper Goals Cookie Mixer Helper Goals PT Nursing Home Goals Time Frame: Mar 17, 2022 Roll Left & Right (QC): 6 Sit to Lying (QC): 6 Lying-Sitting on Side/Bed(QC): 6 Sit to Stand (QC): 6 Chair/Rrx-eh-Uqzry Xfer(QC): 6 Toilet Transfer (QC): 6 Walk 10 feet (QC): 6 Walk 50ft with 2 Turns (QC): 6 Walk 150 ft (QC): 6 PT Plan Problem List Problem List: Activity Tolerance, Functional Strength, Safety, Balance, Gait, Transfer, Bed Mobility Treatment/Plan Treatment Plan: Continue Plan of Care Treatment Plan: Bed Mobility, Education, Functional Activity John, Functional Strength, Gait, Safety, Therapeutic Exercise, Transfers Treatment Duration: Mar 17, 2022 Frequency: 6 times per week Estimated Hrs Per Day: .25 hour per day Patient and/or Family Agrees t: Yes Time/GCodes Time In: 804 Time Out: 818 Total Billed Treatment Time: 14 Total Billed Treatment 1 visit EVModC 14 min JACKY PEOPLES PT Feb 27, 2022 09:49
--- NOTE | 2022-02-27 10:50 | Diagnostic Imaging Report ---
INDICATION: Dyspnea. COMPARISON: 02/26/2022. TECHNIQUE: Single radiograph chest dated 02/27/2022. FINDINGS: The cardiac silhouette is prominent, though not significantly changed. Chronic elevation of the left hemidiaphragm. No significant pulmonary vascular congestion. Increasing opacities are noted within the right lung base. The left lung appears stable. Low lung volumes. No pneumothorax. Osseous structures appear similar. IMPRESSION: Decreased lung volumes with developing right basilar atelectasis and/or pneumonitis with associated small right pleural effusion. Persistent cardiomegaly. Dictated by: Dictated on workstation # [id number]
--- NOTE | 2022-02-27 10:50 | Progress Note - Hospitalist ---
JESUSITA FORREST 02/27/22 1050: Subjective HPI/CC On Admission Date Seen by Provider: Feb 27, 2022 Time Seen by Provider: 09:10 CC: CO2 narcosis Subjective/Events-last exam 02/27/2022: Off BiPap CO2 improved Breathing easier Sinus tachycardia Review of Systems Pulmonary: No Dyspnea, No Cough, No Pleuritic Chest Pain, No Other Cardiovascular: No: Chest Pain, Palpitations, Orthopnea, Paroxysmal Noc. Dyspnea, Edema, Lt Headedness Objective Exam Vital Signs Vital Signs Date Time Temp Pulse Resp B/P (MAP) Pulse Ox O2 Delivery O2 Flow Rate FiO2 02/27/22 10:04 94 Vapotherm 30.00 85 02/27/22 09:00 87 19 109/73 02/26/22 23:45 36.3 Capillary Refill : General Appearance: No Apparent Distress Respiratory: Chest Non Tender, Normal Breath Sounds Cardiovascular: No Edema, Normal Peripheral Pulses, Tachycardia Results/Procedures Lab Laboratory Tests 02/27/22 04:46 Patient resulted labs reviewed. Assessment/Plan Assessment and Plan Assess & Plan/Chief Complaint Pulmonary Embolism Eliquis 5mg BID PO Vapotherm ABG with morning labs Monitor CO2 Tachycardia Cardiology consulted EKG obtained-Sinus tachycardia Residual Pneumonia Monitor WBC count CXR tomorrow to compare Move to 4th floor Continue vapotherm Patient qualifies for home BiPap SURI GOLDEN DO 02/27/222056: Subjective Subjective/Events-last exam Pt is doing a lot better but oxygen demands ICU stay Vapotherm maintained Off BiPAP Heart rate is in the 130's, cardiology consulted Objective Exam General Appearance: Anxious, Chronically ill, Mild Distress, Obese Respiratory: Lungs Clear, Accessory Muscle Use Assessment/Plan Assessment and Plan Assess & Plan/Chief Complaint Vapotherm Tachy Keep in ICU Supervisory-Addendum Brief Verification & Attestation Participated in pt care: history, MDM, physical Personally performed: exam, history, MDM, supervision of care Care discussed with: Medical Student Procedures: n/a Results interpretation: Verified all documentation Verification and Attestation of Medical Student E/M Service A medical student performed and documented this service in my presence. I reviewed and verified all information documented by the medical student and made modifications to such information, when appropriate. I personally performed the physical exam and medical decision making. Suri Golden, Feb 27, 2022,20:56 JESUSITA FORREST Feb 27, 2022 10:50 SURI GOLDEN DO Feb 27, 2022 20:57
--- NOTE | 2022-02-27 10:59 | Tele-ICU Progress Note ---
Subjective Date Seen by a Provider: Feb 27, 2022 Time Seen by a Provider: 10:59 Subjective/Events-last exam OMITT PLEASE double entry Sepsis Event Evaluation Height, Weight, BMI Height: 5'3.00" Weight: 242lbs. 2.0oz. 109.676263yp; 37.50 BMI Method:Stated Exam Exam Patient acknowledged, consented, and participated in this virtual visit which was conducted using real time audio/video Vital Signs Date Time Temp Pulse Resp B/P (MAP) Pulse Ox O2 Delivery O2 Flow Rate FiO2 02/27/22 10:04 94 Vapotherm 30.00 85 02/27/22 09:00 87 19 109/73 91 Vapotherm 40.00 100.00 02/27/22 08:45 89 16 127/57 95 Vapotherm 40.00 100.00 02/27/22 08:30 101 11 188/100 94 Vapotherm 40.00 100.00 02/27/22 08:00 96 NIV Bilevel 50 02/27/22 08:00 98 19 179/108 91 Vapotherm 40.00 100.00 02/27/22 07:57 98 02/27/22 07:01 94 Vapotherm 30.00 90 02/27/22 07:00 95 31 165/97 95 Vapotherm 40.00 100.00 02/27/22 06:58 Vapotherm 40.00 100.00 02/27/22 06:00 98 21 146/83 91 Vapotherm 30.00 80.00 02/27/22 05:44 Vapotherm 30.00 80.00 02/27/22 05:30 85 26 144/82 92 Vapotherm 30.00 75.00 02/27/22 04:35 92 Vapotherm 30.00 70 02/27/22 04:30 Vapotherm 30.00 75.00 02/27/22 04:00 86 25 141/83 95 NIV Bilevel 50.00 02/27/22 04:00 96 NIV Bilevel 50 02/27/22 03:00 84 17 118/68 95 NIV Bilevel 50.00 02/27/22 02:34 96 30 95 50.00 02/27/22 02:00 96 19 136/82 96 NIV Bilevel 50.00 02/27/22 01:00 84 02/27/22 01:00 84 22 127/76 95 NIV Bilevel 50.00 02/27/22 00:00 96 24 133/80 94 NIV Bilevel 50.00 02/26/22 23:45 36.3 02/26/22 23:44 96 NIV Bilevel 50 02/26/22 23:00 128 20 126/87 93 NIV Bilevel 50.00 02/26/22 22:00 126 33 132/85 93 NIV Bilevel 50.00 02/26/22 21:56 NIV Bilevel 50.00 02/26/22 21:20 NIV Bilevel 32.00 02/26/22 21:15 85 28 95 32.00 02/26/22 21:00 80 24 115/66 91 Vapotherm 30.00 75.00 02/26/22 20:00 97 26 117/70 90 Vapotherm 30.00 75.00 02/26/22 20:00 96 Vapotherm 30.00 75 02/26/22 20:00 36.6 Vapotherm 30.00 75.00 02/26/22 19:00 86 27 119/73 93 Vapotherm 30.00 75.00 02/26/22 19:00 86 02/26/22 18:22 94 Vapotherm 30.00 75 02/26/22 18:00 85 23 115/61 94 Vapotherm 30.00 75.00 02/26/22 17:00 81 12 140/79 93 Vapotherm 30.00 75.00 02/26/22 16:00 80 18 148/91 91 Vapotherm 30.00 75.00 02/26/22 16:00 96 Vapotherm 30.00 75 02/26/22 16:00 93 NIV Bilevel 40 02/26/22 15:00 77 24 121/77 94 NIV Bilevel 32.00 02/26/22 14:55 75 20 96 32.00 02/26/22 14:00 69 18 132/76 91 NIV Bilevel 32.00 02/26/22 13:00 74 20 129/74 94 NIV Bilevel 35.00 02/26/22 13:00 75 02/26/22 12:37 72 19 134/74 92 NIV Bilevel 35.00 02/26/22 12:00 93 NIV Bilevel 40 02/26/22 12:00 72 19 134/74 92 NIV Bilevel 35.00 02/26/22 11:00 68 19 133/83 97 NIV Bilevel 40.00 02/26/22 10:59 73 24 96 35.00 I & O 02/27/22 07:00 Intake Total 1025 ml Output Total 1700 ml Balance -675 ml Height & Weight Height: 5'3.00" Weight: 242lbs. 2.0oz. [id number]; 37.50 BMI Method:Stated General Appearance: No Apparent Distress HEENT: PERRL/EOMI, Normal ENT Inspection, Pharynx Normal, Moist Mucous Membranes Neck: Full Range of Motion, Normal Inspection, Non Tender Respiratory: Chest Non Tender, Normal Breath Sounds Cardiovascular: No Edema, Normal Peripheral Pulses, Tachycardia Gastrointestinal: non tender, soft Extremity: Normal Capillary Refill, Normal Inspection, Normal Range of Motion, Non Tender, No Calf Tenderness, No Pedal Edema Neurologic/Psychiatric: Alert, Oriented x3, No Motor/Sensory Deficits, Normal Mood/Affect Skin: Normal Color, Warm/Dry Lymphatic: No Adenopathy Results Lab Laboratory Tests 02/25/22 16:17 02/26/22 04:55 02/27/22 04:46 Assessment/Plan Assessment/Plan 1 CARMEN DIAMOND MD Feb 27, 2022 10:59
[2022-02-27] MEDS: DOCUSATE SODIUM 100 MG (COLACE) CAP PO SCH ×2 (11:09→20:46)
[2022-02-27] MEDS: meTOprolol SUCCINATE 100 MG (TOPROL XL) TAB PO SCH (11:10)
[2022-02-27] MEDS: APIXABAN 5 MG (ELIQUIS) TABLET PO SCH ×2 (11:10→20:46)
[2022-02-27] MEDS: SENNOSIDES 8.6 MG (SENOKOT) TAB PO SCH ×2 (11:10→20:46)
--- NOTE | 2022-02-27 12:07 | Occupational Therapy Eval ---
OT Evaluation-General/PLF Medical Diagnosis Admission Date Feb 25, 2022 at 17:18 Medical Diagnosis: CO2 narcosis Onset Date: Feb 25, 2022 Therapy Diagnosis Therapy Diagnosis: decreased ADL status Height/Weight Height (Feet): 5 Height (Inches): 3.00 Weight (Pounds): 242 Weight (Ounces): 2.0 Precautions Precautions/Isolations: Standard Precautions Referral Physician: Karthikeyan Referral Reason: Evaluation/Treatment Medical History Pertinent Medical History: CAD, COPD (O2 dependent noncompliant), HTN, Hypothroidism, MS Additional Medical History COPD, CAD, HTN, arthritis, hypothyroidism, colon cancer Current History admit with CO2 narcosis, unconscious 5-10 mins Social History Home: Single Level Current Living Status: Alone Entry Into Home: Stairs With Railing Steps Into Home: 2 ADL-Prior Level of Function SCALE: Activities may be completed with or without assistive devices. 9-Fydfhaxdzr-tfdagvn completes the activity by him/herself with no assistance from a helper. 5-Set-up or Clean-up Assistance-helper sets up or cleans up; patient completes activity. [place] assists only prior to or following the activity. 4-Supervision or Touching Assistance-helper provides verbal cues and/or touching/steadying and/or contact guard assistance as patient completes activity. Assistance may be provided throughout the activity or intermittently. 3-Partial/Moderate Assistance-helper does LESS THAN HALF the effort. [place] lifts, holds or supports trunk or limbs, but provides less than half the effort. 2-Substantial/Maximal Assistance-helper does MORE THAN HALF the effort. [place] lifts or holds trunk or limbs and provides more than half the effort. 3-Irigimplh-frqodf does ALL the effort. Patient does none of the effort to complete the activity. Or, the assistance of 2 or more helpers is required for the patient to complete the activity. If activity was not attempted, code reason: 7-Patient Refused. 9-Not Applicable-not attempted and the patient did not perform the activity before the current illness, exacerbation or injury. 10-Not Attempted due to Environmental Limitations-(lack of equipment, weather restraints, etc.). 88-Not Attempted due to Medical Conditions or Safety Concerns. ADL PLOF Comments Pt reports IND with ADLs and functional mobility at PLOF, using a walker. She has a tub/shower with SC, difficulties reported with getting in/out of tub. Self Care: Independent Functional Cognition: Independent OT Current Status Subjective Pt in recliner, agreeable to OT tx. Family member present. Mental Status/Objective Attachments: IV, Oxygen (vapotgern), Telemetry Current Upper Extremity Strength grossly 3/5 ADL-Treatment Eating (QC): 5 (set up assist with lunch) Oral Hygiene (QC): 5 (set up with oral sponge) Other Treatments Pt in recliner, agreeable to OT tx. Pt provided information about PLOF and home set up. OT provided education on tub transfer bench, due to pt's reports of difficulty getting in/out of tub. Pt reports this device would not work with her bathroom set up. pt agreeable to sponge bath, but her lunch arrived and pt preferred to eat and get cleaned up later. Pt required set up assistance with opening containers, but pt able to use utensils to cut food. Post tx, pt in recliner, call light in reach and all needs met. OT [facility] Goals Hammer Operator Goals Time Frame: Mar 16, 2022 Eating (QC): 6 Toileting Hygiene (QC): 4 Shower/Bathe Self (QC): 4 Upper Body Dressing (QC): 5 Lower Body Dressing (QC): 4 On/Off Footwear (QC): 4 Additional Goals: 1-Demonstrate ADL Tasks, 2-Verbalize Understanding, 3- ImproveStrength/John 1=Demonstrate adherence to instructed precautions during ADL tasks. 2=Patient will verbalize/demonstrate understanding of assistive devices/modifications for ADL. 3=Patient will improve strength/tolerance for activity to enable patient to perform ADL's. OT Education/Plan Problem List/Assessment Assessment: Decreased Activ Tolerance, Decreased UE Strength, Impaired Funct Balance, Impaired I ADL's, Impaired Self-Care Skills Pt would benefit from skilled OT services in order to increase BUE Strength and activity tolerance, and increase safety and independence with ADLs and functional mobility in order to maximize LOF for safe return home. Discharge Recommendations Plan/Recommendations: Continue POC Treatment Plan/Plan of Care Patient would benefit from OT for education, treatment and training to promote independence in ADL's, mobility, safety and/or upper extremity function for ADL's. Plan of Care: ADL Retraining, Functional Mobility, UE Funct Exercise/Act Treatment Duration: Mar 16, 2022 Frequency: 3 times per week (3-5 times per week) Rehab Potential: Fair Time/GCodes Start Time: 11:15 Stop Time: 11:31 Total Time Billed (hr/min): 16 Billed Treatment Time 1, ANITA MENENDEZ OT Feb 27, 2022 12:07
--- NOTE | 2022-02-27 12:12 | Tele-ICU Progress Note ---
Subjective Date Seen by a Provider: Feb 27, 2022 Time Seen by a Provider: 12:11 Subjective/Events-last exam (Tele-ICU Physician , Progress Note ) Available chart/ vitals / labs / Images reviewed Video assessment done using teleICU camera, rest of exam as per RN Discussed with RN Events overnight : Afebrile hemodynamically stable Respiratory - I/O = Drips: Pressors- no Consultants: Hospital course: A/P Acute on chronic resp failure , with hypoxia and acute on chronic hypercarbia , suspected due to AECOPD - AVAPS 26/04 with FiO2 40%, SpO2 97%- - ABG wth normalization - on Vapotherm 30L , 85% - WILL ADVISE TO USE NIPPV AT NIGHT CHF, acute on chronic / CAD - EF 65 % 09/2021 - volume status as per cards AECOPD? - need for steroids ? - as per PCP exam , nebs ( COPD no baseline oxygen need PE reported - by on CTA last week ? , on Eliquis, CTA done at different hospital - on Eliquis Marked elevation of left diaphragm - chronic History of colon cancer, status post right hemicolectomy ?2003 Obesity Lines : , (Central Line Necessity Reviewed) Peterson: OG: Nutrition: Analgesia: Anxiety/ delirium VTE Prophylaxis: eliquis Stress Ulcer Prophylaxis: ma Plans in collaboration with bedside consultants and IM MDs. Discussed with RN to reach out if any questions or concerns A total of 31 minutes of critical care time was devoted to this patient today, required to treat and/or prevent further deterioration of critical care condition ( as above ) . Sepsis Event Evaluation Height, Weight, BMI Height: 5'3.00" Weight: 242lbs. 2.0oz. [id number]; 37.50 BMI Method:Stated Exam Exam Patient acknowledged, consented, and participated in this virtual visit which was conducted using real time audio/video Vital Signs Date Time Temp Pulse Resp B/P (MAP) Pulse Ox O2 Delivery O2 Flow Rate FiO2 02/27/22 10:04 94 Vapotherm 30.00 85 02/27/22 09:00 87 19 109/73 91 Vapotherm 40.00 100.00 02/27/22 08:45 89 16 127/57 95 Vapotherm 40.00 100.00 02/27/22 08:30 101 11 188/100 94 Vapotherm 40.00 100.00 02/27/22 08:00 96 NIV Bilevel 50 02/27/22 08:00 98 19 179/108 91 Vapotherm 40.00 100.00 02/27/22 07:57 98 02/27/22 07:01 94 Vapotherm 30.00 90 02/27/22 07:00 95 31 165/97 95 Vapotherm 40.00 100.00 02/27/22 06:58 Vapotherm 40.00 100.00 02/27/22 06:00 98 21 146/83 91 Vapotherm 30.00 80.00 02/27/22 05:44 Vapotherm 30.00 80.00 02/27/22 05:30 85 26 144/82 92 Vapotherm 30.00 75.00 02/27/22 04:35 92 Vapotherm 30.00 70 02/27/22 04:30 Vapotherm 30.00 75.00 02/27/22 04:00 86 25 141/83 95 NIV Bilevel 50.00 02/27/22 04:00 96 NIV Bilevel 50 02/27/22 03:00 84 17 118/68 95 NIV Bilevel 50.00 02/27/22 02:34 96 30 95 50.00 02/27/22 02:00 96 19 136/82 96 NIV Bilevel 50.00 02/27/22 01:00 84 02/27/22 01:00 84 22 127/76 95 NIV Bilevel 50.00 02/27/22 00:00 96 24 133/80 94 NIV Bilevel 50.00 02/26/22 23:45 36.3 02/26/22 23:44 96 NIV Bilevel 50 02/26/22 23:00 128 20 126/87 93 NIV Bilevel 50.00 02/26/22 22:00 126 33 132/85 93 NIV Bilevel 50.00 02/26/22 21:56 NIV Bilevel 50.00 02/26/22 21:20 NIV Bilevel 32.00 02/26/22 21:15 85 28 95 32.00 02/26/22 21:00 80 24 115/66 91 Vapotherm 30.00 75.00 02/26/22 20:00 97 26 117/70 90 Vapotherm 30.00 75.00 02/26/22 20:00 96 Vapotherm 30.00 75 8/22/22 20:00 36.6 Vapotherm 30.00 75.00 02/26/22 19:00 86 27 119/73 93 Vapotherm 30.00 75.00 02/26/22 19:00 86 02/26/22 18:22 94 Vapotherm 30.00 75 02/26/22 18:00 85 23 115/61 94 Vapotherm 30.00 75.00 02/26/22 17:00 81 12 140/79 93 Vapotherm 30.00 75.00 02/26/22 16:00 80 18 148/91 91 Vapotherm 30.00 75.00 02/26/22 16:00 96 Vapotherm 30.00 75 02/26/22 16:00 93 NIV Bilevel 40 02/26/22 15:00 77 24 121/77 94 NIV Bilevel 32.00 02/26/22 14:55 75 20 96 32.00 02/26/22 14:00 69 18 132/76 91 NIV Bilevel 32.00 02/26/22 13:00 74 20 129/74 94 NIV Bilevel 35.00 02/26/22 13:00 75 02/26/22 12:37 72 19 134/74 92 NIV Bilevel 35.00 I & O 02/27/22 07:00 Intake Total 1025 ml Output Total 1700 ml Balance -675 ml Height & Weight Height: 5'3.00" Weight: 242lbs. 2.0oz. [id number]; 37.50 BMI Method:Stated General Appearance: No Apparent Distress HEENT: PERRL/EOMI, Normal ENT Inspection, Pharynx Normal, Moist Mucous Membranes Neck: Full Range of Motion, Normal Inspection, Non Tender Respiratory: Chest Non Tender, Normal Breath Sounds Cardiovascular: No Edema, Normal Peripheral Pulses, Tachycardia Gastrointestinal: non tender, soft Extremity: Normal Capillary Refill, Normal Inspection, Normal Range of Motion, Non Tender, No Calf Tenderness, No Pedal Edema Neurologic/Psychiatric: Alert, Oriented x3, No Motor/Sensory Deficits, Normal Mood/Affect Skin: Normal Color, Warm/Dry Lymphatic: No Adenopathy Results Lab Laboratory Tests 02/25/22 16:17 02/26/22 04:55 02/27/22 04:46 Assessment/Plan Assessment/Plan 1 CARMEN DIAMOND MD Feb 27, 2022 12:12
[2022-02-28 00:22] VITALS: BP 117/73
[2022-02-28 03:19] VITALS: BP 118/64
[2022-02-28] MEDS: RT-ALBUTEROL/IPRATROPIUM 3 ML (DUONEB) VIAL INH SCH ×6 (03:23→22:10)
[2022-02-28 04:43] LABS: BASOPHILS % (AUTO) 0 % (0-10); EOSINOPHILS # (AUTO) 0.3 10^3/uL (0.0-0.3); EOSINOPHILS % (AUTO) 3 % (0-10); HEMATOCRIT 42 % (35-52); HEMOGLOBIN 12.8 g/dL (11.5-16.0); LYMPHOCYTES # (AUTO) 2.2 10^3/uL (1.0-4.0); LYMPHOCYTES % (AUTO) 23 % (12-44); MEAN CORPUSCULAR HEMOGLOBIN 30 pg (25-34); MEAN CORPUSCULAR HGB CONC 30 g/dL (32-36); MEAN CORPUSCULAR VOLUME 98 fL (80-99); MEAN PLATELET VOLUME 9.2 fL (9.0-12.2); MONOCYTES # (AUTO) 1.2 10^3/uL (0.0-1.0); MONOCYTES % (AUTO) 13 % (0-12); NEUTROPHILS % (AUTO) 61 % (42-75); PLATELET COUNT 249 10^3/uL (130-400); WHITE BLOOD COUNT 9.7 10^3/uL (4.3-11.0)
[2022-02-28 05:13] LABS: ALBUMIN 2.7 GM/DL (3.2-4.5); POTASSIUM 4.2 MMOL/L (3.6-5.0)
[2022-02-28 05:15] LABS: CALCIUM 8.3 MG/DL (8.5-10.1)
[2022-02-28 05:16] LABS: TOTAL PROTEIN 4.9 GM/DL (6.4-8.2)
[2022-02-28 05:18] LABS: BILIRUBIN,TOTAL 0.6 MG/DL (0.1-1.0)
[2022-02-28 05:19] LABS: CREATININE SERUM 0.86 MG/DL (0.60-1.30); PHOSPHORUS 3.2 MG/DL (2.3-4.7)
[2022-02-28] MEDS: POTASSIUM CL 10MEQ/50ML IVPB 50 ML IV SCH (05:40)
[2022-02-28] MEDS: MAGNESIUM 1 GM/100 ML IVPB 100 ML IV SCH (05:41)
[2022-02-28] MEDS: KCL 20 MEQ TAB (K-DUR) PO SCH (05:41)
--- NOTE | 2022-02-28 07:19 | Diagnostic Imaging Report ---
History: Dyspnea TECHNIQUE: Frontal view the chest. COMPARISON: 02/27/2022 FINDINGS: There is mild elevation of the left hemidiaphragm. There are stable airspace opacities in the right lung base. There is mild cardiomegaly. There is a small right pleural effusion. No pneumothorax is seen. IMPRESSION: 1. Low lung volumes with right basilar airspace opacities, may represent atelectasis or infiltrate. Small right pleural effusion. Dictated by: Dictated on workstation # [id number]
--- NOTE | 2022-02-28 08:29 | Cardiology Progress Note ---
Subjective Date Seen by Provider: Feb 28, 2022 Time Seen by Provider: 08:28 Subjective/Events-last exam Patient was seen at bedside, feeling better Breathing better, still on Vapotherm Review of Systems General: No Chills, No Night Sweats, No Fatigue, No Malaise, No Appetite, No Other HEENT: No Head Aches, No Visual Changes, No Eye Pain, No Ear Pain, No Dysphasia, No Sinus Congestion, No Post Nasal Drip, No Sore Throat, No Other Pulmonary: Dyspnea; No Cough, No Pleuritic Chest Pain, No Other Cardiovascular: No: Chest Pain, Palpitations, Orthopnea, Paroxysmal Noc. Dyspnea, Edema, Lt Headedness, Other Objective-Cardiology Exam Last Set of Vital Signs Vital Signs 02/28/22 02/28/22 02/28/22 02/28/22 00:00 06:00 06:37 07:40 Temp 36.8 Pulse 89 Resp 17 B/P (MAP) 129/87 Pulse Ox 94 O2 Delivery Vapotherm O2 Flow Rate 30.00 FiO2 75 I&O Intake and Output 02/28/22 00:00 Intake Total 1540 ml Output Total 3250 ml Balance -1710 ml Intake Oral 1540 ml Output Urine Total 3250 ml General: Alert, Oriented X3, Cooperative HEENT: Atraumatic, PERRLA Neck: Supple, No JVD, No Thyromegaly Lungs: Normal Air Movement, Other (Bilateral rhonchi) Heart: Regular Rate, Normal S1, Normal S2, Other (Systolic murmur at the left sternal border) Abdomen: Normal Bowel Sounds, Soft, No Tenderness, No Hepatosplenomegaly, No Masses Extremities: No Clubbing, No Cyanosis, No Edema, Normal Pulses, No Tenderness /Swelling Skin: No Rashes, No Breakdown, No Significant Lesion Neuro: Normal Speech, Strength at 5/5 X4 Ext, Normal Tone, Sensation Intact Psych/Mental Status: Mental Status NL, Mood NL Results Lab Laboratory Tests 02/28/22 04:00 A/P-Cardiology Admission Diagnosis Acute respiratory failure Coronary artery disease Hypertension Hyperlipidemia. Assessment/Plan Status post acute respiratory failure with CO2 narcosis Recent pneumonia, acute exacerbation of COPD Obesity hypoventilation syndrome Currently on Vapotherm, managed by medical team Pneumonia, recent discharge from [facility]. Managed by primary care team COPD, acute exacerbation. Managed by medical team Status post transient sinus tachycardia, most probably secondary to hypoxemia. Most of the day yesterday heart rate was in the 80s, metoprolol was restarted Tolerating medication well Borderline hypotension, continue to monitor blood pressure Chest pain, history of chronic stable angina. Denies any increase in chest pain. Continue to monitor Coronary artery disease Status post acute myocardial infarction in 2013 with total occlusion of the right coronary artery, underwent complex intervention with stent deployment to the right coronary artery using 3.5x30 mm integrity and 3.018 mm bare-metal stent without complication. Had multiple clots in the distal right coronary artery, Had another cardiac catheterization in December 2014 resulted in deployment of another stent 3.012 mm integrity bare-metal stent with good result. Patient had wnga-oo-mytynzbm disease in the LAD and circumflex artery. Cardiac catheterization done October 10, 2016 revealed patent stents in the LAD with mild disease distally, nonobstructive disease. 50 percent in-stent restenosis of the mid right coronary artery with FFR of 0.84. Cardiac catheterization done 09/07/20 showing calcified and tortuous prox LAD with sig gradient by FFR, successful deployment of 2 overlapping stents using Emily stent prox 2.75x18 and midportion 2.5x23mm with excellent results. Patent stent in the RCA, mild dz in the circumflex. Most recent cardiac catheterization done 01/03/22 showing mild to moderate in- stent restenosis in the mid right coronary artery, small vessel disease at the distal right coronary artery nonobstructive disease. Patent stent in the proximal LAD with mild disease distally, nonobstructive disease, mild disease in the circumflex artery. Mildly elevated left ventricular end-diastolic pressure. Mild aortic valve stenosis noted by 2D echo in September 2021, PA pressure 15 to 20 mmHg. Continue to monitor Congestive heart failure, acute on chronic left ventricular systolic dysfunction due to her myocardial infarction, most recent 2D Echo done September 2021 showing EF 60-65%, mild , PA 15-20mmHg. Ejection fraction during stress test was 38% Ventral hernia-status post repair by Dr. Sun April 2015. Has recurrence of hernia, will refer to Dr. Rodriguez for further evaluation. Hypertension, controlled, continue to monitor. Hyperlipidemia, well controlled, continue to monitor. History of colon cancer, status post right hemicolectomy done by Dr. Alas. patient has been monitored and followed by Dr. Henriquez, did not see Dr. Henriquez since 2003 Obesity, patient was instructed on weight loss. Bilateral nonobstructive carotid artery stenosis, last carotid ultrasound was done in October 2021 PETROS ANTHONY MD Feb 28, 2022 08:29
--- NOTE | 2022-02-28 08:52 | Physical Therapy Daily Note ---
PT Daily Note-Current Subjective Patient in bed pre tx, agrees to PT, has no complaints of pain Appearance Patient in recliner post tx with nurse call, phone, tray, all needs met. Mental Status Patient Orientation: Person, Place, Situation Attachments: Oxygen (vapotherm), [place] Catheter Transfers SCALE: Activities may be completed with or without assistive devices. 9-Cabvwiexza-ldpkmbn completes the activity by him/herself with no assistance from a helper. 5-Set-up or Clean-up Assistance-helper sets up or cleans up; patient completes activity. [place] assists only prior to or following the activity. 4-Supervision or Touching Assistance-helper provides verbal cues and/or touching/steadying and/or contact guard assistance as patient completes activity. Assistance may be provided throughout the activity or intermittently. 3-Partial/Moderate Assistance-helper does LESS THAN HALF the effort. [place] lifts, holds or supports trunk or limbs, but provides less than half the effort. 2-Substantial/Maximal Assistance-helper does MORE THAN HALF the effort. [place] lifts or holds trunk or limbs and provides more than half the effort. 8-Emjcstsdk-gjnxho does ALL the effort. Patient does none of the effort to complete the activity. Or, the assistance of 2 or more helpers is required for the patient to complete the activity. If activity was not attempted, code reason: 7-Patient Refused. 9-Not Applicable-not attempted and the patient did not perform the activity before the current illness, exacerbation or injury. 10-Not Attempted due to Environmental Limitations-(lack of equipment, weather restraints, etc.). 88-Not Attempted due to Medical Conditions or Safety Concerns. Roll Left & Right (QC): 6 Lying to Sitting/Side of Bed(Q: 6 Sit to Stand (QC): 4 Chair/Pyx-yg-Sjmqz Xfer(QC): 4 Gait Training Distance: 10' Walk 10 feet (QC): 4 Gait Persons Needed: 1 Gait Assistive Device: FWW SBA, slow but steady ambulation Exercises Standing: Heel/toe raises, Mini squats Standing Reps: 10 (with walker support) Treatments bed mobility and transfers, ambulation, functional strengthening Assessment Current Status: Fair Progress O2 was 95% after ambulation PT [facility] Goals Lead Slot Technician Goals PT [facility] Goals Time Frame: Mar 17, 2022 Roll Left & Right (QC): 6 Sit to Lying (QC): 6 Lying-Sitting on Side/Bed(QC): 6 Sit to Stand (QC): 6 Chair/Ayy-ix-Ebvaj Xfer(QC): 6 Toilet Transfer (QC): 6 Walk 10 feet (QC): 6 Walk 50ft with 2 Turns (QC): 6 Walk 150 ft (QC): 6 PT Plan Problem List Problem List: Activity Tolerance, Functional Strength, Safety, Balance, Gait, Transfer, Bed Mobility, ROM Treatment/Plan Treatment Plan: Continue Plan of Care Treatment Plan: Bed Mobility, Education, Functional Activity John, Functional Strength, Gait, Safety, Therapeutic Exercise, Transfers Treatment Duration: Mar 17, 2022 Frequency: 6 times per week Estimated Hrs Per Day: .25 hour per day Patient and/or Family Agrees t: Yes Safety Risks/Education Patient Education: Gait Training, Transfer Techniques, Correct Positioning, Safety Issues Teaching Recipient: Patient Teaching Methods: Demonstration, Discussion Response to Teaching: Reinforcement Needed Time/GCodes Time In: 808 Time Out: 821 Total Billed Treatment Time: 13 Total Billed Treatment 1 visit FA ANGI YEBAOH PT Feb 28, 2022 08:52
[2022-02-28] MEDS: APIXABAN 5 MG (ELIQUIS) TABLET PO SCH ×2 (09:00→20:19)
[2022-02-28] MEDS: meTOprolol SUCCINATE 100 MG (TOPROL XL) TAB PO SCH (09:00)
[2022-02-28] MEDS ORDERED: meTOprolol SUCCINATE 100 MG (TOPROL XL) TAB PO SCH (09:00)
[2022-02-28] MEDS: SENNOSIDES 8.6 MG (SENOKOT) TAB PO SCH ×2 (09:06→20:19)
[2022-02-28] MEDS: DOCUSATE SODIUM 100 MG (COLACE) CAP PO SCH ×2 (09:06→20:19)
--- NOTE | 2022-02-28 11:21 | Progress Note - Hospitalist ---
JESUSITA FORREST 02/28/22 1121: Subjective HPI/CC On Admission Date Seen by Provider: Feb 28, 2022 Time Seen by Provider: 08:00 CC: CO2 narcosis Subjective/Events-last exam 02/28/2022: CO2 increased Vapotherm maintained Move to 4th floor today Review of Systems General: No Chills, No Night Sweats, No Fatigue, No Malaise, No Appetite Pulmonary: No Dyspnea, No Cough, No Pleuritic Chest Pain, No Other Cardiovascular: No: Chest Pain, Palpitations, Orthopnea, Paroxysmal Noc. Dyspnea, Edema, Lt Headedness Gastrointestinal: No: Nausea, Vomiting Objective Exam Vital Signs Vital Signs Date Time Temp Pulse Resp B/P (MAP) Pulse Ox O2 Delivery O2 Flow Rate FiO2 02/28/22 10:00 89 12 127/78 96 Vapotherm 30.00 75.00 02/28/22 06:37 75 02/28/22 00:00 36.8 Capillary Refill : General Appearance: No Apparent Distress Respiratory: Chest Non Tender, No Accessory Muscle Use, Decreased Breath Sounds (Diminished at R lung base) Cardiovascular: No Gallop, Normal Peripheral Pulses Results/Procedures Lab Laboratory Tests 02/28/22 04:00 Patient resulted labs reviewed. Assessment/Plan Assessment and Plan Assess & Plan/Chief Complaint Pulmonary Embolism Eliquis 5mg BID PO Vapotherm ABG with morning labs Monitor CO2 CO2 was 69.8 this AM Extensive cardiac history Cardiology consulted Residual Pneumonia Monitor WBC count Daily CXR Move to 4th floor Continue vapotherm Continue working with rehab Patient qualifies for home Joannap SURI GOLDEN DO 02/28/22 2016: Subjective Subjective/Events-last exam Pt is doing a lot better Transferring to 4th floor Chest x-ray was reviewed ABG was 7.35/69/87 Vapotherm at 30L at 70% Assessment/Plan Assessment and Plan Assess & Plan/Chief Complaint Moved to fourth floor Vapotherm Supervisory-Addendum Brief Verification & Attestation Participated in pt care: history, MDM, physical Personally performed: exam, history, MDM, supervision of care Care discussed with: Medical Student Procedures: n/a Results interpretation: Verified all documentation Verification and Attestation of Medical Student E/M Service A medical student performed and documented this service in my presence. I reviewed and verified all information documented by the medical student and made modifications to such information, when appropriate. I personally performed the physical exam and medical decision making. Suri Golden, Feb 28, 2022,20:16 JESUSITA FORREST Feb 28, 2022 11:21 SURI GOLDEN DO Feb 28, 2022 20:16
--- NOTE | 2022-02-28 11:46 | Tele-ICU Progress Note ---
Subjective Date Seen by a Provider: Feb 28, 2022 Time Seen by a Provider: 11:45 Subjective/Events-last exam (Tele-ICU Physician , Progress Note ) Available chart/ vitals / labs / Images reviewed Video assessment done using teleICU camera, rest of exam as per RN Discussed with RN Events overnight : Afebrile hemodynamically stable Respiratory - I/O = neg 1700 Drips: Pressors- no Consultants: Hospital course: A/P Acute on chronic resp failure , with hypoxia and acute on chronic hypercarbia , suspected due to AECOPD - AVAPS 26/04 with FiO2 40%, SpO2 97%- - ABG wth normalization - on Vapotherm 30L , 75 % - IMPROVING , WILL ADVISE TO USE NIPPV AT NIGHT CHF, acute on chronic / CAD - EF 65 % 09/2021 - volume status as per cards AECOPD? - need for steroids ? - as per PCP exam , nebs ( COPD no baseline oxygen need PE reported - by on CTA last week ? , on Eliquis, CTA done at different hospital - on Eliquis Marked elevation of left diaphragm - chronic History of colon cancer, status post right hemicolectomy ?2003 Obesity Lines : , (Central Line Necessity Reviewed) Peterson: OG: Nutrition: Analgesia: Anxiety/ delirium VTE Prophylaxis: eliquis Stress Ulcer Prophylaxis: na Plans in collaboration with bedside consultants and IM MDs. Discussed with RN to reach out if any questions or concerns A total of 15 minutes of critical care time was devoted to this patient today, required to treat and/or prevent further deterioration of critical care condition ( as above ) . Sepsis Event Evaluation Height, Weight, BMI Height: 5'3.00" Weight: 242lbs. 2.0oz. 109.852416kd; 37.50 BMI Method:Stated Exam Exam Patient acknowledged, consented, and participated in this virtual visit which was conducted using real time audio/video Vital Signs Date Time Temp Pulse Resp B/P (MAP) Pulse Ox O2 Delivery O2 Flow Rate FiO2 02/28/22 10:00 89 12 127/78 96 Vapotherm 30.00 75.00 02/28/22 09:00 82 24 109/69 96 Vapotherm 30.00 75.00 02/28/22 08:00 85 12 120/76 96 Vapotherm 30.00 75.00 02/28/22 07:40 89 02/28/22 07:00 79 18 138/88 95 Vapotherm 30.00 75.00 02/28/22 06:37 94 Vapotherm 30.00 75 02/28/22 06:00 76 17 129/87 94 Vapotherm 30.00 75.00 02/28/22 05:20 Vapotherm 75.00 02/28/22 05:00 76 12 137/93 95 NIV Bilevel 50.00 02/28/22 04:00 95 Vapotherm 30.00 75 02/28/22 04:00 77 22 141/84 97 NIV Bilevel 50.00 02/28/22 03:19 81 17 97 50.00 02/28/22 03:00 71 20 118/64 97 NIV Bilevel 50.00 02/28/22 02:00 83 16 118/78 98 NIV Bilevel 50.00 02/28/22 01:00 84 19 109/71 96 NIV Bilevel 50.00 02/28/22 00:49 87 02/28/22 00:22 118 13 95 50.00 02/28/22 00:00 36.8 02/28/22 00:00 78 20 117/73 95 NIV Bilevel 50.00 02/27/22 23:59 95 Vapotherm 30.00 75 02/27/22 23:52 NIV Bilevel 50.00 02/27/22 23:00 121 28 110/75 89 Vapotherm 30.00 75.00 02/27/22 22:00 79 25 122/76 93 Vapotherm 30.00 75.00 02/27/22 22:00 94 Vapotherm 30.00 75 02/27/22 21:00 89 21 123/81 95 Vapotherm 30.00 75.00 02/27/22 20:00 36.4 25 96 Vapotherm 30.00 75.00 02/27/22 20:00 88 25 132/84 96 Vapotherm 30.00 75.00 02/27/22 20:00 95 Vapotherm 30.00 75 02/27/22 19:00 93 02/27/22 19:00 87 26 137/90 95 Vapotherm 30.00 75.00 02/27/22 18:31 96 Vapotherm 30.00 75 02/27/22 18:15 83 27 154/93 95 Vapotherm 30.00 80.00 02/27/22 17:00 89 27 124/78 94 Vapotherm 30.00 80.00 02/27/22 16:00 96 NIV Bilevel 50 02/27/22 16:00 82 24 146/92 94 Vapotherm 40.00 100.00 02/27/22 15:08 115 24 138/107 97 Vapotherm 40.00 100.00 02/27/22 14:55 94 Vapotherm 30.00 80 02/27/22 14:00 117 24 95/69 97 Vapotherm 40.00 100.00 02/27/22 13:00 121 19 117/87 97 Vapotherm 40.00 100.00 02/27/22 12:43 121 02/27/22 12:00 125 19 141/94 97 Vapotherm 40.00 100.00 02/27/22 12:00 96 NIV Bilevel 50 I & O 02/28/22 07:00 Intake Total 1340 ml Output Total 3500 ml Balance -2160 ml Height & Weight Height: 5'3.00" Weight: 242lbs. 2.0oz. 109.604292vd; 37.50 BMI Method:Stated General Appearance: No Apparent Distress HEENT: PERRL/EOMI, Normal ENT Inspection, Pharynx Normal, Moist Mucous Membranes Neck: Full Range of Motion, Normal Inspection, Non Tender Respiratory: Chest Non Tender, No Accessory Muscle Use, Decreased Breath Sounds (Diminished at R lung base) Cardiovascular: No Gallop, Normal Peripheral Pulses Gastrointestinal: non tender, soft Extremity: Normal Capillary Refill, Normal Inspection, Normal Range of Motion, Non Tender, No Calf Tenderness, No Pedal Edema Neurologic/Psychiatric: Alert, Oriented x3, No Motor/Sensory Deficits, Normal Mood/Affect Skin: Normal Color, Warm/Dry Lymphatic: No Adenopathy Results Lab Laboratory Tests 02/27/22 04:46 02/28/22 04:00 Assessment/Plan Assessment/Plan 1 CARMEN DIAMOND MD Feb 28, 2022 11:46
--- NOTE | 2022-02-28 14:21 | Occupational Ther Daily Note ---
OT Current Status-Daily Note Subjective Pt up in recliner, agreeable to OT tx, pt requests to return to bed. Family member present during session. Mental Status/Objective Attachments: Peterson Catheter, Oxygen (vapotherm), Telemetry ADL-Treatment Therapy Code Descriptions/Definitions Functional [place] Measure: 0=Not Assessed/NA 4=Minimal Assistance 1=Total Assistance 5=Supervision or Setup 2=Maximal Assistance 6=Modified [place] 3=Moderate Assistance 7=Complete IndependenceSCALE: Activities may be completed with or without assistive devices. 2-Sllidpifmn-rllrxqp completes the activity by him/herself with no assistance from a helper. 5-Set-up or Clean-up Assistance-helper sets up or cleans up; patient completes activity. [place] assists only prior to or following the activity. 4-Supervision or Touching Assistance-helper provides verbal cues and/or touching/steadying and/or contact guard assistance as patient completes activity. Assistance may be provided throughout the activity or intermittently. 3-Partial/Moderate Assistance-helper does LESS THAN HALF the effort. [place] lifts, holds or supports trunk or limbs, but provides less than half the effort. 2-Substantial/Maximal Assistance-helper does MORE THAN HALF the effort. [place] lifts or holds trunk or limbs and provides more than half the effort. 1-Spurolrcg-mlscfx does ALL the effort. Patient does none of the effort to complete the activity. Or, the assistance of 2 or more helpers is required for the patient to complete the activity. If activity was not attempted, code reason: 7-Patient Refused. 9-Not Applicable-not attempted and the patient did not perform the activity before the current illness, exacerbation or injury. 10-Not Attempted due to Environmental Limitations-(lack of equipment, weather restraints, etc.). 88-Not Attempted due to Medical Conditions or Safety Concerns. Upper Body Dressing (QC): 2 (Max A changing hospital gown) Other Treatment Pt in recliner, max A to change hospital gown, managing around lines and threading arms. Pt indicates bilateral shoulders have problems, at least one has a torn rotator cuff and she isn't a surgical candidate. Pt stood from recliner, CGA, then stood for ~30 seconds, took several side steps towards the bed, and sat EOB, CGA. Pt transferred supine, CGA. Post tx, pt in bed, call light in reach and all needs met. Education OT Patient Education: Correct positioning, Energy conservation, Modified ADL techniques, Progress toward Goal/Update tx plan, Purpose of tx/functional activities, Rehab process Teaching Recipient: Patient Teaching Methods: Discussion Response to Teaching: Verbalize Understanding OT Mold Worker Goals Mold Worker Goals Time Frame: Mar 16, 2022 Eating (QC): 6 Toileting Hygiene (QC): 4 Shower/Bathe Self (QC): 4 Upper Body Dressing (QC): 5 Lower Body Dressing (QC): 4 On/Off Footwear (QC): 4 Additional Goals: 1-Demonstrate ADL Tasks, 2-Verbalize Understanding, 3- ImproveStrength/John 1=Demonstrate adherence to instructed precautions during ADL tasks. 2=Patient will verbalize/demonstrate understanding of assistive devices/modifications for ADL. 3=Patient will improve strength/tolerance for activity to enable patient to perform ADL's. OT Education/Plan Problem List/Assessment Assessment: Decreased Activ Tolerance, Decreased UE Strength, Impaired I ADL's, Impaired Self-Care Skills Pt would benefit from skilled OT services in order to increase BUE Strength and activity tolerance, and increase safety and independence with ADLs and functional mobility in order to maximize LOF for safe return home. Discharge Recommendations Plan/Recommendations: Continue POC Treatment Plan/Plan of Care Patient would benefit from OT for education, treatment and training to promote independence in ADL's, mobility, safety and/or upper extremity function for ADL's. Plan of Care: ADL Retraining, Functional Mobility, UE Funct Exercise/Act Treatment Duration: Mar 16, 2022 Frequency: 3 times per week (3-5 times per week) Rehab Potential: Fair Time/GCodes Start Time: 13:15 Stop Time: 13:38 Total Time Billed (hr/min): 23 Billed Treatment Time 1, ADL (10'), FA (13') ANITA LÓPEZ OT Feb 28, 2022 14:21
[2022-03-01] MEDS: RT-ALBUTEROL/IPRATROPIUM 3 ML (DUONEB) VIAL INH SCH ×6 (02:59→22:48)
[2022-03-01 05:47] LABS: BASOPHILS % (AUTO) 0 % (0-10); EOSINOPHILS # (AUTO) 0.3 10^3/uL (0.0-0.3); EOSINOPHILS % (AUTO) 3 % (0-10); HEMATOCRIT 41 % (35-52); HEMOGLOBIN 12.6 g/dL (11.5-16.0); LYMPHOCYTES % (AUTO) 22 % (12-44); MEAN CORPUSCULAR HEMOGLOBIN 30 pg (25-34); MEAN CORPUSCULAR HGB CONC 31 g/dL (32-36); MEAN CORPUSCULAR VOLUME 97 fL (80-99); MEAN PLATELET VOLUME 9.3 fL (9.0-12.2); MONOCYTES % (AUTO) 11 % (0-12); NEUTROPHILS # (AUTO) 5.8 10^3/uL (1.8-7.8); NEUTROPHILS % (AUTO) 64 % (42-75); PLATELET COUNT 229 10^3/uL (130-400); WHITE BLOOD COUNT 9.1 10^3/uL (4.3-11.0)
[2022-03-01 05:53] LABS: ALBUMIN 2.6 GM/DL (3.2-4.5); POTASSIUM 4.3 MMOL/L (3.6-5.0)
[2022-03-01 05:54] LABS: CALCIUM 8.4 MG/DL (8.5-10.1)
[2022-03-01 05:56] LABS: TOTAL PROTEIN 4.9 GM/DL (6.4-8.2)
[2022-03-01 05:57] LABS: BILIRUBIN,TOTAL 0.7 MG/DL (0.1-1.0)
[2022-03-01 05:59] LABS: CREATININE SERUM 0.72 MG/DL (0.60-1.30)
[2022-03-01 06:03] LABS: MAGNESIUM 1.9 MG/DL (1.6-2.4)
[2022-03-01 07:17] VITALS: BP 131/86
--- NOTE | 2022-03-01 07:53 | Diagnostic Imaging Report ---
INDICATION: Dyspnea. Comparison is made with prior examination 02/28/2022 FINDINGS: There is elevation left hemidiaphragm. There is bibasilar subsegmental atelectasis and/or pneumonitis. There is cardiomegaly. There is no pneumothorax. Mediastinum is unremarkable. IMPRESSION: Cardiomegaly. Elevation left hemidiaphragm with some bibasilar subsegmental atelectasis and/or pneumonitis. Dictated by: Dictated on workstation # [id number]
--- NOTE | 2022-03-01 08:17 | Cardiology Progress Note ---
Subjective Date Seen by Provider: Mar 01, 2022 Time Seen by Provider: 08:16 Subjective/Events-last exam Patient was seen at bedside, still on Vapotherm, feeling better. Review of Systems General: No Chills, No Night Sweats; Fatigue; No Malaise, No Appetite, No Other HEENT: No Head Aches, No Visual Changes, No Eye Pain, No Ear Pain, No Dysphasia, No Sinus Congestion, No Post Nasal Drip, No Sore Throat, No Other Pulmonary: Dyspnea; No Cough, No Pleuritic Chest Pain, No Other Cardiovascular: No: Chest Pain, Palpitations, Orthopnea, Paroxysmal Noc. Dyspnea, Edema, Lt Headedness, Other Objective-Cardiology Exam Last Set of Vital Signs Vital Signs 03/01/22 03/01/22 07:17 08:02 Temp 36.0 Pulse 80 Resp 18 B/P (MAP) 134/83 Pulse Ox 97 O2 Delivery Vapotherm O2 Flow Rate 30.00 75.00 FiO2 75 I&O Intake and Output 03/01/22 00:00 Intake Total 800 ml Output Total 2450 ml Balance -1650 ml Intake Oral 800 ml Output Urine Total 2450 ml General: Alert, Oriented X3, Cooperative HEENT: Atraumatic, PERRLA Neck: Supple, No JVD, No Thyromegaly Lungs: Normal Air Movement, Other (Bilateral rhonchi) Heart: Regular Rate, Normal S1, Normal S2, Other (Systolic murmur at the left sternal border) Abdomen: Normal Bowel Sounds, Soft, No Tenderness, No Hepatosplenomegaly, No Masses Extremities: No Clubbing, No Cyanosis, No Edema, Normal Pulses, No Tenderness/Swelling Skin: No Rashes, No Breakdown, No Significant Lesion Neuro: Normal Speech, Strength at 5/5 X4 Ext, Normal Tone, Sensation Intact Psych/Mental Status: Mental Status NL, Mood NL Results Lab Laboratory Tests 03/01/22 05:24 A/P-Cardiology Admission Diagnosis Acute respiratory failure Coronary artery disease Hypertension Hyperlipidemia. Assessment/Plan Status post acute respiratory failure with CO2 narcosis Recent pneumonia, acute exacerbation of COPD Obesity hypoventilation syndrome Currently on Vapotherm, managed by medical team Pneumonia, recent discharge from [facility]. Managed by primary care team COPD, acute exacerbation. Managed by medical team Status post pulmonary embolism during her hospitalization at [facility] earlier in February 2022 Maintained on Eliquis Status post transient sinus tachycardia, most probably secondary to hypoxemia. Most of the day yesterday heart rate was in the 80s, metoprolol was restarted Tolerating medication well Borderline hypotension, continue to monitor blood pressure Chest pain, history of chronic stable angina. Denies any increase in chest pain. Continue to monitor Coronary artery disease Status post acute myocardial infarction in 2013 with total occlusion of the right coronary artery, underwent complex intervention with stent deployment to the right coronary artery using 3.5x30 mm integrity and 3.018 mm bare-metal stent without complication. Had multiple clots in the distal right coronary artery, Had another cardiac catheterization in December 2014 resulted in deployment of another stent 3.012 mm integrity bare-metal stent with good result. Patient had lrlm-dw-xatsjttg disease in the LAD and circumflex artery. Cardiac catheterization done October 10, 2016 revealed patent stents in the LAD with mild disease distally, nonobstructive disease. 50 percent in-stent restenosis of the mid right coronary artery with FFR of 0.84. Cardiac catheterization done 09/07/20 showing calcified and tortuous prox LAD with sig gradient by FFR, successful deployment of 2 overlapping stents using Emily stent prox 2.75x18 and midportion 2.5x23mm with excellent results. Patent stent in the RCA, mild dz in the circumflex. Most recent cardiac catheterization done 01/03/22 showing mild to moderate in- stent restenosis in the mid right coronary artery, small vessel disease at the distal right coronary artery nonobstructive disease. Patent stent in the proximal LAD with mild disease distally, nonobstructive disease, mild disease in the circumflex artery. Mildly elevated left ventricular end-diastolic pressure. Mild aortic valve stenosis noted by 2D echo in September 2021, PA pressure 15 to 20 mmHg. Continue to monitor Congestive heart failure, acute on chronic left ventricular systolic dysfunction due to her myocardial infarction, most recent 2D Echo done September 2021 showing EF 60-65%, mild , PA 15-20mmHg. Ejection fraction during stress test was 38% Ventral hernia-status post repair by Dr. Sun April 2015. Has recurrence of hernia, will refer to Dr. Rodriguez for further evaluation. Hypertension, controlled, continue to monitor. Hyperlipidemia, well controlled, continue to monitor. History of colon cancer, status post right hemicolectomy done by Dr. Alas. patient has been monitored and followed by Dr. Xun, did not see Dr. Henriquez since 2003 Obesity, patient was instructed on weight loss. Bilateral nonobstructive carotid artery stenosis, last carotid ultrasound was done in October 2021 PETROS ANTHONY MD Mar 01, 2022 08:17
[2022-03-01] MEDS: APIXABAN 5 MG (ELIQUIS) TABLET PO SCH ×2 (09:45→19:55)
[2022-03-01] MEDS: DOCUSATE SODIUM 100 MG (COLACE) CAP PO SCH ×2 (09:45→19:55)
[2022-03-01] MEDS: meTOprolol SUCCINATE 100 MG (TOPROL XL) TAB PO SCH (09:45)
[2022-03-01] MEDS: SENNOSIDES 8.6 MG (SENOKOT) TAB PO SCH ×2 (09:45→19:55)
--- NOTE | 2022-03-01 11:39 | Physical Therapy Daily Note ---
PT Daily Note-Current Subjective Patient is very agreeable to participate with PT. Mental Status Patient Orientation: Normal For Age Attachments: Oxygen (vapotherm), [place] Catheter Transfers SCALE: Activities may be completed with or without assistive devices. 9-Svgfmgoexi-utgtvaa completes the activity by him/herself with no assistance from a helper. 5-Set-up or Clean-up Assistance-helper sets up or cleans up; patient completes activity. [place] assists only prior to or following the activity. 4-Supervision or Touching Assistance-helper provides verbal cues and/or touching/steadying and/or contact guard assistance as patient completes activity. Assistance may be provided throughout the activity or intermittently. 3-Partial/Moderate Assistance-helper does LESS THAN HALF the effort. [place] lifts, holds or supports trunk or limbs, but provides less than half the effort. 2-Substantial/Maximal Assistance-helper does MORE THAN HALF the effort. [place] lifts or holds trunk or limbs and provides more than half the effort. 3-Hoknxumuv-snfogt does ALL the effort. Patient does none of the effort to complete the activity. Or, the assistance of 2 or more helpers is required for the patient to complete the activity. If activity was not attempted, code reason: 7-Patient Refused. 9-Not Applicable-not attempted and the patient did not perform the activity before the current illness, exacerbation or injury. 10-Not Attempted due to Environmental Limitations-(lack of equipment, weather restraints, etc.). 88-Not Attempted due to Medical Conditions or Safety Concerns. Sit to Stand (QC): 6 Gait Training Distance: 200' Walk 10 feet (QC): 5 Walk 50 ft with 2 Turns(QC): 5 Walk 150 ft (QC): 5 Gait Assistive Device: FWW in room due to limited O2 extension Assessment Patient remains up in recliner with needs met. Patient to ambulate with family in room with education on how to extend tubing to allow distance. Family was present during session and voices understanding. PT Manager Field Service Goals Manager Field Service Goals PT Manager Field Service Goals Time Frame: Mar 17, 2022 Roll Left & Right (QC): 6 Sit to Lying (QC): 6 Lying-Sitting on Side/Bed(QC): 6 Sit to Stand (QC): 6 Chair/Mff-kc-Qiifj Xfer(QC): 6 Toilet Transfer (QC): 6 Walk 10 feet (QC): 6 Walk 50ft with 2 Turns (QC): 6 Walk 150 ft (QC): 6 PT Plan Treatment/Plan Treatment Plan: Continue Plan of Care Treatment Plan: Bed Mobility, Education, Functional Activity John, Functional Strength, Gait, Safety, Therapeutic Exercise, Transfers Treatment Duration: Mar 17, 2022 Frequency: 6 times per week Estimated Hrs Per Day: .25 hour per day Patient and/or Family Agrees t: Yes Time/GCodes Time In: 1035 Time Out: 1045 Total Billed Treatment Time: 10 Total Billed Treatment 1 visit FA 10 min JACKY PEOPLES PT Mar 01, 2022 11:39
--- NOTE | 2022-03-01 11:45 | Occupational Ther Daily Note ---
OT Current Status-Daily Note Subjective Pt sitting in recliner with family in room. Pt agrees to therapy. No C/o of pain at this time. Mental Status/Objective Patient Orientation: Person, Place, Time, Situation Attachments: IV, Oxygen, Telemetry ADL-Treatment Pt declined oral care. Pt participated in 2 B UE exercises, 3 sets of 10 reps, for strengthening of functional daily tasks. Pt educated in sock aid to don socks in case of fatigue. Skilled instruction given through demonstration and verbal cues. Pt did demonstrate ability to don/doff sock by self with increased time. Pt stated she would rather not use sock aide. Pt in recliner with call light/phone in reach. All needs met in room. Therapy Code Descriptions/Definitions Functional [place] Measure: 0=Not Assessed/NA 4=Minimal Assistance 1=Total Assistance 5=Supervision or Setup 2=Maximal Assistance 6=Modified [place] 3=Moderate Assistance 7=Complete IndependenceSCALE: Activities may be completed with or without assistive devices. 8-Fcgzmmuzro-bncotrm completes the activity by him/herself with no assistance from a helper. 5-Set-up or Clean-up Assistance-helper sets up or cleans up; patient completes activity. [place] assists only prior to or following the activity. 4-Supervision or Touching Assistance-helper provides verbal cues and/or touching/steadying and/or contact guard assistance as patient completes activity. Assistance may be provided throughout the activity or intermittently. 3-Partial/Moderate Assistance-helper does LESS THAN HALF the effort. [place] lifts, holds or supports trunk or limbs, but provides less than half the effort. 2-Substantial/Maximal Assistance-helper does MORE THAN HALF the effort. [place] lifts or holds trunk or limbs and provides more than half the effort. 0-Huvyufegn-luurgw does ALL the effort. Patient does none of the effort to complete the activity. Or, the assistance of 2 or more helpers is required for the patient to complete the activity. If activity was not attempted, code reason: 7-Patient Refused. 9-Not Applicable-not attempted and the patient did not perform the activity before the current illness, exacerbation or injury. 10-Not Attempted due to Environmental Limitations-(lack of equipment, weather restraints, etc.). 88-Not Attempted due to Medical Conditions or Safety Concerns. Oral Hygiene (QC): 7 On/Off Footwear: 5 Education OT Patient Education: Use of adapted equipment (Sock aid) Teaching Recipient: Patient Teaching Methods: Demonstration, Discussion Response to Teaching: Verbalize Understanding, Return Demonstration OT Composite Layup Worker Goals [place] Goals Time Frame: Mar 16, 2022 Eating (QC): 6 Toileting Hygiene (QC): 4 Shower/Bathe Self (QC): 4 Upper Body Dressing (QC): 5 Lower Body Dressing (QC): 4 On/Off Footwear (QC): 4 Additional Goals: 1-Demonstrate ADL Tasks, 2-Verbalize Understanding, 3- ImproveStrength/John 1=Demonstrate adherence to instructed precautions during ADL tasks. 2=Patient will verbalize/demonstrate understanding of assistive devices/m odifications for ADL. 3=Patient will improve strength/tolerance for activity to enable patient to perform ADL's. OT Education/Plan Problem List/Assessment Assessment: Decreased Activ Tolerance, Decreased UE Strength, Impaired Coordination Pt would benefit from skilled OT services in order to increase BUE Strength and activity tolerance, and increase safety and independence with ADLs and functional mobility in order to maximize LOF for safe return home. Discharge Recommendations Plan/Recommendations: Continue POC Treatment Plan/Plan of Care Patient would benefit from OT for education, treatment and training to promote independence in ADL's, mobility, safety and/or upper extremity function for ADL's. Plan of Care: ADL Retraining, Functional Mobility, UE Funct Exercise/Act Treatment Duration: Mar 16, 2022 Frequency: 3 times per week (3-5 times per week) Rehab Potential: Fair Time/GCodes Start Time: 10:58 Stop Time: 11:17 Total Time Billed (hr/min): 19 Billed Treatment Time 1 visit-FA 1 (19 min) MAHNAZ HERNANDEZ Mar 01, 2022 11:45
--- NOTE | 2022-03-01 13:43 | Progress Note - Hospitalist ---
JESUSITA FORREST 03/01/22 1343: Subjective HPI/CC On Admission Date Seen by Provider: Mar 01, 2022 Time Seen by Provider: 09:00 CC: CO2 narcosis Subjective/Events-last exam 03/01/2022: Patient doing well Ambulating frequently Decreasing vapotherm Remove catheter today Reports pain in shoulders Review of Systems General: No Chills, No Night Sweats, No Fatigue, No Malaise, No Appetite Pulmonary: No Dyspnea, No Cough, No Pleuritic Chest Pain, No Other Cardiovascular: No: Chest Pain, Palpitations, Orthopnea, Paroxysmal Noc. Dyspnea, Edema, Lt Headedness Gastrointestinal: No: Nausea, Vomiting Musculoskeletal: shoulder pain Objective Exam Vital Signs Vital Signs Date Time Temp Pulse Resp B/P (MAP) Pulse Ox O2 Delivery O2 Flow Rate FiO2 03/01/22 11:28 36.2 81 18 129/78 97 Vapotherm 25.00 65.00 03/01/22 10:03 75 Capillary Refill : General Appearance: No Apparent Distress Respiratory: Chest Non Tender, No Accessory Muscle Use, No Respiratory Distress, Rhonci (bilateral at bases) Cardiovascular: Regular Rate, Rhythm, No Gallop, Normal Peripheral Pulses Results/Procedures Lab Laboratory Tests 03/01/22 05:24 Patient resulted labs reviewed. Assessment/Plan Assessment and Plan Assess & Plan/Chief Complaint Pulmonary Embolism Eliquis 5mg BID PO Continue to ambulate CO2 Narcosis Vapotherm Slowly decrease as tolerated Monitor CO2 Extensive cardiac history Cardiology consulted Chronic Pulmonary Disease Hx of recent pneumonia Monitor WBC count Daily CXR Remove catheter today Shoulder Pain Topical pain management provided Patient qualifies for home BiPap SURI GOLDEN DO 03/02/22 0541: Subjective Subjective/Events-last exam Supportive care will continue Much improved DC catheter Weaning Vapotherm Assessment/Plan Assessment and Plan Assess & Plan/Chief Complaint Wean Vapotherm Supervisory-Addendum Brief Verification & Attestation Participated in pt care: history, MDM, physical Personally performed: exam, history, MDM, supervision of care Care discussed with: Medical Student Procedures: n/a Results interpretation: Verified all documentation Verification and Attestation of Medical Student E/M Service A medical student performed and documented this service in my presence. I reviewed and verified all information documented by the medical student and made modifications to such information, when appropriate. I personally performed the physical exam and medical decision making. Suri Golden, Mar 02, 2022,05:40 JESUSITA FORREST Mar 01, 2022 13:43 SURI GOLDEN DO Mar 02, 2022 05:41
[2022-03-01] MEDS: DICLOFENAC 1% GEL 100 GM (VOLTAREN) TUBE TOP SCH ×3 (13:46→19:56)
[2022-03-02] MEDS: RT-ALBUTEROL/IPRATROPIUM 3 ML (DUONEB) VIAL INH SCH ×6 (02:43→21:51)
[2022-03-02 06:23] LABS: BASOPHILS % (AUTO) 0 % (0-10); EOSINOPHILS # (AUTO) 0.3 10^3/uL (0.0-0.3); EOSINOPHILS % (AUTO) 3 % (0-10); HEMATOCRIT 42 % (35-52); LYMPHOCYTES # (AUTO) 1.9 10^3/uL (1.0-4.0); LYMPHOCYTES % (AUTO) 21 % (12-44); MEAN CORPUSCULAR HEMOGLOBIN 30 pg (25-34); MEAN CORPUSCULAR HGB CONC 31 g/dL (32-36); MEAN CORPUSCULAR VOLUME 98 fL (80-99); MEAN PLATELET VOLUME 9.9 fL (9.0-12.2); MONOCYTES % (AUTO) 11 % (0-12); NEUTROPHILS # (AUTO) 5.7 10^3/uL (1.8-7.8); NEUTROPHILS % (AUTO) 64 % (42-75); PLATELET COUNT 243 10^3/uL (130-400)
[2022-03-02 06:33] LABS: ALBUMIN 2.7 GM/DL (3.2-4.5)
[2022-03-02 06:34] LABS: POTASSIUM 4.6 MMOL/L (3.6-5.0)
[2022-03-02 06:35] LABS: CALCIUM 8.6 MG/DL (8.5-10.1)
[2022-03-02 06:36] LABS: TOTAL PROTEIN 5.2 GM/DL (6.4-8.2)
[2022-03-02 06:38] LABS: BILIRUBIN,TOTAL 0.8 MG/DL (0.1-1.0)
[2022-03-02 06:40] LABS: CREATININE SERUM 0.71 MG/DL (0.60-1.30)
[2022-03-02 06:43] LABS: MAGNESIUM 1.9 MG/DL (1.6-2.4)
[2022-03-02] MEDS: meTOprolol SUCCINATE 100 MG (TOPROL XL) TAB PO SCH (09:02)
[2022-03-02] MEDS: APIXABAN 5 MG (ELIQUIS) TABLET PO SCH ×2 (09:02→20:11)
[2022-03-02] MEDS: SENNOSIDES 8.6 MG (SENOKOT) TAB PO SCH ×2 (09:02→20:11)
[2022-03-02] MEDS: DOCUSATE SODIUM 100 MG (COLACE) CAP PO SCH ×2 (09:02→20:11)
[2022-03-02] MEDS: DICLOFENAC 1% GEL 100 GM (VOLTAREN) TUBE TOP SCH ×4 (09:04→20:12)
--- NOTE | 2022-03-02 09:23 | Physician Query Clarification ---
Physician Query-General Query to Physician: The medical record reflects the following clinical evidence: The patient, in the setting of History/Risk factors, Former smoker, COPD, not on home 02 Clinical Findings Admission 02 Sat 88% sat on 2 L has required 02 up to 100% this admission, Requiring Vapotherm or Bipap since admission and patient still having 02 sats in the low 90's on FiO2 of 50% and above, SpO2 93% on 50% 02 (P/F=138), RR 25 on admission, and frequently 20 to 30, SOA with exertion on admission, Admission ABG: Ph 7.259, CO2 82.7, PO2 82, HC03 37, BE 10 Has improved to 7.346/69.8/87/38.2/13 after 4 days on BiPap and VT, Per Cardiology "Acute Respiratory Failure" Treatment Supplemental 02, VT, Bipap, ABG's and close respiratory monitoring, "will need home Bipap" 1. Acute (and likely Chronic) respiratory failure with hypoxia and Hypercarbia, Present on admission 2. Other explanation of clinical findings 3. Unable to determine (no explanation for clinical findings) Please clarify and document your clinical opinion in the progress notes and discharge summary including the definitive and/or presumptive diagnosis, (suspected or probable), related to the above clinical findings. Please include clinical findings supporting your diagnosis. Dorothy Rosa RN, MSN Clinical Clinical Dental Technician [phone] [email or web address] PHYSICIAN RESPONSE: Based on the clinical findings in the record, please respond to the query above on this document as an addendum. Physician Response: Physician Response 1 If you have questions please contact: Endoscopy Specialty Technician: Ext: Thank you for your time and cooperation. Clinical Clinical Dental Technician/Endoscopy Specialty Technician This is a permanent part of the medical record DOROTHY ROSA Mar 02, 2022 09:23 EVAN GOLDEN DO Mar 02, 2022 13:01
--- NOTE | 2022-03-02 09:36 | Physical Therapy Daily Note ---
PT Daily Note-Current Subjective Patient agrees to PT. Mental Status Patient Orientation: Normal For Age Attachments: Oxygen (vapotherm) Transfers SCALE: Activities may be completed with or without assistive devices. 7-Fglcovlfdj-hlspybe completes the activity by him/herself with no assistance from a helper. 5-Set-up or Clean-up Assistance-helper sets up or cleans up; patient completes activity. [place] assists only prior to or following the activity. 4-Supervision or Touching Assistance-helper provides verbal cues and/or touching/steadying and/or contact guard assistance as patient completes activity. Assistance may be provided throughout the activity or intermittently. 3-Partial/Moderate Assistance-helper does LESS THAN HALF the effort. [place] lifts, holds or supports trunk or limbs, but provides less than half the effort. 2-Substantial/Maximal Assistance-helper does MORE THAN HALF the effort. [place] lifts or holds trunk or limbs and provides more than half the effort. 4-Nlfkyqral-wpcdrv does ALL the effort. Patient does none of the effort to complete the activity. Or, the assistance of 2 or more helpers is required for the patient to complete the activity. If activity was not attempted, code reason: 7-Patient Refused. 9-Not Applicable-not attempted and the patient did not perform the activity before the current illness, exacerbation or injury. 10-Not Attempted due to Environmental Limitations-(lack of equipment, weather restraints, etc.). 88-Not Attempted due to Medical Conditions or Safety Concerns. Sit to Stand (QC): 6 Gait Training Distance: 200' in room due to vapotherm Walk 10 feet (QC): 4 Walk 50 ft with 2 Turns(QC): 4 Walk 150 ft (QC): 4 Assessment Patient tolerated treatment well and remains up in recliner. Patient is SBA to independent with ambulation in room due to restriction with vapotherm. PT Methods And Procedures Analyst Goals Senior Living Goals PT Senior Living Goals Time Frame: Mar 17, 2022 Roll Left & Right (QC): 6 Sit to Lying (QC): 6 Lying-Sitting on Side/Bed(QC): 6 Sit to Stand (QC): 6 Chair/Jmf-vh-Xphps Xfer(QC): 6 Toilet Transfer (QC): 6 Walk 10 feet (QC): 6 Walk 50ft with 2 Turns (QC): 6 Walk 150 ft (QC): 6 PT Plan Treatment/Plan Treatment Plan: Continue Plan of Care Treatment Plan: Bed Mobility, Education, Functional Activity John, Functional Strength, Gait, Safety, Therapeutic Exercise, Transfers Treatment Duration: Mar 17, 2022 Frequency: 6 times per week Estimated Hrs Per Day: .25 hour per day Patient and/or Family Agrees t: Yes Time/GCodes Time In: 915 Time Out: 926 Total Billed Treatment Time: 11 Total Billed Treatment 1 visit FA 11 min JACKY PEOPLES PT Mar 02, 2022 09:36
--- NOTE | 2022-03-02 10:14 | Progress Note - Cardiology ---
Cardiology SOAP Progress Note Subjective: Sitting up in the recliner at the bedside States she feels "great" this morning No c/o CP or palpitations Objective: I&O/Vital Signs 03/01/22 03/01/22 03/02/22 03/02/22 22:49 23:03 00:04 02:44 Temp 36.4 Pulse 60 77 67 Resp 20 16 22 B/P (MAP) 119/79 Pulse Ox 93 97 92 O2 Delivery Vapotherm NIV Bilevel O2 Flow Rate 25.00 50.00 50.00 50.00 FiO2 55 03/02/22 03/02/22 04:27 07:21 Temp 35.8 Pulse 69 Resp 16 B/P (MAP) 115/78 Pulse Ox 98 97 O2 Delivery NIV Bilevel Vapotherm O2 Flow Rate 50.00 25.00 FiO2 55 03/02/22 00:00 Intake Total 1360 ml Output Total 400 ml Balance 960 ml Weight (Pounds): 242 Weight (Ounces): 2.0 Weight (Calculated Kilograms): 109.017613 Constitutional: AAO x 3, well-developed, well-nourished Respiratory: No accessory muscle use, No respiratory distress; chest expansion is symmetric, chest is bilaterally symmetric, other (diminished lower lobes bilat) Cardiovascular: regular rate-rhythm; No JVD; S1 and S2 Gastrointestional: No tender; soft, round, audible bowel sounds Extremities: other (mod bilat LE swelling) Neurologic/Psychiatric: grossly intact (moves all extremities) Skin: No rash on exposed areas, No ulcerations on exposed areas Results/Procedures: Labs Laboratory Tests 03/02/22 05:38: White Blood Count 9.0, Red Blood Count 4.33, Hemoglobin 13.0, Hematocrit 42, Mean Corpuscular Volume 98, Mean Corpuscular Hemoglobin 30, Mean Corpuscular Hemoglobin Concent 31L, Red Cell Distribution Width 14.1, Platelet Count 243, Mean Platelet Volume 9.9, Immature Granulocyte % (Auto) 0, Neutrophils (%) (Auto) 64, Lymphocytes (%) (Auto) 21, Monocytes (%) (Auto) 11, Eosinophils (%) (Auto) 3, Basophils (%) (Auto) 0, Neutrophils # (Auto) 5.7, Lymphocytes # (Auto) 1.9, Monocytes # (Auto) 1.0, Eosinophils # (Auto) 0.3, Basophils # (Auto) 0.0, Immature Granulocyte # (Auto) 0.0, Sodium Level 137, Potassium Level 4.6, Chloride Level 97L, Carbon Dioxide Level 32, Anion Gap 8, Blood Urea Nitrogen 16, Creatinine 0.71, Estimat Glomerular Filtration Rate 86, BUN/Creatinine Ratio 23, Glucose Level 92, Calcium Level 8.6, Corrected Calcium 9.6, Magnesium Level 1.9, Total Bilirubin 0.8, Aspartate Amino Transf (AST/SGOT) 19, Alanine Aminotransferase (ALT/SGPT) 16, Alkaline Phosphatase 51, Total Protein 5.2L, Albumin 2.7L A/P: Assessment: Status post acute respiratory failure with CO2 narcosis - multi-factorial - Recent pneumonia, acute exacerbation of COPD - Obesity hypoventilation syndrome - Acute on chronic systolic CHF Pneumonia, recent discharge from [facility]. - Managed by primary care team Acute on chronic exacerbation of COPD - managed by medical services Status post pulmonary embolism during her hospitalization at [facility] earlier in February 2022 - Maintained on Eliquis Status post transient sinus tachycardia, most probably secondary to hypoxemia. - continue BB Chest pain - history of chronic stable angina. Denies any increase in chest pain. Coronary artery disease - Status post acute myocardial infarction in 2013 with total occlusion of the right coronary artery, underwent complex intervention with stent deployment to the right coronary artery using 3.5x30 mm integrity and 3.018 mm bare-metal stent without complication. Had multiple clots in the distal right coronary artery, - Had another cardiac catheterization in December 2014 resulted in deployment of another stent 3.012 mm integrity bare-metal stent with good result. Patient had xuvl-xo-olrrtark disease in the LAD and circumflex artery. - Cardiac catheterization done October 10, 2016 revealed patent stents in the LAD with mild disease distally, nonobstructive disease. 50 percent in-stent restenosis of the mid right coronary artery with FFR of 0.84. - Cardiac catheterization done 09/07/20 showing calcified and tortuous prox LAD with sig gradient by FFR, successful deployment of 2 overlapping stents using Emily stent prox 2.75x18 and midportion 2.5x23mm with excellent results. Patent stent in the RCA, mild dz in the circumflex. Most recent cardiac catheterization done 01/03/22 showing mild to moderate in- stent restenosis in the mid right coronary artery, small vessel disease at the distal right coronary artery nonobstructive disease. Patent stent in the proximal LAD with mild disease distally, nonobstructive disease, mild disease in the circumflex artery. Mildly elevated left ventricular end-diastolic pressure. Mild aortic valve stenosis noted by 2D echo in September 2021, PA pressure 15 to 20 mmHg. Continue to monitor Congestive heart failure, acute on chronic systolic - left ventricular systolic dysfunction due to her myocardial infarction in 2013 - most recent 2D Echo done September 2021 showing EF 60-65%, mild , PA 15-20mmHg. Ejection fraction during stress test was 38% Ventral hernia-status - post repair by Dr. Sun April 2015. Has recurrence of hernia, will refer to Dr. Rodriguez for further evaluation. Hypertension - controlled Hyperlipidemia - statin tx History of colon cancer - status post right hemicolectomy done by Dr. Alas. patient has been monitored and followed by Dr. Henriquez, did not see Dr. Henriquez since 2003 Obesity - patient was instructed on weight loss. Carotid dz - Bilateral nonobstructive carotid artery stenosis, last carotid ultrasound was done in October 2021 Plan: Continue current medication regimen Monitor lab Replace electrolytes as indicated We have reviewed Dr. Posey's notes NEVILLE MARISCAL Mar 02, 2022 10:14
[2022-03-02] MEDS ORDERED: BISACODYL 10 MG SUPP (DULCOLAX) PR NR (11:45)
[2022-03-02] MEDS ORDERED: BISACODYL 10 MG SUPP (DULCOLAX) PR PRN (11:45)
[2022-03-02 12:03] VITALS: BP 99/68
--- NOTE | 2022-03-02 12:38 | Progress Note - Hospitalist ---
JESUSITA FORREST 03/02/22 1238: Subjective HPI/CC On Admission Date Seen by Provider: Mar 02, 2022 Time Seen by Provider: 09:15 CC: CO2 narcosis Subjective/Events-last exam 03/02/2022: Doing well Wore BiPap last night Decreasing vapotherm Voiding well after catheter removal No bowel movement Review of Systems General: No Chills, No Night Sweats, No Fatigue, No Malaise, No Appetite Pulmonary: No Dyspnea, No Cough, No Pleuritic Chest Pain, No Other Cardiovascular: No: Chest Pain, Palpitations, Orthopnea, Paroxysmal Noc. Dyspnea, Edema, Lt Headedness Gastrointestinal: No: Nausea, Vomiting Objective Exam Vital Signs Vital Signs Date Time Temp Pulse Resp B/P (MAP) Pulse Ox O2 Delivery O2 Flow Rate FiO2 03/02/22 12:03 36.5 76 19 99/68 (78) 94 Vapotherm 03/02/22 10:55 25.00 50 Capillary Refill : General Appearance: No Apparent Distress Respiratory: Chest Non Tender, Lungs Clear, Normal Breath Sounds, No Accessory Muscle Use, No Respiratory Distress Cardiovascular: Regular Rate, Rhythm, No Gallop, Normal Peripheral Pulses Results/Procedures Lab Laboratory Tests 03/02/22 05:38 Patient resulted labs reviewed. Assessment/Plan Assessment and Plan Assess & Plan/Chief Complaint Pulmonary Embolism Eliquis 5mg BID PO Continue to ambulate CO2 Narcosis Vapotherm Slowly decrease as tolerated Monitor CO2 Extensive cardiac history Cardiology consulted Chronic Pulmonary Disease Hx of recent pneumonia Monitor WBC count Discontinue daily CXR Catheter removed Patient voiding well Has not had a bowel movement Claims she is passing gas Dulcolax suppository 10mg PRN [place] Shoulder Pain Topical Volteran QID Patient qualifies for home BiPap SURI GOLDEN DO 03/03/22 0601: Subjective Subjective/Events-last exam Doing well Weaning down Vapotherm Supportive care will continue Objective Exam General Appearance: No Apparent Distress, WD/WN, Chronically ill, Obese Respiratory: Lungs Clear, Normal Breath Sounds Cardiovascular: Regular Rate, Rhythm Neurologic/Psychiatric: Alert, Oriented x3, No Motor/Sensory Deficits, Normal Mood/Affect Assessment/Plan Assessment and Plan Assess & Plan/Chief Complaint Wean Vapotherm Supervisory-Addendum Brief Verification & Attestation Participated in pt care: history, MDM, physical Personally performed: exam, history, MDM, supervision of care Care discussed with: Medical Student Procedures: n/a Results interpretation: Verified all documentation Verification and Attestation of Medical Student E/M Service A medical student performed and documented this service in my presence. I reviewed and verified all information documented by the medical student and made modifications to such information, when appropriate. I personally performed the physical exam and medical decision making. Suri Golden, Mar 03, 2022,06:01 JESUSITA FORREST Mar 02, 2022 12:38 SURI GOLDEN DO Mar 03, 2022 06:01
--- NOTE | 2022-03-02 13:19 | Occupational Ther Daily Note ---
OT Current Status-Daily Note Subjective Pt up in recliner, agreeable to OT tx. Mental Status/Objective Attachments: Oxygen (vapotherm) ADL-Treatment Therapy Code Descriptions/Definitions Functional Andrews Measure: 0=Not Assessed/NA 4=Minimal Assistance 1=Total Assistance 5=Supervision or Setup 2=Maximal Assistance 6=Modified Andrews 3=Moderate Assistance 7=Complete IndependenceSCALE: Activities may be completed with or without assistive devices. 5-Cwvvtpvtfr-uerldvr completes the activity by him/herself with no assistance from a helper. 5-Set-up or Clean-up Assistance-helper sets up or cleans up; patient completes activity. [place] assists only prior to or following the activity. 4-Supervision or Touching Assistance-helper provides verbal cues and/or touching/steadying and/or contact guard assistance as patient completes activity. Assistance may be provided throughout the activity or intermittently. 3-Partial/Moderate Assistance-helper does LESS THAN HALF the effort. [place] lifts, holds or supports trunk or limbs, but provides less than half the effort. 2-Substantial/Maximal Assistance-helper does MORE THAN HALF the effort. [place] lifts or holds trunk or limbs and provides more than half the effort. 8-Eumtxkqam-txczti does ALL the effort. Patient does none of the effort to complete the activity. Or, the assistance of 2 or more helpers is required for the patient to complete the activity. If activity was not attempted, code reason: 7-Patient Refused. 9-Not Applicable-not attempted and the patient did not perform the activity before the current illness, exacerbation or injury. 10-Not Attempted due to Environmental Limitations-(lack of equipment, weather restraints, etc.). 88-Not Attempted due to Medical Conditions or Safety Concerns. Oral Hygiene (QC): 5 (set up with oral swab) Toileting Hygiene (QC): 3 Other Treatment Pt up in recliner, agreeable to OT Tx. Pt washed her face and brushed her gums with set up assist. Pt states she is going to have someone bring her clothes up later this afternoon. [facility]. Pt requests time to use bathroom, if she is able to have a BM, she will most likely require assistance with hygiene. Pt instructed to use call light when she is done, she verbalized understanding. Post tx, pt in recliner, call light in reach and all needs met. Education OT Patient Education: Correct positioning, Energy conservation, Modified ADL techniques, Progress toward Goal/Update tx plan, Purpose of tx/functional activ ities, Rehab process Teaching Recipient: Patient Teaching Methods: Discussion Response to Teaching: Verbalize Understanding OT Skilled Nursing Goals Skilled Nursing Goals Time Frame: Mar 16, 2022 Eating (QC): 6 Toileting Hygiene (QC): 4 Shower/Bathe Self (QC): 4 Upper Body Dressing (QC): 5 Lower Body Dressing (QC): 4 On/Off Footwear (QC): 4 Additional Goals: 1-Demonstrate ADL Tasks, 2-Verbalize Understanding, 3- ImproveStrength/John 1=Demonstrate adherence to instructed precautions during ADL tasks. 2=Patient will verbalize/demonstrate understanding of assistive devices/modifications for ADL. 3=Patient will improve strength/tolerance for activity to enable patient to perform ADL's. OT Education/Plan Problem List/Assessment Assessment: Decreased Activ Tolerance, Decreased UE Strength, Impaired Funct Balance, Impaired I ADL's, Impaired Self-Care Skills Pt would benefit from skilled OT services in order to increase BUE Strength and activity tolerance, and increase safety and independence with ADLs and functional mobility in order to maximize LOF for safe return home. Discharge Recommendations Plan/Recommendations: Continue POC Treatment Plan/Plan of Care Patient would benefit from OT for education, treatment and training to promote independence in ADL's, mobility, safety and/or upper extremity function for ADL's. Plan of Care: ADL Retraining, Functional Mobility, UE Funct Exercise/Act Treatment Duration: Mar 16, 2022 Frequency: 3 times per week (3-5 times per week) Rehab Potential: Fair Time/GCodes Start Time: 13:12 Stop Time: 13:26 Total Time Billed (hr/min): 13 Billed Treatment Time 1, ADL ANITA LÓPEZ OT Mar 02, 2022 13:19
[2022-03-02 16:23] VITALS: BP 134/85
--- NOTE | 2022-03-02 17:02 | Progress Note - Cardiology ---
Cardiology SOAP Progress Note Subjective: Gen weakness and malaise present No n/v No cp or palp or syncope Shortness of breath with activity Objective: I&O/Vital Signs 03/02/22 03/02/22 03/02/22 03/02/22 07:21 08:00 10:55 12:03 Temp 36.5 Pulse 76 Resp 19 B/P (MAP) 99/68 (78) Pulse Ox 97 94 94 O2 Delivery Vapotherm Vapotherm Vapotherm Vapotherm O2 Flow Rate 25.00 25.00 25.00 50.00 20.00 FiO2 55 55 50 03/02/22 03/02/22 13:51 16:23 Temp 36.0 Pulse 77 Resp 20 B/P (MAP) 134/85 (101) Pulse Ox 94 97 O2 Delivery Vapotherm Vapotherm O2 Flow Rate 25.00 50.00 20.00 FiO2 50 03/02/22 00:00 Intake Total 1360 ml Output Total 400 ml Balance 960 ml Weight (Pounds): 242 Weight (Ounces): 2.0 Weight (Calculated Kilograms): 109.128807 Constitutional: AAO x 3, well-developed, well-nourished Respiratory: No accessory muscle use, No respiratory distress; chest expansion is symmetric, chest is bilaterally symmetric, other (diminished lower lobes bilat) Cardiovascular: regular rate-rhythm; No JVD; S1 and S2 Gastrointestional: No tender; soft, round, audible bowel sounds Extremities: other (mod bilat LE swelling) Neurologic/Psychiatric: grossly intact (moves all extremities) Skin: No rash on exposed areas, No ulcerations on exposed areas Results/Procedures: Labs Laboratory Tests 03/02/22 05:38: White Blood Count 9.0, Red Blood Count 4.33, Hemoglobin 13.0, Hematocrit 42, Mean Corpuscular Volume 98, Mean Corpuscular Hemoglobin 30, Mean Corpuscular Hemoglobin Concent 31L, Red Cell Distribution Width 14.1, Platelet Count 243, Mean Platelet Volume 9.9, Immature Granulocyte % (Auto) 0, Neutrophils (%) (Auto) 64, Lymphocytes (%) (Auto) 21, Monocytes (%) (Auto) 11, Eosinophils (%) (Auto) 3, Basophils (%) (Auto) 0, Neutrophils # (Auto) 5.7, Lymphocytes # (Auto) 1.9, Monocytes # (Auto) 1.0, Eosinophils # (Auto) 0.3, Basophils # (Auto) 0.0, Immature Granulocyte # (Auto) 0.0, Sodium Level 137, Potassium Level 4.6, Chloride Level 97L, Carbon Dioxide Level 32, Anion Gap 8, Blood Urea Nitrogen 16, Creatinine 0.71, Estimat Glomerular Filtration Rate 86, BUN/Creatinine Ratio 23, Glucose Level 92, Calcium Level 8.6, Corrected Calcium 9.6, Magnesium Level 1.9, Total Bilirubin 0.8, Aspartate Amino Transf (AST/SGOT) 19, Alanine Aminotransferase (ALT/SGPT) 16, Alkaline Phosphatase 51, Total Protein 5.2L, Albumin 2.7L Laboratory Tests 03/01/22 05:24 03/02/22 05:38 Laboratory Tests 03/01/22 05:24 03/02/22 05:38 A/P: Assessment: Status post acute respiratory failure with CO2 narcosis - multi-factorial - Recent pneumonia, acute exacerbation of COPD - Obesity hypoventilation syndrome - Acute on chronic systolic CHF Pneumonia, recent discharge from [facility]. - Managed by primary care team Acute on chronic exacerbation of COPD - managed by medical services Status post pulmonary embolism during her hospitalization at [facility] earlier in February 2022 - Maintained on Eliquis Status post transient sinus tachycardia, most probably secondary to hypoxemia. - continue BB Chest pain - history of chronic stable angina. Denies any increase in chest pain. Coronary artery disease - Status post acute myocardial infarction in 2013 with total occlusion of the right coronary artery, underwent complex intervention with stent deployment to the right coronary artery using 3.5x30 mm integrity and 3.018 mm bare-metal stent without complication. Had multiple clots in the distal right coronary artery, - Had another cardiac catheterization in December 2014 resulted in deployment of another stent 3.012 mm integrity bare-metal stent with good result. Patient had bvby-di-mcqsvrji disease in the LAD and circumflex artery. - Cardiac catheterization done October 10, 2016 revealed patent stents in the LAD with mild disease distally, nonobstructive disease. 50 percent in-stent restenosis of the mid right coronary artery with FFR of 0.84. - Cardiac catheterization done 09/07/20 showing calcified and tortuous prox LAD with sig gradient by FFR, successful deployment of 2 overlapping stents using Emily stent prox 2.75x18 and midportion 2.5x23mm with excellent results. Patent stent in the RCA, mild dz in the circumflex. Most recent cardiac catheterization done 01/03/22 showing mild to moderate in- stent restenosis in the mid right coronary artery, small vessel disease at the distal right coronary artery nonobstructive disease. Patent stent in the pr oximal LAD with mild disease distally, nonobstructive disease, mild disease in the circumflex artery. Mildly elevated left ventricular end-diastolic pressure. Mild aortic valve stenosis noted by 2D echo in September 2021, PA pressure 15 to 20 mmHg. Continue to monitor Congestive heart failure, acute on chronic systolic - left ventricular systolic dysfunction due to her myocardial infarction in 2013 - most recent 2D Echo done September 2021 showing EF 60-65%, mild , PA 15-20mmHg. Ejection fraction during stress test was 38% Ventral hernia-status - post repair by Dr. Sun April 2015. Has recurrence of hernia, will refer to Dr. Rodriguez for further evaluation. Hypertension - controlled Hyperlipidemia - statin tx History of colon cancer - status post right hemicolectomy done by Dr. Alas. patient has been monitored and followed by Dr. Henriquez, did not see Dr. Henriquez since 2003 Obesity - patient was instructed on weight loss. Carotid dz - Bilateral nonobstructive carotid artery stenosis, last carotid ultrasound was done in October 2021 Plan: Continue current medication regimen Monitor lab Replace electrolytes as indicated We have reviewed Dr. Posey's notes EDISON NOGUERA MD FACP [facility] Mar 02, 2022 17:02
[2022-03-02 20:55] VITALS: BP 113/72
[2022-03-03] VITALS (7 sets, daily range): BP systolic 106–146; BP diastolic 74–92
--- NOTE | 2022-03-03 06:32 | Progress Note - Hospitalist ---
Subjective HPI/CC On Admission Date Seen by Provider: Mar 03, 2022 Time Seen by Provider: 11:00 CC: CO2 narcosis Subjective/Events-last exam Patient much improved Wean down oxygen Wear BiPAP + Looks really good Review of Systems General: Fatigue, Malaise Objective Exam Vital Signs Vital Signs Date Time Temp Pulse Resp B/P (MAP) Pulse Ox O2 Delivery O2 Flow Rate FiO2 03/03/22 11:47 36.3 77 19 119/81 (94) 95 High Flow N/C 6.00 03/03/22 08:00 50 Capillary Refill : General Appearance: No Apparent Distress, WD/WN, Chronically ill, Obese Respiratory: Lungs Clear, Normal Breath Sounds Cardiovascular: Regular Rate, Rhythm Neurologic/Psychiatric: Alert, Oriented x3, No Motor/Sensory Deficits, Normal Mood/Affect Results/Procedures Lab Laboratory Tests 03/03/22 06:37 Patient resulted labs reviewed. Assessment/Plan Assessment and Plan Assess & Plan/Chief Complaint Assessment: CO2 narcosis requiring BiPAP and ICU care Recent pulmonary embolism on anticoagulation Recent pneumonia Morbid obesity Obesity hypoventilation syndrome Plan: Wean oxygen Critical Care Critically Ill Patient EVAN GOLDEN DO Mar 03, 2022 06:32
[2022-03-03 07:09] LABS: BASOPHILS % (AUTO) 0 % (0-10); EOSINOPHILS # (AUTO) 0.2 10^3/uL (0.0-0.3); EOSINOPHILS % (AUTO) 3 % (0-10); HEMATOCRIT 41 % (35-52); LYMPHOCYTES # (AUTO) 2.1 10^3/uL (1.0-4.0); LYMPHOCYTES % (AUTO) 23 % (12-44); MEAN CORPUSCULAR HEMOGLOBIN 30 pg (25-34); MEAN CORPUSCULAR HGB CONC 32 g/dL (32-36); MEAN CORPUSCULAR VOLUME 96 fL (80-99); MEAN PLATELET VOLUME 9.9 fL (9.0-12.2); MONOCYTES % (AUTO) 11 % (0-12); NEUTROPHILS # (AUTO) 5.7 10^3/uL (1.8-7.8); NEUTROPHILS % (AUTO) 63 % (42-75); PLATELET COUNT 259 10^3/uL (130-400); WHITE BLOOD COUNT 9.1 10^3/uL (4.3-11.0)
[2022-03-03] MEDS: RT-ALBUTEROL/IPRATROPIUM 3 ML (DUONEB) VIAL INH SCH ×6 (07:15→21:54)
[2022-03-03 07:30] LABS: BILIRUBIN,TOTAL 0.9 MG/DL (0.1-1.0); CALCIUM 9.5 MG/DL (8.5-10.1); CREATININE SERUM 0.7 MG/DL (0.60-1.30); MAGNESIUM 2.2 MG/DL (1.6-2.4); POTASSIUM 4.6 MMOL/L (3.6-5.0); TOTAL PROTEIN 5.5 GM/DL (6.4-8.2)
[2022-03-03] MEDS: APIXABAN 5 MG (ELIQUIS) TABLET PO SCH ×2 (08:36→19:54)
[2022-03-03] MEDS: DOCUSATE SODIUM 100 MG (COLACE) CAP PO SCH ×2 (08:36→19:54)
[2022-03-03] MEDS: meTOprolol SUCCINATE 100 MG (TOPROL XL) TAB PO SCH (08:36)
[2022-03-03] MEDS: SENNOSIDES 8.6 MG (SENOKOT) TAB PO SCH ×2 (08:36→19:54)
[2022-03-03] MEDS: DICLOFENAC 1% GEL 100 GM (VOLTAREN) TUBE TOP SCH ×4 (08:36→19:55)
--- NOTE | 2022-03-03 12:39 | Physical Therapy Daily Note ---
PT Daily Note-Current Subjective Patient sitting in recliner having just finished lunch. Patient rates pain at 0/10 currently. Mental Status Patient Orientation: Person, Place, Time, Situation Attachments: Oxygen Transfers SCALE: Activities may be completed with or without assistive devices. 3-Fcauezpeez-hnrzwoz completes the activity by him/herself with no assistance from a helper. 5-Set-up or Clean-up Assistance-helper sets up or cleans up; patient completes activity. [place] assists only prior to or following the activity. 4-Supervision or Touching Assistance-helper provides verbal cues and/or touching/steadying and/or contact guard assistance as patient completes activity. Assistance may be provided throughout the activity or intermittently. 3-Partial/Moderate Assistance-helper does LESS THAN HALF the effort. [place] lifts, holds or supports trunk or limbs, but provides less than half the effort. 2-Substantial/Maximal Assistance-helper does MORE THAN HALF the effort. [place] lifts or holds trunk or limbs and provides more than half the effort. 9-Msylahshu-zltwgt does ALL the effort. Patient does none of the effort to complete the activity. Or, the assistance of 2 or more helpers is required for the patient to complete the activity. If activity was not attempted, code reason: 7-Patient Refused. 9-Not Applicable-not attempted and the patient did not perform the activity b efore the current illness, exacerbation or injury. 10-Not Attempted due to Environmental Limitations-(lack of equipment, weather restraints, etc.). 88-Not Attempted due to Medical Conditions or Safety Concerns. Sit to Stand (QC): 4 Chair/Qwg-ms-Vvpvb Xfer(QC): 4 Gait Training Does the Patient Walk?: Yes Distance: 200 Walk 10 feet (QC): 4 Walk 50 ft with 2 Turns(QC): 4 Walk 150 ft (QC): 4 Gait Persons Needed: 1 Gait Assistive Device: FWW Assessment Current Status: Fair Progress Patient has decreased O2 requirements and is currently on 6 L O2 via nasal canula. Patient performs all observed transfers with SBA. Patient ambulates 200 feet with FWW, with SBA and verbal cues for posture, safety and breathing. Patient in chair post treatment with all needs met, nursing notified, call light in hand, and all needs met. PT Jawbone Breaker Goals Jawbone Breaker Goals PT [facility] Goals Time Frame: Mar 17, 2022 Roll Left & Right (QC): 6 Sit to Lying (QC): 6 Lying-Sitting on Side/Bed(QC): 6 Sit to Stand (QC): 6 Chair/Zcv-cb-Dqohi Xfer(QC): 6 Toilet Transfer (QC): 6 Walk 10 feet (QC): 6 Walk 50ft with 2 Turns (QC): 6 Walk 150 ft (QC): 6 PT Plan Treatment/Plan Treatment Plan: Continue Plan of Care Treatment Plan: Bed Mobility, Education, Functional Activity John, Functional Strength, Gait, Safety, Therapeutic Exercise, Transfers Treatment Duration: Mar 17, 2022 Frequency: 6 times per week Estimated Hrs Per Day: .25 hour per day Patient and/or Family Agrees t: Yes Safety Risks/Education Patient Education: Gait Training Teaching Recipient: Patient Teaching Methods: Demonstration, Discussion Response to Teaching: Verbalize Understanding, Return Demonstration Time/GCodes Time In: 1223 Time Out: 1235 Total Billed Treatment Time: 12 Total Billed Treatment Visit, Gait CHEN SAAVEDRA PT Mar 03, 2022 12:39
--- NOTE | 2022-03-03 12:52 | Progress Note - Cardiology ---
Cardiology SOAP Progress Note Subjective: No cp or palp or syncope Gen weakness and malaise No n/v/d Objective: I&O/Vital Signs 03/03/22 03/03/22 03/03/22 03/03/22 04:00 07:37 07:51 08:00 Temp 36.2 36.2 Pulse 74 72 Resp 20 20 B/P (MAP) 126/84 (98) 130/85 (100) Pulse Ox 95 95 97 O2 Delivery NIV Bilevel High Flow N/C High Flow N/C Vapotherm O2 Flow Rate 50.00 8.00 8.00 25.00 FiO2 50 03/03/22 03/03/22 10:33 11:47 Temp 36.3 Pulse 77 Resp 19 B/P (MAP) 119/81 (94) Pulse Ox 97 95 O2 Delivery High Flow N/C High Flow N/C O2 Flow Rate 6.00 6.00 03/03/22 00:00 Intake Total 1505 ml Output Total 1400 ml Balance 105 ml Weight (Pounds): 242 Weight (Ounces): 2.0 Weight (Calculated Kilograms): 109.504911 Constitutional: AAO x 3, well-developed, well-nourished Respiratory: No accessory muscle use, No respiratory distress; chest expansion is symmetric, chest is bilaterally symmetric, other (diminished lower lobes bilat) Cardiovascular: regular rate-rhythm; No JVD; S1 and S2 Gastrointestional: No tender; soft, round, audible bowel sounds Extremities: other (mod bilat LE swelling) Neurologic/Psychiatric: grossly intact (moves all extremities) Skin: No rash on exposed areas, No ulcerations on exposed areas Results/Procedures: Labs Laboratory Tests 03/03/22 06:37: White Blood Count 9.1, Red Blood Count 4.30, Hemoglobin 13.0, Hematocrit 41, Mean Corpuscular Volume 96, Mean Corpuscular Hemoglobin 30, Mean Corpuscular Hemoglobin Concent 32, Red Cell Distribution Width 14.3, Platelet Count 259, Mean Platelet Volume 9.9, Immature Granulocyte % (Auto) 0, Neutrophils (%) (Auto) 63, Lymphocytes (%) (Auto) 23, Monocytes (%) (Auto) 11, Eosinophils (%) (Auto) 3, Basophils (%) (Auto) 0, Neutrophils # (Auto) 5.7, Lymphocytes # (Auto) 2.1, Monocytes # (Auto) 1.0, Eosinophils # (Auto) 0.2, Basophils # (Auto) 0.0, Immature Granulocyte # (Auto) 0.0, Sodium Level 137, Potassium Level 4.6, Chloride Level 95L, Carbon Dioxide Level 32, Anion Gap 10, Blood Urea Nitrogen 17, Creatinine 0.70, Estimat Glomerular Filtration Rate 88, BUN/Creatinine Ratio 24, Glucose Level 90, Calcium Level 9.5, Corrected Calcium 10.3H, Magnesium Level 2.2, Total Bilirubin 0.9, Aspartate Amino Transf (AST/SGOT) 21, Alanine Aminotransferase (ALT/SGPT) 18, Alkaline Phosphatase 50, Total Protein 5.5L, Albumin 3.0L Laboratory Tests 03/02/22 05:38 03/03/22 06:37 A/P: Assessment: Status post acute respiratory failure with CO2 narcosis - multi-factorial - Recent pneumonia, acute exacerbation of COPD - Obesity hypoventilation syndrome - Acute on chronic systolic CHF Pneumonia, recent discharge from [facility]. - Managed by primary care team Acute on chronic exacerbation of COPD - managed by medical services Status post pulmonary embolism during her hospitalization at [facility] earlier in February 2022 - Maintained on Eliquis Status post transient sinus tachycardia, most probably secondary to hypoxemia. - continue BB Chest pain - history of chronic stable angina. Denies any increase in chest pain. Coronary artery disease - Status post acute myocardial infarction in 2013 with total occlusion of the right coronary artery, underwent complex intervention with stent deployment to the right coronary artery using 3.5x30 mm integrity and 3.018 mm bare-metal stent without complication. Had multiple clots in the distal right coronary artery, - Had another cardiac catheterization in December 2014 resulted in deployment of another stent 3.012 mm integrity bare-metal stent with good result. Patient had uwxr-yq-uqasjnsr disease in the LAD and circumflex artery. - Cardiac catheterization done October 10, 2016 revealed patent stents in the LAD with mild disease distally, nonobstructive disease. 50 percent in-stent restenosis of the mid right coronary artery with FFR of 0.84. - Cardiac catheterization done 09/07/20 showing calcified and tortuous prox LAD with sig gradient by FFR, successful deployment of 2 overlapping stents using Emily stent prox 2.75x18 and midportion 2.5x23mm with excellent results. Patent stent in the RCA, mild dz in the circumflex. Most recent cardiac catheterization done 01/03/22 showing mild to moderate in- stent restenosis in the mid right coronary artery, small vessel disease at the distal right coronary artery nonobstructive disease. Patent stent in the proximal LAD with mild disease distally, nonobstructive disease, mild disease in the circumflex artery. Mildly elevated left ventricular end-diastolic pressure. Mild aortic valve stenosis noted by 2D echo in September 2021, PA pressure 15 to 20 mmHg. Continue to monitor Congestive heart failure, acute on chronic systolic - left ventricular systolic dysfunction due to her myocardial infarction in 2013 - most recent 2D Echo done September 2021 showing EF 60-65%, mild , PA 15-20mmHg. Ejection fraction during stress test was 38% Ventral hernia-status - post repair by Dr. Sun April 2015. Has recurrence of hernia, will refer to Dr. Rodriguez for further evaluation. Hypertension - controlled Hyperlipidemia - statin tx History of colon cancer - status post right hemicolectomy done by Dr. Alas. patient has been monitored and followed by Dr. Henriquez, did not see Dr. Henriquez since 2004 Obesity Carotid dz - Bilateral nonobstructive carotid artery stenosis, last carotid ultrasound was done in October 2021 Plan: Continue current medication regimen Monitor lab Replace electrolytes as indicated EDISON NOGUERA MD FACP FAC CCDS Mar 03, 2022 12:52
[2022-03-04] MEDS: RT-ALBUTEROL/IPRATROPIUM 3 ML (DUONEB) VIAL INH SCH ×2 (02:32→20:57)
[2022-03-04 03:50] VITALS: BP 106/65
[2022-03-04 05:48] LABS: BASOPHILS % (AUTO) 0 % (0-10); EOSINOPHILS # (AUTO) 0.3 10^3/uL (0.0-0.3); EOSINOPHILS % (AUTO) 3 % (0-10); HEMATOCRIT 41 % (35-52); HEMOGLOBIN 12.7 g/dL (11.5-16.0); LYMPHOCYTES # (AUTO) 1.7 10^3/uL (1.0-4.0); LYMPHOCYTES % (AUTO) 19 % (12-44); MEAN CORPUSCULAR HEMOGLOBIN 30 pg (25-34); MEAN CORPUSCULAR HGB CONC 31 g/dL (32-36); MEAN CORPUSCULAR VOLUME 97 fL (80-99); MEAN PLATELET VOLUME 9.5 fL (9.0-12.2); MONOCYTES # (AUTO) 1.1 10^3/uL (0.0-1.0); MONOCYTES % (AUTO) 13 % (0-12); NEUTROPHILS # (AUTO) 5.8 10^3/uL (1.8-7.8); NEUTROPHILS % (AUTO) 65 % (42-75); PLATELET COUNT 229 10^3/uL (130-400)
[2022-03-04 05:59] LABS: ALBUMIN 2.9 GM/DL (3.2-4.5); POTASSIUM 4.8 MMOL/L (3.6-5.0)
[2022-03-04 06:00] LABS: CALCIUM 9.5 MG/DL (8.5-10.1)
[2022-03-04 06:02] LABS: TOTAL PROTEIN 5.6 GM/DL (6.4-8.2)
[2022-03-04 06:03] VITALS: BP 106/65
[2022-03-04 06:03] LABS: BILIRUBIN,TOTAL 0.8 MG/DL (0.1-1.0)
[2022-03-04 06:05] LABS: CREATININE SERUM 0.69 MG/DL (0.60-1.30)
--- NOTE | 2022-03-04 07:31 | Progress Note - Hospitalist ---
Subjective HPI/CC On Admission Date Seen by Provider: Mar 04, 2022 Time Seen by Provider: 11:00 CC: CO2 narcosis Subjective/Events-last exam Patient doing a lot better Using oxygen Used BiPAP last night Review of Systems General: Fatigue, Malaise Objective Exam Vital Signs Vital Signs Date Time Temp Pulse Resp B/P (MAP) Pulse Ox O2 Delivery O2 Flow Rate FiO2 03/04/22 16:45 36.4 86 19 110/62 (78) 97 NIV Bilevel 50.00 03/03/22 08:00 50 Capillary Refill : General Appearance: No Apparent Distress, WD/WN, Chronically ill, Obese Respiratory: No Accessory Muscle Use, No Respiratory Distress, Decreased Breath Sounds Cardiovascular: Regular Rate, Rhythm Neurologic/Psychiatric: Alert, Oriented x3, No Motor/Sensory Deficits, Normal Mood/Affect Results/Procedures Lab Laboratory Tests 03/04/22 05:37 Patient resulted labs reviewed. Assessment/Plan Assessment and Plan Assess & Plan/Chief Complaint Assessment: CO2 narcosis requiring BiPAP and ICU care Recent pulmonary embolism on anticoagulation Recent pneumonia Morbid obesity Obesity hypoventilation syndrome Plan: Wean oxygen Critical Care Critically Ill Patient EVAN GOLDEN DO Mar 04, 2022 07:31
[2022-03-04 07:58] VITALS: BP 116/78
[2022-03-04] MEDS: APIXABAN 5 MG (ELIQUIS) TABLET PO SCH ×2 (08:42→20:28)
[2022-03-04] MEDS: meTOprolol SUCCINATE 100 MG (TOPROL XL) TAB PO SCH (08:42)
[2022-03-04] MEDS: DICLOFENAC 1% GEL 100 GM (VOLTAREN) TUBE TOP SCH ×4 (08:43→20:29)
[2022-03-04] MEDS: DOCUSATE SODIUM 100 MG (COLACE) CAP PO SCH ×2 (08:43→20:28)
[2022-03-04] MEDS: SENNOSIDES 8.6 MG (SENOKOT) TAB PO SCH ×2 (08:43→20:28)
[2022-03-04] MEDS ORDERED: RT-ALBUTEROL/IPRATROPIUM 3 ML (DUONEB) VIAL INH SCH (09:00)
[2022-03-04 11:35] VITALS: BP 107/79
--- NOTE | 2022-03-04 13:47 | Progress Note - Cardiology ---
Cardiology SOAP Progress Note Subjective: Some dizziness this am lasting a second or two No cp or palp or syncope Shortness of breath with activity, but is better than before No n/v Objective: I&O/Vital Signs 03/04/22 03/04/22 03/04/22 03/04/22 02:32 03:50 06:03 07:39 Temp 36.4 36.4 Pulse 73 69 69 Resp 22 20 B/P (MAP) 106/65 (79) Pulse Ox 98 94 94 94 O2 Delivery NIV Bilevel High Flow N/C O2 Flow Rate 50.00 50.00 5.00 03/04/22 03/04/22 03/04/22 07:58 08:00 11:35 Temp 36.2 36.6 Pulse 76 72 Resp 18 18 B/P (MAP) 116/78 (91) 107/79 (88) Pulse Ox 94 92 O2 Delivery High Flow N/C O2 Flow Rate 5.00 03/04/22 00:00 Intake Total 1800 ml Output Total 850 ml Balance 950 ml Weight (Pounds): 242 Weight (Ounces): 2.0 Weight (Calculated Kilograms): 109.023220 Constitutional: AAO x 3, well-developed, well-nourished Respiratory: No accessory muscle use, No respiratory distress; chest expansion is symmetric, chest is bilaterally symmetric, other (diminished lower lobes bilat) Cardiovascular: regular rate-rhythm; No JVD; S1 and S2 Gastrointestional: No tender; soft, round, audible bowel sounds Extremities: other (mod bilat LE swelling) Neurologic/Psychiatric: other (moves all limbs equally) Skin: No rash on exposed areas, No ulcerations on exposed areas Results/Procedures: Labs Laboratory Tests 03/04/22 05:37: White Blood Count 9.0, Red Blood Count 4.22, Hemoglobin 12.7, Hematocrit 41, Mean Corpuscular Volume 97, Mean Corpuscular Hemoglobin 30, Mean Corpuscular Hemoglobin Concent 31L, Red Cell Distribution Width 14.1, Platelet Count 229, Mean Platelet Volume 9.5, Immature Granulocyte % (Auto) 0, Neutrophils (%) (Auto) 65, Lymphocytes (%) (Auto) 19, Monocytes (%) (Auto) 13H, Eosinophils (%) (Auto) 3, Basophils (%) (Auto) 0, Neutrophils # (Auto) 5.8, Lymphocytes # (Auto) 1.7, Monocytes # (Auto) 1.1H, Eosinophils # (Auto) 0.3, Basophils # (Auto) 0.0, Immature Granulocyte # (Auto) 0.0, Sodium Level 137, Potassium Level 4.8, Chloride Level 95L, Carbon Dioxide Level 32, Anion Gap 10, Blood Urea Nitrogen 18, Creatinine 0.69, Estimat Glomerular Filtration Rate 88, BUN/Creatinine Ratio 26, Glucose Level 104, Calcium Level 9.5, Corrected Calcium 10.4H, Magnesium Level 2.0, Total Bilirubin 0.8, Aspartate Amino Transf (AST/SGOT) 23, Alanine Aminotransferase (ALT/SGPT) 15, Alkaline Phosphatase 53, Total Protein 5.6L, Albumin 2.9L Laboratory Tests 03/03/22 06:37 03/04/22 05:37 A/P: Assessment: Status-post acute respiratory failure with CO2 narcosis - multi-factorial - Recent pneumonia, acute exacerbation of COPD - Obesity hypoventilation syndrome - Acute on chronic systolic CHF Pneumonia, recent discharge from [facility]. - Managed by primary care team Acute on chronic exacerbation of COPD - managed by medical services Status post pulmonary embolism during her hospitalization at [facility] earlier in February 2022 - Maintained on Eliquis Status post transient sinus tachycardia, most probably secondary to hypoxemia. - continue BB Chest pain - history of chronic stable angina. Denies any increase in chest pain. Coronary artery disease - Status post acute myocardial infarction in 2013 with total occlusion of the right coronary artery, underwent complex intervention with stent deployment to the right coronary artery using 3.5x30 mm integrity and 3.018 mm bare-metal stent without complication. Had multiple clots in the distal right coronary artery, - Had another cardiac catheterization in December 2014 resulted in deployment of another stent 3.012 mm integrity bare-metal stent with good result. Patient had soui-fm-pedqdedm disease in the LAD and circumflex artery. - Cardiac catheterization done October 10, 2016 revealed patent stents in the LAD with mild disease distally, nonobstructive disease. 50 percent in-stent restenosis of the mid right coronary artery with FFR of 0.84. - Cardiac catheterization done 09/07/20 showing calcified and tortuous prox LAD with sig gradient by FFR, successful deployment of 2 overlapping stents using Emily stent prox 2.75x18 and midportion 2.5x23mm with excellent results. Patent stent in the RCA, mild dz in the circumflex. Most recent cardiac catheterization done 01/03/22 showing mild to moderate in- stent restenosis in the mid right coronary artery, small vessel disease at the d istal right coronary artery nonobstructive disease. Patent stent in the proximal LAD with mild disease distally, nonobstructive disease, mild disease in the circumflex artery. Mildly elevated left ventricular end-diastolic pressure. Mild aortic valve stenosis noted by 2D echo in September 2021, PA pressure 15 to 20 mmHg. Continue to monitor Congestive heart failure, acute on chronic systolic - left ventricular systolic dysfunction due to her myocardial infarction in 2013 - most recent 2D Echo done September 2021 showing EF 60-65%, mild , PA 15-20mmHg. Ejection fraction during stress test was 38% Ventral hernia-status - post repair by Dr. Sun April 2015. Has recurrence of hernia, will refer to Dr. Rodriguez for further evaluation. Hypertension - controlled Hyperlipidemia - statin tx History of colon cancer - status post right hemicolectomy done by Dr. Alas. patient has been monitor ed and followed by Dr. Henriquez, did not see Dr. Henriquez since 2003 Obesity Carotid dz - Bilateral nonobstructive carotid artery stenosis, last carotid ultrasound was done in October 2021 Plan: Continue current medication regimen Monitor labs EDISON NOGUERA MD FACP FAC CCDS Mar 04, 2022 13:47
[2022-03-04 16:45] VITALS: BP 110/62
[2022-03-04 20:17] VITALS: BP 161/80
[2022-03-05] VITALS (7 sets, daily range): BP systolic 106–132; BP diastolic 55–86
[2022-03-05] MEDS: RT-ALBUTEROL/IPRATROPIUM 3 ML (DUONEB) VIAL INH SCH ×6 (02:43→21:14)
[2022-03-05 05:41] LABS: BASOPHILS % (AUTO) 1 % (0-10); EOSINOPHILS # (AUTO) 0.2 10^3/uL (0.0-0.3); EOSINOPHILS % (AUTO) 3 % (0-10); HEMATOCRIT 40 % (35-52); HEMOGLOBIN 12.3 g/dL (11.5-16.0); LYMPHOCYTES % (AUTO) 25 % (12-44); MEAN CORPUSCULAR HEMOGLOBIN 29 pg (25-34); MEAN CORPUSCULAR HGB CONC 31 g/dL (32-36); MEAN CORPUSCULAR VOLUME 96 fL (80-99); MEAN PLATELET VOLUME 9.5 fL (9.0-12.2); MONOCYTES # (AUTO) 1.1 10^3/uL (0.0-1.0); MONOCYTES % (AUTO) 13 % (0-12); NEUTROPHILS # (AUTO) 4.7 10^3/uL (1.8-7.8); NEUTROPHILS % (AUTO) 58 % (42-75); PLATELET COUNT 238 10^3/uL (130-400); WHITE BLOOD COUNT 8.1 10^3/uL (4.3-11.0)
[2022-03-05 05:55] LABS: ALBUMIN 2.8 GM/DL (3.2-4.5)
[2022-03-05 05:57] LABS: CALCIUM 9.2 MG/DL (8.5-10.1)
[2022-03-05 05:58] LABS: TOTAL PROTEIN 5.3 GM/DL (6.4-8.2)
[2022-03-05 05:59] LABS: BILIRUBIN,TOTAL 0.6 MG/DL (0.1-1.0)
[2022-03-05 06:01] LABS: CREATININE SERUM 0.98 MG/DL (0.60-1.30)
[2022-03-05 06:04] LABS: MAGNESIUM 2.1 MG/DL (1.6-2.4)
[2022-03-05] MEDS: SENNOSIDES 8.6 MG (SENOKOT) TAB PO SCH ×2 (07:51→20:50)
[2022-03-05] MEDS: APIXABAN 5 MG (ELIQUIS) TABLET PO SCH ×2 (07:51→20:50)
[2022-03-05] MEDS: DOCUSATE SODIUM 100 MG (COLACE) CAP PO SCH ×2 (07:51→20:50)
[2022-03-05] MEDS: meTOprolol SUCCINATE 100 MG (TOPROL XL) TAB PO SCH (07:51)
[2022-03-05] MEDS: DICLOFENAC 1% GEL 100 GM (VOLTAREN) TUBE TOP SCH ×4 (07:52→20:50)
--- NOTE | 2022-03-05 09:47 | Physical Therapy Daily Note ---
PT Daily Note-Current Subjective Patient agrees to PT. Mental Status Patient Orientation: Normal For Age Attachments: Oxygen (10L HF) Transfers SCALE: Activities may be completed with or without assistive devices. 3-Iclklpmhxt-ejjdrpw completes the activity by him/herself with no assistance from a helper. 5-Set-up or Clean-up Assistance-helper sets up or cleans up; patient completes activity. [place] assists only prior to or following the activity. 4-Supervision or Touching Assistance-helper provides verbal cues and/or touching/steadying and/or contact guard assistance as patient completes activity. Assistance may be provided throughout the activity or intermittently. 3-Partial/Moderate Assistance-helper does LESS THAN HALF the effort. [place] lifts, holds or supports trunk or limbs, but provides less than half the effort. 2-Substantial/Maximal Assistance-helper does MORE THAN HALF the effort. [place] lifts or holds trunk or limbs and provides more than half the effort. 8-[place] does ALL the effort. Patient does none of the effort to complete the activity. Or, the assistance of 2 or more helpers is required for the patient to complete the activity. If activity was not attempted, code reason: 7-Patient Refused. 9-Not Applicable-not attempted and the patient did not perform the activity before the current illness, exacerbation or injury. 10-Not Attempted due to Environmental Limitations-(lack of equipment, weather restraints, etc.). 88-Not Attempted due to Medical Conditions or Safety Concerns. Sit to Stand (QC): 6 Gait Training Distance: 300' Walk 10 feet (QC): 6 Walk 50 ft with 2 Turns(QC): 6 Walk 150 ft (QC): 6 Gait Assistive Device: FWW safe and functional with no deviation Assessment Patient declined exercises and is going to conserve her energy to have a shower. Patient improved with pulmonary function with display of O2 HF NC 10 L. Continue to address pulmonary function with functional mobility. PT Clean Room Assembler Goals Skilled Nursing Goals PT Clean Room Assembler Goals Time Frame: Mar 17, 2022 Roll Left & Right (QC): 6 Sit to Lying (QC): 6 Lying-Sitting on Side/Bed(QC): 6 Sit to Stand (QC): 6 Chair/Ibj-sv-Maeaf Xfer(QC): 6 Toilet Transfer (QC): 6 Walk 10 feet (QC): 6 Walk 50ft with 2 Turns (QC): 6 Walk 150 ft (QC): 6 PT Plan Treatment/Plan Treatment Plan: Continue Plan of Care Treatment Plan: Bed Mobility, Education, Functional Activity John, Functional Strength, Gait, Safety, Therapeutic Exercise, Transfers Treatment Duration: Mar 17, 2022 Frequency: 6 times per week Estimated Hrs Per Day: .25 hour per day Patient and/or Family Agrees t: Yes Time/GCodes Time In: 917 Time Out: 927 Total Billed Treatment Time: 10 Total Billed Treatment 1 visit FA 10 min JACKY PEOPLES PT Mar 05, 2022 09:47
[2022-03-05] MEDS: OXYBUTYNIN (DITROPAN) 5 MG TAB PO SCH ×2 (12:41→20:50)
--- NOTE | 2022-03-05 13:12 | Cardiology Progress Note ---
Subjective Date Seen by Provider: Mar 05, 2022 Time Seen by Provider: 13:11 Subjective/Events-last exam Patient was seen and evaluated, feeling better. Still requiring high flow oxygen. Review of Systems General: No Chills, No Night Sweats; Fatigue; No Malaise, No Appetite, No Other HEENT: No Head Aches, No Visual Changes, No Eye Pain, No Ear Pain, No Dysphasia, No Sinus Congestion, No Post Nasal Drip, No Sore Throat, No Other Pulmonary: Dyspnea; No Cough, No Pleuritic Chest Pain, No Other Cardiovascular: No: Chest Pain, Palpitations, Orthopnea, Paroxysmal Noc. Dyspnea, Edema, Lt Headedness, Other Objective-Cardiology Exam Last Set of Vital Signs Vital Signs 03/03/22 03/05/22 08:00 11:40 Temp 36.4 Pulse 71 Resp 18 B/P (MAP) 109/55 (73) Pulse Ox 99 O2 Delivery High Flow N/C O2 Flow Rate 15.00 FiO2 50 I&O Intake and Output 03/05/22 00:00 Intake Total 1040 ml Output Total 1052 ml Balance -12 ml Intake Oral 1040 ml Output Urine Total 1052 ml # Voids 1 # Bowel Movements 2 General: Alert, Oriented X3, Cooperative HEENT: Atraumatic, PERRLA Neck: Supple, No JVD, No Thyromegaly Lungs: Normal Air Movement, Other (Bilateral rhonchi) Heart: Regular Rate, Normal S1, Normal S2, Other (Systolic murmur at the left sternal border) Abdomen: Normal Bowel Sounds, Soft, No Tenderness, No Hepatosplenomegaly, No Masses Extremities: No Clubbing, No Cyanosis, No Edema, Normal Pulses, No Tenderness/Swelling Skin: No Rashes, No Breakdown, No Significant Lesion Neuro: Normal Speech, Strength at 5/5 X4 Ext, Normal Tone, Sensation Intact Psych/Mental Status: Mental Status NL, Mood NL Results Lab Laboratory Tests 03/05/22 05:36 A/P-Cardiology Admission Diagnosis Acute respiratory failure Coronary artery disease Hypertension Hyperlipidemia. Assessment/Plan Status post acute respiratory failure with CO2 narcosis Recent pneumonia, acute exacerbation of COPD Obesity hypoventilation syndrome Feeling better. Still requiring high flow oxygen Had few episodes of dizziness yesterday, because reporting improvement. Pneumonia, recent discharge from [facility]. Managed by primary care team COPD, acute exacerbation. Managed by medical team Status post pulmonary embolism during her hospitalization at [facility] earlier in February 2022 Maintained on Eliquis Status post transient sinus tachycardia, most probably secondary to hypoxemia. Most of the day yesterday heart rate was in the 80s, metoprolol was restarted Tolerating medication well Borderline hypotension, continue to monitor blood pressure Chest pain, history of chronic stable angina. Denies any increase in chest pain. Continue to monitor Coronary artery disease Status post acute myocardial infarction in 2013 with total occlusion of the right coronary artery, underwent complex intervention with stent deployment to the right coronary artery using 3.5x30 mm integrity and 3.018 mm bare-metal stent without complication. Had multiple clots in the distal right coronary artery, Had another cardiac catheterization in December 2014 resulted in deployment of another stent 3.012 mm integrity bare-metal stent with good result. Patient had [id number] disease in the LAD and circumflex artery. Cardiac catheterization done October 10, 2016 revealed patent stents in the LAD with mild disease distally, nonobstructive disease. 50 percent in-stent restenosis of the mid right coronary artery with FFR of 0.84. Cardiac catheterization done 09/07/20 showing calcified and tortuous prox LAD with sig gradient by FFR, successful deployment of 2 overlapping stents using Emily stent prox 2.75x18 and midportion 2.5x23mm with excellent results. Patent stent in the RCA, mild dz in the circumflex. Most recent cardiac catheterization done 01/03/22 showing mild to moderate in- stent restenosis in the mid right coronary artery, small vessel disease at the distal right coronary artery nonobstructive disease. Patent stent in the proximal LAD with mild disease distally, nonobstructive disease, mild disease in the circumflex artery. Mildly elevated left ventricular end-diastolic pressure. Mild aortic valve stenosis noted by 2D echo in September 2021, PA pressure 15 to 20 mmHg. Continue to monitor Congestive heart failure, acute on chronic left ventricular systolic dysfunction due to her myocardial infarction, most recent 2D Echo done September 2021 showing EF 60-65%, mild , PA 15-20mmHg. Ejection fraction during stress test was 38% Ventral hernia-status post repair by Dr. Sun April 2015. Has recurrence of hernia, will refer to Dr. Rodriguez for further evaluation. Hypertension, controlled, continue to monitor. Hyperlipidemia, well controlled, continue to monitor. History of colon cancer, status post right hemicolectomy done by Dr. Alas. patient has been monitored and followed by Dr. Henriquez, did not see Dr. Henriquez since 2003 Obesity, patient was instructed on weight loss. Bilateral nonobstructive carotid artery stenosis, last carotid ultrasound was done in October 2021 PETROS ANTHONY MD Mar 05, 2022 13:12
--- NOTE | 2022-03-05 14:33 | Occupational Ther Daily Note ---
OT Current Status-Daily Note Subjective Pt up in recliner, agreeable to OT Tx. Mental Status/Objective Patient Orientation: Person, Place, Situation Attachments: Oxygen (HF) ADL-Treatment Therapy Code Descriptions/Definitions Functional [place] Measure: 0=Not Assessed/NA 4=Minimal Assistance 1=Total Assistance 5=Supervision or Setup 2=Maximal Assistance 6=Modified [place] 3=Moderate Assistance 7=Complete IndependenceSCALE: Activities may be completed with or without assistive devices. 8-Xzrtlddyhx-asvojce completes the activity by him/herself with no assistance from a helper. 5-Set-up or Clean-up Assistance-helper sets up or cleans up; patient completes activity. [place] assists only prior to or following the activity. 4-Supervision or Touching Assistance-helper provides verbal cues and/or touchin g/steadying and/or contact guard assistance as patient completes activity. Assistance may be provided throughout the activity or intermittently. 3-Partial/Moderate Assistance-helper does LESS THAN HALF the effort. [place] lifts, holds or supports trunk or limbs, but provides less than half the effort. 2-Substantial/Maximal Assistance-helper does MORE THAN HALF the effort. [place] lifts or holds trunk or limbs and provides more than half the effort. 6-Qntbdkena-vkihgk does ALL the effort. Patient does none of the effort to complete the activity. Or, the assistance of 2 or more helpers is required for the patient to complete the activity. If activity was not attempted, code reason: 7-Patient Refused. 9-Not Applicable-not attempted and the patient did not perform the activity before the current illness, exacerbation or injury. 10-Not Attempted due to Environmental Limitations-(lack of equipment, weather restraints, etc.). 88-Not Attempted due to Medical Conditions or Safety Concerns. Shower/Bathe Self (QC): 4 (Pt reports able to wash all parts of shower, assistance with washing back and supervision throughout task due to standing for majority of shower.) Toileting Hygiene (QC): 6 (Pt able to manage gown and wipe buttocks thoroughly) Toilet Transfer (QC): 6 (IND to/from BSC. ) Other Treatment Pt up in recliner, agreeable to UE exercises in order to increase BUE Strength and activity tolerance. Pt completed x10 reps shoulder flexion (to approx 80 degrees). Pt then reports need to use BSC. Pt transferred to/from BS independently and completed toileting, able to wipe thoroughly. Pt's family member asked about AE for toileting, OT educated family on options available. Pt also educated on energy conservation techniques, she verbalized understanding. Post tx, pt in recliner, call light in reach and all needs met Education OT Patient Education: Correct positioning, Energy conservation, Modified ADL techniques, Progress toward Goal/Update tx plan, Purpose of tx/functional activities, Rehab process Teaching Recipient: Patient Teaching Methods: Discussion Response to Teaching: Verbalize Understanding OT Field Crew Chief Goals Field Crew Chief Goals Time Frame: Mar 16, 2022 Eating (QC): 6 Toileting Hygiene (QC): 4 Shower/Bathe Self (QC): 4 Upper Body Dressing (QC): 5 Lower Body Dressing (QC): 4 On/Off Footwear (QC): 4 Additional Goals: 1-Demonstrate ADL Tasks, 2-Verbalize Understanding, 3-ImproveStrength/John 1=Demonstrate adherence to instructed precautions during ADL tasks. 2=Patient will verbalize/demonstrate understanding of assistive devices/modifications for ADL. 3=Patient will improve strength/tolerance for activity to enable patient to perform ADL's. OT Education/Plan Problem List/Assessment Assessment: Decreased Activ Tolerance, Decreased UE Strength, Impaired I ADL's, Impaired Self-Care Skills Pt would benefit from skilled OT services in order to increase BUE Strength and activity tolerance, and increase safety and independence with ADLs and functional mobility in order to maximize LOF for safe return home. Discharge Recommendations Plan/Recommendations: Continue POC Treatment Plan/Plan of Care Patient would benefit from OT for education, treatment and training to promote independence in ADL's, mobility, safety and/or upper extremity function for ADL's. Plan of Care: ADL Retraining, Functional Mobility, UE Funct Exercise/Act Treatment Duration: Mar 16, 2022 Frequency: 3 times per week (3-5 times per week) Rehab Potential: Fair Time/GCodes Start Time: 13:34 Stop Time: 13:53 Total Time Billed (hr/min): 19 Billed Treatment Time 1, ADL ANITA LÓPEZ OT Mar 05, 2022 14:33
--- NOTE | 2022-03-05 15:40 | Progress Note ---
Subjective Subjective/Events-last exam Patient states that she is feeling better this AM but she had an episode of shortness of breath last night. Tolerating exercise and PO diet. Review of Systems General: Malaise Pulmonary: Dyspnea; No Cough Gastrointestinal: No: Nausea, Vomiting, Abdominal Pain, Diarrhea, Constipation Neurological: Weakness, Incoordination; No: Confusion Objective Exam Last Set of Vital Signs Vital Signs Date Time Temp Pulse Resp B/P (MAP) Pulse Ox O2 Delivery O2 Flow Rate FiO2 03/05/22 15:01 98 High Flow N/C 6.00 03/05/22 11:40 36.4 71 18 109/55 (73) 03/03/22 08:00 50 Capillary Refill : I&O Intake and Output 03/05/22 00:00 Intake Total 1040 ml Output Total 1052 ml Balance -12 ml Intake Oral 1040 ml Output Urine Total 1052 ml # Voids 1 # Bowel Movements 2 General: Alert, Oriented X3, No Acute Distress HEENT: Mucous Memb Moist/[place] Lungs: Clear to Auscultation, Normal Air Movement Heart: Regular Rate, No Murmurs Abdomen: Normal Bowel Sounds, Soft, No Tenderness, No Masses Extremities: Other (1+ pitting edema equal bilaterally) Neuro: Normal Speech Results/Procedures Lab Laboratory Tests 03/05/22 05:36: White Blood Count 8.1, Red Blood Count 4.18, Hemoglobin 12.3, Hematocrit 40, Mean Corpuscular Volume 96, Mean Corpuscular Hemoglobin 29, Mean Corpuscular Hemoglobin Concent 31L, Red Cell Distribution Width 14.3, Platelet Count 238, Mean Platelet Volume 9.5, Immature Granulocyte % (Auto) 0, Neutrophils (%) (Auto) 58, Lymphocytes (%) (Auto) 25, Monocytes (%) (Auto) 13H, Eosinophils (%) (Auto) 3, Basophils (%) (Auto) 1, Neutrophils # (Auto) 4.7, Lymphocytes # (Auto) 2.0, Monocytes # (Auto) 1.1H, Eosinophils # (Auto) 0.2, Basophils # (Auto) 0.0, Immature Granulocyte # (Auto) 0.0, Sodium Level 137, Potassium Level 5.0, Chloride Level 95L, Carbon Dioxide Level 34H, Anion Gap 8, Blood Urea Nitrogen 24H, Creatinine 0.98, Estimat Glomerular Filtration Rate 59, BUN/Creatinine Ratio 24, Glucose Level 93, Calcium Level 9.2, Corrected Calcium 10.2H, Magnesium Level 2.1, Total Bilirubin 0.6, Aspartate Amino Transf (AST/SGOT) 21, Alanine Aminotransferase (ALT/SGPT) 14, Alkaline Phosphatase 49, Total Protein 5.3L, Albumin 2.8L Assessment/Plan Assessment/Plan (1) Acute and chronic respiratory failure with hypercapnia Status: Acute Assessment & Plan: 03/05: Continue to titrate oxygen as tolerated, MAT protocol (2) CO2 narcosis Status: Acute (3) Pulmonary embolism Status: Acute Assessment & Plan: 03/05: Continue OAC Qualifiers: Qualified Codes: I26.99 - Other pulmonary embolism without acute cor pulmonale (4) COPD (chronic obstructive pulmonary disease) Status: Chronic Qualifiers: Qualified Codes: J44.9 - Chronic obstructive pulmonary disease, unspecified (5) CAD (coronary artery disease) Status: Chronic Qualifiers: Qualified Codes: I25.10 - Atherosclerotic heart disease of [place] coronary artery without angina pectoris (6) Obesity hypoventilation syndrome Status: Chronic JULIO CESAR FLORES MD Mar 05, 2022 15:40
[2022-03-06] MEDS: RT-ALBUTEROL/IPRATROPIUM 3 ML (DUONEB) VIAL INH SCH ×2 (02:19→07:50)
[2022-03-06 04:27] VITALS: BP 120/74
[2022-03-06 05:49] LABS: BASOPHILS % (AUTO) 1 % (0-10); EOSINOPHILS # (AUTO) 0.3 10^3/uL (0.0-0.3); EOSINOPHILS % (AUTO) 3 % (0-10); HEMATOCRIT 41 % (35-52); HEMOGLOBIN 12.8 g/dL (11.5-16.0); LYMPHOCYTES # (AUTO) 1.8 10^3/uL (1.0-4.0); LYMPHOCYTES % (AUTO) 22 % (12-44); MEAN CORPUSCULAR HEMOGLOBIN 30 pg (25-34); MEAN CORPUSCULAR HGB CONC 31 g/dL (32-36); MEAN CORPUSCULAR VOLUME 98 fL (80-99); MEAN PLATELET VOLUME 9.6 fL (9.0-12.2); MONOCYTES # (AUTO) 1.1 10^3/uL (0.0-1.0); MONOCYTES % (AUTO) 13 % (0-12); NEUTROPHILS # (AUTO) 5.1 10^3/uL (1.8-7.8); NEUTROPHILS % (AUTO) 61 % (42-75); PLATELET COUNT 252 10^3/uL (130-400); WHITE BLOOD COUNT 8.3 10^3/uL (4.3-11.0)
[2022-03-06 06:04] LABS: POTASSIUM 4.9 MMOL/L (3.6-5.0)
[2022-03-06 06:06] LABS: CALCIUM 9.2 MG/DL (8.5-10.1)
[2022-03-06 06:07] LABS: TOTAL PROTEIN 5.8 GM/DL (6.4-8.2)
[2022-03-06 06:08] LABS: BILIRUBIN,TOTAL 0.7 MG/DL (0.1-1.0)
[2022-03-06 06:10] LABS: CREATININE SERUM 0.84 MG/DL (0.60-1.30)
[2022-03-06 06:13] LABS: MAGNESIUM 2.1 MG/DL (1.6-2.4)
--- NOTE | 2022-03-06 07:32 | Cardiology Progress Note ---
Subjective Date Seen by Provider: Mar 06, 2022 Time Seen by Provider: 07:31 Subjective/Events-last exam Patient was seen at bedside, sitting comfortably, feeling better Maintained on 4 L oxygen Review of Systems General: No Chills, No Night Sweats; Fatigue; No Malaise, No Appetite, No Other HEENT: No Head Aches, No Visual Changes, No Eye Pain, No Ear Pain, No Dyspha edith, No Sinus Congestion, No Post Nasal Drip, No Sore Throat, No Other Pulmonary: Dyspnea; No Cough, No Pleuritic Chest Pain, No Other Cardiovascular: No: Chest Pain, Palpitations, Orthopnea, Paroxysmal Noc. Dyspnea, Edema, Lt Headedness, Other Objective-Cardiology Exam Last Set of Vital Signs Vital Signs 03/03/22 03/06/22 08:00 04:27 Temp 36.4 Pulse 73 Resp 20 B/P (MAP) 120/74 (89) Pulse Ox 97 O2 Delivery NIV Bilevel O2 Flow Rate 40.00 FiO2 50 I&O Intake and Output 03/06/22 00:00 Intake Total 1650 ml Output Total 1700 ml Balance -50 ml Intake Oral 1650 ml Output Urine Total 1700 ml # Bowel Movements 3 General: Alert, Oriented X3, No Acute Distress HEENT: Mucous Memb Moist/[place] Neck: Supple, No JVD, No Thyromegaly Lungs: Clear to Auscultation, Normal Air Movement Heart: Regular Rate, Normal S1, Normal S2, No Murmurs Abdomen: Normal Bowel Sounds, Soft, No Tenderness, No Masses Extremities: Other (1+ pitting edema equal bilaterally) Skin: No Rashes, No Breakdown, No Significant Lesion Neuro: Normal Speech Psych/Mental Status: Mental Status NL, Mood NL Results Lab Laboratory Tests 03/06/22 05:20 A/P-Cardiology Admission Diagnosis Acute respiratory failure Coronary artery disease Hypertension Hyperlipidemia. Assessment/Plan Status post acute respiratory failure with CO2 narcosis Recent pneumonia, acute exacerbation of COPD Obesity hypoventilation syndrome Status post pulmonary embolism during recent hospitalization at [facility] Feeling better. Still requiring high flow oxygen Reporting improvement, continue to monitor Pneumonia, recent discharge from [facility]. Managed by primary care team COPD, acute exacerbation. Managed by medical team Status post pulmonary embolism during her hospitalization at [facility] earlier in February 2022 Maintained on Eliquis Status post transient sinus tachycardia, most probably secondary to hypoxemia. Most of the day yesterday heart rate was in the 80s, metoprolol was restarted Tolerating medication well Borderline hypotension, continue to monitor blood pressure Chest pain, history of chronic stable angina. Denies any increase in chest pain. Continue to monitor Coronary artery disease Status post acute myocardial infarction in 2013 with total occlusion of the right coronary artery, underwent complex intervention with stent deployment to the right coronary artery using 3.5x30 mm integrity and 3.018 mm bare-metal stent without complication. Had multiple clots in the distal right coronary artery, Had another cardiac catheterization in December 2014 resulted in deployment of another stent 3.012 mm integrity bare-metal stent with good result. Patient had [id number] disease in the LAD and circumflex artery. Cardiac catheterization done October 10, 2016 revealed patent stents in the LAD with mild disease distally, nonobstructive disease. 50 percent in-stent restenosis of the mid right coronary artery with FFR of 0.84. Cardiac catheterization done 09/07/20 showing calcified and tortuous prox LAD with sig gradient by FFR, successful deployment of 2 overlapping stents using Emily stent prox 2.75x18 and midportion 2.5x23mm with excellent results. Patent stent in the RCA, mild dz in the circumflex. Most recent cardiac catheterization done 01/03/22 showing mild to moderate in- stent restenosis in the mid right coronary artery, small vessel disease at the distal right coronary artery nonobstructive disease. Patent stent in the proximal LAD with mild disease distally, nonobstructive disease, mild disease in the circumflex artery. Mildly elevated left ventricular end-diastolic pressure. Mild aortic valve stenosis noted by 2D echo in September 2021, PA pressure 15 to 20 mmHg. Continue to monitor Congestive heart failure, acute on chronic left ventricular systolic dysfunction due to her myocardial infarction, most recent 2D Echo done September 2021 showing EF 60-65%, mild , PA 15-20mmHg. Ejection fraction during stress test was 38% Ventral hernia-status post repair by Dr. Sun April 2015. Has recurrence of hernia, will refer to Dr. Rodriguez for further evaluation. Hypertension, controlled, continue to monitor. Hyperlipidemia, well controlled, continue to monitor. History of colon cancer, status post right hemicolectomy done by Dr. Alas. patient has been monitored and followed by Dr. Henriquez, did not see Dr. Henriquez since 2003 Obesity, patient was instructed on weight loss. Bilateral nonobstructive carotid artery stenosis, last carotid ultrasound was done in October 2021 PETROS ANTHONY MD Mar 06, 2022 07:32
[2022-03-06 07:47] VITALS: BP 116/61
[2022-03-06] MEDS: OXYBUTYNIN (DITROPAN) 5 MG TAB PO SCH ×2 (08:42→12:55)
[2022-03-06] MEDS: SENNOSIDES 8.6 MG (SENOKOT) TAB PO SCH (08:42)
[2022-03-06] MEDS: DOCUSATE SODIUM 100 MG (COLACE) CAP PO SCH (08:42)
[2022-03-06] MEDS: meTOprolol SUCCINATE 100 MG (TOPROL XL) TAB PO SCH (08:42)
[2022-03-06] MEDS: DICLOFENAC 1% GEL 100 GM (VOLTAREN) TUBE TOP SCH ×2 (08:42→12:56)
[2022-03-06] MEDS: APIXABAN 5 MG (ELIQUIS) TABLET PO SCH (08:42)
[2022-03-06 09:30] VITALS: BP 116/61
[2022-03-06] MEDS ORDERED: RT-ALBUTEROL/IPRATROPIUM 3 ML (DUONEB) VIAL INH SCH (09:45)
--- NOTE | 2022-03-06 09:48 | Physical Therapy Daily Note ---
PT Daily Note-Current Subjective Patient reports she hopes to go home on this date. Agrees to PT. Mental Status Patient Orientation: Normal For Age Attachments: Oxygen (4L) Transfers SCALE: Activities may be completed with or without assistive devices. 0-Igudgrcdnm-gcspwpn completes the activity by him/herself with no assistance from a helper. 5-Set-up or Clean-up Assistance-helper sets up or cleans up; patient completes activity. [place] assists only prior to or following the activity. 4-Supervision or Touching Assistance-helper provides verbal cues and/or touching/steadying and/or contact guard assistance as patient completes act ivity. Assistance may be provided throughout the activity or intermittently. 3-Partial/Moderate Assistance-helper does LESS THAN HALF the effort. [place] lifts, holds or supports trunk or limbs, but provides less than half the effort. 2-Substantial/Maximal Assistance-helper does MORE THAN HALF the effort. [place] lifts or holds trunk or limbs and provides more than half the effort. 2-Wwuijnjwk-uxrcjn does ALL the effort. Patient does none of the effort to complete the activity. Or, the assistance of 2 or more helpers is required for the patient to complete the activity. If activity was not attempted, code reason: 7-Patient Refused. 9-Not Applicable-not attempted and the patient did not perform the activity before the current illness, exacerbation or injury. 10-Not Attempted due to Environmental Limitations-(lack of equipment, weather restraints, etc.). 88-Not Attempted due to Medical Conditions or Safety Concerns. Sit to Stand (QC): 6 Gait Training Distance: 400' Walk 10 feet (QC): 6 Walk 50 ft with 2 Turns(QC): 6 Walk 150 ft (QC): 6 Gait Assistive Device: FWW safe and functional with no deviation with SAO2 remaining >90% Assessment Patient is currently at independent PLOF with all gross motor skills and is up i n room ad yony. PT to dismiss patient from services at this time. PT discussed this with patient and RN and both agree. PT Diamond Cutter Goals Prison Goals PT Prison Goals Time Frame: Mar 17, 2022 Roll Left & Right (QC): 6 Sit to Lying (QC): 6 Lying-Sitting on Side/Bed(QC): 6 Sit to Stand (QC): 6 Chair/Yyt-ph-Ehuvf Xfer(QC): 6 Toilet Transfer (QC): 6 Walk 10 feet (QC): 6 Walk 50ft with 2 Turns (QC): 6 Walk 150 ft (QC): 6 PT Plan Treatment/Plan Treatment Plan: Discontinue PT, goals met Treatment Plan: Bed Mobility, Education, Functional Activity John, Functional Strength, Gait, Safety, Therapeutic Exercise, Transfers Treatment Duration: Mar 17, 2022 Frequency: 6 times per week Estimated Hrs Per Day: .25 hour per day Patient and/or Family Agrees t: Yes Time/GCodes Time In: 906 Time Out: 917 Total Billed Treatment Time: 11 Total Billed Treatment 1 visit FA 11 min JACKY PEOPLES PT Mar 06, 2022 09:48
[2022-03-06 11:24] VITALS: BP 132/76
--- NOTE | 2022-03-06 12:39 | Discharge Summary ---
Diagnosis/Chief Complaint Date of Admission Feb 25, 2022 at 17:18 Date of Discharge 03/06/22 Admission Diagnosis Admission Diagnosis See problem list Discharge Diagnosis See Below Problems/Diagnosis: (1) Acute and chronic respiratory failure with hypercapnia Assessment & Plan: 03/05: Continue to titrate oxygen as tolerated, MAT protocol 03/06: Exercise tolerance has greatly improved, Order for new oxygen concentrator Status: Acute (2) CO2 narcosis Status: Acute (3) Pulmonary embolism Assessment & Plan: 03/05: Continue OAC Qualifiers: Qualified Codes: I26.99 - Other pulmonary embolism without acute cor pulmonale Status: Acute (4) COPD (chronic obstructive pulmonary disease) Qualifiers: Qualified Codes: J44.9 - Chronic obstructive pulmonary disease, unspecified Status: Chronic (5) CAD (coronary artery disease) Qualifiers: Qualified Codes: I25.10 - Atherosclerotic heart disease of [place] coronary artery without angina pectoris Status: Chronic (6) Obesity hypoventilation syndrome Assessment & Plan: 03/06: Home Bipap ordered Status: Chronic Discharge Summary-Simple/Stand Consultations Dr Posey: Cardiology Dr Jo: eICU, Critical care Discharge Physical Examination Allergies: Coded Allergies: Penicillins (Verified Allergy, Unknown, HAS HAD ANCEF W/O PROBLEMS, 12/23/18) atorvastatin (Verified Allergy, Unknown, 12/23/18) procaine (Verified Allergy, Unknown, 12/23/18) Vitals & I&Os Vital Sign - Last 12Hours Date Time Temp Pulse Resp B/P (MAP) Pulse Ox O2 Delivery O2 Flow Rate FiO2 03/06/22 11:24 36.5 69 18 132/76 (94) 98 High Flow N/C 4.00 03/06/22 09:30 36 Intake and Output 03/06/22 00:00 Intake Total 1450 ml Output Total 1400 ml Balance 50 ml General Appearance: Alert, Oriented X3, No Acute Distress Respiratory: Clear to Auscultation, Normal Air Movement Cardiovascular: Regular Rate, No Murmurs Abdominal: Normal Bowel Sounds, Soft, No Tenderness, No Masses Extremities: Other (1+ pitting edema equal bilaterally) Neuro: Normal Speech, Cranial Nerves 3-12 NL Hospital Course See final discharge diagnosis. Discussion & Recommendations 81 yo F that presented in acute on chronic respiratory failure. Patient has had multiple recent hospitalizations. She was able to titrate down on oxygen need and home bipap was ordered for night time use. She will have close f.u with PCP. Discharge Condition at discharge Guarded due to multiple comorbidities Instructions to patient/family Please see electronic discharge instructions given to patient. Discharge Medications Reviewed and agree with Discharge Medication list on patient's Discharge Instruction sheet JULIO CESAR FLORES MD Mar 06, 2022 12:39
[2022-03-06] MEDS ORDERED: ALB0.5V INH (12:42)
--- NOTE | 2022-03-06 12:43 | Discharge Summary ---
Discharge [facility] Reconcile Patient Problems Problems Reviewed?: Yes Discharge Medications New, Converted or Re-Newed RX: Transmitted to Pharmacy Continued Medications: Albuterol Sulfate (Albuterol Sulfate) 2.5 Mg/0.5 Ml Vial.neb 2.5 MG INH Q6H PRN for SHORTNESS OF BREATH, #1 EACH (This prescription has been renewed) Apixaban (Eliquis) 5 Mg Tablet 5 MG PO BID, TAB Aspirin (Aspirin EC) 81 Mg Tablet.dr 81 MG PO DAILY, TAB Lactobacillus Rhamnosus GG (Culturelle) 10 Billion Cell Capsule 1 EACH PO BID, CAP Levothyroxine Sodium (Levothyroxine Sodium) 88 Mcg Tablet 88 MCG PO DAILY, TAB Metoprolol Succinate (Metoprolol Succinate) 100 Mg Tab.er.24h 100 MG PO DAILY, TAB Oxybutynin Chloride (Oxybutynin Chloride) 5 Mg Tablet 5 MG PO TID, TAB Pantoprazole Sodium (Pantoprazole Sodium) 40 Mg Tablet.dr 40 MG PO DAILY, TAB Rosuvastatin Calcium (Rosuvastatin Calcium) 10 Mg Tablet 10 MG PO HS, TAB Discontinued Medications: Prednisone (Prednisone) 20 Mg Tab 40 MG PO DAILY, TAB FILLED 02-23-2022 #4/2 DAY SUPPLY- STILL HAS 1 DOSE LEFT AT HOME TAKES 2 (20MG) TABS Patient Instructions Goal/Follow Up Appt: [facility] Activity & Diet Discharge Diet: Cardiac Diet Activity as Tolerated: Yes Orders-Post D/C & Referrals New order for Bipap New order for oxygen with mobile bottles JULIO CESAR FLORES MD Mar 06, 2022 12:43
--- NOTE | 2022-03-06 14:16 | Discharge Summary ---
Discharge Summary Reconcile Patient Problems Problems Reviewed?: Yes Instructions for Patient Via [facility], Assessment/Instructions Acute on Chronic Respiratory failure with Hypercarbia Subacute PE COPD Debility Physician to follow [facility] Diet for Home: Cardiac Diet Hospital Course Date of Admission: Feb 25, 2022 at 17:18 Admission Diagnosis : Family Physician/Provider: [facility] Date of Discharge: 03/06/22 Discharge Diagnosis: Acute on Chronic Respiratory failure with hypercarbia COPD Subacute PE Debility Obesity hypoventalation syndrome Hospital Course: 81 yo F with multiple recent hospitalizations for PNA and Covid with recent diagnosis of PE that presented in respiratory failure. She was started on bipap and was able to titrate off bipap during the day but requires it at night with oxygen. Labs and Pending Lab Test: Laboratory Tests 03/06/22 05:20: White Blood Count 8.3, Red Blood Count 4.24, Hemoglobin 12.8, Hematocrit 41, Mean Corpuscular Volume 98, Mean Corpuscular Hemoglobin 30, Mean Corpuscular Hemoglobin Concent 31L, Red Cell Distribution Width 14.4, Platelet Count 252, Mean Platelet Volume 9.6, Immature Granulocyte % (Auto) 0, Neutrophils (%) (Auto) 61, Lymphocytes (%) (Auto) 22, Monocytes (%) (Auto) 13H, Eosinophils (%) (Auto) 3, Basophils (%) (Auto) 1, Neutrophils # (Auto) 5.1, Lymphocytes # (Auto) 1.8, Monocytes # (Auto) 1.1H, Eosinophils # (Auto) 0.3, Basophils # (Auto) 0.0, Immature Granulocyte # (Auto) 0.0, Sodium Level 138, Potassium Level 4.9, Chloride Level 95L, Carbon Dioxide Level 31, Anion Gap 12, Blood Urea Nitrogen 24H, Creatinine 0.84, Estimat Glomerular Filtration Rate 71, BUN/Creatinine Ratio 29, Glucose Level 97, Calcium Level 9.2, Corrected Calcium 10.0, Magnesium Level 2.1, Total Bilirubin 0.7, Aspartate Amino Transf (AST/SGOT) 23, Alanine Aminotransferase (ALT/SGPT) 14, Alkaline Phosphatase 52, Total Protein 5.8L, Albumin 3.0L Home Meds Active Albuterol Sulfate 2.5 Mg/0.5 Ml Vial.neb 2.5 Mg INH Q6H PRN Reported Prednisone 20 Mg Tab 40 Mg PO DAILY FILLED 02-23-2022 #4/2 DAY SUPPLY- STILL HAS 1 DOSE LEFT AT HOME TAKES 2 (20MG) TABS Metoprolol Succinate 100 Mg Tab.er.24h 100 Mg PO DAILY Culturelle (Lactobacillus Rhamnosus GG) 10 Billion Cell Capsule 1 Each PO BID Eliquis (Apixaban) 5 Mg Tablet 5 Mg PO BID Aspirin EC (Aspirin) 81 Mg Tablet.dr 81 Mg PO DAILY Rosuvastatin Calcium 10 Mg Tablet 10 Mg PO HS Pantoprazole Sodium 40 Mg Tablet.dr 40 Mg PO DAILY Levothyroxine Sodium 88 Mcg Tablet 88 Mcg PO DAILY Oxybutynin Chloride 5 Mg Tablet 5 Mg PO TID Patient Allergies: Coded Allergies: Penicillins (Verified Allergy, Unknown, HAS HAD ANCEF W/O PROBLEMS, 12/23/18) atorvastatin (Verified Allergy, Unknown, 12/23/18) procaine (Verified Allergy, Unknown, 12/23/18) Height (Feet): 5 Height (Inches): 3.00 Weight (Pounds): 242 Weight (Ounces): 2.0 Continued Medications: Albuterol Sulfate (Albuterol Sulfate) 2.5 Mg/0.5 Ml Vial.neb 2.5 MG INH Q6H PRN for SHORTNESS OF BREATH, #1 EACH (This prescription has been renewed) Apixaban (Eliquis) 5 Mg Tablet 5 MG PO BID, TAB Aspirin (Aspirin EC) 81 Mg Tablet.dr 81 MG PO DAILY, TAB Lactobacillus Rhamnosus GG (Culturelle) 10 Billion Cell Capsule 1 EACH PO BID, CAP Levothyroxine Sodium (Levothyroxine Sodium) 88 Mcg Tablet 88 MCG PO DAILY, TAB Metoprolol Succinate (Metoprolol Succinate) 100 Mg Tab.er.24h 100 MG PO DAILY, TAB Oxybutynin Chloride (Oxybutynin Chloride) 5 Mg Tablet 5 MG PO TID, TAB Pantoprazole Sodium (Pantoprazole Sodium) 40 Mg Tablet.dr 40 MG PO DAILY, TAB Rosuvastatin Calcium (Rosuvastatin Calcium) 10 Mg Tablet 10 MG PO HS, TAB Discontinued Medications: Prednisone (Prednisone) 20 Mg Tab 40 MG PO DAILY, TAB FILLED 02-23-2022 #4/2 DAY SUPPLY- STILL HAS 1 DOSE LEFT AT HOME TAKES 2 (20MG) TABS Home Health Need/Face to Face Date of Face to Face: Mar 06, 2022 Clinical Findings: Generalized weakness and fatigue, Instability, Shortness of breath, Unsteady gait I have seen Pt [id number]: Yes Discharged To: Home Diagnosis/Conditions: See above Patient is Homebound due to: Asif fall risk due to instabilty, Shortness of breath/distress Homebound Status Due to the above stated illness, injury or surgical procedure (medical condition or diagnosis) and associated clinical findings, the patient is homebound because of his/her inability to leave home except with aid of a supportive device and/or person AND leaving the home requires a considerable and taxing effort or is medically contraindicated. Pt req the following assistanc: [facility] Nursing Orders Home Health Services Order: Hospital Intern-Evaluate & Treat, Physical Therapy-Evaluate & Treat Home Health Infusion Therapy Line Start Date: Feb 25, 2022 Therapy Orders Therapy Orders: Physical Therapy, PT to assess for OT Therapy Specific Orders: Gait training, Increase strength/endurance Certify Stmt I certify that this patient is under my care and that I, a nurse practitioner or a physician; a him assistant working with me, had a face to face encounter that - meets the physician face to face encounter requirements with this patient as d ated. Discharge Physical Exam General: Alert, Oriented X3, No Acute Distress Lungs: Clear to Auscultation, Normal Air Movement Heart: Regular Rate, No Murmurs Abdomen: Normal Bowel Sounds, Soft, No Tenderness, No Masses Extremities: Other (1+ pitting edema bilaterally) Neuro: Normal Speech Psych/Mental Status: Mental Status NL, Mood NL JULIO CESAR FLORES MD Mar 06, 2022 14:14
--- NOTE | 2022-03-06 14:31 | Occ Therapy Progress Note ---
Therapy Progress Note Pt in recliner, declines OT tx at this time. Pt reports she is discharging home, and she has no further concerns with ADLS. She feels like she is back at her baseline with self care tasks. No further skilled OT services indicated, d/c from OT. 1, visit ANITA LÓPEZ OT Mar 06, 2022 14:31
[2022-03-06] MEDS ORDERED: MICONAZOLE 2% POWDER (DESENEX AF) 90 GM TOP SCH (21:00)
== END 2022-03-06 14:50 | disposition home health service (06) | DRG 189 ==
LOC: EDUNIT# 14:42 → ER 14:43 → ICU 17:18 → 4TH 02-28 18:20
PROVIDERS: ADMIT Internal Medicine; ATTEND Family Medicine
PROC: 5A09457 Assistance with Respiratory Ventilation, 24-96 Consecutive Hours, Continuous Positive Airway Pressure (ICD-10-PCS; principal; 2022-02-25)
PROC: 5A0935A Assistance with Respiratory Ventilation, Less than 24 Consecutive Hours, High Flow/Velocity Cannula (ICD-10-PCS; 2022-02-26)
DX: J96.22 Acute and chronic respiratory failure with hypercapnia (principal); J18.9 Pneumonia, unspecified organism; I26.99 Other pulmonary embolism without acute cor pulmonale; I50.23 Acute on chronic systolic (congestive) heart failure; J44.0 Chronic obstructive pulmonary disease with (acute) lower respiratory infection; J44.1 Chronic obstructive pulmonary disease with (acute) exacerbation; E66.2 Morbid (severe) obesity with alveolar hypoventilation; Z68.41 Body mass index [BMI] 40.0-44.9, adult; E87.2 Acidosis; J96.21 Acute and chronic respiratory failure with hypoxia; I25.119 Atherosclerotic heart disease of native coronary artery with unspecified angina pectoris; I11.0 Hypertensive heart disease with heart failure; I35.0 Nonrheumatic aortic (valve) stenosis; I65.23 Occlusion and stenosis of bilateral carotid arteries; E78.00 Pure hypercholesterolemia, unspecified; N32.81 Overactive bladder; E03.9 Hypothyroidism, unspecified; M19.91 Primary osteoarthritis, unspecified site; I25.2 Old myocardial infarction; Z95.5 Presence of coronary angioplasty implant and graft; Z86.16 Personal history of COVID-19; Z85.038 Personal history of other malignant neoplasm of large intestine; Z79.82 Long term (current) use of aspirin; Z88.0 Allergy status to penicillin; Z88.8 Allergy status to other drugs, medicaments and biological substances
CPT/HCPCS: 36415; 36600; 51702; 71045; 80053; 80061; 81000; 82805; 82947; 83735; 83874; 83880; 84100; 84145; 84484; 85025; 85610; 85730; 93005; 93041; 94640; 94660; 94760; 94761; 96374; 99291

== ENCOUNTER 2022-08-21 15:02 | Inpatient (IN) | payer MEDICARE, MEDICAID ==
[~2022-08-21] VITALS: Ht 157.5 cm; Wt 86.4 kg
[~2022-08-21 15:02] MED LIST changes: +ALB0.5V INH; +APIX5TAB PO; +LACT1CAP39 PO; +MTP100TCR PO; +PRD20T PO
[2022-08-21 15:45] LABS: BASOPHILS % (AUTO) 0 % (0-10); EOSINOPHILS % (AUTO) 0 % (0-10); HEMATOCRIT 40 % (35-52); HEMOGLOBIN 13.1 g/dL (11.5-16.0); LYMPHOCYTES # (AUTO) 1.6 10^3/uL (1.0-4.0); LYMPHOCYTES % (AUTO) 9 % (12-44); MEAN CORPUSCULAR HEMOGLOBIN 30 pg (25-34); MEAN CORPUSCULAR HGB CONC 33 g/dL (32-36); MEAN CORPUSCULAR VOLUME 91 fL (80-99); MEAN PLATELET VOLUME 9.9 fL (9.0-12.2); MONOCYTES # (AUTO) 2.1 10^3/uL (0.0-1.0); MONOCYTES % (AUTO) 12 % (0-12); NEUTROPHILS # (AUTO) 13.8 10^3/uL (1.8-7.8); NEUTROPHILS % (AUTO) 78 % (42-75); PLATELET COUNT 262 10^3/uL (130-400); WHITE BLOOD COUNT 17.7 10^3/uL (4.3-11.0)
[2022-08-21 15:54] LABS: ALBUMIN 3.5 GM/DL (3.2-4.5)
[2022-08-21 15:55] LABS: CHLORIDE 104 MMOL/L (98-107); SODIUM 138 MMOL/L (135-145)
[2022-08-21 15:56] LABS: CALCIUM 9.1 MG/DL (8.5-10.1)
[2022-08-21 15:57] LABS: GLUCOSE 110 MG/DL (70-105); TOTAL PROTEIN 6.8 GM/DL (6.4-8.2)
[2022-08-21 15:58] LABS: CARBON DIOXIDE 25 MMOL/L (21-32)
[2022-08-21 16:00] LABS: ALKALINE PHOSPHATASE 63 U/L (40-136)
--- NOTE | 2022-08-21 16:00 | Diagnostic Imaging Report ---
EXAMINATION: Chest radiograph, portable AP view. DATE: 08/21/2022 3:56 PM INDICATION: 81-year-old female, low oxygen saturations. COMPARISON: March 01, 2022. FINDINGS: There is redemonstrated elevation of the left hemidiaphragm. Heart size and mediastinal contours are unchanged. There is no identified pneumothorax. There is stable mild blunting of the right lateral costophrenic angle. There is no identified interval focal airspace consolidation. There is advanced bilateral glenohumeral arthritis. IMPRESSION: 1. No radiographically apparent interval acute cardiopulmonary abnormality. 2. Redemonstrated elevation of the left hemidiaphragm. Dictated by: Dictated on workstation # [id number]
[2022-08-21 16:01] LABS: CREATININE SERUM 1.11 MG/DL (0.60-1.30); GFR ESTIMATED 51
[2022-08-21 16:02] LABS: BUN/CREATININE RATIO 23
--- NOTE | 2022-08-21 16:03 | ED General ---
General Chief Complaint: General Problems/Pain Stated Complaint: SOA - ABD PAIN - DIZZY Nursing Triage Note: PT TO RM 9 IN WITH C/O WEAKNESS AND WAS AT [facility] AND HAD AN ABNORMAL EKG THERE ACCORDING TO THEIR PROVIDER Source of Information: Patient Exam Limitations: No Limitations (CARLOS GALVAN APRN) History of Present Illness Date Seen by Provider: Aug 21, 2022 Time Seen by Provider: 15:30 Initial Comments 81-year-old female was sent to the ED from [facility]. States she woke up this morning around 2 AM with chills and feeling lightheaded. States she went and sat on the toilet and had difficult time getting up due to weakness. Reports shortness of air. States she has a history of her "blood pressure and O2 crashing" on her, states she is unsure why this occurs. States she was diagnosed with a blood clot in her lung at [facility] last summer when this happened. States she has oxygen at home which she was prescribed after the PE, she used it this morning. Last time she used her oxygen before today was April 2022. She also wears a CPAP at night. [facility] tested her for COVID and flu which were negative. Reports low-grade temperature 99.4 at the clinic, denies chest pain, abdominal pain, nausea, vomiting, diarrhea. Currently takes metoprolol, oxybutynin, Eliquis, aspirin, rosuvastatin, and pantoprazole. She states that [facility] was also concern for an abnormal EKG. EKG from [facility] shows several PVCs no significant Q waves, no ST elevation, possible T wave inversion in lead III and aVL. (CARLOS GALVAN APRN) Allergies and Home Medications Allergies Coded Allergies: Penicillins (Verified Allergy, Unknown, HAS HAD ANCEF W/O PROBLEMS, 12/23/18) atorvastatin (Verified Allergy, Unknown, 12/23/18) procaine (Verified Allergy, Unknown, 12/23/18) Patient Home Medication List Home Medication List Reviewed: Yes (CARLOS GALVAN APRN) Apixaban (Eliquis) 5 Mg Tablet, 5 MG PO BID, (Reported) Entered as Reported by: ELMIRA FRAGA on 02/26/22 1221 Last Action: Continued Aspirin (Aspirin EC) 81 Mg Tablet.dr, 81 MG PO DAILY, (Reported) Entered as Reported by: ELMIRA FRAGA on 02/26/221220 Last Action: Continued Levothyroxine Sodium (Levothyroxine Sodium) 88 Mcg Tablet, 88 MCG PO DAILY, (Reported) Entered as Reported by: EVANGELINA LITTLE on 09/07/20 0830 Last Action: Continued Metoprolol Succinate (Metoprolol Succinate) 100 Mg Tab.er.24h, 100 MG PO DAILY, (Reported) Entered as Reported by: ELMIRA FRAGA on 02/26/22 122 Last Action: Reviewed Oxybutynin Chloride (Oxybutynin Chloride) 5 Mg Tablet, 10 MG PO DAILY, (Reported) Entered as Reported by: ESSENCE POLLOCK on 10/10/16 0950 Last Action: Continued Oxybutynin Chloride (Oxybutynin Chloride) 5 Mg Tablet, 5 MG PO 1800, (Reported) Entered as Reported by: ELMIRA FRAGA on 08/22/22 0946 Last Action: Reviewed Pantoprazole Sodium (Pantoprazole Sodium) 40 Mg Tablet.dr, 40 MG PO DAILY, (Reported) Entered as Reported by: ELMIRA FRAGA on 09/19/21 110 Last Action: Reviewed Rosuvastatin Calcium (Rosuvastatin Calcium) 10 Mg Tablet, 10 MG PO 1600, (Reported) Entered as Reported by: ELMIRA FRAGA on 09/19/211104 Last Action: Reviewed Discontinued Medications Albuterol Sulfate (Albuterol Sulfate) 2.5 Mg/0.5 Ml Vial.neb, 2.5 MG INH Q6H PRN for SHORTNESS OF BREATH Discontinued Reason: No Longer Taking Prescribed by: JULIO CESAR FLORES on 03/06/22 1242 Last Action: Discontinued Lactobacillus Rhamnosus GG (Culturelle) 10 Billion Cell Capsule, 1 EACH PO BID, (Reported) Discontinued Reason: No Longer Taking Entered as Reported by: ELMIRA FRAGA on 02/26/221220 Last Action: Discontinued Review of Systems Review of Systems Constitutional: see HPI (CARLOS GALVAN APRN) Past Rxbgvkx-Subegb-Kysgjs Hx Patient Social History Tobacco Use?: No Smoking Status: Former Smoker Substance use?: No Alcohol Use?: No Pt feels they are or have been: No (CARLOS GALVAN APRN) Immunizations Up To Date Tetanus Booster (TDap): Unknown Influenza Vaccine Up-to-Date: Yes; Up-to-Date First/Initial COVID19 Vaccinat: 10/26 Second COVID19 Vaccination Fernando: 10/26 Third COVID19 Vaccination Date: 04/27 (CARLOS GALVAN APRN) Seasonal Allergies Seasonal Allergies: No (CARLOS GALVAN APRN) Past Medical History Surgery/Hospitalization HX: COPD, COLON CA-RESECTION HTN, HLD, OVERACTIVE BLADDER, HX OF PE Surgeries: Yes (SPLEENECTOMY, HERNIA, RIGHT ANKLE REPAIR, PERF BOWEL) Abdominal, Coronary Stent Respiratory: Yes COPD Currently Using CPAP: No Currently Using BIPAP: No Cardiac: Yes (stent x 2) Coronary Artery Disease, Heart Attack, High Cholesterol, Hypertension Neurological: No Reproductive Disorders: No Sexually Transmitted Disease: No HIV/AIDS: No Genitourinary: Yes (OVERACTIVE BLADDER) Gastrointestinal: No (colon cancer) Abdominal Hernia, Ulcer Musculoskeletal: Yes Arthritis Endocrine: Yes (THYROID) Hypothyroidsim HEENT: Yes (READING GLASSES) Cataract Loss of Vision: Denies Cancer: Yes Colon Did You Recieve Any Treatments: Yes What Type of Treatment Did You: Surgical Intervention Psychosocial: No Integumentary: Yes Pruritis Blood Disorders: No Adverse Reaction/Blood Tranf: No (HAS HAD BLOOD WITH NO REACTION) (CARLOS GALVAN APRN) Family Medical History Cancer 03 MOTHER, Onset:40's - 50 Family history: Thyroid disorder 03 MOTHER 09 BROTHER Hearing loss 09 BROTHER Visual impairment 09 BROTHER No Family History of: Abdominal aortic aneurysm Heart Disease, Hypertension (CARLOS GALVAN APRN) Physical Exam Vital Signs Vital Signs - First Documented 08/21/22 08/21/22 15:23 16:12 Pulse 84 Resp 18 B/P (MAP) 104/60 (75) Pulse Ox 92 O2 Delivery Nasal Cannula O2 Flow Rate 2.00 (BEN NIÑO DO) Vital Signs Capillary Refill : (CARLOS GALVAN APRN) Height, Weight, BMI Height: 5'3.00" Weight: 242lbs. 2.0oz. 109.270164op; 35.00 BMI Method:Stated General Appearance: No Apparent Distress, WD/WN Neck: Normal Inspection, Supple Respiratory: Lungs Clear, No Accessory Muscle Use, No Respiratory Distress, Decreased Breath Sounds (Bilateral lower lobes) Cardiovascular: Regular Rate, Rhythm, No Edema, No Gallop, No JVD, No Murmur Gastrointestinal: Normal Bowel Sounds Extremity: Normal Inspection, Normal Range of Motion Neurologic/Psychiatric: Alert, Oriented x3, Normal Mood/Affect Skin: Normal Color, Warm/Dry (CARLOS GALVAN APRN) Focused Exam Lactate Level 08/21/22 16:22: Lactic Acid Level 1.65 (DANIEL NIÑOA K DO) Lactic Acid Level Laboratory Tests Test 08/21/22 16:22 Lactic Acid Level 1.65 MMOL/L (0.50-2.00) (RENAYBEN K DO) Progress/Results/Core Measures Suspected Sepsis SIRS Temperature: Pulse: 84 Respiratory Rate: 18 Laboratory Tests 08/21/22 15:25: White Blood Count 17.7H Blood Pressure 104 /60 Mean: 75 08/21/22 16:22: Lactic Acid Level 1.65 Laboratory Tests 08/21/22 15:25: Creatinine 1.11, INR Comment 1.6H, Platelet Count 262, Total Bilirubin 1.0 (CARLOS GALVAN APRN) Results/Orders Lab Results Laboratory Tests Test 08/21/22 15:25 08/21/22 16:10 08/21/22 16:13 08/21/22 16:22 Range/Units White Blood Count 17.7 H 4.3-11.0 10^3/uL Red Blood Count 4.40 3.80-5.11 10^6/uL Hemoglobin 13.1 11.5-16.0 g/dL Hematocrit 40 35-52 % Mean Corpuscular Volume 91 80-99 fL Mean Corpuscular Hemoglobin 30 25-34 pg Mean Corpuscular Hemoglobin Concent 33 32-36 g/dL Red Cell Distribution Width 14.0 10.0-14.5 % Platelet Count 262 130-400 10^3/uL Mean Platelet Volume 9.9 9.0-12.2 fL Immature Granulocyte % (Auto) 1 % Neutrophils (%) (Auto) 78 H 42-75 % Lymphocytes (%) (Auto) 9 L 12-44 % Monocytes (%) (Auto) 12 0-12 % Eosinophils (%) (Auto) 0 0-10 % Basophils (%) (Auto) 0 0-10 % Neutrophils # (Auto) 13.8 H 1.8-7.8 10^3/uL Lymphocytes # (Auto) 1.6 1.0-4.0 10^3/uL Monocytes # (Auto) 2.1 H 0.0-1.0 10^3/uL Eosinophils # (Auto) 0.0 0.0-0.3 10^3/uL Basophils # (Auto) 0.0 0.0-0.1 10^3/uL Immature Granulocyte # (Auto) 0.1 0.0-0.1 10^3/uL Neutrophils % (Manual) 82 % Lymphocytes % (Manual) 8 % Monocytes % (Manual) 10 % Blood Morphology Comment NORMAL Prothrombin Time 19.3 H 12.2-14.7 SEC INR Comment 1.6 H 0.8-1.4 Activated Partial Thromboplast Time 41 H 24-35 SEC D-Dimer 0.71 H 0.00-0.49 UG/ML Sodium Level 138 135-145 MMOL/L Potassium Level 4.0 3.6-5.0 MMOL/L Chloride Level 104 98-107 MMOL/L Carbon Dioxide Level 25 21-32 MMOL/L Anion Gap 9 5-14 MMOL/L Blood Urea Nitrogen 26 H 7-18 MG/DL Creatinine 1.11 0.60-1.30 MG/DL Estimat Glomerular Filtration Rate 51 BUN/Creatinine Ratio 23 Glucose Level 110 H 70-105 MG/DL Calcium Level 9.1 8.5-10.1 MG/DL Corrected Calcium 9.5 8.5-10.1 MG/DL Magnesium Level 1.7 1.6-2.4 MG/DL Total Bilirubin 1.0 0.1-1.0 MG/DL Aspartate Amino Transf (AST/SGOT) 24 5-34 U/L Alanine Aminotransferase (ALT/SGPT) 15 0-55 U/L Alkaline Phosphatase 63 40-136 U/L Troponin I < 0.028 <0.028 NG/ML B-Type Natriuretic Peptide 702.5 H <100.0 PG/ML Total Protein 6.8 6.4-8.2 GM/DL Albumin 3.5 3.2-4.5 GM/DL Influenza Type A (RT-PCR) Not Detected Not Detecte Influenza Type B (RT-PCR) Not Detected Not Detecte SARS-CoV-2 RNA (RT-PCR) Not Detected Not Detecte Blood Gas Puncture Site RIGHT RADIAL Blood Gas Patient Temperature 38.2 Arterial Blood pH 7.44 H 7.37-7.43 Arterial Blood Partial Pressure CO2 36 35-45 MMHG Arterial Blood Partial Pressure O2 90 79-93 MMHG Arterial Blood HCO3 23 23-27 MMOL/L Arterial Blood Total CO2 24.4 21.0-31.0 MMOL/L Arterial Blood Oxygen Saturation 95 94-100 % Arterial Blood Base Excess -0.1 -2.5-2.5 MMOL/L Karri Test POSITIVE Blood Gas Ventilator Setting NO Blood Gas Inspired Oxygen 3 L Lactic Acid Level 1.65 0.50-2.00 MMOL/L Test 08/21/22 18:10 Range/Units Urine Color YELLOW Urine Clarity SL CLOUDY Urine pH 6.0 5-9 Urine Specific [place] 1.025 H 1.016-1.022 Urine Protein 2+ H NEGATIVE Urine Glucose (UA) NEGATIVE NEGATIVE Urine Ketones NEGATIVE NEGATIVE Urine Nitrite POSITIVE H NEGATIVE Urine Bilirubin NEGATIVE NEGATIVE Urine Urobilinogen 1.0 < = 1.0 MG/DL Urine Leukocyte Esterase 2+ H NEGATIVE Urine RBC (Auto) 3+ H NEGATIVE Urine RBC 25-50 H /HPF Urine WBC >100 H /HPF Urine Squamous Epithelial Cells 2-5 /HPF Urine Crystals NONE /LPF Urine Bacteria LARGE H /HPF Urine Casts NONE /LPF Urine Mucus SMALL H /LPF Urine Culture Indicated CULTURE PENDING (BEN NIÑO DO) Micro Results Microbiology 08/21/22 Urine Culture - Preliminary, Resulted Escherichia coli 08/21/22 Blood Culture - Preliminary, Resulted No growth 08/21/22 Blood Culture - Preliminary, Resulted Gram Negative Shukri (BEN NIÑO DO) Vital Signs/I&O 08/21/22 08/21/22 08/21/22 08/21/22 15:23 16:12 17:36 21:45 Temp 37.3 Pulse 84 89 Resp 18 28 B/P (MAP) 104/60 (75) 120/82 (95) Pulse Ox 92 92 O2 Delivery Nasal Cannula Nasal Cannula Nasal Cannula O2 Flow Rate 2.00 2.00 2.00 08/21/22 21:45 Pulse Ox 93 O2 Delivery Nasal Cannula O2 Flow Rate 2.00 (BEN NIÑO DO) Vital Signs/I&O Capillary Refill : (CARLOS GALVAN APRN) Blood Pressure Mean: 75 Progress Note #1: Time: 16:01 Progress Note Patient seen and evaluated, resting comfortably in bed, no acute distress. Based on exam and symptoms, differential diagnosis includes but is not limited to, pneumonia, PE, [place], UTI. Work-up initiated including CBC, CMP, chest x-ray, UA, ABG, troponin, coags, D-dimer, sputum culture, BNP, magnesium. Progress Note #2: Time: 17:07 Progress Note Labs reviewed. CBC shows elevated WBC 17.7, neutrophils elevated 78%. CMP shows elevated BUN at 26, creatinine normal at 1.11, GFR 51. Coags show elevated PT 19.3, elevated INR 1.6, elevated APTT 41. D-dimer elevated 0.71. COVID and flu negative. ABG shows slightly elevated pH 7.44, CO2 36, PO2 90, 8 HCO3 23. Lactic acid normal at 1.65. Troponin negative less than 0.028. BNP elevated 702.5. CT angio chest ordered for elevated D-dimer and history of PE. Progress Note #3: Time: 18:53 Progress Note This provider to room to reevaluate patient. Noted an abnormal rhythm on the storage architect. Ordered a repeat EKG which shows atrial fibrillation with multiple PVCs. Patient denies history of atrial fibrillation or any cardiac arrhythmia. Will call Dr. Posey, cardiology. (CARLOS GALVAN APRN) ECG Initial ECG Impression Date: Aug 21, 2022 Initial ECG Impression Time: 15:28 Initial ECG Rate: 73 Initial ECG Rhythm: Normal Sinus Initial ECG Intervals: Normal Initial ECG Impression: Normal Initial ECG Comparisson: Unchanged Comment EKG similar to previous done here on 02/27/2022. Although it is different than the one completed at [facility]. Lead III inverted with T wave inversion, aVL shows no T wave inversion, T wave inversion in aVF when compared to EKG done at [facility] today. (CARLOS GALVAN APRN) Diagnostic Imaging Diagonstic Imaging: Xray Plain Films/CT/US/NM/MRI: chest Comments [facility] [place], [place] NAME: CEL[facility]RICK [facility] REC#: [id number] PT STATUS: REG ER : 1940 PHYSICIAN: CARLOS GALVAN APRN ADMIT DATE: 08/21/22/ER Draft Date of Exam:08/21/22 CHEST 1 VIEW, AP/PA ONLY EXAMINATION: Chest radiograph, portable AP view. DATE: 08/21/2022 3:56 PM INDICATION: 81-year-old female, low oxygen saturations. COMPARISON: March 01, 2022. FINDINGS: There is redemonstrated elevation of the left hemidiaphragm. Heart size and mediastinal contours are unchanged. There is no identified pneumothorax. There is stable mild blunting of the right lateral costophrenic angle. There is no identified interval focal airspace consolidation. There is advanced bilateral glenohumeral arthritis. IMPRESSION: 1. No radiographically apparent interval acute cardiopulmonary abnormality. 2. Redemonstrated elevation of the left hemidiaphragm. Dictated on workstation # [id number] Dict: 08/21/22 1557 Trans: 08/21/22 1559 [facility] [id number] Interpreted by: MATT RUFF MD Electronically signed by: Diagonstic Imaging: CT Plain Films/CT/US/NM/MRI: chest Comments [facility], [place] NAME: PATRICK BERGER [facility] REC#: [id number] PT STATUS: REG ER : 1940 PHYSICIAN: CARLOS GALVAN APRN ADMIT DATE: 08/21/22/ER Signed Date of Exam:08/21/22 CT ANGIO CHEST W (R/O PE) INDICATION: Abnormal EKG, weakness, elevated d-dimer, low O2. TECHNIQUE: Noncontrast CT imaging of the chest following administration of intravenous contrast. Multiplanar including MIP reformatted images. Auto Exposure Controls were utilized during the CT exam to meet ALARA standards for radiation dose reduction. CORRELATION STUDY: Chest radiograph 08/21/2022 FINDINGS: Marked elevated left diaphragm occupying approximately half the left hemithorax results in significant left lower lung volume loss and distortion of the chest anatomy. Also asymmetrically elevated right anterior diaphragm with portion of the liver in the anterior lower chest with additional atelectasis in this area. Apart from the atelectasis, the lung martinez otherwise generally clear. Heart is enlarged and somewhat displaced anteriorly towards the right hemithorax. No significant pericardial effusion. Thoracic aorta with moderate calcification. Prominent calcification of the coronary arteries. There is atherosclerotic plaquing of the proximal abdominal aorta. There is no suggestion for pulmonary embolism. Visualized portion of the upper abdomen demonstrates moderate stool in the visualized colon particularly in the left lower chest. Cholecystectomy clips. Questionable low attenuation of the right kidney. Nonspecific, could potentially reflect pyelonephritis. Anastomotic suture of the gastrointestinal tract left upper quadrant. Mild rightward curvature of the thoracic spine along with advanced degenerative changes of the visualized spine. No acute bony abnormality. IMPRESSION: 1. Marked elevated left diaphragm with significant left lower lung volume loss. Resultant crowding and atelectasis of the lower lobes, left greater than right. 2. Distortion of the chest anatomy from the elevated diaphragm. No definitive pulmonary embolism. 3. Cardiac enlargement with prominent severity coronary artery calcification. Negative for acute aortic syndrome with moderate atherosclerotic plaque present at the abdominal aorta. 4. Limited visualization of the gastrointestinal tract suggesting constipation. 5. Very questionable, partially visualized low attenuating and enhancement of the right kidney. May be simply artifactual with possibility of pyelonephritis not excluded. Dictated by: Dictated on workstation # [id number] Dict: 08/21/221834 Trans: 08/21/221934 [facility] [id number] Interpreted by: JERI MAYORGA DO Electronically signed by: JERI MAYORGA DO 08/21/221934 (CARLOS GALVAN APRN) Departure Communication (Admissions) Time/Spoke to Admitting Phy: 19:[address] Flores, [facility] hospitalist, regarding admission. She agrees to admission, would like this provider to place bridge orders. Time/Spoke to Consulting Phy: 19:[address] Posey, cardiology, regarding patient. He recommends admission, 1 dose of IV Lasix 40 mg now, continue patient's Eliquis and metoprolol. (CARLOS GALVAN APRN) Impression Primary Impression: Atrial fibrillation Additional Impression: UTI (urinary tract infection) Disposition: ADMITTED INPATIENT Condition: Stable Admissions Decision to Admit Reason: Admit from ER (General) Decision to Admit/Date: Aug 21, 2022 Time/Decision to Admit Time: 19:08 (CARLOS GALVAN APRN) Departure-Patient Inst. Referrals: [facility] (PCP/Family) Primary Care Physician ATTENDING PHYSICIAN NOTE: I WAS PHYSICALLY PRESENT ER PHYSICIAN, BUT I WAS NOT INVOLVED IN ANY DECISION MAKING OR ANY CARE OF THIS PATIENT AND I AM NOT COLLABORATING PHYSICIAN. (BEN NIÑO DO) CARLOS GALVAN APRN Aug 21, 2022 16:03 BEN NIÑO DO Aug 23, 2022 05:51
[2022-08-21 16:04] LABS: ALANINE AMINOTRANSFERASE 15 U/L (0-55)
[2022-08-21 16:08] LABS: FIBRIN DEGRADATION PRODUCTS 0.71 UG/ML (0.00-0.49); INR 1.6 (0.8-1.4); PROTHROMBIN TIME PATIENT 19.3 SEC (12.2-14.7)
[2022-08-21 16:21] LABS: ABG BASE EXCESS -0.1 MMOL/L (-2.5-2.5); ABG OXYGEN SATURATION 95 % (94-100); ABG PCO2 36 MMHG (35-45); ABG PH 7.44 (7.37-7.43); ABG PO2 90 MMHG (79-93); ABG TCO2 24.4 MMOL/L (21.0-31.0)
[2022-08-21 16:25] LABS: ALLENS TEST POSITIVE; INSPIRED O2 3 L; PATIENT TEMP 38.2; VENTILATOR NO
[2022-08-21 16:54] LABS: LYMPHOCYTES % (MANUAL) 8 %; MONOCYTES % (MANUAL) 10 %; NEUTROPHILS % (MANUAL) 82 %; RBC MORPH NORMAL
[2022-08-21] MEDS ORDERED: RT-ALBUTEROL/IPRATROPIUM 3 ML (DUONEB) VIAL INH ONE (17:15)
[2022-08-21] MEDS ORDERED: NS 100 ML (IVPB) BAG IV ONE (17:45)
[2022-08-21] MEDS ORDERED: IOHEXOL 350 MG/ML 100 ML (OMNIPAQUE 350) VIAL IV ONE (17:45)
[2022-08-21] MEDS ORDERED: HOLD METFORMIN - RECEIVED CONTRAST 20 ML VIAL IV SCH (17:45)
[2022-08-21 18:20] LABS: BILIRUBIN,URINE NEGATIVE (NEGATIVE); CLARITY,URINE SL CLOUDY; COLOR,URINE YELLOW; GLUCOSE, URINE (UA) NEGATIVE (NEGATIVE); KETONES,URINE NEGATIVE (NEGATIVE); LEUKOCYTE ESTERASE ,URINE 2+ (NEGATIVE); NITRITE,URINE POSITIVE (NEGATIVE); PROTEIN,URINE 2+ (NEGATIVE)
[2022-08-21 18:32] LABS: BACTERIA,URINE LARGE /HPF; RBC,URINE 25-50 /HPF; WBC,URINE >100 /HPF
--- NOTE | 2022-08-21 18:54 | Diagnostic Imaging Report ---
INDICATION: Abnormal EKG, weakness, elevated d-dimer, low O2. TECHNIQUE: Noncontrast CT imaging of the chest following administration of intravenous contrast. Multiplanar including MIP reformatted images. Auto Exposure Controls were utilized during the CT exam to meet ALARA standards for radiation dose reduction. CORRELATION STUDY: Chest radiograph 08/21/2022 FINDINGS: Marked elevated left diaphragm occupying approximately half the left hemithorax results in significant left lower lung volume loss and distortion of the chest anatomy. Also asymmetrically elevated right anterior diaphragm with portion of the liver in the anterior lower chest with additional atelectasis in this area. Apart from the atelectasis, the lung martinez otherwise generally clear. Heart is enlarged and somewhat displaced anteriorly towards the right hemithorax. No significant pericardial effusion. Thoracic aorta with moderate calcification. Prominent calcification of the coronary arteries. There is atherosclerotic plaquing of the proximal abdominal aorta. There is no suggestion for pulmonary embolism. Visualized portion of the upper abdomen demonstrates moderate stool in the visualized colon particularly in the left lower chest. Cholecystectomy clips. Questionable low attenuation of the right kidney. Nonspecific, could potentially reflect pyelonephritis. Anastomotic suture of the gastrointestinal tract left upper quadrant. Mild rightward curvature of the thoracic spine along with advanced degenerative changes of the visualized spine. No acute bony abnormality. IMPRESSION: 1. Marked elevated left diaphragm with significant left lower lung volume loss. Resultant crowding and atelectasis of the lower lobes, left greater than right. 2. Distortion of the chest anatomy from the elevated diaphragm. No definitive pulmonary embolism. 3. Cardiac enlargement with prominent severity coronary artery calcification. Negative for acute aortic syndrome with moderate atherosclerotic plaque present at the abdominal aorta. 4. Limited visualization of the gastrointestinal tract suggesting constipation. 5. Very questionable, partially visualized low attenuating and enhancement of the right kidney. May be simply artifactual with possibility of pyelonephritis not excluded. Dictated by: Dictated on workstation # [id number]
[2022-08-21] MEDS ORDERED: cefTRIAXone 1 GM PRE-MIX 50 ML IV ONE (19:15)
[2022-08-21] MEDS ORDERED: FUROSEMIDE 40 MG/4 ML INJ (LASIX) IVP ONE (19:30)
[2022-08-21 21:45] VITALS: BP 120/82
[2022-08-21] MEDS ORDERED: ACETAMINOPHEN 325 MG TABLET PO PRN (22:30)
[2022-08-21 23:03] VITALS: BP 97/64
[2022-08-21] MEDS: HYDROcodone/APAP 5 MG/325 MG (LORTAB) TAB PO PRN (23:17)
[2022-08-22 04:36] VITALS: BP 106/67
[2022-08-22] MEDS: CATHETER FLUSH 10 ML SYR IVP SCH ×3 (04:36→23:00)
[2022-08-22 06:25] LABS: BASOPHILS # (AUTO) 0.1 10^3/uL (0.0-0.1); BASOPHILS % (AUTO) 0 % (0-10); EOSINOPHILS % (AUTO) 0 % (0-10); HEMATOCRIT 37 % (35-52); HEMOGLOBIN 11.6 g/dL (11.5-16.0); LYMPHOCYTES # (AUTO) 1.6 10^3/uL (1.0-4.0); LYMPHOCYTES % (AUTO) 9 % (12-44); MEAN CORPUSCULAR HEMOGLOBIN 29 pg (25-34); MEAN CORPUSCULAR HGB CONC 32 g/dL (32-36); MEAN CORPUSCULAR VOLUME 92 fL (80-99); MEAN PLATELET VOLUME 10.7 fL (9.0-12.2); MONOCYTES # (AUTO) 1.6 10^3/uL (0.0-1.0); MONOCYTES % (AUTO) 9 % (0-12); NEUTROPHILS # (AUTO) 13.7 10^3/uL (1.8-7.8); NEUTROPHILS % (AUTO) 80 % (42-75); PLATELET COUNT 233 10^3/uL (130-400); WHITE BLOOD COUNT 17.1 10^3/uL (4.3-11.0)
[2022-08-22 06:58] LABS: POTASSIUM 3.5 MMOL/L (3.6-5.0)
[2022-08-22 06:59] LABS: CALCIUM 8.7 MG/DL (8.5-10.1)
[2022-08-22 07:04] LABS: CREATININE SERUM 1.19 MG/DL (0.60-1.30)
[2022-08-22] MEDS: RT-IPRATROPIUM (ATROVENT) 0.5MG/2.5ML AMP IH SCH ×2 (07:09→21:50)
[2022-08-22] MEDS: RT-ALBUTEROL SULF 2.5 MG/3 ML PRE-MIX VIAL INH SCH ×3 (07:09→21:50)
[2022-08-22 08:01] VITALS: BP 124/58
[2022-08-22] MEDS: HYDROcodone/APAP 5 MG/325 MG (LORTAB) TAB PO PRN ×3 (08:57→23:59)
[2022-08-22] MEDS ORDERED: OXYB5TAB13 PO (09:46)
--- NOTE | 2022-08-22 11:07 | Consultation-Cardiology ---
HPI-Cardiology Cardiology Consultation Date of Consultation 08/22/22 Date of Admission Time Seen by Provider: 08:40 Indication: CAD, questionable atrial fibrillation HPI Patient is a 81 y/o female with history fo CAD, , HTN. Presented to the ER from [facility] with complaints of generalized fatigue, malaise dizziness and chills, onset yesterday. Denies any chest pain or dyspnea. Continues to complain of chills and generalized malaise. Work up in ER showing UTI. There was question of new onset atrial fibrillation on telemetry. After further review telemetry showing SR with PVCs, no atrial fibrillation was detected. Home Medications & Allergies Allergies: Coded Allergies: Penicillins (Verified Allergy, Unknown, HAS HAD ANCEF W/O PROBLEMS, 12/23/18) atorvastatin (Verified Allergy, Unknown, 12/23/18) procaine (Verified Allergy, Unknown, 12/23/18) Home Medication List Reviewed: Yes CZU-Vmbqct-Gzqosd Hx Patient Social History Marital Status: single Employed/Student: retired Smoking Status: Former Smoker Former smoker/When Quit: Jul 08, 1992 Type Used: Cigarettes 2nd Hand Smoke Exposure: Yes Recent Hopitalizations: No Have you traveled recently?: No Alcohol Use?: No Immunizations Up To Date Tetanus Booster (TDap): Unknown Date of Pneumonia Vaccine: May 03, 2020 Date of Influenza Vaccine: Apr 07, 2022 Past Medical History CAD, HTN, HLP Family Medical History Significant Family History: Heart Disease, Hypertension Family History: Cancer 03 MOTHER, Onset:40's - 50 Family history: Thyroid disorder 03 MOTHER 09 BROTHER Hearing loss 09 BROTHER Visual impairment 09 BROTHER No Family History of: Abdominal aortic aneurysm Review of Systems-General Review of Systems Constitutional: see HPI, dizziness, fever, malaise, weakness EENTM: see HPI, no symptoms reported Respiratory: see HPI; No cough, No dyspnea on exertion, No short of breath Cardiovascular: see HPI; No chest pain, No edema, No Hx of Intervention, No palpitations Genitourinary: see HPI Musculoskeletal: see HPI Reviewed Test Results Reviewed Test Results Lab Laboratory Tests 08/21/22 15:25: White Blood Count 17.7H, Red Blood Count 4.40, Hemoglobin 13.1, Hematocrit 40, Mean Corpuscular Volume 91, Mean Corpuscular Hemoglobin 30, Mean Corpuscular Hemoglobin Concent 33, Red Cell Distribution Width 14.0, Platelet Count 262, Mean Platelet Volume 9.9, Immature Granulocyte % (Auto) 1, Neutrophils (%) (Auto) 78H, Lymphocytes (%) (Auto) 9L, Monocytes (%) (Auto) 12, Eosinophils (%) (Auto) 0, Basophils (%) (Auto) 0, Neutrophils # (Auto) 13.8H, Lymphocytes # (Auto) 1.6, Monocytes # (Auto) 2.1H, Eosinophils # (Auto) 0.0, Basophils # (Auto) 0.0, Immature Granulocyte # (Auto) 0.1, Neutrophils % (Manual) 82, Lymphocytes % (Manual) 8, Monocytes % (Manual) 10, Blood Morphology Comment NORMAL, Prothrombin Time 19.3H, INR Comment 1.6H, Activated Partial Thromboplast Time 41H, D-Dimer 0.71H, Sodium Level 138, Potassium Level 4.0, Chloride Level 104, Carbon Dioxide Level 25, Anion Gap 9, Blood Urea Nitrogen 26H, Creatinine 1.11, Estimat Glomerular Filtration Rate 51, BUN/Creatinine Ratio 23, Glucose Level 110H, Calcium Level 9.1, Corrected Calcium 9.5, Magnesium Level 1.7, Total Bilirubin 1.0, Aspartate Amino Transf (AST/SGOT) 24, Alanine Aminotransferase (ALT/SGPT) 15, Alkaline Phosphatase 63, Troponin I < 0.028, B-Type Natriuretic Peptide 702.5H, Total Protein 6.8, Albumin 3.5 08/21/22 16:10: Influenza Type A (RT-PCR) Not Detected, Influenza Type B (RT-PCR) Not Detected, SARS-CoV-2 RNA (RT-PCR) Not Detected 08/21/22 16:13: Blood Gas Puncture Site RIGHT RADIAL, Blood Gas Patient Temperature 38.2, Arterial Blood pH 7.44H, Arterial Blood Partial Pressure CO2 36, Arterial Blood Partial Pressure O2 90, Arterial Blood HCO3 23, Arterial Blood Total CO2 24.4, Arterial Blood Oxygen Saturation 95, Arterial Blood Base Excess -0.1, Karri Test POSITIVE, Blood Gas Ventilator Setting NO, Blood Gas Inspired Oxygen 3 L 08/21/22 16:22: Lactic Acid Level 1.65 08/21/22 18:10: Urine Color YELLOW, Urine Clarity SL CLOUDY, Urine pH 6.0, Urine Specific [place] 1.025H, Urine Protein 2+H, Urine Glucose (UA) NEGATIVE, Urine Ketones NEGATIVE, Urine Nitrite POSITIVEH, Urine Bilirubin NEGATIVE, Urine Urobilinogen 1.0, Urine Leukocyte Esterase 2+H, Urine RBC (Auto) 3+H, Urine RBC 25-50H, Urine WBC >100H, Urine Squamous Epithelial Cells 2-5, Urine Crystals NONE, Urine Bacteria LARGEH, Urine Casts NONE, Urine Mucus SMALLH, Urine Culture Indicated CULTURE PENDING 08/22/22 05:15: White Blood Count 17.1H, Red Blood Count 3.96, Hemoglobin 11.6, Hematocrit 37, Mean Corpuscular Volume 92, Mean Corpuscular Hemoglobin 29, Mean Corpuscular Hemoglobin Concent 32, Red Cell Distribution Width 14.3, Platelet Count 233, Mean Platelet Volume 10.7, Immature Granulocyte % (Auto) 1, Neutrophils (%) (Auto) 80H, Lymphocytes (%) (Auto) 9L, Monocytes (%) (Auto) 9, Eosinophils (%) (Auto) 0, Basophils (%) (Auto) 0, Neutrophils # (Auto) 13.7H, Lymphocytes # (Auto) 1.6, Monocytes # (Auto) 1.6H, Eosinophils # (Auto) 0.0, Basophils # (Auto) 0.1, Immature Granulocyte # (Auto) 0.1, Sodium Level 136, Potassium Level 3.5L, Chloride Level 102, Carbon Dioxide Level 22, Anion Gap 12, Blood Urea Nitrogen 29H, Creatinine 1.19, Estimat Glomerular Filtration Rate 47, BUN/Creatinine Ratio 24, Glucose Level 140H, Calcium Level 8.7 Microbiology 08/21/22 Urine Culture - Preliminary, Resulted Escherichia coli 08/21/22 Blood Culture - Preliminary, Resulted Gram Negative Shukri ECG Impression ECG Initial ECG Rhythm: Normal Sinus, PVC Physical Exam Physical Exam Vital Signs Vital Signs - First Documented 08/21/22 08/21/22 08/21/22 15:23 16:12 23:04 Pulse 84 Resp 18 B/P (MAP) 104/60 (75) Pulse Ox 92 O2 Delivery Nasal Cannula O2 Flow Rate 2.00 FiO2 28 Capillary Refill : Height, Weight, BMI Height: 5'3.00" Weight: 242lbs. 2.0oz. 109.330966fm; 34.99 BMI Method:Stated General Appearance: No Apparent Distress, WD/WN Neck: Normal Inspection, Supple Respiratory: Lungs Clear, No Accessory Muscle Use, No Respiratory Distress, Decreased Breath Sounds (Bilateral lower lobes) Cardiovascular: Regular Rate, Rhythm, No Edema, No Gallop, No JVD, No Murmur Gastrointestinal: Normal Bowel Sounds Extremity: Normal Inspection, Normal Range of Motion Neurologic/Psychiatric: Alert, Oriented x3, Normal Mood/Affect Skin: Normal Color, Warm/Dry A/P-Cardiology Admission Diagnosis UTI PVCs CAD HTN Assessment/Plan UTI, started on IV antibiotic, management per medical services. Frequent PVCs noted on telemetry, no atrial fibrillation, I will restart low dose beta jennifer, continue to monitor. Coronary artery disease Status post acute myocardial infarction in 2013 with total occlusion of the right coronary artery, underwent complex intervention with stent deployment to the right coronary artery using 3.5x30 mm integrity and 3.018 mm bare-metal stent without complication. Had multiple clots in the distal right coronary artery, Had another cardiac catheterization in December 2014 resulted in deployment of another stent 3.012 mm integrity bare-metal stent with good result. Patient had [id number] disease in the LAD and circumflex artery. Cardiac catheterization done October 10, 2016 revealed patent stents in the LAD with mild disease distally, nonobstructive disease. 50 percent in-stent restenosis of the mid right coronary artery with FFR of 0.84. Cardiac catheterization done 09/07/20 showing calcified and tortuous prox LAD with sig gradient by FFR, successful deployment of 2 overlapping stents using Emily stent prox 2.75x18 and midportion 2.5x23mm with excellent results. Patent stent in the RCA, mild dz in the circumflex. Most recent cardiac catheterization done 01/03/22 showing mild to moderate in- stent restenosis in the mid right coronary artery, small vessel disease at the distal right coronary artery nonobstructive disease. Patent stent in the proximal LAD with mild disease distally, nonobstructive disease, mild disease in the circumflex artery. Mildly elevated left ventricular end-diastolic pressure. Mild aortic valve stenosis noted by 2D echo in September 2021, PA pressure 15 to 20 mmHg. Continue to monitor Congestive heart failure, acute on chronic left ventricular systolic dysfunction due to her myocardial infarction, most recent 2D Echo done September 2021 showing EF 60-65%, mild , PA 15-20mmHg. Ejection fraction during stress test was 38% History of PE February 2022 during hospitalization at [facility] in [place], maintained on Eliquis as outpatient. I will restart Eliquis. Ventral hernia-status post repair by Dr. Sun April 2015. Has recurrence of hernia, will refer to Dr. Rodriguez for further evaluation. Hypertension, controlled, continue to monitor. Hyperlipidemia, well controlled, continue to monitor. History of colon cancer, status post right hemicolectomy done by Dr. Alas. patient has been monitored and followed by Dr. Henriquez, did not see Dr. Henriquez since 2003 Obesity, patient was instructed on weight loss. Bilateral nonobstructive carotid artery stenosis, last carotid ultrasound was done in October 2021 Thank you for allowing us to participate in the management of Ms. Ralph. This is Sonya Frausto PA-C, as a scribe for Dr. Posey. Patient was seen and evaluated with Sonya, examined and interviewed the patient, agree with the current scribed note Patient was admitted for UTI, generalized weakness and fatigue. There was suspicion of atrial fibrillation on admission, review of her EKG showed sinus rhythm with frequent PVCs. The P wave was not very clear on the EKG but it is definitely in sinus rhythm Patient has a history of coronary artery disease which has been stable at this point. Has history of mild aortic valve stenosis, hypertension. Normal left ventricular systolic function by echocardiogram. SONYA BLAKE Aug 22, 2022 11:07 PETROS POSEY MD Aug 22, 2022 14:30
[2022-08-22 11:29] VITALS: BP 91/52
[2022-08-22] MEDS: NS IV 1000 ML 1,000 ML IV SCH ×2 (12:49→22:59)
[2022-08-22 16:11] VITALS: BP 107/58
--- NOTE | 2022-08-22 16:22 | History & Physical ---
LYRIC FARIAS 08/22/22 1622: History of Present Illness History of Present Illness Reason for visit/HPI Patient is a 81yo F with PMH of COPD, EMILIE w/ CPAP, CAD, atrial fibrillation, and previous PE in January 2022. Yesterday morning around 2:00AM the patient woke up with chills and shortness of breath. She tried to get up and go to the restroom but struggled when getting off of the toilet due to weakness and feeling lightheaded. She tried to walk around the house but her shortness of breath worsened when she got up to walk. Patient has an albuterol inhaler at home that she tried but it did not improve her symptoms. She decided to go to the [facility] walk in clinic to be evaluated. The clinic did an EKG and was concerned that it was abnormal so they sent her to the emergency room. In the ER she was placed on 2L O2 NC with pulse oximetry in the 90's. Chest X- ray did not show any acute changes and CTA did not show any signs of a new PE. The patient's WBC and BNP were elevated. A UA was positive for nitrites. Patient was admitted for sepsis from UTI, congestive heart failure, and acute on chronic respiratory failure. Patient was laying in bed awake at the start of the interview. Says she is feeling less short of breath today but is very tired and has chills. Patient was on room air with pulse oximeter in the 90's. The patient reports they had been feeling well up until yesterday morning. Denied fever, cough, congestion, chest pain, nausea, vomiting, diarrhea, and dysuria over the past week. Date of Admission Aug 21, 2022 at 21:58 Date Seen by a Provider: Aug 22, 2022 Time Seen by a Provider: 10:00 I consulted on this patient on 08/22/22 16:15 Attending Physician [facility] Admitting Physician Admitting Physician: Julio Cesar Flores MD Attending Physician: Julio Cesar Flores MD Consult Allergies and Home Medications Allergies Coded Allergies: Penicillins (Verified Allergy, Unknown, HAS HAD ANCEF W/O PROBLEMS, 12/23/18) atorvastatin (Verified Allergy, Unknown, 12/23/18) procaine (Verified Allergy, Unknown, 12/23/18) Patient Home Medication List Home Medication List Reviewed: Yes Apixaban (Eliquis) 5 Mg Tablet, 5 MG PO BID, (Reported) Entered as Reported by: ELMIRA FRAGA on 02/26/221220 Last Action: Continued Aspirin (Aspirin EC) 81 Mg Tablet., 81 MG PO DAILY, (Reported) Entered as Reported by: ELMIRA FRAGA on 02/26/221220 Last Action: Continued Levothyroxine Sodium (Levothyroxine Sodium) 88 Mcg Tablet, 88 MCG PO DAILY, (Reported) Entered as Reported by: EVANGELINA LITTLE on 09/07/20 0830 Last Action: Continued Metoprolol Succinate (Metoprolol Succinate) 100 Mg Tab.er.24h, 100 MG PO DAILY, (Reported) Entered as Reported by: ELMIRA FRAGA on 02/26/221220 Last Action: Reviewed Oxybutynin Chloride (Oxybutynin Chloride) 5 Mg Tablet, 10 MG PO DAILY, (Reported) Entered as Reported by: ESSENCE POLLOCK on 10/10/16 0950 Last Action: Continued Oxybutynin Chloride (Oxybutynin Chloride) 5 Mg Tablet, 5 MG PO 1800, (Reported) Entered as Reported by: ELMIRA FRAGA on 08/22/22 0946 Last Action: Reviewed Pantoprazole Sodium (Pantoprazole Sodium) 40 Mg Tablet., 40 MG PO DAILY, (Reported) Entered as Reported by: ELMIRA FRAGA on 09/19/21 110 Last Action: Reviewed Rosuvastatin Calcium (Rosuvastatin Calcium) 10 Mg Tablet, 10 MG PO 1600, (Reported) Entered as Reported by: ELMIRA FRAGA on 09/19/21 110 Last Action: Reviewed Discontinued Medications Albuterol Sulfate (Albuterol Sulfate) 2.5 Mg/0.5 Ml Vial.neb, 2.5 MG INH Q6H PRN for SHORTNESS OF BREATH Discontinued Reason: No Longer Taking Prescribed by: JULIO CESAR FLORES on 03/06/22 1242 Last Action: Discontinued Lactobacillus Rhamnosus GG (Culturelle) 10 Billion Cell Capsule, 1 EACH PO BID, (Reported) Discontinued Reason: No Longer Taking Entered as Reported by: ELMIRA FRAGA on 02/26/221220 Last Action: Discontinued Past Alamqyi-Yuciik-Kcyllc Hx Patient Social History Marrital Status: single Living Status: Living in own home Employed/Student: retired Tobacco Use?: Yes Tobacco type used: Cigarettes Smoking Status: Former Smoker Smokeless Tobacco Frequency: Never a User Use of E-Cig and/or Vaping dev: No Substance use?: No Alcohol Use?: No Immunizations Up To Date Date of Influenza Vaccine: Apr 07, 2022 First/Initial COVID19 Vaccinat: 10/26 Second COVID19 Vaccination Fernando: 10/26 Tetanus Booster (TDap): Unknown Date of Pneumonia Vaccine: May 03, 2020 Seasonal Allergies Seasonal Allergies: No Current Status status: No Advance Directives: Unable to obtain Communicates: Verbally Primary Language: Spanish Preferred Spoken Language: Spanish Is interpretation needed?: No Implanted or Applied Medical D: Stents Past Medical History Surgeries: Abdominal, Coronary Stent COPD Currently Using CPAP: No Currently Using BIPAP: No Coronary Artery Disease, Heart Attack, High Cholesterol, Hypertension Sexually Transmitted Disease: No HIV/AIDS: No Abdominal Hernia, Ulcer Arthritis Hypothyroidsim Cataract Loss of Vision: Denies Colon Did You Recieve Any Treatments: Yes What Type of Treatment Did You: Surgical Intervention Pruritis Blood Disorders: No Adverse Reaction/Blood Tranf: No (HAS HAD BLOOD WITH NO REACTION) CAD Chronic Systolic CHF EF 40-45% 2020 COPD no baseline oxygen need Family Medical History Cancer 03 MOTHER, Onset:40's - 50 Family history: Thyroid disorder 03 MOTHER 09 BROTHER Hearing loss 09 BROTHER Visual impairment 09 BROTHER No Family History of: Abdominal aortic aneurysm Heart Disease, Hypertension Review of Systems Constitutional: chills; No dizziness, No fever; weakness EENTM: No vision loss, No nose congestion, No throat pain Respiratory: No cough; dyspnea on exertion, short of breath; No wheezing Cardiovascular: No chest pain, No palpitations Gastrointestinal: No abdominal pain, No constipation, No diarrhea, No loss of appetite, No nausea, No vomiting Genitourinary: No dysuria, No frequency : No Musculoskeletal: no symptoms reported Skin: no symptoms reported Psychiatric/Neurological: Denies Headache; Weakness Physical Exam Vital Signs Vital Signs - First Documented 08/21/22 08/21/22 08/21/22 15:23 16:12 23:04 Pulse 84 Resp 18 B/P (MAP) 104/60 (75) Pulse Ox 92 O2 Delivery Nasal Cannula O2 Flow Rate 2.00 FiO2 28 Capillary Refill : Height, Weight, BMI Height: 5'3.00" Weight: 242lbs. 2.0oz. 109.911702gj; 34.99 BMI Method:Stated General Appearance: No Apparent Distress, WD/WN Eyes: Bilateral Eye Normal Inspection HEENT: Moist Mucous Membranes Neck: Full Range of Motion Respiratory: Lungs Clear, Normal Breath Sounds, No Accessory Muscle Use, No Respiratory Distress Cardiovascular: Regular Rate, Rhythm, No Murmur Gastrointestinal: Non Tender, Soft Extremity: Normal Inspection, No Calf Tenderness, Pedal Edema (1+) Neurologic/Psychiatric: Alert, Oriented x3, Normal Mood/Affect Skin: Normal Color, Warm/Dry Assessment/Plan Assessment and Plan Exacerbation of congestive heart failure - cardiology consulted - on telemetry - patient has congestive heart failure due to previous [place] - received one dose of IV furosemide 40mg - metoprolol 100mg 1xD restarted from home med list Acute on chronic respiratory failure - patient tolerating room air - respiratory failure most likely due to CHF exacerbation vs COPD exacerbation - albuterol 2.5mg TID restarted from home med list - ipratropium 0.5mg BID restarted from home med list UTI with bacteremia - IV ceftriaxone started - preliminary culture grew E coli - preliminary blood culture grew gram negative rods Atrial fibrillation - there was concern that patient was in atrial fibrillation, but cardiology did not identify A fib on telemetry - Eliquis 5mg 1xD restarted from home med list CAD with Hx of intervention - aspirin 81mg 1xD restarted from home med list - BP and hld are well controlled Hx of PE - eliquis restarted COPD - inhalers restarted from home med list EMILIE - CPAP ordered for night time use Hypertension - metoprolol restarted - BP is well controlled Hyperlipidemia - well controlled Hypothyroidism - levothyroxine 88mcg 1xD restarted from home med list Overactive bladder - oxybutynin 5mg TID restarted from home med list Chronic pain - hydrocodone/acetaminophen Q6hrs PRN restarted from home med list Admission Diagnosis Admission Status: Inpatient Order (span 2 midnights) Reason for Inpatient Admission: Bacteremia treatment JULIO CESAR FLORES MD 08/22/22 9667: Allergies and Home Medications Allergies Coded Allergies: Penicillins (Verified Allergy, Unknown, HAS HAD ANCEF W/O PROBLEMS, 12/23/18) atorvastatin (Verified Allergy, Unknown, 12/23/18) procaine (Verified Allergy, Unknown, 12/23/18) Patient Home Medication List Home Medication List Reviewed: Yes Apixaban (Eliquis) 5 Mg Tablet, 5 MG PO BID, (Reported) Entered as Reported by: ELMIRA FRAGA on 02/26/221220 Last Action: Continued Aspirin (Aspirin EC) 81 Mg Tablet., 81 MG PO DAILY, (Reported) Entered as Reported by: ELMIRA FRAGA on 02/26/221220 Last Action: Continued Levothyroxine Sodium (Levothyroxine Sodium) 88 Mcg Tablet, 88 MCG PO DAILY, (Reported) Entered as Reported by: EVANGELINA LITTLE on 09/07/20 0830 Last Action: Continued Metoprolol Succinate (Metoprolol Succinate) 100 Mg Tab.er.24h, 100 MG PO DAILY, (Reported) Entered as Reported by: ELMIRA FRAGA on 02/26/221220 Last Action: Reviewed Oxybutynin Chloride (Oxybutynin Chloride) 5 Mg Tablet, 10 MG PO DAILY, (Reported) Entered as Reported by: ESSENCE POLLOCK on 10/10/16 0950 Last Action: Continued Oxybutynin Chloride (Oxybutynin Chloride) 5 Mg Tablet, 5 MG PO 1800, (Reported) Entered as Reported by: ELMIRA FRAGA on 08/22/22 0946 Last Action: Reviewed Pantoprazole Sodium (Pantoprazole Sodium) 40 Mg Tablet., 40 MG PO DAILY, (Reported) Entered as Reported by: ELMIRA FRAGA on 09/19/21 1105 Last Action: Reviewed Rosuvastatin Calcium (Rosuvastatin Calcium) 10 Mg Tablet, 10 MG PO 1600, (Reported) Entered as Reported by: ELMIRA FRAGA on 09/19/21 110 Last Action: Reviewed Discontinued Medications Albuterol Sulfate (Albuterol Sulfate) 2.5 Mg/0.5 Ml Vial.neb, 2.5 MG INH Q6H PRN for SHORTNESS OF BREATH Discontinued Reason: No Longer Taking Prescribed by: JULIO CESAR FLORES on 03/06/22 1242 Last Action: Discontinued Lactobacillus Rhamnosus GG (Culturelle) 10 Billion Cell Capsule, 1 EACH PO BID, (Reported) Discontinued Reason: No Longer Taking Entered as Reported by: ELMIRA FRAGA on 8/22/22 1221 Last Action: Discontinued Past Aahxufu-Cdwcdr-Vfaozy Hx Family Medical History Cancer 03 MOTHER, Onset:40's - 50 Family history: Thyroid disorder 03 MOTHER 09 BROTHER Hearing loss 09 BROTHER Visual impairment 09 BROTHER No Family History of: Abdominal aortic aneurysm Review of Systems Constitutional: chills, fever, malaise, weakness EENTM: no symptoms reported; No nose congestion, No throat pain Respiratory: No cough; dyspnea on exertion, short of breath Cardiovascular: no symptoms reported; No chest pain, No palpitations Gastrointestinal: no symptoms reported; No abdominal pain, No constipation, No diarrhea, No loss of appetite, No nausea, No vomiting Genitourinary: frequency, incontinence Musculoskeletal: no symptoms reported Skin: no symptoms reported Psychiatric/Neurological: Denies Headache; Weakness Physical Exam General Appearance: No Apparent Distress, WD/WN HEENT: PERRL/EOMI Neck: Full Range of Motion, Supple Respiratory: Chest Non Tender, Lungs Clear, Normal Breath Sounds, No Accessory Muscle Use, No Respiratory Distress Cardiovascular: Regular Rate, Rhythm, No Edema, No Murmur Gastrointestinal: Normal Bowel Sounds, Non Tender, Soft Back: No CVA Tenderness, No Vertebral Tenderness Extremity: Normal Capillary Refill, Normal Inspection, No Calf Tenderness, Pedal Edema (1+) Neurologic/Psychiatric: Alert, Oriented x3, Normal Mood/Affect Skin: Normal Color, Warm/Dry Lymphatic: No Adenopathy Supervisory-Addendum Brief Verification & Attestation Participated in pt care: history, MDM Personally performed: exam, history Care discussed with: Medical Student Procedures: n/a Verification and Attestation of Medical Student E/M Service A medical student performed and documented this service in my presence. I reviewed and verified all information documented by the medical student and made modifications to such information, when appropriate. I personally performed the physical exam and medical decision making. Julio Cesar Flores, Aug 22, 2022,18:05 Sepsis Bacteremia UTI Ecoli Acute on Chronic respiratory failure with hypoxia Arrythemia CAD h/o PE COPD EMILIE HTN HLD Hypothyroidism LYRIC FARIAS Aug 22, 2022 16:22 JULIO CESAR FLORES MD Aug 22, 2022 18:08
[2022-08-22 20:23] VITALS: BP 90/52
[2022-08-22] MEDS: APIXABAN 5 MG (ELIQUIS) TABLET PO SCH (21:11)
[2022-08-22] MEDS: cefTRIAXone 1 GM PRE-MIX 50 ML IV SCH (21:11)
[2022-08-22 23:55] VITALS: BP 111/73
[2022-08-23 03:43] VITALS: BP 106/62
[2022-08-23 06:25] LABS: BASOPHILS % (AUTO) 0 % (0-10); EOSINOPHILS # (AUTO) 0.2 10^3/uL (0.0-0.3); EOSINOPHILS % (AUTO) 2 % (0-10); HEMATOCRIT 33 % (35-52); HEMOGLOBIN 10.7 g/dL (11.5-16.0); LYMPHOCYTES # (AUTO) 0.9 10^3/uL (1.0-4.0); LYMPHOCYTES % (AUTO) 8 % (12-44); MEAN CORPUSCULAR HEMOGLOBIN 30 pg (25-34); MEAN CORPUSCULAR HGB CONC 33 g/dL (32-36); MEAN CORPUSCULAR VOLUME 92 fL (80-99); MEAN PLATELET VOLUME 10.3 fL (9.0-12.2); MONOCYTES # (AUTO) 1.6 10^3/uL (0.0-1.0); MONOCYTES % (AUTO) 14 % (0-12); NEUTROPHILS # (AUTO) 8.8 10^3/uL (1.8-7.8); NEUTROPHILS % (AUTO) 76 % (42-75); PLATELET COUNT 208 10^3/uL (130-400); WHITE BLOOD COUNT 11.5 10^3/uL (4.3-11.0)
[2022-08-23] MEDS: LEVOTHYROXINE 88 MCG (LEVOTHORID) TAB PO SCH (06:28)
[2022-08-23] MEDS: CATHETER FLUSH 10 ML SYR IVP SCH ×3 (06:30→21:48)
[2022-08-23 06:43] LABS: ALBUMIN 2.5 GM/DL (3.2-4.5); BILIRUBIN,TOTAL 0.4 MG/DL (0.1-1.0); CALCIUM 8.1 MG/DL (8.5-10.1); CREATININE SERUM 0.92 MG/DL (0.60-1.30); POTASSIUM 3.5 MMOL/L (3.6-5.0); TOTAL PROTEIN 5.2 GM/DL (6.4-8.2)
[2022-08-23] MEDS: RT-ALBUTEROL SULF 2.5 MG/3 ML PRE-MIX VIAL INH SCH ×3 (06:53→20:52)
[2022-08-23] MEDS: RT-IPRATROPIUM (ATROVENT) 0.5MG/2.5ML AMP IH SCH ×2 (06:53→20:52)
[2022-08-23 08:05] VITALS: BP 105/71
[2022-08-23] MEDS: APIXABAN 5 MG (ELIQUIS) TABLET PO SCH ×3 (08:43→20:32)
[2022-08-23] MEDS: ASPIRIN E.C. 81 MG (ECOTRIN) TAB PO SCH ×2 (08:44→08:50)
[2022-08-23] MEDS: OXYBUTYNIN (DITROPAN) 5 MG TAB PO SCH ×2 (08:44→08:51)
[2022-08-23] MEDS: HYDROcodone/APAP 5 MG/325 MG (LORTAB) TAB PO PRN ×3 (08:51→21:58)
[2022-08-23] MEDS: NS IV 1000 ML 1,000 ML IV SCH ×2 (09:21→18:30)
--- NOTE | 2022-08-23 09:58 | Cardiology Progress Note ---
Subjective Date Seen by Provider: Aug 23, 2022 Time Seen by Provider: 08:15 Subjective/Events-last exam Patient sitting up in bed, complaining of some dyspnea and fatigue this morning. Denies any chest pain Focused Exam Lactate Level 08/21/22 16:22: Lactic Acid Level 1.65 Objective-Cardiology Exam Last Set of Vital Signs Vital Signs 08/21/22 08/23/22 08/23/22 23:04 11:39 12:45 Temp 36.7 Pulse 83 Resp 18 B/P (MAP) 107/72 (84) Pulse Ox 96 O2 Delivery Nasal Cannula O2 Flow Rate 2.50 FiO2 28 I&O Intake and Output 08/23/22 00:00 Intake Total 2410 ml Output Total 1625 ml Balance 785 ml Intake Oral 1360 ml IV Total 1050 ml Output Urine Total 1625 ml General: Alert, Oriented X3 HEENT: Atraumatic, PERRLA Lungs: Clear to Auscultation Heart: Regular Rate, Normal S1, Normal S2 Abdomen: Normal Bowel Sounds, Soft Skin: No Rashes, No Significant Lesion Neuro: Normal Speech Psych/Mental Status: Mental Status NL, Mood NL Results Lab Laboratory Tests 08/23/22 05:26 A/P-Cardiology Admission Diagnosis UTI PVCs CAD HTN Assessment/Plan UTI, started on IV antibiotic, management per medical services. Frequent PVCs noted on telemetry, no atrial fibrillation, I will restart low dose beta jennifer, continue to monitor. Coronary artery disease Status post acute myocardial infarction in 2013 with total occlusion of the right coronary artery, underwent complex intervention with stent deployment to the right coronary artery using 3.5x30 mm integrity and 3.018 mm bare-metal stent without complication. Had multiple clots in the distal right coronary artery, Had another cardiac catheterization in December 2014 resulted in deployment of another stent 3.012 mm integrity bare-metal stent with good result. Patient had oxph-db-lddxsatn disease in the LAD and circumflex artery. Cardiac catheterization done October 10, 2016 revealed patent stents in the LAD with mild disease distally, nonobstructive disease. 50 percent in-stent restenosis of the mid right coronary artery with FFR of 0.84. Cardiac catheterization done 09/07/20 showing calcified and tortuous prox LAD with sig gradient by FFR, successful deployment of 2 overlapping stents using Emily stent prox 2.75x18 and midportion 2.5x23mm with excellent results. Patent stent in the RCA, mild dz in the circumflex. Most recent cardiac catheterization done 01/03/22 showing mild to moderate in- stent restenosis in the mid right coronary artery, small vessel disease at the distal right coronary artery nonobstructive disease. Patent stent in the proximal LAD with mild disease distally, nonobstructive disease, mild disease in the circumflex artery. Mildly elevated left ventricular end-diastolic pressure. Mild aortic valve stenosis noted by 2D echo in September 2021, PA pressure 15 to 20 mmHg. Continue to monitor Congestive heart failure, most recent 2D Echo done September 2021 showing EF 60-65%, mild , PA 15-20mmHg. I will evaluate 2d Echo History of PE February 2022 during hospitalization at [facility] in [place], maintained on Eliquis as outpatient. I will restart Eliquis. Ventral hernia-status post repair by Dr. Sun April 2015. Has recurrence of hernia, will refer to Dr. Rodriguez for further evaluation. Hypertension, controlled, continue to monitor. Hyperlipidemia, well controlled, continue to monitor. History of colon cancer, status post right hemicolectomy done by Dr. Alas. patient has been monitored and followed by Dr. Henriquez, did not see Dr. Henriquez since 2004 Obesity, patient was instructed on weight loss. Bilateral nonobstructive carotid artery stenosis, last carotid ultrasound was done in October 2021 Supervisory-Addendum Brief Supervisory Addendum Participated in pt care: history, MDM, physical Personally performed: exam, history, MDM Care discussed with: RANJITH Results interpretation: Verified all documentation Notes: Patient was seen and evaluated with Sonya, examination performed, management plan was discussed, agree with the current scribed note, I made few changes to the note using Italic font Patient was seen at bedside, complain of generalized weakness and fatigue Receiving physical therapy Having some dyspnea using oxygen. Continue to monitor blood pressure and heart rate SONYA BLAKE Aug 23, 2022 09:58 PETROS ANTHONY MD Aug 23, 2022 12:48
[2022-08-23 11:39] VITALS: BP 107/72
--- NOTE | 2022-08-23 13:07 | Progress Note ---
LYRIC FARIAS 08/23/22 1307: Subjective Date Seen by a Provider: Aug 23, 2022 Time Seen by a Provider: 10:45 Subjective/Events-last exam Patient was sitting up in a chair at the beginning of the interview. Says she is feeling better but that she gets short of breath when she gets up to go to the [place]ro[place]. Patient was on 3L O2 NC this morning and says that she doesn't feel short of breath as long as she is wearing the oxygen while up walking around. Patient is still having chills but not as frequently as yesterday. Patient says she has not had a bowel movement since Saturday and is feeling constipated. She normally takes Miralax every morning. Denies headaches, chest pain, pal pitations, nausea, and vomiting. Review of Systems General: Chills, Fatigue, Appetite HEENT: No Head Aches, No Sinus Congestion, No Sore Throat Pulmonary: No Cough Cardiovascular: No: Chest Pain, Palpitations, Lt Headedness Gastrointestinal: Abdominal Pain, Constipation; No: Nausea, Vomiting Genitourinary: No Dysuria, No Incontinence Musculoskeletal: other (chronic shoulder pain) Neurological: Weakness Focused Exam Lactate Level 08/21/22 16:22: Lactic Acid Level 1.65 Objective Exam Last Set of Vital Signs Vital Signs Date Time Temp Pulse Resp B/P (MAP) Pulse Ox O2 Delivery O2 Flow Rate FiO2 08/23/22 12:45 83 08/23/22 11:39 36.7 18 107/72 (84) 96 Nasal Cannula 2.50 08/21/22 23:04 28 Capillary Refill : I&O Intake and Output 08/23/22 00:00 Intake Total 2410 ml Output Total 1625 ml Balance 785 ml Intake Oral 1360 ml IV Total 1050 ml Output Urine Total 1625 ml General: Alert, Oriented X3, Cooperative, No Acute Distress HEENT: Mucous Memb Moist/[place] Neck: Supple Lungs: Clear to Auscultation, Normal Air Movement Heart: Regular Rate, No Murmurs Abdomen: Soft, No Tenderness Extremities: No Clubbing, No Cyanosis, No Edema Skin: No Significant Lesion Neuro: Normal Speech Psych/Mental Status: Mental Status NL, Mood NL Results Lab Laboratory Tests 08/23/22 05:26: White Blood Count 11.5H, Red Blood Count 3.56L, Hemoglobin 10.7L, Hematocrit 33L , Mean Corpuscular Volume 92, Mean Corpuscular Hemoglobin 30, Mean Corpuscular Hemoglobin Concent 33, Red Cell Distribution Width 14.0, Platelet Count 208, Mean Platelet Volume 10.3, Immature Granulocyte % (Auto) 0, Neutrophils (%) (Auto) 76H, Lymphocytes (%) (Auto) 8L, Monocytes (%) (Auto) 14H, Eosinophils (%) (Auto) 2, Basophils (%) (Auto) 0, Neutrophils # (Auto) 8.8H, Lymphocytes # (Auto) 0.9L, Monocytes # (Auto) 1.6H, Eosinophils # (Auto) 0.2, Basophils # (Auto) 0.0, Immature Granulocyte # (Auto) 0.1, Sodium Level 135, Potassium Level 3.5L, Chloride Level 103, Carbon Dioxide Level 22, Anion Gap 10, Blood Urea Nitrogen 25H, Creatinine 0.92, Estimat Glomerular Filtration Rate 63, BUN/Creatinine Ratio 27, Glucose Level 121H, Calcium Level 8.1L, Corrected Calcium 9.3, Total Bilirubin 0.4, Aspartate Amino Transf (AST/SGOT) 33, Alanine Aminotransferase (ALT/SGPT) 20, Alkaline Phosphatase 64, Total Protein 5.2L, Albumin 2.5L Microbiology 08/21/22 Urine Culture - Preliminary, Resulted Escherichia coli 08/21/22 Blood Culture - Preliminary, Resulted No growth Assessment/Plan Assessment/Plan Assess & Plan/Chief Complaint Atrial fibrillation - cardiology consulted - on telemetry patient has not had any signs of atrial fibrillation - cardiology decided that patient presentation is most likely due to UTI and se psis vs congestive heart failure - received one dose of IV furosemide 40mg - metoprolol 100mg 1xD restarted from home med list - Eliquis 5mg 1xD restarted from home med list Acute on chronic respiratory failure - patient on 2-3L O2 NC - respiratory failure most likely due to sepsis - albuterol 2.5mg TID restarted from home med list - ipratropium 0.5mg BID restarted from home med list UTI with bacteremia - day 2 of IV ceftriaxone - WBC trending down from 17.1 to 11.5 - preliminary culture grew E coli, sensitivity pending - preliminary blood culture grew gram negative jose, sensitivity pending CAD with Hx of intervention - aspirin 81mg 1xD restarted from home med list - BP and hld are well controlled Hx of PE - eliquis restarted Constipation - docusate calcium 240mg 1xD ordered COPD - inhalers restarted from home med list EMILIE - CPAP ordered for night time use Hypertension - metoprolol restarted - BP is well controlled Hyperlipidemia - well controlled Hypothyroidism - levothyroxine 88mcg 1xD restarted from home med list Overactive bladder - oxybutynin 5mg TID restarted from home med list Chronic pain - hydrocodone/acetaminophen Q6hrs PRN restarted from home med list Mobility - PT/OT will be ordered to work with the patient Need for home health - psychotherapist social worker have agreed to speak with the patient about options for home health Clinical Quality Measures Admission Status Admission Dx Exacerbation of congestive heart failure - cardiology consulted - on telemetry - patient has congestive heart failure due to previous IN - received one dose of IV furosemide 40mg - metoprolol 100mg 1xD restarted from home med list Acute on chronic respiratory failure - patient tolerating room air - respiratory failure most likely due to CHF exacerbation vs COPD exacerbation - albuterol 2.5mg TID restarted from home med list - ipratropium 0.5mg BID restarted from home med list UTI with bacteremia - IV ceftriaxone started - preliminary culture grew E coli - preliminary blood culture grew gram negative rods Atrial fibrillation - there was concern that patient was in atrial fibrillation, but cardiology did not identify A fib on telemetry - Eliquis 5mg 1xD restarted from home med list CAD with Hx of intervention - aspirin 81mg 1xD restarted from home med list - BP and hld are well controlled Hx of PE - eliquis restarted COPD - inhalers restarted from home med list EMILIE - CPAP ordered for night time use Hypertension - metoprolol restarted - BP is well controlled Hyperlipidemia - well controlled Hypothyroidism - levothyroxine 88mcg 1xD restarted from home med list Overactive bladder - oxybutynin 5mg TID restarted from home med list Chronic pain - hydrocodone/acetaminophen Q6hrs PRN restarted from home med list JULIO CESAR MALONEY MD 09/06/22 1538: Supervisory-Addendum Brief Verification & Attestation Participated in pt care: history, physical Personally performed: exam, history Care discussed with: Medical Student Procedures: n/a Verification and Attestation of Medical Student E/M Service A medical student performed and documented this service in my presence. I reviewed and verified all information documented by the medical student and made modifications to such information, when appropriate. I personally performed the physical exam and medical decision making. Julio Cesar Maloney, Sep 06, 2022,15:37 LYRIC FARIAS Aug 23, 2022 13:07 JULIO CESAR MALONEY MD Sep 06, 2022 15:38
[2022-08-23 15:57] VITALS: BP 147/72
--- NOTE | 2022-08-23 17:29 | Physician Query Clarification ---
Physician Query-General Query to Physician: Clinical Validation Clarification Dr Mookie Maloney Sepsis has been documented in the medical record on the H and P. After study, has Sepsis been ruled out? If it has been ruled out, please document Sepsis ruled out" in the progress notes and/or discharge summary. Yes/Agreed, Sepsis ruled out/is not clinically valid Not agreed, Sepsis has not been ruled out/is clinically valid* *Please document the clinical evidence supportive of this diagnosis (even if now resolved) in the Progress Notes and Discharge Summary Other, with explanation of the clinical findings Clinically undetermined, no explanation for the clinical findings Additional information: " Patient was admitted for sepsis from UTI, congestive heart failure, and acute on chronic respiratory failure." Admission Lab/VS: WBC 17.7, lactic acid 1.65HR 84, RR 18, BP 104/60, SpO2 92% sat on room air, T 37.3 did increase to 38.1, ER Treatment: Albuterol/ipratropium, Ceftriaxone IV, Lasix IV, In responding to this query, please exercise your independent professional judgment. The purpose of this communication is to more accurately reflect the complexity of your patients condition. The fact that a question is asked does not imply that any particular answer is desired or expected. Thank you for your timely response to this clarification. Dorothy Rosa MSN, RN Clinical Cylinder Sander Operator [email or web address] PHYSICIAN RESPONSE: Based on the clinical findings in the record, please respond to the query above on this document as an addendum. Physician Response: Physician Response sepsis If you have questions please contact: Manager Financial Services: Ext: Thank you for your time and cooperation. Clinical Cylinder Sander Operator/Manager Financial Services This is a permanent part of the medical record DOROTHY ROSA Aug 23, 2022 17:29 EVAN GOLDEN DO Sep 04, 2022 20:25
--- NOTE | 2022-08-23 17:45 | Physician Query Clarification ---
Physician Query-General Query to Physician: The medical record reflects the following clinical scenario: The patient, in the setting of History/Risk factors, Hx CHF with EF 38%, Hx IL and CAD with Stents, HTN, Clinical Findings BNP 702.5, 1+ edema, AHRF with 02 at 2 to 3L Treatment I and O, IV Lasix, Cardiology consult, 2D echo Question: Do you agree with the impression of CHF, Acute on Chronic...systolic Dysfunction per Dr. Dean Posey? Yes; will document Acute on Chronic Systolic Heart Failure in the Progress Notes No; will continue current documentation in the Progress Notes Other; will document explanation of clinical findings Clinically undetermined; no explanation for clinical findings Please clarify and document your clinical opinion in the Progress Notes and Discharge Summary including the definitive and/or presumptive diagnosis, (suspec jamaal or probable), related to the above clinical findings. Please include clinical findings supporting your diagnosis. In responding to this query, please exercise your independent professional judgment. The purpose of this communication is to more accurately reflect the complexity of your patients condition. The fact that a question is asked does not imply that any particular answer is desired or expected. Thank you for timely response to this clarification. Dorothy Rosa, MSN, RN Clinical Raised Printer [phone] [email or web address] PHYSICIAN RESPONSE: Based on the clinical findings in the record, please respond to the query above on this document as an addendum. Physician Response: Physician Response yes If you have questions please contact: Green Coffee Blender: Ext: Thank you for your time and cooperation. Clinical Raised Printer/Green Coffee Blender This is a permanent part of the medical record DOROTHY ROSA Aug 23, 2022 17:45 EVAN GOLDEN DO Sep 04, 2022 20:26
[2022-08-23 19:14] VITALS: BP 122/59
[2022-08-23] MEDS: cefTRIAXone 1 GM PRE-MIX 50 ML IV SCH (20:32)
[2022-08-23 23:25] VITALS: BP 134/82
[2022-08-24] VITALS (7 sets, daily range): BP systolic 122–167; BP diastolic 58–91
[2022-08-24] MEDS: NS IV 1000 ML 1,000 ML IV SCH (04:06)
[2022-08-24] MEDS: HYDROcodone/APAP 5 MG/325 MG (LORTAB) TAB PO PRN ×3 (04:06→19:47)
[2022-08-24] MEDS: CATHETER FLUSH 10 ML SYR IVP SCH ×3 (05:17→19:26)
[2022-08-24 05:43] LABS: BASOPHILS % (AUTO) 0 % (0-10); EOSINOPHILS # (AUTO) 0.3 10^3/uL (0.0-0.3); EOSINOPHILS % (AUTO) 3 % (0-10); HEMATOCRIT 34 % (35-52); HEMOGLOBIN 10.8 g/dL (11.5-16.0); LYMPHOCYTES # (AUTO) 1.4 10^3/uL (1.0-4.0); LYMPHOCYTES % (AUTO) 15 % (12-44); MEAN CORPUSCULAR HEMOGLOBIN 29 pg (25-34); MEAN CORPUSCULAR HGB CONC 32 g/dL (32-36); MEAN CORPUSCULAR VOLUME 92 fL (80-99); MEAN PLATELET VOLUME 9.9 fL (9.0-12.2); MONOCYTES # (AUTO) 1.6 10^3/uL (0.0-1.0); MONOCYTES % (AUTO) 18 % (0-12); NEUTROPHILS # (AUTO) 5.8 10^3/uL (1.8-7.8); NEUTROPHILS % (AUTO) 63 % (42-75); PLATELET COUNT 217 10^3/uL (130-400); WHITE BLOOD COUNT 9.2 10^3/uL (4.3-11.0)
[2022-08-24 05:58] LABS: ALBUMIN 2.4 GM/DL (3.2-4.5); BILIRUBIN,TOTAL 0.2 MG/DL (0.1-1.0); CALCIUM 8.3 MG/DL (8.5-10.1); CREATININE SERUM 0.8 MG/DL (0.60-1.30); POTASSIUM 4.2 MMOL/L (3.6-5.0); TOTAL PROTEIN 5.1 GM/DL (6.4-8.2)
[2022-08-24] MEDS: LEVOTHYROXINE 88 MCG (LEVOTHORID) TAB PO SCH (06:23)
[2022-08-24] MEDS: RT-IPRATROPIUM (ATROVENT) 0.5MG/2.5ML AMP IH SCH (07:21)
[2022-08-24] MEDS: RT-ALBUTEROL SULF 2.5 MG/3 ML PRE-MIX VIAL INH SCH (07:21)
[2022-08-24] MEDS: OXYBUTYNIN (DITROPAN) 5 MG TAB PO SCH (08:57)
[2022-08-24] MEDS: ASPIRIN E.C. 81 MG (ECOTRIN) TAB PO SCH (08:57)
[2022-08-24] MEDS: APIXABAN 5 MG (ELIQUIS) TABLET PO SCH ×2 (09:38→19:27)
--- NOTE | 2022-08-24 12:51 | Cardiology Progress Note ---
Subjective Date Seen by Provider: Aug 24, 2022 Time Seen by Provider: 12:51 Subjective/Events-last exam Patient was seen at bedside, sitting comfortably. No new complaint Focused Exam Lactate Level 08/21/22 16:22: Lactic Acid Level 1.65 Objective-Cardiology Exam Last Set of Vital Signs Vital Signs 08/21/22 08/24/22 08/24/22 23:04 08:17 11:59 Temp 36.6 Pulse 89 Resp 18 B/P (MAP) 129/91 (104) Pulse Ox 92 O2 Delivery Room Air O2 Flow Rate 1.00 FiO2 28 I&O Intake and Output 08/24/22 00:00 Intake Total 3270 ml Output Total 3085 ml Balance 185 ml Intake Oral 3220 ml IV Total 50 ml Output Urine Total 1825 ml Stool Total 1260 ml # Voids 4 General: Alert, Oriented X3, Cooperative, No Acute Distress HEENT: Mucous Memb Moist/[place] Neck: Supple Lungs: Clear to Auscultation, Normal Air Movement Heart: Regular Rate, No Murmurs Abdomen: Soft, No Tenderness Extremities: No Clubbing, No Cyanosis, No Edema Skin: No Significant Lesion Neuro: Normal Speech Psych/Mental Status: Mental Status NL, Mood NL Results Lab Laboratory Tests 08/24/22 05:23 08/24/22 05:27 A/P-Cardiology Admission Diagnosis UTI PVCs CAD HTN Assessment/Plan UTI, started on IV antibiotic, management per medical services. Frequent PVCs noted on telemetry, no atrial fibrillation, I will restart low dose beta jennifer, continue to monitor. Coronary artery disease Status post acute myocardial infarction in 2013 with total occlusion of the right coronary artery, underwent complex intervention with stent deployment to the right coronary artery using 3.5x30 mm integrity and 3.018 mm bare-metal stent without complication. Had multiple clots in the distal right coronary artery, Had another cardiac catheterization in December 2014 resulted in deployment of another stent 3.012 mm integrity bare-metal stent with good result. Patient had [id number] disease in the LAD and circumflex artery. Cardiac catheterization done October 10, 2016 revealed patent stents in the LAD with mild disease distally, nonobstructive disease. 50 percent in-stent restenosis of the mid right coronary artery with FFR of 0.84. Cardiac catheterization done 09/07/20 showing calcified and tortuous prox LAD with sig gradient by FFR, successful deployment of 2 overlapping stents using Emily stent prox 2.75x18 and midportion 2.5x23mm with excellent results. Patent stent in the RCA, mild dz in the circumflex. Most recent cardiac catheterization done 01/03/22 showing mild to moderate in- stent restenosis in the mid right coronary artery, small vessel disease at the distal right coronary artery nonobstructive disease. Patent stent in the proximal LAD with mild disease distally, nonobstructive disease, mild disease in the circumflex artery. Mildly elevated left ventricular end-diastolic pressure. Mild aortic valve stenosis noted by 2D echo in September 2021, PA pressure 15 to 20 mmHg. Continue to monitor Congestive heart failure, most recent 2D Echo done September 2021 showing EF 60-65%, mild , PA 15-20mmHg. I will evaluate 2d Echo History of PE February 2022 during hospitalization at [facility] in [place], maintained on Eliquis as outpatient. I will restart Eliquis. Ventral hernia-status post repair by Dr. Sun April 2015. Has recurrence of hernia, will refer to Dr. Rodriguez for further evaluation. Hypertension, controlled, continue to monitor. Hyperlipidemia, well controlled, continue to monitor. History of colon cancer, status post right hemicolectomy done by Dr. Alas. patient has been monitored and followed by Dr. Henriquez, did not see Dr. Henriquez since 2004 Obesity, patient was instructed on weight loss. Bilateral nonobstructive carotid artery stenosis, last carotid ultrasound was done in October 2021 PETROS ANTHONY MD Aug 24, 2022 12:51
--- NOTE | 2022-08-24 13:07 | Progress Note ---
Subjective Date Seen by a Provider: Aug 24, 2022 Time Seen by a Provider: 09:30 Subjective/Events-last exam Patient was sitting up in her chair and on room air at the start of the exam. Reports that she has not had any chills since last night. Her oxybutinin was reordered but she normally takes it twice a day and has only been receiving it once so she has been up to use the restroom every 30 minutes due to her overactive bladder. She was not able to sleep well last night due to using the restroom so frequently and feels exhausted today. Patient says she is feeling less short of breath today and has been able to get up to use the restroom without much difficulty. She is concerned that she will not be able to return home without a skilled worker to help with cleaning around her home. Patient denied headache, chest pain, nausea, and vomiting. Review of Systems General: No Chills; Fatigue, Appetite HEENT: No Head Aches, No Sinus Congestion, No Sore Throat Pulmonary: No Cough Cardiovascular: No: Chest Pain, Palpitations, Edema Gastrointestinal: Constipation; No: Nausea, Vomiting, Abdominal Pain Genitourinary: Frequency (increased); No Incontinence Musculoskeletal: shoulder pain (chronic bilateral) Neurological: Weakness Focused Exam Lactate Level 08/21/22 16:22: Lactic Acid Level 1.65 Objective Exam Last Set of Vital Signs Vital Signs Date Time Temp Pulse Resp B/P (MAP) Pulse Ox O2 Delivery O2 Flow Rate FiO2 08/24/22 11:59 36.6 89 18 129/91 (104) 92 Room Air 08/24/22 08:17 1.00 08/21/22 23:04 28 Capillary Refill : I&O Intake and Output 08/24/22 00:00 Intake Total 3270 ml Output Total 3085 ml Balance 185 ml Intake Oral 3220 ml IV Total 50 ml Output Urine Total 1825 ml Stool Total 1260 ml # Voids 4 General: Alert, Oriented X3, Cooperative, No Acute Distress HEENT: Mucous Memb Moist/[place] Neck: Supple Lungs: Clear to Auscultation, Normal Air Movement Heart: Regular Rate, No Murmurs Abdomen: Soft, No Tenderness Extremities: No Clubbing, No Cyanosis, No Edema Skin: No Significant Lesion Neuro: Normal Speech Psych/Mental Status: Mental Status NL, Mood NL Results Lab Laboratory Tests 08/24/22 05:23: Sodium Level 137, Potassium Level 4.2, Chloride Level 108H, Carbon Dioxide Level 22, Anion Gap 7, Blood Urea Nitrogen 19H, Creatinine 0.80, Estimat Glomerular Filtration Rate 75, BUN/Creatinine Ratio 24, Glucose Level 126H, Calcium Level 8.3L, Corrected Calcium 9.6, Total Bilirubin 0.2, Aspartate Amino Transf (AST/SGOT) 24, Alanine Aminotransferase (ALT/SGPT) 19, Alkaline Phosphatase 58, Total Protein 5.1L, Albumin 2.4L 08/24/22 05:27: White Blood Count 9.2, Red Blood Count 3.67L, Hemoglobin 10.8L, Hematocrit 34L, Mean Corpuscular Volume 92, Mean Corpuscular Hemoglobin 29, Mean Corpuscular Hemoglobin Concent 32, Red Cell Distribution Width 14.3, Platelet Count 217, Mean Platelet Volume 9.9, Immature Granulocyte % (Auto) 0, Neutrophils (%) (Auto) 63, Lymphocytes (%) (Auto) 15, Monocytes (%) (Auto) 18H, Eosinophils (%) (Auto) 3, Basophils (%) (Auto) 0, Neutrophils # (Auto) 5.8, Lymphocytes # (Auto) 1.4, Monocytes # (Auto) 1.6H, Eosinophils # (Auto) 0.3, Basophils # (Auto) 0.0, Immature Granulocyte # (Auto) 0.0 Microbiology 08/21/22 Urine Culture - Final, Complete Escherichia coli Escherichia coli#2 08/21/22 Blood Culture - Preliminary, Resulted No growth Assessment/Plan Assessment/Plan Assess & Plan/Chief Complaint Exacerbation of congestive heart failure - cardiology consulted and concluded that patient presentation is most likely due to UTI and sepsis vs congestive heart failure exacerbation - on telemetry - patient has congestive heart failure due to previous CA - metoprolol 100mg 1xD restarted from home med list Acute on chronic respiratory failure - patient tolerating room air - respiratory failure most likely due to sepsis from a UTI - albuterol 2.5mg TID restarted from home med list, changed to PRN - ipratropium 0.5mg BID restarted from home med list, changed to PRN UTI with bacteremia and SEPSIS - day 3 IV ceftriaxone started - preliminary culture grew E coli, sensitivity pending - preliminary blood culture grew gram negative rods - WBC trending down from 11.5 to 9.2 - preliminary blood culture grew gram negative jose, sensitivity pending - Sepsis has resolved Atrial fibrillation - there was concern that patient was in atrial fibrillation, but cardiology did not identify A fib on telemetry - Eliquis 5mg 1xD restarted from home med list - cardiology consulted - on telemetry patient has not had any signs of atrial fibrillation CAD with Hx of intervention - aspirin 81mg 1xD restarted from home med list - BP and hld are well controlled Hx of PE - eliquis restarted Constipation - docusate calcium 240mg 1xD ordered COPD - inhalers restarted from home med list, changed to PRN EMILIE - CPAP ordered for night time use Hypertension - metoprolol restarted - BP is well controlled Hyperlipidemia - well controlled Hypothyroidism - levothyroxine 88mcg 1xD restarted from home med list Overactive bladder - oxybutynin 5mg BID restarted from home med list Chronic pain - hydrocodone/acetaminophen Q6hrs PRN restarted from home med list Mobility - PT/OT will be ordered to work with the patient today Need for home health - social worker palliative care spoke with patient about options for skilled workers and was given a phone number to call Clinical Quality Measures Admission Status Admission Dx Exacerbation of congestive heart failure - cardiology consulted - on telemetry - patient has congestive heart failure due to previous CA - received one dose of IV furosemide 40mg - metoprolol 100mg 1xD restarted from home med list Acute on chronic respiratory failure - patient tolerating room air - respiratory failure most likely due to CHF exacerbation vs COPD exacerbation - albuterol 2.5mg TID restarted from home med list - ipratropium 0.5mg BID restarted from home med list UTI with bacteremia - IV ceftriaxone started - preliminary culture grew E coli - preliminary blood culture grew gram negative rods Atrial fibrillation - there was concern that patient was in atrial fibrillation, but cardiology did not identify A fib on telemetry - Eliquis 5mg 1xD restarted from home med list CAD with Hx of intervention - aspirin 81mg 1xD restarted from home med list - BP and hld are well controlled Hx of PE - eliquis restarted COPD - inhalers restarted from home med list EMILIE - CPAP ordered for night time use Hypertension - metoprolol restarted - BP is well controlled Hyperlipidemia - well controlled Hypothyroidism - levothyroxine 88mcg 1xD restarted from home med list Overactive bladder - oxybutynin 5mg TID restarted from home med list Chronic pain - hydrocodone/acetaminophen Q6hrs PRN restarted from home med list LYRIC FARIAS Aug 24, 2022 13:07
[2022-08-24] MEDS ORDERED: RT-ALBUTEROL SULF 2.5 MG/3 ML PRE-MIX VIAL INH PRN (13:30)
[2022-08-24] MEDS: ROSUVASTATIN 10 MG (CRESTOR) TABLET PO SCH (15:27)
[2022-08-24] MEDS ORDERED: meTOprolol 5 MG/5 ML (LOPRESSOR) VIAL IV NR (16:00)
[2022-08-24] MEDS ORDERED: OXYBUTYNIN (DITROPAN) 5 MG TAB PO SCH (18:00)
[2022-08-24] MEDS: cefTRIAXone 1 GM PRE-MIX 50 ML IV SCH (19:27)
[2022-08-24] MEDS ORDERED: OXYBUTYNIN (DITROPAN) 5 MG TAB PO NR (21:00)
[2022-08-25] MEDS: HYDROcodone/APAP 5 MG/325 MG (LORTAB) TAB PO PRN ×4 (02:41→22:44)
[2022-08-25 03:01] VITALS: BP 131/84
[2022-08-25 05:12] LABS: BASOPHILS % (AUTO) 1 % (0-10); EOSINOPHILS # (AUTO) 0.2 10^3/uL (0.0-0.3); EOSINOPHILS % (AUTO) 2 % (0-10); HEMATOCRIT 35 % (35-52); HEMOGLOBIN 11.4 g/dL (11.5-16.0); LYMPHOCYTES # (AUTO) 1.8 10^3/uL (1.0-4.0); LYMPHOCYTES % (AUTO) 21 % (12-44); MEAN CORPUSCULAR HEMOGLOBIN 30 pg (25-34); MEAN CORPUSCULAR HGB CONC 32 g/dL (32-36); MEAN CORPUSCULAR VOLUME 92 fL (80-99); MEAN PLATELET VOLUME 10.1 fL (9.0-12.2); MONOCYTES # (AUTO) 1.4 10^3/uL (0.0-1.0); MONOCYTES % (AUTO) 16 % (0-12); NEUTROPHILS # (AUTO) 5.2 10^3/uL (1.8-7.8); NEUTROPHILS % (AUTO) 59 % (42-75); PLATELET COUNT 266 10^3/uL (130-400); WHITE BLOOD COUNT 8.7 10^3/uL (4.3-11.0)
[2022-08-25 05:32] LABS: ALBUMIN 2.6 GM/DL (3.2-4.5); BILIRUBIN,TOTAL 0.2 MG/DL (0.1-1.0); CALCIUM 8.9 MG/DL (8.5-10.1); CREATININE SERUM 0.78 MG/DL (0.60-1.30); POTASSIUM 4.8 MMOL/L (3.6-5.0); TOTAL PROTEIN 5.5 GM/DL (6.4-8.2)
[2022-08-25] MEDS: LEVOTHYROXINE 88 MCG (LEVOTHORID) TAB PO SCH (06:18)
[2022-08-25] MEDS: CATHETER FLUSH 10 ML SYR IVP SCH ×3 (06:18→19:28)
[2022-08-25 07:31] VITALS: BP 142/92
[2022-08-25] MEDS: ASPIRIN E.C. 81 MG (ECOTRIN) TAB PO SCH (08:10)
[2022-08-25] MEDS: APIXABAN 5 MG (ELIQUIS) TABLET PO SCH ×2 (08:10→19:28)
[2022-08-25] MEDS: OXYBUTYNIN (DITROPAN) 5 MG TAB PO SCH ×2 (08:10→16:53)
[2022-08-25] MEDS: meTOprolol SUCCINATE 100 MG (TOPROL XL) TAB PO SCH (08:10)
[2022-08-25 11:12] VITALS: BP 127/89
--- NOTE | 2022-08-25 11:52 | Progress Note - Hospitalist ---
Subjective HPI/CC On Admission Date Seen by Provider: Aug 25, 2022 Time Seen by Provider: 11:48 Subjective/Events-last exam Patient reports feeling more fatigued today. She believes she has picked up something in the hospital infection [place]. She has a sore throat reports that she is now coughing up a little bit of yellowish sputum which is new. She reports some postnasal drip which is new as well. She denies chest pain. Objective Exam Vital Signs Vital Signs Date Time Temp Pulse Resp B/P (MAP) Pulse Ox O2 Delivery O2 Flow Rate FiO2 08/25/22 11:12 36.1 76 18 127/89 (102) 94 Room Air 08/25/22 08:00 1.00 08/21/22 23:04 28 Capillary Refill : General Appearance: No Apparent Distress, Chronically ill, Other (Fatigued) Respiratory: Chest Non Tender, No Accessory Muscle Use, No Respiratory Distress, Other ( scattered rhonchi posteriorly no focal consolidative findings noted.) Cardiovascular: No Edema, No Murmur, Irregularly Irregular Gastrointestinal: Normal Bowel Sounds, No Organomegaly, No Pulsatile Mass, Non Tender, Soft Results/Procedures Lab Laboratory Tests 08/25/22 04:50 Patient resulted labs reviewed. Assessment/Plan Assessment and Plan Assess & Plan/Chief Complaint Assess & Plan/Chief Complaint Exacerbation of congestive heart failure - cardiology consulted and concluded that patient presentation is most likely due to UTI and sepsis vs congestive heart failure exacerbation - on telemetry - patient has congestive heart failure due to previous [place] - metoprolol 100mg 1xD restarted from home med list Acute on chronic respiratory failure - patient tolerating room air - respiratory failure most likely due to sepsis from a UTI - albuterol 2.5mg TID restarted from home med list, changed to PRN - ipratropium 0.5mg BID restarted from home med list, changed to PRN 08/25: Urinary tract infection with sepsis appears to be resolved however with URI symptoms fatigue and individual with baseline frailty did obtain nasal swab for influenza and COVID which were negative. Suspect she has picked up one of the other viral infections will continue to monitor too weak to consider discharge. UTI with bacteremia and SEPSIS - day 3 IV ceftriaxone started - preliminary culture grew E coli, sensitivity pending - preliminary blood culture grew gram negative rods - WBC trending down from 11.5 to 9.2 - preliminary blood culture grew gram negative jose, sensitivity pending - Sepsis has resolved Atrial fibrillation - there was concern that patient was in atrial fibrillation, but cardiology did not identify A fib on telemetry - Eliquis 5mg 1xD restarted from home med list - cardiology consulted - on telemetry patient has not had any signs of atrial fibrillation CAD with Hx of intervention - aspirin 81mg 1xD restarted from home med list - BP and hld are well controlled Hx of PE - eliquis restarted Constipation - docusate calcium 240mg 1xD ordered COPD - inhalers restarted from home med list, changed to PRN EMILIE - CPAP ordered for night time use Hypertension - metoprolol restarted - BP is well controlled Hyperlipidemia - well controlled Hypothyroidism - levothyroxine 88mcg 1xD restarted from home med list Overactive bladder - oxybutynin 5mg BID restarted from home med list Chronic pain - hydrocodone/acetaminophen Q6hrs PRN restarted from home med list Mobility - PT/OT will be ordered to work with the patient today Need for home health - social worker masters spoke with patient about options for skilled workers and was given a phone number to call POLY SPENCER MD Aug 25, 2022 11:52
--- NOTE | 2022-08-25 11:54 | History & Physical-Hospitalist ---
POLY SPENCER MD 08/25/22 1154: History of Present Illness Date Seen 08/25/22 Attending Physician [facility] PCP Admitting Physician: Payal Maloney MD Attending Physician: Payal Maloney MD Referring Physician Date of Admission Aug 21, 2022 at 21:58 Home Medications & Allergies Home Medications Reviewed patient Home Medication Reconciliation performed by pharmacy medication reconciliations settlement technician and/or nursing. Patients Allergies have been reviewed. Allergies Allergies Coded Allergies Penicillins (Verified Allergy, Unknown, HAS HAD ANCEF W/O PROBLEMS, 12/23/18) atorvastatin (Verified Allergy, Unknown, TAKES CRESTOR AT HOME, 08/24/22) procaine (Verified Allergy, Unknown, 12/23/18) Past [id number] Hx Patient Social History Marrital Status: single Living Status: Living in own home Employed/Student: retired Tobacco Use?: Yes Tobacco type used: Cigarettes Smoking Status: Former Smoker Smokeless Tobacco Frequency: Never a User Use of E-Cig and/or Vaping dev: No Substance use?: No Alcohol Use?: No Immunizations Up To Date Date of Influenza Vaccine: Apr 07, 2022 First/Initial COVID19 Vaccinat: 10/26 Second COVID19 Vaccination Fernando: 10/26 Tetanus Booster (TDap): Unknown Date of Pneumonia Vaccine: May 03, 2020 Seasonal Allergies Seasonal Allergies: No Current Status status: No Advance Directives: Unable to obtain Communicates: Verbally Primary Language: Sinhala Preferred Spoken Language: Sinhala Is interpretation needed?: No Implanted or Applied Medical D: Stents Past Medical History Surgeries: Abdominal, Coronary Stent COPD Currently Using CPAP: No Currently Using BIPAP: No Coronary Artery Disease, Heart Attack, High Cholesterol, Hypertension Sexually Transmitted Disease: No HIV/AIDS: No Abdominal Hernia, Ulcer Arthritis Hypothyroidsim Cataract Loss of Vision: Denies Colon Did You Recieve Any Treatments: Yes What Type of Treatment Did You: Surgical Intervention Pruritis Blood Disorders: No Adverse Reaction/Blood Tranf: No (HAS HAD BLOOD WITH NO REACTION) CAD Chronic Systolic CHF EF 40-45% 2020 COPD no baseline oxygen need Family Medical History Cancer 03 MOTHER, Onset:40's - 50 Family history: Thyroid disorder 03 MOTHER 09 BROTHER Hearing loss 09 BROTHER Visual impairment 09 BROTHER No Family History of: Abdominal aortic aneurysm Heart Disease, Hypertension Physical Exam Physical Exam Vital Signs Vital Signs - First Documented 08/21/22 08/21/22 08/21/22 15:23 16:12 23:04 Pulse 84 Resp 18 B/P (MAP) 104/60 (75) Pulse Ox 92 O2 Delivery Nasal Cannula O2 Flow Rate 2.00 FiO2 28 Capillary Refill : Height, Weight, BMI Height: 5'3.00" Weight: 242lbs. 2.0oz. 109.534216ek; 34.99 BMI Method:Stated Results Results/Procedures Labs Laboratory Tests 08/24/22 05:23 08/24/22 05:27 08/25/22 04:50 Patient resulted labs reviewed. Assessment/Plan Assessment and Plan Assess & Plan/Chief Complaint Exacerbation of congestive heart failure - cardiology consulted and concluded that patient presentation is most likely due to UTI and sepsis vs congestive heart failure exacerbation - on telemetry - patient has congestive heart failure due to previous AR - metoprolol 100mg 1xD restarted from home med list Acute on chronic respiratory failure - patient tolerating room air - respiratory failure most likely due to sepsis from a UTI - albuterol 2.5mg TID restarted from home med list, changed to PRN - ipratropium 0.5mg BID restarted from home med list, changed to PRN 08/25: Urinary tract infection with sepsis appears to be resolved however with URI symptoms fatigue and individual with baseline frailty did obtain nasal swab for influenza and COVID which were negative. Suspect she has picked up one of the other viral infections will continue to monitor too weak to consider discharge. UTI with bacteremia and SEPSIS - day 3 IV ceftriaxone started - preliminary culture grew E coli, sensitivity pending - preliminary blood culture grew gram negative rods - WBC trending down from 11.5 to 9.2 - preliminary blood culture grew gram negative jose, sensitivity pending - Sepsis has resolved Atrial fibrillation - there was concern that patient was in atrial fibrillation, but cardiology did not identify A fib on telemetry - Eliquis 5mg 1xD restarted from home med list - cardiology consulted - on telemetry patient has not had any signs of atrial fibrillation CAD with Hx of intervention - aspirin 81mg 1xD restarted from home med list - BP and hld are well controlled Hx of PE - eliquis restarted Constipation - docusate calcium 240mg 1xD ordered COPD - inhalers restarted from home med list, changed to PRN EMILIE - CPAP ordered for night time use Hypertension - metoprolol restarted - BP is well controlled Hyperlipidemia - well controlled Hypothyroidism - levothyroxine 88mcg 1xD restarted from home med list Overactive bladder - oxybutynin 5mg BID restarted from home med list Chronic pain - hydrocodone/acetaminophen Q6hrs PRN restarted from home med list Mobility - PT/OT will be ordered to work with the patient today Need for home health - social media developer spoke with patient about options for skilled workers and was given a phone number to call LINDA08/28/22 0905: Past Bqpsqoy-[id number]-Pfievb Hx Family Medical History Cancer 03 MOTHER, Onset:40's - 50 Family history: Thyroid disorder 03 MOTHER 09 BROTHER Hearing loss 09 BROTHER Visual impairment 09 BROTHER No Family History of: Abdominal aortic aneurysm POLY SPENCER MD Aug 25, 2022 11:54 LINDAAug 28, 2022 09:05
--- NOTE | 2022-08-25 12:35 | Cardiology Progress Note ---
Subjective Date Seen by Provider: Aug 25, 2022 Time Seen by Provider: 12:33 Subjective/Events-last exam Patient was seen at bedside, complaining of generalized fatigue, increasing cough. Review of Systems General: No Chills, No Night Sweats; Fatigue, Malaise; No Appetite, No Other HEENT: No Head Aches, No Visual Changes, No Eye Pain, No Ear Pain, No Dysphasia, No Sinus Congestion, No Post Nasal Drip, No Sore Throat, No Other Pulmonary: Dyspnea, Cough; No Pleuritic Chest Pain, No Other Cardiovascular: No: Chest Pain, Palpitations, Orthopnea, Paroxysmal Noc. Dyspnea, Edema, Lt Headedness, Other Objective-Cardiology Exam Last Set of Vital Signs Vital Signs 08/21/22 08/25/22 08/25/22 23:04 08:00 11:12 Temp 36.1 Pulse 76 Resp 18 B/P (MAP) 127/89 (102) Pulse Ox 94 O2 Delivery Room Air O2 Flow Rate 1.00 FiO2 28 I&O Intake and Output 08/25/22 00:00 Intake Total 1420 ml Output Total 1550 ml Balance -130 ml Intake Oral 1370 ml IV Total 50 ml Output Urine Total 1550 ml # Voids 1 General: Alert, Oriented X3, Cooperative, No Acute Distress HEENT: Mucous Memb Moist/[place] Neck: Supple Lungs: Clear to Auscultation, Normal Air Movement Heart: Regular Rate, Normal S1, Normal S2, No Murmurs Abdomen: Soft, No Tenderness Extremities: No Clubbing, No Cyanosis, No Edema Skin: No Significant Lesion Neuro: Normal Speech Psych/Mental Status: Mental Status NL, Mood NL Results Lab Laboratory Tests 08/25/22 04:50 A/P-Cardiology Admission Diagnosis UTI PVCs CAD HTN Assessment/Plan Urinary tract infection, received antibiotic and managed by primary care team. Increasing dyspnea, cough. Mild elevation in BNP. I will reevaluate chest x-ray, give Lasix 40 mg IV x1. Frequent PVCs noted on telemetry, no atrial fibrillation, I will restart low dose beta jennifer, continue to monitor. Coronary artery disease Status post acute myocardial infarction in 2013 with total occlusion of the right coronary artery, underwent complex intervention with stent deployment to the right coronary artery using 3.5x30 mm integrity and 3.018 mm bare-metal stent without complication. Had multiple clots in the distal right coronary artery, Had another cardiac catheterization in December 2014 resulted in deployment of another stent 3.012 mm integrity bare-metal stent with good result. Patient had [id number] disease in the LAD and circumflex artery. Cardiac catheterization done October 10, 2016 revealed patent stents in the LAD with mild disease distally, nonobstructive disease. 50 percent in-stent restenosis of the mid right coronary artery with FFR of 0.84. Cardiac catheterization done 09/07/20 showing calcified and tortuous prox LAD with sig gradient by FFR, successful deployment of 2 overlapping stents using Emily stent prox 2.75x18 and midportion 2.5x23mm with excellent results. Patent stent in the RCA, mild dz in the circumflex. Most recent cardiac catheterization done 01/03/22 showing mild to moderate in- stent restenosis in the mid right coronary artery, small vessel disease at the distal right coronary artery nonobstructive disease. Patent stent in the proximal LAD with mild disease distally, nonobstructive disease, mild disease in the circumflex artery. Mildly elevated left ventricular end-diastolic pressure. Mild aortic valve stenosis noted by 2D echo in September 2021, PA pressure 15 to 20 mmHg. Continue to monitor Congestive heart failure, 2D echo done on August 23, 2022, normal LV size and systolic function with a EF 60 to 65%, grade 1 diastolic dysfunction, mild aortic valve stenosis, PA pressure 40 to 45 mmHg History of PE February 2022 during hospitalization at [facility] in [place], maintained on Eliquis as outpatient. Currently on Eliquis. Ventral hernia-status post repair by Dr. Sun April 2015. Has recurrence of hernia, will refer to Dr. Rodriguez for further evaluation. Hypertension, controlled, continue to monitor. Hyperlipidemia, well controlled, continue to monitor. History of colon cancer, status post right hemicolectomy done by Dr. Alas. patient has been monitored and followed by Dr. Henriquez, did not see Dr. Henriquez since 2004 Obesity, patient was instructed on weight loss. Bilateral nonobstructive carotid artery stenosis, last carotid ultrasound was done in October 2021 PETROS ANTHONY MD Aug 25, 2022 12:35
[2022-08-25] MEDS ORDERED: FUROSEMIDE 40 MG/4 ML INJ (LASIX) IVP ONE (12:45)
--- NOTE | 2022-08-25 13:17 | Diagnostic Imaging Report ---
Indication: Cough and dyspnea. Comparison: 08/21/2022. Discussion: Two views of the chest were obtained. Elevated left hemidiaphragm is again noted. Significant stool within the colon under the left hemidiaphragm. Lucency under the left hemidiaphragm is stable and felt to represent gastric air. Stable heart size. No consolidation, pleural fluid, or pneumothorax. No osseous abnormality. Impression: 1. No acute cardiopulmonary process. Dictated by: Dictated on workstation # [id number]
[2022-08-25 15:53] VITALS: BP 133/89
[2022-08-25] MEDS: ROSUVASTATIN 10 MG (CRESTOR) TABLET PO SCH (16:53)
[2022-08-25] MEDS: cefTRIAXone 1 GM PRE-MIX 50 ML IV SCH (19:28)
[2022-08-25 19:31] VITALS: BP 130/83
[2022-08-25 23:02] VITALS: BP 136/77
[2022-08-26 03:28] VITALS: BP 130/84
[2022-08-26] MEDS: HYDROcodone/APAP 5 MG/325 MG (LORTAB) TAB PO PRN ×3 (05:39→22:07)
[2022-08-26] MEDS: CATHETER FLUSH 10 ML SYR IVP SCH ×3 (05:39→19:09)
[2022-08-26] MEDS: LEVOTHYROXINE 88 MCG (LEVOTHORID) TAB PO SCH (05:39)
[2022-08-26 07:34] VITALS: BP 169/106
[2022-08-26] MEDS: APIXABAN 5 MG (ELIQUIS) TABLET PO SCH ×2 (09:27→19:09)
[2022-08-26] MEDS: OXYBUTYNIN (DITROPAN) 5 MG TAB PO SCH ×2 (09:28→16:36)
[2022-08-26] MEDS: ASPIRIN E.C. 81 MG (ECOTRIN) TAB PO SCH (09:28)
[2022-08-26] MEDS: meTOprolol SUCCINATE 100 MG (TOPROL XL) TAB PO SCH (09:28)
--- NOTE | 2022-08-26 10:52 | Progress Note - Hospitalist ---
Subjective HPI/CC On Admission Date Seen by Provider: Aug 26, 2022 Time Seen by Provider: 07:00 Subjective/Events-last exam Patient reports stable yellow to greenish sputum production with persistent fatigue and rhinorrhea. She denies sore throat denies chest pain. COVID and influenza swabs were negative and chest x-ray did not reveal evidence for pneumonia. Objective Exam Vital Signs Vital Signs Date Time Temp Pulse Resp B/P (MAP) Pulse Ox O2 Delivery O2 Flow Rate FiO2 08/26/22 08:00 95 Nasal Cannula 2.00 08/26/22 07:34 36.3 71 20 169/106 (127) 08/21/22 23:04 28 Capillary Refill : General Appearance: No Apparent Distress, Chronically ill Respiratory: No Accessory Muscle Use, No Respiratory Distress, Other (Bibasilar somewhat coarse rales left worse than right no wheezing or rhonchi noted.) Cardiovascular: Regular Rate, Rhythm, No Edema, No Gallop, No JVD, No Murmur Results/Procedures Lab Patient resulted labs reviewed. Assessment/Plan Assessment and Plan Assess & Plan/Chief Complaint Assess & Plan/Chief Complaint Exacerbation of congestive heart failure - cardiology consulted and concluded that patient presentation is most likely due to UTI and sepsis vs congestive heart failure exacerbation - on telemetry - patient has congestive heart failure due to previous AK - metoprolol 100mg 1xD restarted from home med list Acute on chronic respiratory failure - patient tolerating room air - respiratory failure most likely due to sepsis from a UTI - albuterol 2.5mg TID restarted from home med list, changed to PRN - ipratropium 0.5mg BID restarted from home med list, changed to PRN 08/25: Urinary tract infection with sepsis appears to be resolved however with URI symptoms fatigue and individual with baseline frailty did obtain nasal swab for influenza and COVID which were negative. Suspect she has picked up one of the other viral infections will continue to monitor too weak to consider discharge. 08/26: Urinary tract infection resolved with likely hospital-acquired viral infection. COVID and flu negative. Chest x-ray reveals chronic left elevated hemidiaphragm but no evidence for pneumonia we will continue Rocephin. Patient is too weak to care for self still so hold discharge. UTI with bacteremia and SEPSIS - day 3 IV ceftriaxone started - preliminary culture grew E coli, sensitivity pending - preliminary blood culture grew gram negative rods - WBC trending down from 11.5 to 9.2 - preliminary blood culture grew gram negative jose, sensitivity pending - Sepsis has resolved Atrial fibrillation - there was concern that patient was in atrial fibrillation, but cardiology did not identify A fib on telemetry - Eliquis 5mg 1xD restarted from home med list - cardiology consulted - on telemetry patient has not had any signs of atrial fibrillation CAD with Hx of intervention - aspirin 81mg 1xD restarted from home med list - BP and hld are well controlled Hx of PE - eliquis restarted Constipation - docusate calcium 240mg 1xD ordered COPD - inhalers restarted from home med list, changed to PRN EMILIE - CPAP ordered for night time use Hypertension - metoprolol restarted - BP is well controlled Hyperlipidemia - well controlled Hypothyroidism - levothyroxine 88mcg 1xD restarted from home med list Overactive bladder - oxybutynin 5mg BID restarted from home med list Chronic pain - hydrocodone/acetaminophen Q6hrs PRN restarted from home med list Mobility - PT/OT will be ordered to work with the patient today Need for home health - social work case manager spoke with patient about options for skilled workers and was given a phone number to call POLY SPENCER MD Aug 26, 2022 10:51
[2022-08-26 11:23] VITALS: BP 113/77
--- NOTE | 2022-08-26 11:58 | Cardiology Progress Note ---
Subjective Date Seen by Provider: Aug 26, 2022 Time Seen by Provider: 11:57 Subjective/Events-last exam Patient was seen at bedside, still having cough productive of yellowish phlegm Review of Systems General: No Chills, No Night Sweats; Fatigue; No Malaise, No Appetite, No Other HEENT: No Head Aches, No Visual Changes, No Eye Pain, No Ear Pain, No Dysphasia, No Sinus Congestion, No Post Nasal Drip, No Sore Throat, No Other Pulmonary: Dyspnea, Cough; No Pleuritic Chest Pain, No Other Cardiovascular: No: Chest Pain, Palpitations, Orthopnea, Paroxysmal Noc. Dyspnea, Edema, Lt Headedness, Other Objective-Cardiology Exam Last Set of Vital Signs Vital Signs 08/21/22 08/26/22 23:04 11:23 Temp 36.5 Pulse 76 Resp 22 B/P (MAP) 113/77 (89) Pulse Ox 95 O2 Delivery Nasal Cannula O2 Flow Rate 2.00 FiO2 28 I&O Intake and Output 08/26/22 00:00 Intake Total 1975 ml Output Total 3550 ml Balance -1575 ml Intake Oral 1925 ml IV Total 50 ml Output Urine Total 3550 ml # Voids 1 # Bowel Movements 3 General: Alert, Oriented X3, Cooperative, No Acute Distress HEENT: Mucous Memb Moist/[place] Neck Neck: Supple Lungs: Clear to Auscultation, Normal Air Movement Heart: Regular Rate, Normal S1, Normal S2, No Murmurs Abdomen: Soft, No Tenderness Extremities: No Clubbing, No Cyanosis, No Edema Skin: No Significant Lesion Neuro: Normal Speech Psych/Mental Status: Mental Status NL, Mood NL A/P-Cardiology Admission Diagnosis UTI PVCs CAD HTN Assessment/Plan Urinary tract infection, received antibiotic and managed by primary care team. Dyspnea, cough Chest x-ray showed no acute process Received Lasix yesterday. Feeling better, breathing better, still having cough Frequent PVCs noted on telemetry, no atrial fibrillation, I will restart low dose beta jennifer, continue to monitor. Coronary artery disease Status post acute myocardial infarction in 2013 with total occlusion of the right coronary artery, underwent complex intervention with stent deployment to the right coronary artery using 3.5x30 mm integrity and 3.018 mm bare-metal stent without complication. Had multiple clots in the distal right coronary artery, Had another cardiac catheterization in December 2014 resulted in deployment of another stent 3.012 mm integrity bare-metal stent with good result. Patient had [id number] disease in the LAD and circumflex artery. Cardiac catheterization done October 10, 2016 revealed patent stents in the LAD with mild disease distally, nonobstructive disease. 50 percent in-stent restenosis of the mid right coronary artery with FFR of 0.84. Cardiac catheterization done 09/07/20 showing calcified and tortuous prox LAD with sig gradient by FFR, successful deployment of 2 overlapping stents using Emily stent prox 2.75x18 and midportion 2.5x23mm with excellent results. Patent stent in the RCA, mild dz in the circumflex. Most recent cardiac catheterization done 01/03/22 showing mild to moderate in- stent restenosis in the mid right coronary artery, small vessel disease at the distal right coronary artery nonobstructive disease. Patent stent in the proximal LAD with mild disease distally, nonobstructive disease, mild disease in the circumflex artery. Mildly elevated left ventricular end-diastolic pressure. Mild aortic valve stenosis noted by 2D echo in September 2021, PA pressure 15 to 20 mmHg. Continue to monitor Congestive heart failure, 2D echo done on August 23, 2022, normal LV size and systolic function with a EF 60 to 65%, grade 1 diastolic dysfunction, mild aor tic valve stenosis, PA pressure 40 to 45 mmHg History of PE February 2022 during hospitalization at [facility] in [address], maintained on Eliquis as outpatient. Currently on Eliquis. Ventral hernia-status post repair by Dr. Sun April 2015. Has recurrence of hernia, will refer to Dr. Rodriguez for further evaluation. Hypertension, controlled, continue to monitor. Hyperlipidemia, well controlled, continue to monitor. History of colon cancer, status post right hemicolectomy done by Dr. Alas. patient has been monitored and followed by Dr. Henriquez, did not see Dr. Henriquez since 2004 Obesity, patient was instructed on weight loss. Bilateral nonobstructive carotid artery stenosis, last carotid ultrasound was done in October 2021 PETROS ANTHONY MD Aug 26, 2022 11:58
[2022-08-26 16:14] VITALS: BP 102/60
[2022-08-26] MEDS: ROSUVASTATIN 10 MG (CRESTOR) TABLET PO SCH (16:35)
[2022-08-26 20:00] VITALS: BP 107/70
[2022-08-26 23:20] VITALS: BP 139/63
[2022-08-27 03:19] VITALS: BP 127/79
[2022-08-27] MEDS: LEVOTHYROXINE 88 MCG (LEVOTHORID) TAB PO SCH (05:54)
[2022-08-27] MEDS: HYDROcodone/APAP 5 MG/325 MG (LORTAB) TAB PO PRN ×3 (05:54→17:54)
[2022-08-27] MEDS: CATHETER FLUSH 10 ML SYR IVP SCH ×3 (05:55→20:34)
[2022-08-27 07:28] VITALS: BP 143/69
[2022-08-27] MEDS: APIXABAN 5 MG (ELIQUIS) TABLET PO SCH ×2 (07:42→20:33)
[2022-08-27] MEDS: meTOprolol SUCCINATE 100 MG (TOPROL XL) TAB PO SCH (07:42)
[2022-08-27] MEDS: OXYBUTYNIN (DITROPAN) 5 MG TAB PO SCH ×2 (07:42→17:53)
[2022-08-27] MEDS: ASPIRIN E.C. 81 MG (ECOTRIN) TAB PO SCH (07:42)
[2022-08-27 08:26] LABS: BASOPHILS # (AUTO) 0.1 10^3/uL (0.0-0.1); BASOPHILS % (AUTO) 1 % (0-10); EOSINOPHILS # (AUTO) 0.4 10^3/uL (0.0-0.3); EOSINOPHILS % (AUTO) 5 % (0-10); HEMATOCRIT 37 % (35-52); HEMOGLOBIN 11.8 g/dL (11.5-16.0); LYMPHOCYTES # (AUTO) 1.8 10^3/uL (1.0-4.0); LYMPHOCYTES % (AUTO) 20 % (12-44); MEAN CORPUSCULAR HEMOGLOBIN 29 pg (25-34); MEAN CORPUSCULAR HGB CONC 32 g/dL (32-36); MEAN CORPUSCULAR VOLUME 93 fL (80-99); MEAN PLATELET VOLUME 9.7 fL (9.0-12.2); MONOCYTES # (AUTO) 0.9 10^3/uL (0.0-1.0); MONOCYTES % (AUTO) 11 % (0-12); NEUTROPHILS # (AUTO) 5.5 10^3/uL (1.8-7.8); NEUTROPHILS % (AUTO) 63 % (42-75); PLATELET COUNT 320 10^3/uL (130-400); WHITE BLOOD COUNT 8.7 10^3/uL (4.3-11.0)
[2022-08-27 08:50] LABS: ALBUMIN 2.6 GM/DL (3.2-4.5); BILIRUBIN,TOTAL 0.3 MG/DL (0.1-1.0); CALCIUM 8.6 MG/DL (8.5-10.1); CREATININE SERUM 0.88 MG/DL (0.60-1.30); POTASSIUM 4.5 MMOL/L (3.6-5.0); TOTAL PROTEIN 5.6 GM/DL (6.4-8.2)
--- NOTE | 2022-08-27 09:15 | Cardiology Progress Note ---
Subjective Date Seen by Provider: Aug 27, 2022 Time Seen by Provider: 08:40 Subjective/Events-last exam Patient is sitting up in chair, c/o bilateral shoulder pain, denies any chest pain Objective-Cardiology Exam Last Set of Vital Signs Vital Signs 08/21/22 08/27/22 23:04 11:10 Temp 36.5 Pulse 67 Resp 18 B/P (MAP) 119/74 (89) Pulse Ox 95 O2 Delivery Nasal Cannula O2 Flow Rate 1.50 FiO2 28 I&O Intake and Output 08/27/22 00:00 Intake Total 1640 ml Output Total 3400 ml Balance -1760 ml Intake Oral 1640 ml Output Urine Total 3400 ml General: Alert, Oriented X3, Cooperative, No Acute Distress HEENT: Mucous Memb Moist/[place] Neck: Supple Lungs: Clear to Auscultation, Normal Air Movement Heart: Regular Rate, Normal S1, Normal S2, No Murmurs Abdomen: Soft, No Tenderness Extremities: No Clubbing, No Cyanosis, No Edema Skin: No Significant Lesion Neuro: Normal Speech Psych/Mental Status: Mental Status NL, Mood NL Results Lab Laboratory Tests 08/27/22 07:49 A/P-Cardiology Admission Diagnosis UTI PVCs CAD HTN Assessment/Plan Urinary tract infection, received antibiotic and managed by primary care team. Dyspnea, cough Chest x-ray showed no acute process Received Lasix yesterday. Feeling better, breathing better, still having cough Frequent PVCs noted on telemetry, no atrial fibrillation, home beta jennifer restarted. Continue to monitor telemetry Coronary artery disease Status post acute myocardial infarction in 2013 with total occlusion of the right coronary artery, underwent complex intervention with stent deployment to the right coronary artery using 3.5x30 mm integrity and 3.018 mm bare-metal stent without complication. Had multiple clots in the distal right coronary artery, Had another cardiac catheterization in December 2014 resulted in deployment of another stent 3.012 mm integrity bare-metal stent with good result. Patient had gopq-gp-ofppsqan disease in the LAD and circumflex artery. Cardiac catheterization done October 10, 2016 revealed patent stents in the LAD with mild disease distally, nonobstructive disease. 50 percent in-stent restenosis of the mid right coronary artery with FFR of 0.84. Cardiac catheterization done 09/07/20 showing calcified and tortuous prox LAD with sig gradient by FFR, successful deployment of 2 overlapping stents using Emily stent prox 2.75x18 and midportion 2.5x23mm with excellent results. Patent stent in the RCA, mild dz in the circumflex. Most recent cardiac catheterization done 01/03/22 showing mild to moderate in- stent restenosis in the mid right coronary artery, small vessel disease at the distal right coronary artery nonobstructive disease. Patent stent in the proximal LAD with mild disease distally, nonobstructive disease, mild disease in the circumflex artery. Mildly elevated left ventricular end-diastolic pressure. Mild aortic valve stenosis noted by 2D echo in September 2021, PA pressure 15 to 20 mmHg. Continue to monitor Congestive heart failure, 2D echo done on August 23, 2022, normal LV size and systolic function with a EF 60 to 65%, grade 1 diastolic dysfunction, mild aortic valve stenosis, PA pressure 40 to 45 mmHg History of PE February 2022 during hospitalization at [facility] in [place], maintained on Eliquis as outpatient. Currently on Eliquis. Ventral hernia-status post repair by Dr. Sun April 2015. Has recurrence of hernia, will refer to Dr. Rodriguez for further evaluation. Hypertension, controlled, continue to monitor. Hyperlipidemia, well controlled, continue to monitor. History of colon cancer, status post right hemicolectomy done by Dr. Alas. patient has been monitored and followed by Dr. Henriquez, did not see Dr. Henriquez since 2003 Obesity, patient was instructed on weight loss. Bilateral nonobstructive carotid artery stenosis, last carotid ultrasound was done in October 2021 Supervisory-Addendum Brief Supervisory Addendum Participated in pt care: history, MDM, physical Personally performed: exam, history, MDM Care discussed with: RANJITH Results interpretation: Verified all documentation Notes: Patient was seen and evaluated with Sonya, examination performed, management plan was discussed, agree with the current scribed note, I made few changes to the note using Italic font Patient was seen at bedside, sitting comfortably, feeling better today Asking about going home. Tolerating current medication well Okay for discharge and follow-up as an outpatient SONYA BLAKE Aug 27, 2022 09:14 PETROS ANTHONY MD Aug 27, 2022 12:38
[2022-08-27 11:10] VITALS: BP 119/74
[2022-08-27] MEDS: CEFDINIR 300 MG (OMNICEF) CAP PO SCH ×2 (11:30→20:33)
--- NOTE | 2022-08-27 13:14 | Progress Note - Hospitalist ---
JAZZMINE CREWS 08/27/22 1314: Subjective HPI/CC On Admission Date Seen by Provider: Aug 27, 2022 Time Seen by Provider: 08:15 Atrial Fibrillation with RVR, UTI Subjective/Events-last exam Patrick Berger is a 81 yo F with PMH of COPD, EMILIE w/ CPAP, CAD, atrial fibrillation, and previous PE in January 2022. She arrived to the ED on 08/21/22 after waking up with chills, lightheadedness, generalized weakness, and shortness of breath. She was initially evaluated at the [facility] however they sent her to the emergency department due to a concerning EKG. In the ER she was placed on 2L O2 NC with pulse oximetry in the 90's. Chest X-ray did not show any acute changes and CTA did not show any signs of a new PE. The patient's WBC and BNP were elevated. A UA was positive for nitrites. Patient was admitted for sepsis from UTI, congestive heart failure, and acute on chronic r espiratory failure. 08/21: Urine culture grew E. coli. 1 of 2 blood cultures grew E.coli. 08/22: EKGs noted atrial fibrillation and PVCs. Cardiology following. 08/23: ECHO: wall thickness is normal. EF is 55-60%. Mild stenosis of aortic valve. Pulmonary artery systolic pressures 40-45 mmHg. Patient was sitting in recliner on interview. She is alert, oriented, and in no distress. She is wearing 1.5L of O2 nasal cannula. Reports she does not wear O2 at home. States she has pain in bilateral shoulders which is chronic. Cannot remember when she last had a bowel movement. Voiding fine. She is able to ambulate about her room independently but needs standby to ambulate hallways. She is eating fine. She states that Dr. Posey says her heart sounds good. Reports she lives at home with her son. Review of Systems General: No Chills, No Fatigue; Appetite (good) HEENT: No Visual Changes; Post Nasal Drip (some) Pulmonary: No Dyspnea; Cough Cardiovascular: No: Chest Pain, Palpitations Gastrointestinal: No: Nausea, Vomiting, Abdominal Pain Genitourinary: No Dysuria, No Hematuria Musculoskeletal: shoulder pain (chronic) Neurological: Weakness (some); No: Confusion Objective Exam Vital Signs Vital Signs Date Time Temp Pulse Resp B/P (MAP) Pulse Ox O2 Delivery O2 Flow Rate FiO2 08/27/22 11:10 36.5 67 18 119/74 (89) 95 Nasal Cannula 1.50 08/21/22 23:04 28 Capillary Refill : General Appearance: No Apparent Distress, WD/WN, Obese, Other (wearing 1.5L o2 nasal cannula) HEENT: PERRL/EOMI, Moist Mucous Membranes Neck: Full Range of Motion, Normal Inspection, Non Tender, Supple Respiratory: Chest Non Tender, Lungs Clear, Normal Breath Sounds, No Accessory Muscle Use, No Respiratory Distress, Other (Cough) Cardiovascular: Regular Rate, Rhythm, No Murmur, Normal Peripheral Pulses Gastrointestinal: Normal Bowel Sounds, Non Tender, Soft Rectal: Deferred Back: No CVA Tenderness, No Vertebral Tenderness Extremity: Non Tender, No Calf Tenderness, Swelling (right foot, chronic) Neurologic/Psychiatric: Alert, Oriented x3, Normal Mood/Affect Results/Procedures Lab Laboratory Tests 08/27/22 07:49 Patient resulted labs reviewed. Radiology NAME: PATRICK BERGER Zeny [facility] REC#: [id number] PT STATUS: ADM IN : 1940 PHYSICIAN: PETROS POSEY MD ADMIT DATE: 08/21/22 Signed Date of Exam:08/25/22 CHEST PA/LAT (2 VIEW) Indication: Cough and dyspnea. Comparison: 08/21/2022. Discussion: Two views of the chest were obtained. Elevated left hemidiaphragm is again noted. Significant stool within the colon under the left hemidiaphragm. Lucency under the left hemidiaphragm is stable and felt to represent gastric air. Stable heart size. No consolidation, pleural fluid, or pneumothorax. No osseous abnormality. Impression: 1. No acute cardiopulmonary process. Dictated by: Dictated on workstation # [id number] Dict: 08/25/22 1306 Trans: 08/25/[address] [facility] [id number] Interpreted by: NIK DIXON MD Electronically signed by: NIK DIXON MD 08/25/22 1553 Assessment/Plan Assessment and Plan Assess & Plan/Chief Complaint Assessment & Plan: Exacerbation of congestive heart failure - cardiology consulted and concluded that patient presentation is most likely due to UTI and sepsis vs congestive heart failure exacerbation - on telemetry - patient has congestive heart failure due to previous [place] - metoprolol 100mg 1xD restarted from home med list Acute on chronic respiratory failure - patient on 1.5L nasal cannula - respiratory failure most likely due to sepsis from a UTI - albuterol 2.5mg TID restarted from home med list, changed to PRN - ipratropium 0.5mg BID restarted from home med list, changed to PRN 08/25: Urinary tract infection with sepsis appears to be resolved however with URI symptoms fatigue and individual with baseline frailty did obtain nasal swab for influenza and COVID which were negative. Suspect she has picked up one of the other viral infections will continue to monitor too weak to consider discharge. 08/26: Urinary tract infection resolved with likely hospital-acquired viral infection. COVID and flu negative. Chest x-ray reveals chronic left elevated hemidiaphragm but no evidence for pneumonia we will continue Rocephin. UTI with bacteremia and SEPSIS - Finished Ceftriaxone. Start PO cefdinir. - preliminary culture grew E coli, sensitivity pending - preliminary blood culture grew E coli - WBC trend is stable at 8.7 - preliminary blood culture E. coli - Sepsis has resolved Atrial fibrillation - there was concern that patient was in atrial fibrillation, but cardiology did not identify A fib on telemetry - Eliquis 5mg 1xD restarted from home med list - cardiology consulted - on telemetry patient has not had any signs of atrial fibrillation CAD with Hx of intervention - aspirin 81mg 1xD restarted from home med list - BP and hld are well controlled Hx of PE - eliquis restarted Constipation - docusate calcium 240mg 1xD ordered COPD - inhalers restarted from home med list, changed to PRN EMILIE - CPAP ordered for night time use Hypertension - metoprolol restarted - BP is well controlled Hyperlipidemia - well controlled Hypothyroidism - levothyroxine 88mcg 1xD restarted from home med list Overactive bladder - oxybutynin 5mg BID restarted from home med list Chronic pain - hydrocodone/acetaminophen Q6hrs PRN restarted from home med list Mobility - PT/OT will be ordered to work with the patient Need for home health - social services director spoke with patient about options for skilled workers and was given a phone number to call SURI GOLDEN DO 08/28/22 0526: Supervisory-Addendum Brief Verification & Attestation Participated in pt care: history, MDM, physical Personally performed: exam, history, MDM, supervision of care Care discussed with: Medical Student Procedures: n/a Results interpretation: Verified all documentation Verification and Attestation of Medical Student E/M Service A medical student performed and documented this service in my presence. I reviewed and verified all information documented by the medical student and made modifications to such information, when appropriate. I personally performed the physical exam and medical decision making. Suri Golden, Aug 28, 2022,05:26 JAZZMINE CREWS Aug 27, 2022 13:14 SURI GOLDEN DO Aug 28, 2022 05:26
--- NOTE | 2022-08-27 13:34 | Physical Therapy Evaluation ---
PT Evaluation-General Medical Diagnosis Admission Date Aug 21, 2022 at 21:58 Medical Diagnosis: A-fib/UTI Onset Date: Aug 21, 2022 Therapy Diagnosis Therapy Diagnosis: debility Height/Weight Height (Feet): 5 Height (Inches): 3.00 Weight (Pounds): 242 Weight (Ounces): 2.0 Precautions Precautions/Isolations: Standard Precautions Referral Physician: Karthikeyan Reason for Referral: Evaluation/Treatment Medical History Pertinent Medical History: CAD, COPD, Heart Failure, HTN, Hypothroidism, SC Additional Medical History colon cancer Current History ER secondary to abnormal EKG Reviewed History: Yes Social History Home: Single Level Current Living Status: Alone Prior Prior Level of Function SCALE: Activities may be completed with or without assistive devices. 2-Tbayegwdoz-trpwzxu completes the activity by him/herself with no assistance from a helper. 5-Set-up or Clean-up Assistance-helper sets up or cleans up; patient completes activity. [place] assists only prior to or following the activity. 4-Supervision or Touching Assistance-helper provides verbal cues and/or touching/steadying and/or contact guard assistance as patient completes acti vity. Assistance may be provided throughout the activity or intermittently. 3-Partial/Moderate Assistance-helper does LESS THAN HALF the effort. [place] lifts, holds or supports trunk or limbs, but provides less than half the effort. 2-Substantial/Maximal Assistance-helper does MORE THAN HALF the effort. [place] lifts or holds trunk or limbs and provides more than half the effort. 0-Jdxtmkblw-hgocxd does ALL the effort. Patient does none of the effort to complete the activity. Or, the assistance of 2 or more helpers is required for the patient to complete the activity. If activity was not attempted, code reason: 7-Patient Refused. 9-Not Applicable-not attempted and the patient did not perform the activity before the current illness, exacerbation or injury. 10-Not Attempted due to Environmental Limitations-(lack of equipment, weather restraints, etc.). 88-Not Attempted due to Medical Conditions or Safety Concerns. Bed Mobility: 6 Transfers (B,C,W/C): 6 Gait: 6 Stairs: 6 Indoor Mobility (Ambulation): Independent Stairs: Independent Prior Devices Use: Walker (PRN) PT Evaluation-Current Subjective Patient agrees to PT. No c/o at this time. Objective Patient Orientation: Normal For Age Attachments: Oxygen ROM/Strength ROM Lower Extremities bilateral LE WFL Strength Lower Extremities 4-/5 grossly bilateral LE all planes Integumentary/Posture Bowel Incontinence: No Bladder Incontinence: No Posture WFL Neuromuscular (Tone, Coordination, Reflexes) grossly intact Sensory Vision: Functional Hearing: Functional Transfers Lying to Sitting/Side of Bed(Q: 6 Sit to Stand (QC): 6 Chair/Oqb-uh-Zlijk Xfer(QC): 6 Toilet Transfer (QC): 6 Gait Mode of Locomotion: Walk Anticipated Mode of Locomotion: Walk Walk 10 feet (QC): 6 Walk 50 ft with 2 Turns(QC): 6 Walk 150 ft (QC): 6 Distance: 300' Gait Assistive Device: FWW Comments/Gait Description safe and functional with no deviation Balance Sitting Static: Normal Sitting Dynamic: Normal Standing Static: Normal Standing Dynamic: Normal Assessment/Needs Patient is currently at independent PLOF with all gross motor skills and does not require skilled PT intervention at this time. Rehab Potential: Fair PT Plan Treatment/Plan Treatment Plan: Discontinue PT, goals met Treatment Duration: Aug 27, 2022 Frequency: 1 time per week Estimated Hrs Per Day: .25 hour per day Patient and/or Family Agrees t: Yes Time Time In: 1300 Time Out: 1310 DATE: Aug 27, 2022 Total Billed Treatment Time: 10 Total Billed Treatment 1 visit EVMod 10 min JACKY PEOPLES PT Aug 27, 2022 13:34
--- NOTE | 2022-08-27 14:15 | Occupational Therapy Eval ---
OT Evaluation-General/PLF Medical Diagnosis Admission Date Aug 21, 2022 at 21:58 Medical Diagnosis: A-fib/UTI Onset Date: Aug 21, 2022 Therapy Diagnosis Therapy Diagnosis: weakness Height/Weight Height (Feet): 5 Height (Inches): 3.00 Weight (Pounds): 242 Weight (Ounces): 2.0 Precautions Precautions/Isolations: Standard Precautions Weight Bear Status Weight Bearing Restriction: Weight Bearing/Tolerated Referral Physician: Karthikeyan Referral Reason: Evaluation/Treatment Medical History Pertinent Medical History: CAD, COPD, Heart Failure, HTN, Hypothroidism, VT Current History Patient is a 81yo F with PMH of COPD, EMILIE w/ CPAP, CAD, atrial fibrillation, and previous PE in January 2022. At home the patient woke up with chills and shortness of breath. She tried to get up and go to the restroom but struggled when getting off of the toilet due to weakness and feeling lightheaded. She tried to walk around the house but her shortness of breath worsened when she got up to walk. Patient has an albuterol inhaler at home that she tried but it did not improve her symptoms. She decided to go to the [facility] walk in clinic to be evaluated. The clinic did an EKG and was concerned that it was abnormal so they sent her to the emergency room. In the ER she was placed on 2L O2 NC with pulse oximetry in the 90's. Chest X-ray did not show any acute changes and CTA did not show any signs of a new PE. The patient's WBC and BNP were elevated. A UA was positive for nitrites. Patient was admitted for sepsis from UTI, congestive heart failure, and acute on chronic respiratory failure. Says she is feeling less short of breath today but is very tired . Patient was on room air with pulse oximeter in the 90's. Reviewed History: Yes Social History Home: Single Level Current Living Status: Alone Entry Into Home: Stairs Without Railing Steps Into Home: 3 (uses side of house to stabilize while managing stairs) ADL-Prior Level of Function SCALE: Activities may be completed with or without assistive devices. 1-Twpahetzgx-xmygwka completes the activity by him/herself with no assistance from a helper. 5-Set-up or Clean-up Assistance-helper sets up or cleans up; patient completes activity. [place] assists only prior to or following the activity. 4-Supervision or Touching Assistance-helper provides verbal cues and/or touching/steadying and/or contact guard assistance as patient completes activity. Assistance may be provided throughout the activity or intermittently. 3-Partial/Moderate Assistance-helper does LESS THAN HALF the effort. [place] lifts, holds or supports trunk or limbs, but provides less than half the effort. 2-Substantial/Maximal Assistance-helper does MORE THAN HALF the effort. [place] lifts or holds trunk or limbs and provides more than half the effort. 6-Wyfuyhfkc-xtisms does ALL the effort. Patient does none of the effort to complete the activity. Or, the assistance of 2 or more helpers is required for the patient to complete the activity. If activity was not attempted, code reason: 7-Patient Refused. 9-Not Applicable-not attempted and the patient did not perform the activity before the current illness, exacerbation or injury. 10-Not Attempted due to Environmental Limitations-(lack of equipment, weather restraints, etc.). 88-Not Attempted due to Medical Conditions or Safety Concerns. Self Care: Independent (" I get it done") Functional Cognition: Independent Drive Self: No (son drives in her car) OT Current Status Subjective Resting following PT ambulating in halls Mental Status/Objective Patient Orientation: Person, Place, Time, Situation, Normal For Age Attachments: Oxygen (cut to shorten distance in nostrils) Current Dentures/Partials: Yes Upper Extremity ROM Chronic limited ROM, once was Right hand dominant now is left dominant Upper Extremity Strength +3/5 in range, uses methods of compensation to complete tasks ADL-Treatment Eating (QC): 6 Oral Hygiene (QC): 6 (dentures) Shower/Bathe Self (QC): 7 (declined performance) Upper Body Dressing (QC): 6 (doff and don hospital gown backwards) Lower Body Dressing (QC): 6 On/Off Footwear (QC): 6 Toileting Hygiene (QC): 6 Other Treatments Simulated IADLS as patient will return home alone, PLB an drest periods as needed Education OT Patient Education: Energy conservation, Modified ADL techniques, Progress toward Goal/Update tx plan, Purpose of tx/functional activities, Reviewed precautions, Rehab process, Safety issues Teaching Recipient: Patient Teaching Methods: Demonstration, Discussion Response to Teaching: Verbalize Understanding, Return Demonstration OT Retirement Goals Retirement Goals 1=Demonstrate adherence to instructed precautions during ADL tasks. 2=Patient will verbalize/demonstrate understanding of assistive devices/modifications for ADL. 3=Patient will improve strength/tolerance for activity to enable patient to perform ADL's. OT Education/Plan Problem List/Assessment Assessment: Decreased Activ Tolerance (requires rest periods), Decreased UE Strength, Impaired I ADL's (family assist as needed) Discharge Recommendations Plan/Recommendations: Discharge/Goals Met Treatment Plan/Plan of Care Treatment,Training & Education: Yes Patient would benefit from OT for education, treatment and training to promote independence in ADL's, mobility, safety and/or upper extremity function for ADL's. Plan of Care: OTHER (goals met at evaluation) Comment Patient left with RT entering room Treatment Duration: Aug 27, 2022 Frequency: 1 time per week Estimated Hrs Per Day: .25 hour per day Agreement: Yes Rehab Potential: Good Time Start Time: 13:04 Stop Time: 13:28 DATE: Aug 27, 2022 Total Time Billed (hr/min): 24 Billed Treatment Time 1 visit EVL 1, ADL 1 24 minutes CALIXTO WALKER OT Aug 27, 2022 14:15
[2022-08-27] MEDS: ROSUVASTATIN 10 MG (CRESTOR) TABLET PO SCH (15:12)
[2022-08-27 15:32] VITALS: BP 117/63
[2022-08-27 19:28] VITALS: BP 113/62
[2022-08-27 23:25] VITALS: BP 118/64
[2022-08-28 03:23] VITALS: BP 129/66
[2022-08-28 05:49] LABS: BASOPHILS # (AUTO) 0.1 10^3/uL (0.0-0.1); BASOPHILS % (AUTO) 1 % (0-10); EOSINOPHILS # (AUTO) 0.4 10^3/uL (0.0-0.3); EOSINOPHILS % (AUTO) 4 % (0-10); HEMATOCRIT 35 % (35-52); HEMOGLOBIN 11.5 g/dL (11.5-16.0); LYMPHOCYTES % (AUTO) 22 % (12-44); MEAN CORPUSCULAR HEMOGLOBIN 30 pg (25-34); MEAN CORPUSCULAR HGB CONC 33 g/dL (32-36); MEAN CORPUSCULAR VOLUME 92 fL (80-99); MEAN PLATELET VOLUME 9.6 fL (9.0-12.2); MONOCYTES # (AUTO) 1.2 10^3/uL (0.0-1.0); MONOCYTES % (AUTO) 14 % (0-12); NEUTROPHILS # (AUTO) 5.1 10^3/uL (1.8-7.8); NEUTROPHILS % (AUTO) 58 % (42-75); PLATELET COUNT 406 10^3/uL (130-400); WHITE BLOOD COUNT 8.8 10^3/uL (4.3-11.0)
[2022-08-28] MEDS: LEVOTHYROXINE 88 MCG (LEVOTHORID) TAB PO SCH (06:16)
[2022-08-28] MEDS: CATHETER FLUSH 10 ML SYR IVP SCH ×2 (06:16→12:11)
[2022-08-28 06:29] LABS: ALBUMIN 2.5 GM/DL (3.2-4.5); BILIRUBIN,TOTAL 0.3 MG/DL (0.1-1.0); CALCIUM 8.8 MG/DL (8.5-10.1); CREATININE SERUM 0.79 MG/DL (0.60-1.30); POTASSIUM 4.4 MMOL/L (3.6-5.0); TOTAL PROTEIN 5.5 GM/DL (6.4-8.2)
[2022-08-28] MEDS: HYDROcodone/APAP 5 MG/325 MG (LORTAB) TAB PO PRN (07:35)
[2022-08-28 07:45] VITALS: BP 129/69
[2022-08-28] MEDS: meTOprolol SUCCINATE 100 MG (TOPROL XL) TAB PO SCH (08:33)
[2022-08-28] MEDS: CEFDINIR 300 MG (OMNICEF) CAP PO SCH (08:33)
[2022-08-28] MEDS: OXYBUTYNIN (DITROPAN) 5 MG TAB PO SCH (08:33)
[2022-08-28] MEDS: APIXABAN 5 MG (ELIQUIS) TABLET PO SCH (08:33)
[2022-08-28] MEDS: ASPIRIN E.C. 81 MG (ECOTRIN) TAB PO SCH (08:33)
[2022-08-28] MEDS ORDERED: CEFD300C3 PO (09:36)
--- NOTE | 2022-08-28 09:36 | Discharge Summary ---
Discharge Summary Hospital Course Was the Problem List Reviewed?: Yes Problems/Dx: (1) UTI (urinary tract infection) (2) Atrial fibrillation (3) CO2 narcosis Status: Acute (4) Obesity hypoventilation syndrome Status: Chronic (5) CAD (coronary artery disease) Status: Chronic (6) COPD (chronic obstructive pulmonary disease) Status: Chronic (7) Acute and chronic respiratory failure with hypercapnia Status: Acute Hospital Course Date of Admission: Aug 21, 2022 at 21:58 Admission Diagnosis : Family Physician/Provider: [place] Date of Discharge: 08/28/22 Discharge Diagnosis: [ ] Hospital Course: Lengthy course d=after admitted for AMS and requiring intense management with Cardiology. UTI diagnosed and placed on empiric abx and noted bacteremia. Cardiology monitored patient closely and oxygen testing was completed but she declined to change her oxygen set up at home so no new ordered placed. Refuses HH or therapy. Overall poor prognosis given her complex med issues and advanced age and decline of medical recs. Labs and Pending Lab Test: Laboratory Tests 08/28/22 05:33: White Blood Count 8.8, Red Blood Count 3.81, Hemoglobin 11.5, Hematocrit 35, Mean Corpuscular Volume 92, Mean Corpuscular Hemoglobin 30, Mean Corpuscular Hemoglobin Concent 33, Red Cell Distribution Width 13.7, Platelet Count 406H, Mean Platelet Volume 9.6, Immature Granulocyte % (Auto) 1, Neutrophils (%) (Auto) 58, Lymphocytes (%) (Auto) 22, Monocytes (%) (Auto) 14H, Eosinophils (%) (Auto) 4, Basophils (%) (Auto) 1, Neutrophils # (Auto) 5.1, Lymphocytes # (Auto) 2.0, Monocytes # (Auto) 1.2H, Eosinophils # (Auto) 0.4H, Basophils # (Auto) 0.1, Immature Granulocyte # (Auto) 0.1, Sodium Level 137, Potassium Level 4.4, Chl oride Level 97L, Carbon Dioxide Level 32, Anion Gap 8, Blood Urea Nitrogen 19H, Creatinine 0.79, Estimat Glomerular Filtration Rate 76, BUN/Creatinine Ratio 24, Glucose Level 101, Calcium Level 8.8, Corrected Calcium 10.0, Total Bilirubin 0.3, Aspartate Amino Transf (AST/SGOT) 20, Alanine Aminotransferase (ALT/SGPT) 17, Alkaline Phosphatase 55, Total Protein 5.5L, Albumin 2.5L Microbiology 08/21/22 Urine Culture - Final, Complete Escherichia coli Escherichia coli#2 08/21/22 Blood Culture - Final, Complete No growth Home Meds Active Reported Oxybutynin Chloride 5 Mg Tablet 5 Mg PO 1800 LAST FILLED 02-02-2022 #360/120 DAY SUPPLY Metoprolol Succinate 100 Mg Tab.er.24h 100 Mg PO DAILY Eliquis (Apixaban) 5 Mg Tablet 5 Mg PO BID Aspirin EC (Aspirin) 81 Mg Tablet.dr 81 Mg PO DAILY Rosuvastatin Calcium 10 Mg Tablet 10 Mg PO 1600 Pantoprazole Sodium 40 Mg Tablet.dr 40 Mg PO DAILY Levothyroxine Sodium 88 Mcg Tablet 88 Mcg PO DAILY Oxybutynin Chloride 5 Mg Tablet 10 Mg PO BID TAKES 2 (5MG) TABS LAST FILLED 02-02-2022 #360/120 DAY SUPPLY Assessment/Pt Instructions PCP 1 week Discharge Planning: <30 minutes discharge planning Discharge Physical Examination Vital Signs Vital Signs Date Time Temp Pulse Resp B/P (MAP) Pulse Ox O2 Delivery O2 Flow Rate FiO2 08/28/22 07:45 36.5 72 20 129/69 (89) 91 Nasal Cannula 0.50 General Appearance: No Apparent Distress, WD/WN, Chronically ill Allergies: Coded Allergies: Penicillins (Verified Allergy, Unknown, HAS HAD ANCEF W/O PROBLEMS, 12/23/18) atorvastatin (Verified Allergy, Unknown, TAKES CRESTOR AT HOME, 08/24/22) procaine (Verified Allergy, Unknown, 12/23/18) Discharge Summary Date of Admission Aug 21, 2022 at 21:58 Date of Discharge Discharge Date: Aug 28, 2022 EVAN GOLDEN DO Aug 28, 2022 09:36
--- NOTE | 2022-08-28 10:08 | Cardiology Progress Note ---
Subjective Date Seen by Provider: Aug 28, 2022 Time Seen by Provider: 08:35 Subjective/Events-last exam Patient is sitting up in chair, no new complaints. Objective-Cardiology Exam Last Set of Vital Signs Vital Signs 08/28/22 07:45 Temp 36.5 Pulse 72 Resp 20 B/P (MAP) 129/69 (89) Pulse Ox 91 O2 Delivery Nasal Cannula O2 Flow Rate 0.50 I&O Intake and Output 08/28/22 00:00 Intake Total 1810 ml Output Total 3900 ml Balance -2090 ml Intake Oral 1810 ml Output Urine Total 3900 ml # Bowel Movements 1 General: Alert, Oriented X3, Cooperative, No Acute Distress HEENT: Mucous Memb Moist/[place] Neck: Supple Lungs: Clear to Auscultation, Normal Air Movement Heart: Regular Rate, Normal S1, Normal S2, No Murmurs Abdomen: Soft, No Tenderness Extremities: No Clubbing, No Cyanosis, No Edema Skin: No Significant Lesion Neuro: Normal Speech Psych/Mental Status: Mental Status NL, Mood NL Results Lab Laboratory Tests 08/28/22 05:33 A/P-Cardiology Admission Diagnosis UTI PVCs CAD HTN Assessment/Plan Urinary tract infection, received antibiotic and managed by primary care team. Dyspnea, cough Chest x-ray showed no acute process Feeling better, breathing better, still having cough Frequent PVCs noted on telemetry, no atrial fibrillation, home beta jennifer restarted. Continue to monitor telemetry Coronary artery disease Status post acute myocardial infarction in 2013 with total occlusion of the right coronary artery, underwent complex intervention with stent deployment to the right coronary artery using 3.5x30 mm integrity and 3.018 mm bare-metal s tent without complication. Had multiple clots in the distal right coronary artery, Had another cardiac catheterization in December 2014 resulted in deployment of another stent 3.012 mm integrity bare-metal stent with good result. Patient had iznu-ar-hjyhoovc disease in the LAD and circumflex artery. Cardiac catheterization done October 10, 2016 revealed patent stents in the LAD with mild disease distally, nonobstructive disease. 50 percent in-stent restenosis of the mid right coronary artery with FFR of 0.84. Cardiac catheterization done 09/07/20 showing calcified and tortuous prox LAD with sig gradient by FFR, successful deployment of 2 overlapping stents using Emily stent prox 2.75x18 and midportion 2.5x23mm with excellent results. Patent stent in the RCA, mild dz in the circumflex. Most recent cardiac catheterization done 01/03/22 showing mild to moderate in- stent restenosis in the mid right coronary artery, small vessel disease at the distal right coronary artery nonobstructive disease. Patent stent in the proximal LAD with mild disease distally, nonobstructive disease, mild disease in the circumflex artery. Mildly elevated left ventricular end-diastolic pressure. Mild aortic valve stenosis noted by 2D echo in September 2021, PA pressure 15 to 20 mmHg. Continue to monitor Congestive heart failure, 2D echo done on August 23, 2022, normal LV size and systolic function with a EF 60 to 65%, grade 1 diastolic dysfunction, mild aortic valve stenosis, PA pressure 40 to 45 mmHg History of PE February 2022 during hospitalization at [facility] in [place], maintained on Eliquis as outpatient. Currently on Eliquis. Ventral hernia-status post repair by Dr. Sun April 2015. Has recurrence of hernia, will refer to Dr. Rodriguez for further evaluation. Hypertension, controlled, continue to monitor. Hyperlipidemia, well controlled, continue to monitor. History of colon cancer, status post right hemicolectomy done by Dr. Alas. patient has been monitored and followed by Dr. Henriquez, did not see Dr. Henriquez since 2004 Obesity, patient was instructed on weight loss. Bilateral nonobstructive carotid artery stenosis, last carotid ultrasound was done in October 2021 Supervisory-Addendum Brief Supervisory Addendum Participated in pt care: history, MDM, physical Personally performed: exam, history, MDM Care discussed with: RANJITH Results interpretation: Verified all documentation Notes: Patient was seen and evaluated with Sonya, examination performed, management plan was discussed, agree with the current scribed note, I made few changes to the note using Italic font Patient was seen at bedside, sitting comfortably Asking about going home. No new complaint. We will arrange for follow-up as an outpatient SONYA BLAKE Aug 28, 2022 10:08 PETROS ANTHONY MD Aug 28, 2022 10:37
--- NOTE | 2022-08-28 10:20 | Occupational Ther Daily Note ---
OT Current Status-Daily Note Subjective UP in chair 'waiting to go home as soon as lets me' Mental Status/Objective Patient Orientation: Normal For Age 4 discontinued ADL-Treatment Therapy Code Descriptions/Definitions Functional [place] Measure: 0=Not Assessed/NA 4=Minimal Assistance 1=Total Assistance 5=Supervision or Setup 2=Maximal Assistance 6=Modified [place] 3=Moderate Assistance 7=Complete IndependenceSCALE: Activities may be completed with or without assistive devices. 8-Immdgxwzps-jpxqyyr completes the activity by him/herself with no assistance from a helper. 5-Set-up or Clean-up Assistance-helper sets up or cleans up; patient completes activity. [place] assists only prior to or following the activity. 4-Supervision or Touching Assistance-helper provides verbal cues and/or touching/steadying and/or contact guard assistance as patient completes activity. Assistance may be provided throughout the activity or intermittently. 3-Partial/Moderate Assistance-helper does LESS THAN HALF the effort. [place] lifts, holds or supports trunk or limbs, but provides less than half the effort. 2-Substantial/Maximal Assistance-helper does MORE THAN HALF the effort. [place] lifts or holds trunk or limbs and provides more than half the effort. 1-Zmdfoodtp-nmnidf does ALL the effort. Patient does none of the effort to comp lete the activity. Or, the assistance of 2 or more helpers is required for the patient to complete the activity. If activity was not attempted, code reason: 7-Patient Refused. 9-Not Applicable-not attempted and the patient did not perform the activity before the current illness, exacerbation or injury. 10-Not Attempted due to Environmental Limitations-(lack of equipment, weather restraints, etc.). 88-Not Attempted due to Medical Conditions or Safety Concerns. Eating (QC): 6 Oral Hygiene (QC): 6 Shower/Bathe Self (QC): 6 (sponge) Upper Body Dressing (QC): 6 Lower Body Dressing (QC): 6 On/Off Footwear: 6 (loose laces to slip on) Toileting Hygiene (QC): 6 Toilet Transfer (QC): 6 Other Treatment Endurance training w/ simulated IADLS Education OT Patient Education: Energy conservation, Exercise program, Modified ADL techniques, Progress toward Goal/Update tx plan, Purpose of tx/functional activities, Reviewed precautions, Rehab process, Safety issues, Transfer techniques, Use of adapted equipment Teaching Recipient: Patient Teaching Methods: Demonstration, Discussion Response to Teaching: Return Demonstration OT Group Home Goals Email Campaign Manager Goals 1=Demonstrate adherence to instructed precautions during ADL tasks. MET 2=Patient will verbalize/demonstrate understanding of assistive devices/modifications for ADL. MET 3=Patient will improve strength/tolerance for activity to enable patient to perform ADL's. MET OT Education/Plan Problem List/Assessment Assessment: Decreased Activ Tolerance Discharge Recommendations Plan/Recommendations: Discharge/Goals Met Therapy Discharge Recommendati: Other, See Comments (Therapy goals emanuel) Comment Patient to move from home to new residency in a month Treatment Plan/Plan of Care Patient would benefit from OT for education, treatment and training to promote independence in ADL's, mobility, safety and/or upper extremity function for ADL's. Plan of Care: OTHER (goals met at evaluation) Treatment Duration: Aug 27, 2022 Frequency: 1 time per week Estimated Hrs Per Day: .25 hour per day Agreement: Yes Rehab Potential: Good Up in chair all needs met Time Start Time: 08:49 Stop Time: 09:09 DATE: Aug 28, 2022 Total Time Billed (hr/min): 20 Billed Treatment Time 1 visit FA 1 20 min CALIXTO WALKER OT Aug 28, 2022 10:20
[2022-08-28 10:47] VITALS: BP 129/69
== END 2022-08-28 13:00 | disposition home or self-care (01) | DRG 871 ==
LOC: EDUNIT# 15:02 → ER 15:03 → 4TH 21:58
PROVIDERS: ADMIT Family Medicine; ATTEND Internal Medicine
DX: A41.51 Sepsis due to Escherichia coli [E. coli] (principal); I50.23 Acute on chronic systolic (congestive) heart failure; J96.21 Acute and chronic respiratory failure with hypoxia; J96.22 Acute and chronic respiratory failure with hypercapnia; N39.0 Urinary tract infection, site not specified; E66.2 Morbid (severe) obesity with alveolar hypoventilation; I11.0 Hypertensive heart disease with heart failure; T82.855D Stenosis of coronary artery stent, subsequent encounter; Z66 Do not resuscitate; Z20.822 Contact with and (suspected) exposure to COVID-19; I35.0 Nonrheumatic aortic (valve) stenosis; J44.9 Chronic obstructive pulmonary disease, unspecified; E78.00 Pure hypercholesterolemia, unspecified; N32.81 Overactive bladder; I48.91 Unspecified atrial fibrillation; I25.10 Atherosclerotic heart disease of native coronary artery without angina pectoris; Z68.34 Body mass index [BMI] 34.0-34.9, adult; K59.00 Constipation, unspecified; G89.29 Other chronic pain; I65.23 Occlusion and stenosis of bilateral carotid arteries; I49.3 Ventricular premature depolarization; E03.9 Hypothyroidism, unspecified; M19.91 Primary osteoarthritis, unspecified site; Z79.01 Long term (current) use of anticoagulants; Z86.711 Personal history of pulmonary embolism; Z87.891 Personal history of nicotine dependence; Z95.5 Presence of coronary angioplasty implant and graft; I25.2 Old myocardial infarction; Z85.038 Personal history of other malignant neoplasm of large intestine; Z90.49 Acquired absence of other specified parts of digestive tract; Z79.82 Long term (current) use of aspirin; Z79.899 Other long term (current) drug therapy; Z88.0 Allergy status to penicillin; Z88.8 Allergy status to other drugs, medicaments and biological substances
CPT/HCPCS: 36415; 36600; 71045; 71046; 71275; 80048; 80053; 81000; 82805; 83605; 83735; 83880; 84484; 85007; 85025; 85027; 85379; 85610; 85730; 87040; 87077; 87088; 87186; 87636; 93005; 93306; 94640; 94760; 94761; 96374; 96375

== ENCOUNTER 2022-12-17 05:42 | Outpatient (CLI) | payer MEDICARE, MEDICAID ==
[~2022-12-17] VITALS: Ht 160 cm; Wt 87.4 kg
[2022-12-17] MEDS ORDERED: ROSU5TAB PO (14:46)
[2022-12-17] MEDS ORDERED: IBUP-1780 PO (14:46)
[2022-12-17] MEDS ORDERED: APIX5TAB PO (14:46)
== END 2022-12-17 14:47 | disposition home or self-care (01) ==
LOC: PREOP 05:42
PROVIDERS: ATTEND Specialist
DX: Z01.818 Encounter for other preprocedural examination (principal)

== ENCOUNTER 2022-12-21 07:00 | Day surgery (SDC) | payer MEDICARE, MEDICAID ==
[~2022-12-21] VITALS: Ht 160 cm; Wt 87.4 kg
[2022-12-21] MEDS ORDERED: POVIDONE (BETADINE) OPHTH SOLN 5% 30 ML OP ONE (08:00)
[2022-12-21] MEDS ORDERED: TIMOLOL 0.5% (CATARACTS) 0.3 ML BTL OU PRN (08:00)
[2022-12-21] MEDS ORDERED: MOXIFLOXACIN OPHTH SOLN 5 MG/ML 0.3 ML SYRINGE OP ONE (08:00)
[2022-12-21] MEDS: TETRACAINE 0.5% OPHTH SOLN 4 ML BTL (SINGLE DOSE ONLY) OU PRN ×4 (08:06→08:23)
[2022-12-21 08:10] VITALS: BP 136/84
[2022-12-21] MEDS: PHENYLEPHRINE 10% OPHTH (NEO-SYN) 5 ML BTL OU SCH ×3 (08:13→08:23)
[2022-12-21] MEDS: TROPICAMIDE 1% OPH SOLN (MYDRIACYL) 15 ML BTL OP SCH ×3 (08:13→08:23)
[2022-12-21] MEDS ORDERED: MIDAZOLAM 2 MG/2 ML (VERSED) VIAL ONE (08:33)
--- NOTE | 2022-12-21 08:53 | Ophthalmologist Pre-Op Note ---
Pre-Operative Progress Note H&P Reviewed The H&P was reviewed, patient examined and no changes noted. Date H&P Reviewed: Dec 21, 2022 Time H&P Reviewed: 08:53 Pre-Op Dx Cataract, Left Eye ERIKA SAMUEL MD Dec 21, 2022 08:53
--- NOTE | 2022-12-21 09:10 | Ophthalmology Operative Report ---
Cataract removal/placement IOL PREOPERATIVE DIAGNOSIS: Cataract Left Eye POSTOPERATIVE DIAGNOSIS: Cataract Left Eye PROCEDURE: Cataract removal and placement of posterior chamber implant, left eye SURGEON: Pete Samuel ANESTHESIA: Topical with sedation COMPLICATIONS: None ESTIMATED BLOOD LOSS: Minimal DESCRIPTION OF PROCEDURE: After proper informed consent was obtained, the patient, a 82 female, was taken to the Operating Room and the left eye was anesthetized with tetracaine. The left eye was then prepped and draped in the usual manner. A wire lid speculum was placed. A paracentesis was made at the left hand position. Preservative free lidocaine was injected into the anterior chamber followed by viscoelastic. A clear corneal incision was made in the temporal position. A capsulorrhexis was preformed and the central nuclear and cortical material were removed. The posterior capsule was polished and an Tyler 22.0 [id number] was placed into the capsular bag. The residual viscoelastic was aspirated and balanced saline solution was injected into the anterior chamber. Moxifloxacin was injected into the anterior chamber. The wound was checked and found to be water tight. The patient tolerated the procedure well without complications. PETE SAMUEL MD Dec 21, 2022 09:10
[2022-12-21 09:15] VITALS: BP 146/82
[2022-12-21] MEDS ORDERED: acetaZOLAMIDE ER 500 MG CAP (DIAMOX SEQUELS) PO ONE (10:30)
--- NOTE | 2022-12-21 13:40 | Anesthesia-General Post-Op ---
MAC Patient Condition Mental Status/LOC: Same as Preop Cardiovascular: Satisfactory Nausea/Vomiting: Absent Respiratory: Satisfactory Pain: Controlled Complications: Absent Post Op Complications Complications None Follow Up Care/Instructions Patient Instructions None needed. Anesthesiology Discharge Order Discharge Order Patient was doing well this morning after the procedure with no complaints, stable vital signs, no apparent adverse anesthesia problems. No complications reported per nursing. OSMIN MEYER DO Dec 21, 2022 13:40
== END 2022-12-21 09:17 | disposition home or self-care (01) ==
LOC: SDC 07:00
PROVIDERS: ATTEND Specialist
DX: H25.9 Unspecified age-related cataract (principal); G47.33 Obstructive sleep apnea (adult) (pediatric); Z87.891 Personal history of nicotine dependence; Z85.038 Personal history of other malignant neoplasm of large intestine; Z95.5 Presence of coronary angioplasty implant and graft
CPT/HCPCS: 66984; V2632